=== PATIENT | female | born 1960 | race Two or more races ===

== ENCOUNTER 2018-12-18 07:55 | Emergency (ER) | payer MEDICARE ==
[2018-12-18] MEDS ORDERED: ASPIRIN 81 MG TABLET, CHEWABLE PO ONE (08:09)
--- NOTE | 2018-12-18 08:51 | RADIOLOGY REPORT (SQ) ---
EXAM DESCRIPTION: CHEST SINGLE VIEW COMPLETED DATE/TIME: 12/18/2018 8:37 am REASON FOR STUDY: cp COMPARISON: None. EXAM PARAMETERS: NUMBER OF VIEWS: One view. TECHNIQUE: Single frontal radiographic view of the chest acquired. RADIATION DOSE: NA LIMITATIONS: None. FINDINGS: LUNGS AND PLEURA: No acute infiltrates or effusions. MEDIASTINUM AND HILAR STRUCTURES: No masses. Contour normal. Normal heart size and pulmonary vasculature. Heart normal in size. Normal vasculature. BONES: No acute findings. HARDWARE: Median sternotomy wires in place. OTHER: Chest leads in place. IMPRESSION: NO ACUTE DISEASE. TECHNICAL DOCUMENTATION: JOB ID: [id number] [employer]- All Rights Reserved Reading location - IP/workstation name: [email or web address]
[2018-12-18] MEDS ORDERED: VALACYCLOVIR HCL 500 MG TABLET PO ONE (08:58)
[2018-12-18] MEDS ORDERED: MORPHINE SULFATE 10 MG/ML INJ IV ONE (08:58)
--- NOTE | 2018-12-18 09:05 | ER Document Report ---
ED General - General Chief Complaint: Chest Pain Stated Complaint: CHEST PAIN Time Seen by Provider: 12/18/18 08:44 TRAVEL OUTSIDE OF THE [place] IN LAST 30 DAYS: No - HPI Notes: Patient is a 58-year-old female that presents to the emergency department for chief complaint of left side pain and chest pain. Patient reports pain in her left side and proximal lower extremity for the last week. She states it is a sharp burning numb sensation. She denies any aggravating or relieving factors and states she cannot get a comfortable position. She has taken Aleve at home with no relief, her last dose was at 3 AM. She denies any associated fever, chills, nausea, vomiting, diarrhea and abdominal pain. Patient does states she noticed a rash over the left side that started at the same time as the pain. Patient states when the pain gets very severe she gets a tightness in her chest which she describes as diffuse across the anterior chest without radiation into her neck and arms. She denies any associated diaphoresis or shortness of breath with the chest pain. The chest pain has been intermittent over the last week as well. She does have a history of CABG x4 and states she had a stress test within the last year that was good. She has been compliant with her aspirin and Plavix. Past Medical History: CAD, stroke, hypertension, diabetes, hyperlipidemia Past Surgical History: CABG x4 Social History: Denies drugs alcohol and tobacco Family History: Reviewed and noncontributory for presenting illness Allergies: Reviewed, see documented allergy list. REVIEW OF SYSTEMS: CONSTITUTIONAL : No fever No chills No diaphoresis No recent illness EENT: No vision changes No congestion No sore throat CARDIOVASCULAR: chest pain No palpitations RESPIRATORY: No shortness of breath No cough No difficulty breathing GASTROINTESTINAL: No abdominal pain No nausea No vomiting No diarrhea GENITOURINARY: No dysuria No hematuria No difficulty urinating MUSCULOSKELETAL: No back pain leg pain No arm pain SKIN: rashes No lesions LYMPHATIC: No swollen, enlarged glands. NEUROLOGICAL: No lightheadedness No headache No weakness paresthesias PSYCHIATRIC: No anxiety No depression PHYSICAL EXAMINATION: Vital signs reviewed, nursing noted reviewed. GENERAL: Well-appearing, well-nourished and in no acute distress. HEAD: Atraumatic, normocephalic. EYES: Eyes appear normal, extraocular movements intact, sclera anicteric, conjunctiva are normal. ENT: nares patent, oropharynx clear without exudates. Moist mucous membranes. NECK: Normal range of motion, supple without lymphadenopathy LUNGS: Breath sounds clear to auscultation bilaterally and equal. No wheezes rales or rhonchi. HEART: Regular rate and rhythm without murmurs ABDOMEN: Soft, nontender, normoactive bowel sounds. No rebound, guarding, or rigidity. No masses appreciated. EXTREMITIES: Tenderness to palpation over lateral left proximal thigh and lower abdomen in the distribution of her rash, no bony tenderness, good range of motion, no pitting or edema. NEUROLOGICAL: No focal neurological deficits. Moves all extremities spontaneously Motor and sensory grossly intact on exam. PSYCH: Anxious, normal affect. SKIN: Warm, Dry, normal turgor, vesicular rash to lateral left lower abdomen and proximal left thigh - Related Data Allergies/Adverse Reactions: No Known Allergies Allergy (Verified 12/18/18 08:11) Past Medical History - Social History Smoking Status: Never Smoker Family History: Reviewed & Not Pertinent Physical Exam - Vital signs Vitals: Temp Pulse Resp BP Pulse Ox 98.5 F 100 20 209/108 H 99 12/18/18 07:57 12/18/18 07:57 12/18/18 07:57 12/18/18 07:57 12/18/18 07:57 Course - Re-evaluation Re-evalutation: 12/18/18 09:05 Vitals reviewed. Nursing notes reviewed. Patient is complaining of a tightness in her chest and has a significant history of coronary artery disease. She was placed on telemetry monitoring. EKG shows a tachycardia with no acute ischemic changes. Agents pain over her left proximal thigh and lower abdomen is consistent with shingles. She was given morphine and acyclovir for her shingles. She did receive aspirin for her complaints of chest pain. 12/18/18 10:23 Patient's cardiac work-up is normal. She has a slight elevation of creatinine with no comparison labs. Patient will be given Valtrex and Vernal for treatment of her shingles. And currently not suspicious for underlying ACS given that her chest tightness only occurs when the pain in her hip gets more severe and her presentation is normal. She does have risk factors for ACS and was counseled on return precautions. She will be referred to primary care and told to follow closely for reevaluation. She will return for new or worsening symptoms. She is improved at time of discharge. Laboratory 12/18/18 12/18/18 12/18/18 09:00 09:00 09:00 WBC 9.8 RBC 4.60 Hgb 13.3 Hct 39.5 MCV 86 MCH 28.9 MCHC 33.6 RDW 13.8 Plt Count 265 Seg Neutrophils % 71.5 Lymphocytes % 18.4 Monocytes % 4.8 Eosinophils % 4.4 Basophils % 0.9 Absolute Neutrophils 7.0 Absolute Lymphocytes 1.8 Absolute Monocytes 0.5 Absolute Eosinophils 0.4 Absolute Basophils 0.1 Sodium 140.9 Potassium 3.7 Chloride 109 H Carbon Dioxide 27 Anion Gap 5 BUN 22 H Creatinine 1.33 H Est GFR ( Amer) 50 L Est GFR (Non-Af Amer) 41 L Glucose 129 H Calcium 8.6 Total Bilirubin 0.3 Direct Bilirubin 0.2 Neonat Total Bilirubin Not Reportable Neonat Direct Bilirubin Not Reportable Neonat Indirect Bili Not Reportable AST 20 ALT 35 Alkaline Phosphatase 117 Troponin I < 0.012 Total Protein 5.5 L Albumin 2.8 L Chest X-Ray 12/18/18 08:09 IMPRESSION: NO ACUTE DISEASE. - Vital Signs Vital signs: Temp Pulse Resp BP Pulse Ox 98.5 F 100 17 198/109 H 96 12/18/18 07:57 12/18/18 07:57 12/18/18 10:00 12/18/18 09:02 12/18/18 10:00 - Laboratory Result Diagrams: 12/18/18 09:00 12/18/18 09:00 Laboratory results interpreted by me: 12/18/18 09:00 Chloride 109 H BUN 22 H Creatinine 1.33 H Est GFR ( Amer) 50 L Est GFR (Non-Af Amer) 41 L Glucose 129 H Total Protein 5.5 L Albumin 2.8 L - EKG Interpretation by Me Additional EKG results interpreted by me: 12/18/18 09:06 Interpreted by myself [id number]: Sinus tachycardia, rate 101, normal axis, no ectopy, no STEMI Discharge - Discharge Clinical Impression: Shingles Qualifiers: Herpes zoster complications: without complications Qualified Code(s): B02.9 - Zoster without complications Chest pain Qualifiers: Chest pain type: unspecified Qualified Code(s): R07.9 - Chest pain, unspecified Condition: Stable Disposition: HOME, SELF-CARE Instructions: Chest Pain of Unclear Cause ([facility]), Shingles ([facility]) Additional Instructions: Please return to the emergency department if you have any worsening, or concern of your symptoms. Please return to the emergency department if you develop chest pain, difficulty breathing, severe abdominal pain, or ongoing vomiting. Please follow-up with your primary care physician in 2-3 days and any other recommended physicians. If prescribed, take all medications as directed. If you have any questions or concerns do not hesitate to return the emergency department for evaluation. Prescriptions: Hydrocodone/Acetaminophen [Vernal 5-325 mg Tablet] 1 tab PO Q6 #10 tablet Valacyclovir HCl [Valtrex] 1,000 mg PO Q8 7 Days tablet Forms: Elevated Blood Pressure Referrals: [facility] [Provider Group] - Follow up as needed [facility] [Provider Group] - Follow up in 3-5 days
[2018-12-18 09:17] LABS: ABSOLUTE BASOPHILS # (AUTO) 0.1 10^3/uL (0.0-0.2); ABSOLUTE EOSINOPHILS # (AUTO) 0.4 10^3/uL (0.0-0.6); ABSOLUTE LYMPHOCYTES (AUTO) 1.8 10^3/uL (0.5-4.7); ABSOLUTE MONOCYTES (AUTO) 0.5 10^3/uL (0.1-1.4); BASOPHILS % (AUTO) 0.9 % (0-2); EOSINOPHILS % (AUTO) 4.4 % (0-6); HEMATOCRIT 39.5 % (36.0-47.0); HEMOGLOBIN 13.3 g/dL (12.0-15.5); LYMPHOCYTES % (AUTO) 18.4 % (13-45); MEAN CORPUSCULAR HEMOGLOBIN 28.9 pg (27.0-33.4); MEAN CORPUSCULAR HGB CONC 33.6 g/dL (32.0-36.0); MEAN CORPUSCULAR VOLUME 86 fl (80-97); MONOCYTES % (AUTO) 4.8 % (3-13); PLATELET COUNT 265 10^3/uL (150-450); RED CELL DISTRIBUTION WIDTH 13.8 % (11.5-14.0); SEGMENTED NEUTROPHILS % (AUTO) 71.5 % (42-78); TOTAL CELLS COUNTED % (AUTO) 100 %; WHITE BLOOD COUNT 9.8 10^3/uL (4.0-10.5)
[2018-12-18 09:41] LABS: ALANINE AMINOTRANSFERASE 35 U/L (9-52); ALBUMIN 2.8 g/dL (3.5-5.0); ALKALINE PHOSPHATASE 117 U/L (38-126); ANION GAP 5 (5-19); ASPARTATE AMINO TRANSFERASE 20 U/L (14-36); BILIRUBIN,DIRECT 0.2 mg/dL (0.0-0.4); BILIRUBIN,TOTAL 0.3 mg/dL (0.2-1.3); BLOOD UREA NITROGEN 22 mg/dL (7-20); CALCIUM 8.6 mg/dL (8.4-10.2); CARBON DIOXIDE 27 mmol/L (22-30); CHLORIDE 109 mmol/L (98-107); GLUCOSE 129 mg/dL (75-110); POTASSIUM 3.7 mmol/L (3.6-5.0); SODIUM 140.9 mmol/L (137-145); TOTAL PROTEIN 5.5 g/dL (6.3-8.2)
[2018-12-18 10:47] VITALS: BP 167/84
--- NOTE | 2018-12-18 22:31 | EKG REPORT ---
SEVERITY:- ABNORMAL ECG - SINUS TACHYCARDIA BIATRIAL ABNORMALITIES CONSIDER RIGHT VENTRICULAR HYPERTROPHY ABNORMAL T, CONSIDER ISCHEMIA, LATERAL LEADS : Confirmed by: Leta Steward MD 18-Dec-2018 22:31:25
== END 2018-12-18 10:47 | disposition home or self-care (01) ==
LOC: ER 07:55
DX: B02.9 Zoster without complications (principal); R07.9 Chest pain, unspecified; Z95.1 Presence of aortocoronary bypass graft
CPT/HCPCS: 93005; 99285; 96374; 36415; 85025; 80053; 84484; 71045; 93010; A9270 ×2; J2270

== ENCOUNTER → 2019-03-23 | Outpatient (CLI) | payer MEDICARE ==
--- NOTE | 2019-03-23 16:01 | RADIOLOGY REPORT (SQ) ---
EXAM DESCRIPTION: U/S RETROPERITON (RENAL/AORTA) COMPLETED DATE/TIME: 03/23/2019 3:40 pm REASON FOR STUDY: (N18.3)CHRONIC KIDNEY DISEASE, STAGE 3 (MODERATE) N18.3 CHRONIC KIDNEY DISEASE, S TAGE 3 (MODERATE) COMPARISON: None. TECHNIQUE: Dynamic and static grayscale images acquired of the kidneys and bladder and recorded on P ACS. Additional selected color Doppler and spectral images recorded. LIMITATIONS: None. FINDINGS: RIGHT KIDNEY: Normal size measuring 9.9 cm. No solid or suspicious masses. No hydronephro sis. No calcifications. LEFT KIDNEY: Normal size measuring 9.6 cm. No solid or suspicious masses. Lower pole cyst measurin g 1.6 cm. No hydronephrosis. No calcifications. BLADDER: No masses. OTHER FINDINGS: No other significant finding. IMPRESSION: Unremarkable renal ultrasound. No hydronephrosis. TECHNICAL DOCUMENTATION: JOB ID: [id number] [employer]- All Rights Reserved Reading location - IP/workstation name: [email or web address]
== END ==
LOC: RAD 14:24
PROVIDERS: ATTEND Internal Medicine Nephrology
DX: N18.3 Chronic kidney disease, stage 3 (moderate) (principal)
CPT/HCPCS: 76770

== ENCOUNTER → 2019-04-21 | Outpatient (CLI) | payer MEDICARE ==
[2019-04-21 09:51] LABS: ABSOLUTE EOSINOPHILS # (AUTO) 0.4 10^3/uL (0.0-0.6); ABSOLUTE LYMPHOCYTES (AUTO) 1.9 10^3/uL (0.5-4.7); ABSOLUTE MONOCYTES (AUTO) 0.4 10^3/uL (0.1-1.4); ABSOLUTE NEUT (AUTO) 4.6 10^3/uL (1.7-8.2); BASOPHILS % (AUTO) 0.6 % (0-2); EOSINOPHILS % (AUTO) 4.9 % (0-6); HEMATOCRIT 35.3 % (36.0-47.0); LYMPHOCYTES % (AUTO) 26.2 % (13-45); MEAN CORPUSCULAR HEMOGLOBIN 28.4 pg (27.0-33.4); MEAN CORPUSCULAR HGB CONC 33.9 g/dL (32.0-36.0); MEAN CORPUSCULAR VOLUME 84 fl (80-97); MONOCYTES % (AUTO) 5.9 % (3-13); PLATELET COUNT 239 10^3/uL (150-450); RED BLOOD COUNT 4.22 10^6/uL (3.72-5.28); RED CELL DISTRIBUTION WIDTH 13.6 % (11.5-14.0); SEGMENTED NEUTROPHILS % (AUTO) 62.4 % (42-78); TOTAL CELLS COUNTED % (AUTO) 100 %; WHITE BLOOD COUNT 7.3 10^3/uL (4.0-10.5)
[2019-04-21 09:55] LABS: APPEARANCE,URINE SLIGHTLY-CLOUDY; BILIRUBIN,URINE NEGATIVE (NEGATIVE); COLOR,URINE YELLOW; GLUCOSE, URINE >=500 mg/dL (NEGATIVE); KETONES,URINE NEGATIVE (NEGATIVE); LEUKOCYTE ESTERASE,URINE NEGATIVE (NEGATIVE); NITRITE,URINE NEGATIVE (NEGATIVE); PROTEIN,URINE >=500 mg/dL (NEGATIVE); UROBILINOGEN,URINE NEGATIVE mg/dL (<2.0)
[2019-04-21 10:18] LABS: ALBUMIN 2.8 g/dL (3.5-5.0); ALKALINE PHOSPHATASE 111 U/L (38-126); ASPARTATE AMINO TRANSFERASE 28 U/L (14-36); BILIRUBIN,DIRECT 0.1 mg/dL (0.0-0.4); BILIRUBIN,TOTAL 0.4 mg/dL (0.2-1.3); BLOOD UREA NITROGEN 32 mg/dL (7-20); CALCIUM 8.9 mg/dL (8.4-10.2); CARBON DIOXIDE 26 mmol/L (22-30); CHLORIDE 109 mmol/L (98-107); GLUCOSE 177 mg/dL (75-110); POTASSIUM 4.4 mmol/L (3.6-5.0); TOTAL PROTEIN 5.5 g/dL (6.3-8.2)
[2019-04-21 10:23] LABS: ANION GAP 5 (5-19)
== END ==
LOC: OD 09:07
PROVIDERS: ATTEND Internal Medicine Nephrology
DX: I12.9 Hypertensive chronic kidney disease with stage 1 through stage 4 chronic kidney disease, or unspecified chronic kidney disease (principal); N18.3 Chronic kidney disease, stage 3 (moderate); E11.22 Type 2 diabetes mellitus with diabetic chronic kidney disease
CPT/HCPCS: 36415; 80053; 81001; 85025

== ENCOUNTER 2019-05-13 17:29 | Emergency (ER) | payer MEDICARE ==
[2019-05-13 17:34] VITALS: BP 141/63
[2019-05-13] MEDS ORDERED: ACETAMINOPHEN 325 MG TABLET PO ONE (17:53)
--- NOTE | 2019-05-13 18:02 | ER Document Report ---
HPI - HPI Time Seen by Provider: 05/13/19 17:43 Notes: Patient is a 58-year-old female with a history of coronary disease, hypertension, CKD, insulin-dependent diabetic who presents complaining of right knee pain and left low back pain status post fall at home this morning. Patient states that she has been walking around with a cane since then. Patient states that the pain does not radiate. Patient states that the pain in her back is mild and is here primarily for evaluation of her knee. She is otherwise able to eat and drink without difficulty. She is urinating normally and having normal bowel movements. Denies drug allergies. Patient was walking in the living room and was going to turn around to start walking and when she caught her foot on a slipper and fell on her left side. Patient believes that is when she twisted her right knee. They did bring the home security camera footage to show the fall. Denies any headache, LOC, fever, head injury, neck pain, changes in vision/speech/mentation/hearing, URI, sore throat, chest pain, palpitations, syncope, cough, shortness of breath, wheeze, dyspnea, abdominal pain, nausea/vomiting/diarrhea, urinary retention, dysuria, hematuria, loss of control of bowel or bladder, numbness/tingling, saddle anesthesia, muscle paralysi s/weakness, or rash. - ROS Systems Reviewed and Negative: Yes All other systems reviewed and negative Past Medical History - Social History Smoking Status: Unknown if Ever Smoked Family History: Reviewed & Not Pertinent Renal/ Medical History: Denies: Hx Peritoneal Dialysis Vertical Provider Document - CONSTITUTIONAL Agree With Documented VS: Yes Notes: PHYSICAL EXAMINATION: GENERAL: Well-appearing, well-nourished and in no acute distress. LUNGS: Breath sounds clear to auscultation bilaterally and equal. No wheezes rales or rhonchi. HEART: Regular rate and rhythm without murmurs, rubs, gallops. ABDOMEN: Soft, nontender, nondistended abdomen. No guarding, no rebound. Normal bowel sounds present. No CVA tenderness bilaterally. No pulsatile mass Musculoskeletal: Rt knee: No obvious swelling, ecchymosis, effusion, or deformity. FROM to passive/active and flexion >90 w/o difficulty. Strength 5+/5. N/V intact distal. + tenderness medial knee. No erythema/warmth. Ligamentous grossly stable, limited exam. Tran grossly negative. Patellar grind negative. No calf tenderness. Back: FROM to passive/active. Strength 5+/5. No vertebral point tenderness, stepoffs, or deformities. No other bony tenderness, erythema, swelling, or ecchymosis. SLR negative b/l. + mild tenderness to the Left L-paraspinal mm. Mild spasming. No SI jt tenderness. No foot drop Extremities: Trace pitting edema b/l LE's. Peripheral pulses 2+. Capillary refill less than 2 seconds. NEUROLOGICAL: Normal speech, limping gait. Normal sensory, motor exams. Reflexes 2+ b/l. PSYCH: Normal mood, normal affect. SKIN: Warm, Dry, normal turgor, no rashes or lesions noted. - INFECTION CONTROL TRAVEL OUTSIDE OF THE [place] IN LAST 30 DAYS: No Course - Re-evaluation Re-evalutation: 05/13/19 Patient is an afebrile, well-hydrated, 58-year-old female who presents to the ED with Rt knee pain and low back pain, internal knee involvement. Vitals are acceptable. PE is otherwise unremarkable for any focal neurological deficits, neurovascular compromise, obvious tendon/ligament rupture, obvious fracture/dislocation, septic joint. X-ray of the right knee and pelvis were unremarkable. Patient given Tylenol p.o. She has no significant tachycardia, tachypnea, or hypoxia. She is nontoxic-appearing and is tolerating p.o. without difficulties. There are no signs of infection. No other red flag symptoms noted. No other labs or imaging warranted at this time based on H&P. Patient is able to ambulate more than 4 steps while weightbearing. Low suspicion for any meningitis, fracture, expanding/ruptured AAA, cauda equina syndrome, epidural mass lesion/abscess, herniated disc causing severe spinal stenosis, or other systemic infection at this time. Patient is aware that this condition can change from initial presentation and that she needs monitor symptoms closely for any acute changes. I will send her home with a prescription for naproxen. Conservative measures otherwise for symptoms. Recheck with your PCM in 2-3 days. Consider consult with orthopedic/physical therapy. Return to the ED with any worsening/concerning symptoms otherwise as reviewed discharge. Patient is in agreement. - Vital Signs Vital signs: Temp Pulse Resp BP Pulse Ox 97.9 F 82 20 141/63 H 97 05/13/19 17:34 05/13/19 17:34 05/13/19 17:34 05/13/19 17:34 05/13/19 17:34 Discharge - Discharge Clinical Impression: Right knee pain Qualifiers: Chronicity: acute Qualified Code(s): M25.561 - Pain in right knee Low back pain Qualifiers: Chronicity: acute Back pain laterality: bilateral Sciatica presence: without sciatica Qualified Code(s): M54.5 - Low back pain Condition: Stable Disposition: HOME, SELF-CARE Additional Instructions: Rest, Ice, Compression, Elevation Tylenol/ibuprofen as needed Light stretches daily Strength exercises as able Moist heat and massage may help F/u with your PCP in 3-5 days for a recheck Consider consult(s) with Orthopedics/physical therapy for ongoing/worsening symptoms Return to the ED with any worsening symptoms and/or development of fever, headache, chest pain, palpitations, syncope, shortness of breath, trouble breathing, abdominal pain, n/v/d, muscle weakness/paralysis, numbness/tingling, swelling, redness, or other worsening symptoms that are concerning to you. Prescriptions: Tramadol HCl [Ultram 50 mg Tablet] 50 mg PO TID #10 tab Forms: Elevated Blood Pressure Referrals: Steve PINEDA MD [Primary Care Provider] - Follow up as needed [facility] [Provider Group] - Follow up as needed
--- NOTE | 2019-05-13 19:00 | RADIOLOGY REPORT (SQ) ---
EXAM DESCRIPTION: KNEE RIGHT 4 VIEWS COMPLETED DATE/TIME: 05/13/2019 6:12 pm REASON FOR STUDY: rt knee pain s/p fall COMPARISON: None. NUMBER OF VIEWS: Four views. TECHNIQUE: AP, lateral, and both oblique radiographic images acquired of the right knee. LIMITATIONS: None. FINDINGS: MINERALIZATION: Normal. BONES: No acute fracture or dislocation. No worrisome bone lesions. JOINT: No effusion. SOFT TISSUES: No soft tissue swelling. No radio-opaque foreign body. OTHER: No other significant finding. IMPRESSION: NEGATIVE STUDY OF THE RIGHT KNEE. NO RADIOGRAPHIC EVIDENCE OF ACUTE INJURY. TECHNICAL DOCUMENTATION: JOB ID: [id number] [employer] All Rights Reserved Reading location - IP/workstation name: [email or web address]
--- NOTE | 2019-05-13 19:00 | RADIOLOGY REPORT (SQ) ---
EXAM DESCRIPTION: PELVIS AP COMPLETED DATE/TIME: 05/13/2019 6:12 pm REASON FOR STUDY: pain s/p fall COMPARISON: None. NUMBER OF VIEWS: One view TECHNIQUE: AP Pelvis LIMITATIONS: None. FINDINGS: MINERALIZATION: Normal. HIPS: No acute fracture or dislocation. No worrisome bone lesions. PELVIS AND SACRUM: No acute fracture or dislocation. No worrisome bone lesions. PUBIS AND ISCHIUM: No acute fracture. LOWER LUMBAR SPINE: No significant findings as visualized. SOFT TISSUES: No findings. OTHER: No other significant finding. IMPRESSION: NEGATIVE STUDY OF THE PELVIS. COMMENT: Pelvic fractures are often occult on plain radiographs. If strong clinical suspicion for f racture, recommend CT or MR. TECHNICAL DOCUMENTATION: JOB ID: [id number] [employer]- All Rights Reserved Reading location - IP/workstation name: [email or web address]
== END 2019-05-13 19:30 | disposition home or self-care (01) ==
LOC: ER 17:29
DX: M25.561 Pain in right knee (principal); M54.5 Low back pain; E11.22 Type 2 diabetes mellitus with diabetic chronic kidney disease; I12.9 Hypertensive chronic kidney disease with stage 1 through stage 4 chronic kidney disease, or unspecified chronic kidney disease; N18.9 Chronic kidney disease, unspecified; Z79.4 Long term (current) use of insulin
CPT/HCPCS: 73564; 72170; L1830; A9270

== ENCOUNTER → 2019-06-24 | Outpatient (CLI) | payer MEDICARE ==
[2019-06-24 13:40] LABS: ABSOLUTE BASOPHILS # (AUTO) 0.1 10^3/uL (0.0-0.2); ABSOLUTE EOSINOPHILS # (AUTO) 0.4 10^3/uL (0.0-0.6); ABSOLUTE LYMPHOCYTES (AUTO) 1.8 10^3/uL (0.5-4.7); ABSOLUTE MONOCYTES (AUTO) 0.5 10^3/uL (0.1-1.4); ABSOLUTE NEUT (AUTO) 8.2 10^3/uL (1.7-8.2); BASOPHILS % (AUTO) 0.5 % (0-2); EOSINOPHILS % (AUTO) 3.4 % (0-6); HEMATOCRIT 34.1 % (36.0-47.0); HEMOGLOBIN 11.5 g/dL (12.0-15.5); LYMPHOCYTES % (AUTO) 16.4 % (13-45); MEAN CORPUSCULAR HEMOGLOBIN 28.5 pg (27.0-33.4); MEAN CORPUSCULAR HGB CONC 33.8 g/dL (32.0-36.0); MEAN CORPUSCULAR VOLUME 85 fl (80-97); MONOCYTES % (AUTO) 4.5 % (3-13); PLATELET COUNT 400 10^3/uL (150-450); RED BLOOD COUNT 4.04 10^6/uL (3.72-5.28); RED CELL DISTRIBUTION WIDTH 13.8 % (11.5-14.0); SEGMENTED NEUTROPHILS % (AUTO) 75.2 % (42-78); TOTAL CELLS COUNTED % (AUTO) 100 %; WHITE BLOOD COUNT 10.9 10^3/uL (4.0-10.5)
[2019-06-24 13:50] LABS: APPEARANCE,URINE SLIGHTLY-CLOUDY; BILIRUBIN,URINE NEGATIVE (NEGATIVE); COLOR,URINE YELLOW; GLUCOSE, URINE >=500 mg/dL (NEGATIVE); KETONES,URINE NEGATIVE (NEGATIVE); LEUKOCYTE ESTERASE,URINE NEGATIVE (NEGATIVE); NITRITE,URINE NEGATIVE (NEGATIVE); PROTEIN,URINE >=500 mg/dL (NEGATIVE); URINE SPECIFIC GRAVITY 1.023; UROBILINOGEN,URINE NEGATIVE mg/dL (<2.0)
[2019-06-24 13:55] LABS: ANION GAP 8 (5-19); BLOOD UREA NITROGEN 38 mg/dL (7-20); CALCIUM 9.2 mg/dL (8.4-10.2); CARBON DIOXIDE 23 mmol/L (22-30); CHLORIDE 106 mmol/L (98-107); GLUCOSE 300 mg/dL (75-110); PHOSPHORUS 6.5 mg/dL (2.5-4.5); POTASSIUM 5.1 mmol/L (3.6-5.0)
[2019-06-24 14:12] LABS: URINE CREATININE 79.2 mg/dL (15-278)
[2019-06-24 15:07] LABS: UR PRO/CREAT RATIO RESULT 22.8 mg/mg (0.0-0.2); URINE PROTEIN 1809.1 mg/dL (<12)
== END ==
LOC: OD 12:47
PROVIDERS: ATTEND Internal Medicine Nephrology
DX: N17.9 Acute kidney failure, unspecified (principal); I12.9 Hypertensive chronic kidney disease with stage 1 through stage 4 chronic kidney disease, or unspecified chronic kidney disease; N18.4 Chronic kidney disease, stage 4 (severe); E11.22 Type 2 diabetes mellitus with diabetic chronic kidney disease; I73.9 Peripheral vascular disease, unspecified
CPT/HCPCS: 36415; 80048; 81001; 82306; 82570; 83735; 83970; 84100; 84156; 85025

== ENCOUNTER → 2019-07-07 | Outpatient (CLI) | payer MEDICARE ==
[2019-07-07 12:09] LABS: ABSOLUTE BASOPHILS # (AUTO) 0.1 10^3/uL (0.0-0.2); ABSOLUTE EOSINOPHILS # (AUTO) 0.4 10^3/uL (0.0-0.6); ABSOLUTE LYMPHOCYTES (AUTO) 1.5 10^3/uL (0.5-4.7); ABSOLUTE MONOCYTES (AUTO) 0.4 10^3/uL (0.1-1.4); ABSOLUTE NEUT (AUTO) 7.5 10^3/uL (1.7-8.2); BASOPHILS % (AUTO) 0.8 % (0-2); EOSINOPHILS % (AUTO) 3.7 % (0-6); HEMATOCRIT 32.8 % (36.0-47.0); HEMOGLOBIN 10.9 g/dL (12.0-15.5); MEAN CORPUSCULAR HEMOGLOBIN 27.8 pg (27.0-33.4); MEAN CORPUSCULAR HGB CONC 33.3 g/dL (32.0-36.0); MEAN CORPUSCULAR VOLUME 84 fl (80-97); MONOCYTES % (AUTO) 4.1 % (3-13); PLATELET COUNT 347 10^3/uL (150-450); RED BLOOD COUNT 3.92 10^6/uL (3.72-5.28); RED CELL DISTRIBUTION WIDTH 13.2 % (11.5-14.0); SEGMENTED NEUTROPHILS % (AUTO) 76.4 % (42-78); TOTAL CELLS COUNTED % (AUTO) 100 %; WHITE BLOOD COUNT 9.8 10^3/uL (4.0-10.5)
[2019-07-07 12:22] LABS: APPEARANCE,URINE CLOUDY; BILIRUBIN,URINE NEGATIVE (NEGATIVE); COLOR,URINE YELLOW; GLUCOSE, URINE >=500 mg/dL (NEGATIVE); KETONES,URINE NEGATIVE (NEGATIVE); LEUKOCYTE ESTERASE,URINE NEGATIVE (NEGATIVE); NITRITE,URINE NEGATIVE (NEGATIVE); PROTEIN,URINE >=500 mg/dL (NEGATIVE); URINE SPECIFIC GRAVITY 1.025; UROBILINOGEN,URINE NEGATIVE mg/dL (<2.0)
[2019-07-07 12:35] LABS: ANION GAP 8 (5-19); BLOOD UREA NITROGEN 31 mg/dL (7-20); CALCIUM 8.8 mg/dL (8.4-10.2); CARBON DIOXIDE 23 mmol/L (22-30); CHLORIDE 104 mmol/L (98-107); GLUCOSE 347 mg/dL (75-110); POTASSIUM 4.5 mmol/L (3.6-5.0)
[2019-07-07 12:36] LABS: URINE CREATININE 165.5 mg/dL (15-278)
[2019-07-07 14:10] LABS: UR PRO/CREAT RATIO RESULT 14.3 mg/mg (0.0-0.2)
== END ==
LOC: OD 11:40
PROVIDERS: ATTEND Internal Medicine Nephrology
DX: N18.4 Chronic kidney disease, stage 4 (severe) (principal); I12.9 Hypertensive chronic kidney disease with stage 1 through stage 4 chronic kidney disease, or unspecified chronic kidney disease; E11.9 Type 2 diabetes mellitus without complications; R80.9 Proteinuria, unspecified; N39.0 Urinary tract infection, site not specified
CPT/HCPCS: 36415; 80048; 81001; 82570; 84156; 85025; 87086

== ENCOUNTER 2019-07-19 10:56 | Emergency (ER) | payer MEDICARE ==
--- NOTE | 2019-07-19 12:30 | ER Document Report ---
ED Medical Screen (RME) - General Chief Complaint: Foot Pain Stated Complaint: LEFT FOOT/LEG PAIN, OPEN SORE ON HEEL Time Seen by Provider: 07/19/19 12:26 Primary Care Provider: Steve PINEDA MD [Primary Care Provider] - Follow up as needed Mode of Arrival: Wheelchair Information source: Patient Notes: 58-year-old female presented to ED for severe pain to the left foot for about 2 months. She according to her daughter she was supposed to get vein surgery today but they canceled it due to an emergency at the surgeon's office. She states the pain is getting persistently worse and is not improving. She is a diabetic. She does have a small sore to the heel but there is no inflammation or redness or signs of infection at that site. She states that the foot is getting more more discolored." States she has had bypass surgery and they took a vein from the right leg is the left ankle hurts. She states she has had a stroke in September of this year. Patient states she has been told she had a blockage in both legs worse in the left but they did not call it a clot according to the family. I have greeted and performed a rapid initial assessment of this patient. A comprehensive ED assessment and evaluation of the patient, analysis of test results and completion of medical decision making process will be conducted by an additional ED providers. TRAVEL OUTSIDE OF THE [place] IN LAST 30 DAYS: No - Related Data Allergies/Adverse Reactions: No Known Allergies Allergy (Verified 12/18/18 08:11) Past Medical History Renal/ Medical History: Denies: Hx Peritoneal Dialysis Physical Exam - Vital signs Vitals: Temp Pulse Resp BP Pulse Ox 97.9 F 76 18 121/60 100 07/19/19 11:25 07/19/19 11:25 07/19/19 11:25 07/19/19 11:25 07/19/19 11:25 Course - Vital Signs Vital signs: Temp Pulse Resp BP Pulse Ox 97.9 F 76 18 121/60 100 07/19/19 11:25 07/19/19 11:25 07/19/19 11:25 07/19/19 11:25 07/19/19 11:25 Doctor's Discharge - Discharge Referrals: Steve PINEDA MD [Primary Care Provider] - Follow up as needed
[2019-07-19 13:01] LABS: ABSOLUTE BASOPHILS # (AUTO) 0.1 10^3/uL (0.0-0.2); ABSOLUTE EOSINOPHILS # (AUTO) 0.4 10^3/uL (0.0-0.6); ABSOLUTE LYMPHOCYTES (AUTO) 2.2 10^3/uL (0.5-4.7); ABSOLUTE MONOCYTES (AUTO) 0.5 10^3/uL (0.1-1.4); ABSOLUTE NEUT (AUTO) 8.1 10^3/uL (1.7-8.2); BASOPHILS % (AUTO) 0.8 % (0-2); EOSINOPHILS % (AUTO) 3.6 % (0-6); HEMATOCRIT 34.9 % (36.0-47.0); HEMOGLOBIN 11.4 g/dL (12.0-15.5); LYMPHOCYTES % (AUTO) 19.4 % (13-45); MEAN CORPUSCULAR HEMOGLOBIN 27.4 pg (27.0-33.4); MEAN CORPUSCULAR HGB CONC 32.8 g/dL (32.0-36.0); MEAN CORPUSCULAR VOLUME 83 fl (80-97); MONOCYTES % (AUTO) 4.1 % (3-13); PLATELET COUNT 415 10^3/uL (150-450); RED BLOOD COUNT 4.18 10^6/uL (3.72-5.28); RED CELL DISTRIBUTION WIDTH 13.7 % (11.5-14.0); SEGMENTED NEUTROPHILS % (AUTO) 72.1 % (42-78); TOTAL CELLS COUNTED % (AUTO) 100 %; WHITE BLOOD COUNT 11.2 10^3/uL (4.0-10.5)
[2019-07-19 13:11] LABS: INTERNATIONAL RATION (INR) 1.05; PROTHROMBIN TIME 13.7 SEC (11.4-15.4)
[2019-07-19 13:12] LABS: PARTIAL THROMBOPLASTIN TIME 34.3 SEC (23.5-35.8)
[2019-07-19 13:23] LABS: ALBUMIN 3.1 g/dL (3.5-5.0); ALKALINE PHOSPHATASE 126 U/L (38-126); ANION GAP 8 (5-19); ASPARTATE AMINO TRANSFERASE 17 U/L (14-36); BILIRUBIN,DIRECT 0.1 mg/dL (0.0-0.4); BILIRUBIN,TOTAL 0.4 mg/dL (0.2-1.3); BLOOD UREA NITROGEN 39 mg/dL (7-20); CALCIUM 8.9 mg/dL (8.4-10.2); CARBON DIOXIDE 24 mmol/L (22-30); CHLORIDE 107 mmol/L (98-107); GLUCOSE 202 mg/dL (75-110); POTASSIUM 4.9 mmol/L (3.6-5.0); TOTAL PROTEIN 6.3 g/dL (6.3-8.2)
--- NOTE | 2019-07-19 16:29 | RADIOLOGY REPORT (SQ) ---
EXAM DESCRIPTION: FOOT LEFT COMPLETE COMPLETED DATE/TIME: 07/19/2019 3:30 pm REASON FOR STUDY: pain and swelling COMPARISON: None. NUMBER OF VIEWS: Three views. TECHNIQUE: AP, lateral and oblique radiographic images acquired of the left foot. LIMITATIONS: None. FINDINGS: MINERALIZATION: Decreased. BONES: Cortical irregularity about the proximal 4th phalanx with periosteal reaction about the 4th me tatarsal. No clear displaced fracture. No dislocation. Degenerative changes at scattered interphal angeal joints. JOINTS: No large effusion. No osseous erosion. SOFT TISSUES: Soft tissue swelling about the forefoot. Vascular calcifications. OTHER: No other significant finding. IMPRESSION: Cortical irregularity and periosteal reaction about the 4th metatarsal and proximal phal anx possibly related to subacute traumatic injury. Recommend correlation with patient history. No a cute displaced acute fracture. Soft tissue swelling about the forefoot. TECHNICAL DOCUMENTATION: JOB ID: [id number] [employer]- All Rights Reserved Reading location - IP/workstation name: [email or web address]
--- NOTE | 2019-07-19 17:07 | ER Document Report ---
ED Extremity Problem, Lower - General Chief Complaint: Foot Pain Stated Complaint: LEFT FOOT/LEG PAIN, OPEN SORE ON HEEL Time Seen by Provider: 07/19/19 12:26 Primary Care Provider: Steve PINEDA MD [ACTIVE STAFF] - Follow up as needed Mode of Arrival: Wheelchair Information source: Patient TRAVEL OUTSIDE OF THE [place] IN LAST 30 DAYS: No - HPI Patient complains to provider of: Pain Location: Foot, 4th Toe Occurred: Other Onset/Duration: Gradual Quality of pain: Achy Severity: Severe Context: Other - Patient complains of left lower extremity foot pain for 2 months. Patient reports she is seen several doctors during her work-up, and today she was scheduled to have a a surgery to open up her blood vessel so that she can have increased flow to her left foot. Unfortunately, patient's surgery was canceled due to other emergencies that occurred in the clinic. Patient co mplained of pain worsening in her left foot and now the surgery is not going to occur see as what can I do. And she was advised to come to the emergency room for pain management. Recent injury: No Associated symptoms: Other - Patient has a history of hypertension diabetes mellitus and increased cholesterol, all of which contributes to her peripheral vascular disease. Patient is noting some discoloration at this point in the fourth toe. She also complains of pain in her heel. - Related Data Allergies/Adverse Reactions: No Known Allergies Allergy (Verified 12/18/18 08:11) Past Medical History - General Information source: Patient - Social History Smoking Status: Former Smoker Frequency of alcohol use: None Drug Abuse: None Lives with: Family Family History: Reviewed & Not Pertinent Patient has suicidal ideation: No Patient has homicidal ideation: No - Past Medical History Cardiac Medical History: Reports: Hx Hypertension Endocrine Medical History: Reports: Hx Diabetes Mellitus Type 2 Renal/ Medical History: Denies: Hx Peritoneal Dialysis Review of Systems - Review of Systems Constitutional: No symptoms reported EENT: No symptoms reported Cardiovascular: No symptoms reported Respiratory: No symptoms reported Gastrointestinal: No symptoms reported Genitourinary: No symptoms reported Female Genitourinary: No symptoms reported Musculoskeletal: Other - Left foot pain in heel and in dorsal of the midfoot and fourth toe. Hematologic/Lymphatic: No symptoms reported Neurological/Psychological: No symptoms reported Physical Exam - Vital signs Vitals: Temp Pulse Resp BP Pulse Ox 97.9 F 76 18 121/60 100 07/19/19 11:25 07/19/19 11:25 07/19/19 11:25 07/19/19 11:25 07/19/19 11:25 - General In distress: Moderate - Psychological Associated symptoms: Normal mood - Skin Skin Temperature: Warm Skin Moisture: Dry Skin Color: Normal Course - Vital Signs Vital signs: Temp Pulse Resp BP Pulse Ox 97.9 F 73 18 142/56 H 98 07/19/19 15:06 07/19/19 15:06 07/19/19 15:06 07/19/19 15:06 07/19/19 15:06 - Laboratory Result Diagrams: 07/19/19 12:41 07/19/19 12:41 Laboratory results interpreted by me: 07/19/19 07/19/19 12:41 12:41 WBC 11.2 H Hgb 11.4 L Hct 34.9 L BUN 39 H Creatinine 2.31 H Est GFR ( Amer) 26 L Est GFR (MDRD) Non-Af 22 L Glucose 202 H Albumin 3.1 L - Diagnostic Test Radiology reviewed: Reports reviewed - Cortical irregularity noted on plain view of left foot. It was the fourth metatarsal and the proximal fourth proximal ph alanx that shows cortical irregularity consistent with questionable osteomyelitis. Also patient was found to have arterial artery disease in her left lower extremity with diminished flow to her foot. Of course surgery is recommended for this and patient underwent a preparation today for surgery and the schedule surgery was prevented due to outstanding emergencies with other patients. At this point plan is to have patient on some pain medications and antibiotics and to follow-up with the vascular surgeons to reschedule her surgery. Discharge - Discharge Clinical Impression: Peripheral arterial occlusive disease, Foot pain, left, Osteomyelitis due to type 2 diabetes mellitus, Chronic renal failure Condition: Fair Disposition: HOME, SELF-CARE Prescriptions: Amox Tr/Potassium Clavulanate [Augmentin 875-125 Tablet] 1 tab PO BID 10 Days #14 tablet Oxycodone HCl/Acetaminophen [Percocet 5-325 mg Tablet] 1 tab PO Q4H PRN #20 tablet PRN Reason: For Pain Scale 4-5 Referrals: Steve PINEDA MD [ACTIVE STAFF] - Follow up as needed
[2019-07-19] MEDS ORDERED: OXYCODONE-ACETAMINOPHEN 5-325 MG TABLET PO ONE (17:28)
[2019-07-19] MEDS ORDERED: AMOXICILLIN TR/POT CLAVULANATE 500-125 MG TAB PO ONE (17:28)
[2019-07-19 18:18] VITALS: BP 111/62
--- NOTE | 2019-07-19 19:08 | XCELERA REPORT ---
[address] [address] Lower Extremity Venous Evaluation Procedure: Color flow and duplex imaging of the veins of the left lower extremity. Left Sided Venous Evaluation Normal vessel filling wall to wall, compression and augmentation as well as Colour flow down to the infrageniculate veins. Incidental finding of poor flow in the arteries. Critical Findings Discussed with TERE Gunn. Interpretation Summary Normal compression, patency, spontaneous and phasic flow of the left lower extremity veins. Name: ROBERTO HIGGINS Age: 58 yrs Gender: Female : 1960 Patient Status: Preadmit Patient Location: ER Study Date: 07/19/2019 02:44 PM Reason For Study: Left lower extremity pain and swelling Ordering Physician: LIBERTAD TADEO Performed By: Tj Jennings : LIBERTAD TADEO > Jarred Olosn
--- NOTE | 2019-07-19 19:14 | XCELERA REPORT ---
[address] [address] Lower Extremity Arterial Evaluation Name: ROBERTO HIGGINS Age: 58 yrs Gender: Female : 1960 Patient Status: Emergency Patient Location: ER Study Date: 07/19/2019 04:28 PM Procedure: A color flow and duplex scan of the lower extremity arteries was performed on the left with velocity and waveform anaylsis. Reason For Study: LLE PAIN/DISCOLORATION, KNOWN BLOCKAGES PER PT Ordering Physician: LIBERTAD TADEO Performed By: Tj Jennings Measurements and Calculations Right Left MIDWIFE PRACTITIONER PSV 146.1 cm/sec Prox PFA PSV -105.9cm/sec Prox SFA PSV 78.6 cm/sec Mid SFA PSV -77.0 cm/sec Dist SFA PSV -20.8 cm/sec Prox Pop A PSV 9.2 cm/sec Dist Pop A PSV -14.5 cm/sec Dist BA PSV -18.3 cm/sec Prox Rojelio A 11.8 cm/sec PSV Angel Pedis PSV -27.5 6.3 cm/sec Right Side Arterial Evaluation Spot check shows monophasic flow, low velocity in the Dorsalis Pedis. Left Side Arterial Evaluation Normal velocity and triphasic waveforms noted in the Common Femoral artery. Monophasic with very low velocity, moderate spectral broadening, from the Popliteal to Anterior Tibial. No flow in the Posterior tibial Peroneal arteries. Ankle Brachial index not done. Critical Findings Discussed with TERE Gunn. Interpretation Summary Duplex findings of extremely poor flow to the left lower extremity, compatible with presentation with pain. with tissue threat. : LIBERTAD TADEO > Jarred Olson
== END 2019-07-19 18:17 | disposition home or self-care (01) ==
LOC: ER 10:56
DX: E11.69 Type 2 diabetes mellitus with other specified complication (principal); M86.9 Osteomyelitis, unspecified; E11.51 Type 2 diabetes mellitus with diabetic peripheral angiopathy without gangrene; I77.9 Disorder of arteries and arterioles, unspecified; M79.672 Pain in left foot; I10 Essential (primary) hypertension
CPT/HCPCS: 99284; 36415; 85025; 85610; 85730; 80053; 93971 ×2; 93926 ×2; 73630; A9270 ×2

== ENCOUNTER → 2019-09-30 | Outpatient (CLI) | payer MEDICARE ==
[2019-09-30 16:08] LABS: ABSOLUTE BASOPHILS # (AUTO) 0.1 10^3/uL (0.0-0.2); ABSOLUTE EOSINOPHILS # (AUTO) 0.2 10^3/uL (0.0-0.6); ABSOLUTE LYMPHOCYTES (AUTO) 1.3 10^3/uL (0.5-4.7); ABSOLUTE MONOCYTES (AUTO) 0.3 10^3/uL (0.1-1.4); ABSOLUTE NEUT (AUTO) 6.8 10^3/uL (1.7-8.2); BASOPHILS % (AUTO) 0.6 % (0-2); EOSINOPHILS % (AUTO) 2.6 % (0-6); HEMATOCRIT 33.5 % (36.0-47.0); LYMPHOCYTES % (AUTO) 14.5 % (13-45); MEAN CORPUSCULAR HEMOGLOBIN 27.7 pg (27.0-33.4); MEAN CORPUSCULAR HGB CONC 32.8 g/dL (32.0-36.0); MEAN CORPUSCULAR VOLUME 85 fl (80-97); MONOCYTES % (AUTO) 3.9 % (3-13); PLATELET COUNT 319 10^3/uL (150-450); RED BLOOD COUNT 3.96 10^6/uL (3.72-5.28); RED CELL DISTRIBUTION WIDTH 15.7 % (11.5-14.0); SEGMENTED NEUTROPHILS % (AUTO) 78.4 % (42-78); TOTAL CELLS COUNTED % (AUTO) 100 %; WHITE BLOOD COUNT 8.7 10^3/uL (4.0-10.5)
--- NOTE | 2019-09-30 16:13 | RADIOLOGY REPORT (SQ) ---
EXAM DESCRIPTION: OS CALCIS/HEEL LEFT COMPLETED DATE/TIME: 09/30/2019 3:31 pm REASON FOR STUDY: NON-PRS CHR ULCER OF LEFT HEEL AND MIDFOOT W FAT LAYER EXPOS L97.422 NON-PRS CHR ULCER OF LEFT HEEL AND MIDFOOT W FAT LAY E11.621 TYPE 2 DIABETES MELLITUS WITH FOOT ULCER COMPARISON: None. NUMBER OF VIEWS: Two views. TECHNIQUE: Plantar and oblique radiographic images acquired of the left calcaneous. LIMITATIONS: None. FINDINGS: MINERALIZATION: Normal. BONES: No acute fracture or dislocation. No worrisome bone lesions. JOINTS: No effusions. SOFT TISSUES: No soft tissue swelling. No foreign body. OTHER: No other significant finding. IMPRESSION: No evidence of osteomyelitis. TECHNICAL DOCUMENTATION: JOB ID: [id number] 2010 [employer]- All Rights Reserved Reading location - IP/workstation name: [email or web address]
[2019-09-30 16:30] LABS: ALBUMIN 2.7 g/dL (3.5-5.0); ALKALINE PHOSPHATASE 188 U/L (38-126); ASPARTATE AMINO TRANSFERASE 28 U/L (14-36); BILIRUBIN,DIRECT 0.1 mg/dL (0.0-0.4); BILIRUBIN,TOTAL 0.4 mg/dL (0.2-1.3); BLOOD UREA NITROGEN 39 mg/dL (7-20); CALCIUM 8.6 mg/dL (8.4-10.2); GLUCOSE 224 mg/dL (75-110); POTASSIUM 5.3 mmol/L (3.6-5.0); TOTAL PROTEIN 5.5 g/dL (6.3-8.2)
[2019-09-30 16:33] LABS: ANION GAP 6 (5-19); CARBON DIOXIDE 23 mmol/L (22-30); CHLORIDE 109 mmol/L (98-107)
[2019-09-30 16:54] LABS: ERYTHROCYTE SEDIMENTATION RATE 89 mm/hr (0-30)
== END ==
LOC: WC 14:55
PROVIDERS: ATTEND Preventive Medicine Undersea and Hyperbaric Medicine
DX: E11.621 Type 2 diabetes mellitus with foot ulcer (principal); L97.422 Non-pressure chronic ulcer of left heel and midfoot with fat layer exposed
CPT/HCPCS: 36415; 80053; 83036; 85025; 85652; 86140

== ENCOUNTER → 2019-11-26 | Outpatient (CLI) | payer MEDICARE ==
[2019-11-26 14:38] LABS: ANION GAP 7 (5-19); BLOOD UREA NITROGEN 75 mg/dL (7-20); CALCIUM 8.4 mg/dL (8.4-10.2); CARBON DIOXIDE 16 mmol/L (22-30); CHLORIDE 114 mmol/L (98-107); POTASSIUM 5.7 mmol/L (3.6-5.0)
[2019-11-26 14:47] LABS: GLUCOSE 59 mg/dL (75-110)
== END ==
LOC: OD 13:12
PROVIDERS: ATTEND Internal Medicine Nephrology
DX: N18.4 Chronic kidney disease, stage 4 (severe) (principal)
CPT/HCPCS: 36415; 80048

== ENCOUNTER → 2019-12-27 | Outpatient (CLI) | payer MEDICARE ==
[2019-12-27 11:32] LABS: ABSOLUTE BASOPHILS # (AUTO) 0.1 10^3/uL (0.0-0.2); ABSOLUTE EOSINOPHILS # (AUTO) 0.3 10^3/uL (0.0-0.6); ABSOLUTE LYMPHOCYTES (AUTO) 1.4 10^3/uL (0.5-4.7); ABSOLUTE MONOCYTES (AUTO) 0.5 10^3/uL (0.1-1.4); ABSOLUTE NEUT (AUTO) 6.2 10^3/uL (1.7-8.2); BASOPHILS % (AUTO) 0.7 % (0-2); EOSINOPHILS % (AUTO) 3.6 % (0-6); HEMATOCRIT 32.3 % (36.0-47.0); HEMOGLOBIN 10.7 g/dL (12.0-15.5); LYMPHOCYTES % (AUTO) 16.5 % (13-45); MEAN CORPUSCULAR HGB CONC 33.3 g/dL (32.0-36.0); MEAN CORPUSCULAR VOLUME 84 fl (80-97); MONOCYTES % (AUTO) 5.5 % (3-13); PLATELET COUNT 296 10^3/uL (150-450); RED BLOOD COUNT 3.84 10^6/uL (3.72-5.28); RED CELL DISTRIBUTION WIDTH 15.3 % (11.5-14.0); SEGMENTED NEUTROPHILS % (AUTO) 73.7 % (42-78); TOTAL CELLS COUNTED % (AUTO) 100 %; WHITE BLOOD COUNT 8.4 10^3/uL (4.0-10.5)
[2019-12-27 11:58] LABS: ALBUMIN 2.6 g/dL (3.5-5.0); ALKALINE PHOSPHATASE 87 U/L (38-126); ASPARTATE AMINO TRANSFERASE 26 U/L (14-36); BILIRUBIN,TOTAL 0.2 mg/dL (0.2-1.3); BLOOD UREA NITROGEN 57 mg/dL (7-20); CALCIUM 8.5 mg/dL (8.4-10.2); GLUCOSE 250 mg/dL (75-110); POTASSIUM 4.9 mmol/L (3.6-5.0); TOTAL PROTEIN 5.5 g/dL (6.3-8.2)
--- NOTE | 2019-12-27 12:00 | RADIOLOGY REPORT (SQ) ---
EXAM DESCRIPTION: OS CALCIS/HEEL LEFT IMAGES COMPLETED DATE/TIME: 12/27/2019 11:14 am REASON FOR STUDY: E11.621 TYPE 2 DIABETES MELLITUS WITH FOOT ULCER L97.422 NON-PRS CHR ULCER OF LEF T HEEL AND MIDFOOT W FAT LAY E11.621 TYPE 2 DIABETES MELLITUS WITH FOOT ULCER COMPARISON: 09/30/2019 NUMBER OF VIEWS: Two views. TECHNIQUE: Plantar and oblique radiographic images acquired of the left calcaneous. LIMITATIONS: None. FINDINGS: MINERALIZATION: Normal. BONES: No acute fracture or dislocation. No worrisome bone lesions. No conventional radiographic ev idence of osteomyelitis. JOINTS: No effusions. SOFT TISSUES: No soft tissue swelling. No foreign body. OTHER: No other significant finding. IMPRESSION: No conventional radiographic evidence of osteomyelitis. TECHNICAL DOCUMENTATION: JOB ID: [id number] 2010 [employer]- All Rights Reserved Reading location - IP/workstation name: [email or web address]
[2019-12-27 12:01] LABS: ANION GAP 5 (5-19); CARBON DIOXIDE 26 mmol/L (22-30); CHLORIDE 103 mmol/L (98-107)
[2019-12-27 12:12] LABS: ERYTHROCYTE SEDIMENTATION RATE 97 mm/hr (0-30)
== END ==
LOC: WC 10:45
PROVIDERS: ATTEND Preventive Medicine Undersea and Hyperbaric Medicine
DX: E11.621 Type 2 diabetes mellitus with foot ulcer (principal); L97.422 Non-pressure chronic ulcer of left heel and midfoot with fat layer exposed
CPT/HCPCS: 36415; 80053; 83036; 85025; 85652; 86140

== ENCOUNTER 2020-01-21 08:57 | Day surgery (SDC) | payer MEDICARE ==
[~2020-01-21 08:57] MED LIST: CHONDR SU A NA/HYALUR INTRAOC KIT (SURGICARE) ONE; DORZOLAMIDE HCL 2%/TIMOLOL MALEAT 0.5% OPH SOLN 10 ML OD PRN; EPINEPHRINE INJ/PF 1 MG/1 ML AMPULE ONE; FENTANYL CITRATE INJ/PF 100 MCG/2 ML AMPUL ONE; KETOROLAC TROMETHAMINE 0.45% 4 DROP/0.4 ML DROPERETTE OD PRN; LIDOCAINE 1%/PHENYLEPHRINE 1.5% 1 ML VIAL ONE; MIDAZOLAM 2 MG/2 ML INJ ONE; ONDANSETRON HCL INJ/PF 4 MG/2 ML SDV ONE
[2020-01-21] MEDS: CYCLOPENTOLATE 0.2%/PHENYLEPHRINE 1% OPH SOLN 2 ML OD PRN ×3 (09:35→09:55)
[2020-01-21] MEDS: TROPICAMIDE 1% OPH SOLN 15 ML OD PRN ×3 (09:35→09:55)
[2020-01-21] MEDS: TETRACAINE HCL 0.5% OPH SOLN 4 ML OD PRN ×3 (09:36→10:06)
[2020-01-21] MEDS: BESIFLOXACIN HCL 0.6% OPH SUSP 5 ML BOTTLE OD PRN ×3 (09:36→10:21)
--- NOTE | 2020-01-21 10:37 | Operative Report ---
Operative Report-[facility] Operative Report: DATE OF SURGERY: January 21, 2020 PREOPERATIVE DIAGNOSIS: NUCLEAR CATARACT, RIGHT EYE. POSTOPERATIVE DIAGNOSIS: NUCLEAR CATARACT, RIGHT EYE. PROCEDURE PERFORMED: PHACOEMULSIFICATION WITH POSTERIOR CHAMBER INTRAOCULAR LENS IMPLANT, RIGHT EYE. SURGEON: Fuad Cole DO MEDICATIONS AND ANESTHESIA: Versed: IV Versed Tetracaine drops: 1 to 2 drops given as needed COMPLICATION: None INDICATIONS FOR SURGERY: Medical necessity: Best corrected visual acuity worse than 20/40 secondary to cataracts with impairment of ability to carry out needs or desired activities, blurred vision, visual distortion, reduced contrast sensitivity and/or glare with association functional impairment and supporting documentation/testing, and cataracts causing symptomatic impairment of visual functions not corrected with tolerable changes in glasses or contact lenses interfering with activities of daily life. PROCEDURE: Consent: The risks, benefits and alternatives of this procedures was discussed with the patient. The patient read and signed the consent forms, was identified and was seated in the exam chair. IOL: MX 60 E 22.0 IOL Diopters: Phacoemulsification with posterior chamber intraocular lens implant: The face was prepped with 5% povidone iodine solution, and a few drops of 5% povidone iodine solution was instilled into the inferior fornix. A non-fenestrated drape was placed over the eye and the lids were parted with the speculum. A paracentesis was made with a 15 degree blade, and 1% lidocaine MPF followed by viscoelastic was injected into the anterior chamber. A 2.4 mm metal micro- keratome was used to create a temporal clear corneal incision. A circular anterior capsulorrhexis was created, followed by hydro-dissection and hydro- delineation. The phacoemulsification hand piece was inserted and the nucleus was removed with the Phaco chop technique. The irrigation-aspiration hand piece was used to remove the residual cortex, and vacuum the posterior capsule. The capsular bag was inflated and viscoelastic and the above-mentioned IOL was injected into the eye with care to insert both leaning and trailing haptics in the capsular bag. The irrigation/aspiration hand piece was reinserted to remove residual viscoelastic from the capsular bag and anterior chamber. The corneal incision was hydrated, and anterior chamber was inflated with sterile BSS via the paracentesis site, and found to be watertight. Postop medication: 1 drop of prednisolone into operative by followed by 1 drop of Cosopt into operative eye followed by 1 drop of Besivance intraoperative by other:
== END 2020-01-21 10:53 | disposition home or self-care (01) ==
LOC: SC 08:57
PROVIDERS: ATTEND Ophthalmology
DX: H25.11 Age-related nuclear cataract, right eye (principal); J45.909 Unspecified asthma, uncomplicated; I25.10 Atherosclerotic heart disease of native coronary artery without angina pectoris; E78.00 Pure hypercholesterolemia, unspecified; I13.0 Hypertensive heart and chronic kidney disease with heart failure and stage 1 through stage 4 chronic kidney disease, or unspecified chronic kidney disease; I50.9 Heart failure, unspecified; N18.4 Chronic kidney disease, stage 4 (severe); E11.22 Type 2 diabetes mellitus with diabetic chronic kidney disease; G47.30 Sleep apnea, unspecified; Z86.73 Personal history of transient ischemic attack (TIA), and cerebral infarction without residual deficits; Z79.84 Long term (current) use of oral hypoglycemic drugs; Z79.899 Other long term (current) drug therapy; Z79.4 Long term (current) use of insulin; Z87.891 Personal history of nicotine dependence
CPT/HCPCS: 66984; 82962; V2632; J3490 ×2; A9270; J0171; J2250; J2405; J3010

== ENCOUNTER 2020-02-04 06:56 | Day surgery (SDC) | payer MEDICARE ==
[~2020-02-04 06:56] MED LIST changes: -CHONDR SU A NA/HYALUR INTRAOC KIT (SURGICARE) ONE; -DORZOLAMIDE HCL 2%/TIMOLOL MALEAT 0.5% OPH SOLN 10 ML OD PRN; -EPINEPHRINE INJ/PF 1 MG/1 ML AMPULE ONE; -FENTANYL CITRATE INJ/PF 100 MCG/2 ML AMPUL ONE; -KETOROLAC TROMETHAMINE 0.45% 4 DROP/0.4 ML DROPERETTE OD PRN; +KETOROLAC TROMETHAMINE 0.45% 4 DROP/0.4 ML DROPERETTE OS PRN; -LIDOCAINE 1%/PHENYLEPHRINE 1.5% 1 ML VIAL ONE; -MIDAZOLAM 2 MG/2 ML INJ ONE; -ONDANSETRON HCL INJ/PF 4 MG/2 ML SDV ONE
[2020-02-04] MEDS ORDERED: MIDAZOLAM 2 MG/2 ML INJ ONE (07:10)
[2020-02-04] MEDS ORDERED: FENTANYL CITRATE INJ/PF 100 MCG/2 ML AMPUL ONE (07:10)
[2020-02-04] MEDS ORDERED: ONDANSETRON HCL INJ/PF 4 MG/2 ML SDV ONE (07:10)
[2020-02-04] MEDS ORDERED: LIDOCAINE 1%/PHENYLEPHRINE 1.5% 1 ML VIAL ONE (07:11)
[2020-02-04] MEDS ORDERED: EPINEPHRINE INJ/PF 1 MG/1 ML AMPULE ONE (07:11)
[2020-02-04] MEDS ORDERED: CHONDR SU A NA/HYALUR INTRAOC KIT (SURGICARE) ONE (07:13)
[2020-02-04] MEDS: TETRACAINE HCL 0.5% OPH SOLN 4 ML OS PRN ×3 (07:39→08:14)
[2020-02-04] MEDS: BESIFLOXACIN HCL 0.6% OPH SUSP 5 ML BOTTLE OS PRN ×4 (07:39→08:31)
[2020-02-04] MEDS: CYCLOPENTOLATE 0.2%/PHENYLEPHRINE 1% OPH SOLN 2 ML OS PRN ×3 (07:39→08:08)
[2020-02-04] MEDS: TROPICAMIDE 1% OPH SOLN 15 ML OS PRN ×3 (07:39→08:08)
[2020-02-04] MEDS: DORZOLAMIDE HCL 2%/TIMOLOL MALEAT 0.5% OPH SOLN 10 ML OS PRN ×2 (08:31)
[2020-02-04] MEDS ORDERED: HYALURONATE SODIUM SYRINGE 0.55 ML ONE (08:36)
--- NOTE | 2020-02-04 10:16 | Operative Report ---
Operative Report-[facility] Operative Report: DATE OF SURGERY: February 04, 2020 PREOPERATIVE DIAGNOSIS: NUCLEAR CATARACT, LEFT EYE. POSTOPERATIVE DIAGNOSIS: NUCLEAR CATARACT, LEFT EYE. PROCEDURE PERFORMED: PHACOEMULSIFICATION WITH POSTERIOR CHAMBER INTRAOCULAR LENS IMPLANT, LEFT EYE. SURGEON: Fuad Cole DO MEDICATIONS AND ANESTHESIA: Versed: IV Versed Tetracaine drops: 1 to 2 drops given as needed COMPLICATION: None INDICATIONS FOR SURGERY: Medical necessity: Best corrected visual acuity worse than 20/40 secondary to cataracts with impairment of ability to carry out needs or desired activities, blurred vision, visual distortion, reduced contrast sensitivity and/or glare with association functional impairment and supporting documentation/testing, and cataracts causing symptomatic impairment of visual functions not corrected with tolerable changes in glasses or contact lenses interfering with activities of daily life. PROCEDURE: Consent: The risks, benefits and alternatives of this procedures was discussed with the patient. The patient read and signed the consent forms, was identified and was seated in the exam chair. IOL: MX 60 E 22.0 IOL Diopters: Phacoemulsification with posterior chamber intraocular lens implant: The face was prepped with 5% povidone iodine solution, and a few drops of 5% povidone iodine solution was instilled into the inferior fornix. A non-fenestrated drape was placed over the eye and the lids were parted with the speculum. A paracentesis was made with a 15 degree blade, and 1% lidocaine MPF followed by viscoelastic was injected into the anterior chamber. A 2.4 mm metal micro- keratome was used to create a temporal clear corneal incision. A circular anterior capsulorrhexis was created, followed by hydro-dissection and hydro- delineation. The phacoemulsification hand piece was inserted and the nucleus was removed with the Phaco chop technique. The irrigation-aspiration hand piece was used to remove the residual cortex, and vacuum the posterior capsule. The capsular bag was inflated and viscoelastic and the above-mentioned IOL was injected into the eye with care to insert both leaning and trailing haptics in the capsular bag. The irrigation/aspiration hand piece was reinserted to remove residual viscoelastic from the capsular bag and anterior chamber. The corneal incision was hydrated, and anterior chamber was inflated with sterile BSS via the paracentesis site, and found to be watertight. Postop medication:1 drop of prednisolone into operative by followed by 1 drop of Cosopt into operative eye followed by 1 drop of Besivance intraoperative by Other:
== END 2020-02-04 09:03 | disposition home or self-care (01) ==
LOC: SC 06:56
PROVIDERS: ATTEND Ophthalmology
DX: H25.12 Age-related nuclear cataract, left eye (principal); Z98.41 Cataract extraction status, right eye; I10 Essential (primary) hypertension; G47.33 Obstructive sleep apnea (adult) (pediatric); E11.22 Type 2 diabetes mellitus with diabetic chronic kidney disease; N18.4 Chronic kidney disease, stage 4 (severe); I25.10 Atherosclerotic heart disease of native coronary artery without angina pectoris; Z86.73 Personal history of transient ischemic attack (TIA), and cerebral infarction without residual deficits; Z79.84 Long term (current) use of oral hypoglycemic drugs; Z79.899 Other long term (current) drug therapy; Z79.4 Long term (current) use of insulin; Z87.891 Personal history of nicotine dependence
CPT/HCPCS: 66984; 82962; V2632; J2250; J3490 ×3; A9270; J0171; J3010; J2405; 142

== ENCOUNTER → 2020-04-05 | Outpatient (CLI) | payer MEDICARE ==
[2020-04-05 08:44] LABS: ABSOLUTE BASOPHILS # (AUTO) 0.1 10^3/uL (0.0-0.2); ABSOLUTE EOSINOPHILS # (AUTO) 0.4 10^3/uL (0.0-0.6); ABSOLUTE LYMPHOCYTES (AUTO) 1.4 10^3/uL (0.5-4.7); ABSOLUTE MONOCYTES (AUTO) 0.4 10^3/uL (0.1-1.4); BASOPHILS % (AUTO) 0.8 % (0-2); EOSINOPHILS % (AUTO) 4.2 % (0-6); HEMATOCRIT 29.5 % (36.0-47.0); HEMOGLOBIN 9.6 g/dL (12.0-15.5); LYMPHOCYTES % (AUTO) 14.8 % (13-45); MEAN CORPUSCULAR HEMOGLOBIN 28.6 pg (27.0-33.4); MEAN CORPUSCULAR HGB CONC 32.5 g/dL (32.0-36.0); MEAN CORPUSCULAR VOLUME 88 fl (80-97); MONOCYTES % (AUTO) 4.2 % (3-13); PLATELET COUNT 430 10^3/uL (150-450); RED BLOOD COUNT 3.36 10^6/uL (3.72-5.28); RED CELL DISTRIBUTION WIDTH 16.5 % (11.5-14.0); TOTAL CELLS COUNTED % (AUTO) 100 %; WHITE BLOOD COUNT 9.2 10^3/uL (4.0-10.5)
[2020-04-05 08:59] LABS: APPEARANCE,URINE SLIGHTLY-CLOUDY; BILIRUBIN,URINE NEGATIVE (NEGATIVE); COLOR,URINE YELLOW; GLUCOSE, URINE 150 mg/dL (NEGATIVE); KETONES,URINE NEGATIVE (NEGATIVE); LEUKOCYTE ESTERASE,URINE NEGATIVE (NEGATIVE); NITRITE,URINE NEGATIVE (NEGATIVE); PROTEIN,URINE >=500 mg/dL (NEGATIVE); URINE SPECIFIC GRAVITY 1.014; UROBILINOGEN,URINE NEGATIVE mg/dL (<2.0)
[2020-04-05 09:16] LABS: ANION GAP 7 (5-19); BLOOD UREA NITROGEN 55 mg/dL (7-20); CALCIUM 8.3 mg/dL (8.4-10.2); CARBON DIOXIDE 20 mmol/L (22-30); CHLORIDE 112 mmol/L (98-107); GLUCOSE 82 mg/dL (75-110); PHOSPHORUS 7.6 mg/dL (2.5-4.5); POTASSIUM 4.7 mmol/L (3.6-5.0)
== END ==
LOC: OD 08:19
PROVIDERS: ATTEND Internal Medicine Nephrology
DX: I13.0 Hypertensive heart and chronic kidney disease with heart failure and stage 1 through stage 4 chronic kidney disease, or unspecified chronic kidney disease (principal); I50.9 Heart failure, unspecified; N18.4 Chronic kidney disease, stage 4 (severe); E11.22 Type 2 diabetes mellitus with diabetic chronic kidney disease; E87.5 Hyperkalemia; E87.2 Acidosis
CPT/HCPCS: 36415; 80048; 81001; 83735; 83970; 84100; 85025

== ENCOUNTER 2020-04-17 13:11 | Inpatient (IN) | payer MEDICARE ==
--- NOTE | 2020-04-17 13:59 | RADIOLOGY REPORT (SQ) ---
EXAM DESCRIPTION: CHEST SINGLE VIEW IMAGES COMPLETED DATE/TIME: 04/17/2020 1:44 pm REASON FOR STUDY: cough/shortness of breath COMPARISON: 03/13/2020 EXAM PARAMETERS: NUMBER OF VIEWS: One view. TECHNIQUE: Single frontal radiographic view of the chest acquired. RADIATION DOSE: NA LIMITATIONS: None. FINDINGS: LUNGS AND PLEURA: Small right pleural effusion. Larger left pleural effusion. Lower lobe opacification bilaterally. MEDIASTINUM AND HILAR STRUCTURES: No masses. Contour normal. HEART AND VASCULAR STRUCTURES: Heart size is borderline. No jessica pulmonary edema. BONES: No acute findings. HARDWARE: None in the chest. OTHER: No other significant finding. IMPRESSION: Borderline cardiomegaly without pulmonary edema. Bilateral pleural effusions, left grea ter than right. Airspace disease in the lower lobes, atelectasis versus pneumonia. TECHNICAL DOCUMENTATION: JOB ID: [id number] 2010 [email or web address]- All Rights Reserved Reading location - IP/workstation name: [email or web address]
[2020-04-17 15:49] LABS: ABSOLUTE BASOPHILS # (AUTO) 0.1 10^3/uL (0.0-0.2); ABSOLUTE EOSINOPHILS # (AUTO) 0.4 10^3/uL (0.0-0.6); ABSOLUTE LYMPHOCYTES (AUTO) 1.4 10^3/uL (0.5-4.7); ABSOLUTE MONOCYTES (AUTO) 0.4 10^3/uL (0.1-1.4); BASOPHILS % (AUTO) 0.7 % (0-2); EOSINOPHILS % (AUTO) 3.7 % (0-6); HEMATOCRIT 30.2 % (36.0-47.0); HEMOGLOBIN 9.9 g/dL (12.0-15.5); LYMPHOCYTES % (AUTO) 13.3 % (13-45); MEAN CORPUSCULAR HEMOGLOBIN 28.8 pg (27.0-33.4); MEAN CORPUSCULAR HGB CONC 32.8 g/dL (32.0-36.0); MEAN CORPUSCULAR VOLUME 88 fl (80-97); MONOCYTES % (AUTO) 4.4 % (3-13); PLATELET COUNT 381 10^3/uL (150-450); RED BLOOD COUNT 3.44 10^6/uL (3.72-5.28); RED CELL DISTRIBUTION WIDTH 16.2 % (11.5-14.0); SEGMENTED NEUTROPHILS % (AUTO) 77.9 % (42-78); TOTAL CELLS COUNTED % (AUTO) 100 %; WHITE BLOOD COUNT 10.2 10^3/uL (4.0-10.5)
[2020-04-17 15:54] LABS: INTERNATIONAL RATION (INR) 1.07; PROTHROMBIN TIME 14.1 SEC (11.4-15.4)
[2020-04-17 15:55] LABS: PARTIAL THROMBOPLASTIN TIME 36.6 SEC (23.5-35.8)
[2020-04-17] MEDS ORDERED: FUROSEMIDE INJ/PF 20 MG/2 ML SDV IV ONE (15:57)
[2020-04-17] MEDS ORDERED: NITROGLYCERIN/D5W 50 MG/250 ML RTUINJ IV PRN (16:00)
[2020-04-17 16:20] LABS: ALBUMIN 2.6 g/dL (3.5-5.0); ALKALINE PHOSPHATASE 69 U/L (38-126); ANION GAP 9 (5-19); ASPARTATE AMINO TRANSFERASE 47 U/L (14-36); BILIRUBIN,DIRECT 0.4 mg/dL (0.0-0.4); BILIRUBIN,TOTAL 0.4 mg/dL (0.2-1.3); BLOOD UREA NITROGEN 53 mg/dL (7-20); CALCIUM 8.4 mg/dL (8.4-10.2); CARBON DIOXIDE 19 mmol/L (22-30); CHLORIDE 112 mmol/L (98-107); GLUCOSE 110 mg/dL (75-110); POTASSIUM 4.4 mmol/L (3.6-5.0); TOTAL PROTEIN 5.4 g/dL (6.3-8.2)
[2020-04-17 16:32] LABS: TROPONIN I 0.88 ng/mL
[2020-04-17 17:22] LABS: ARTERIAL BLOOD BASE EXCESS -9.5 mmol/L; ARTERIAL BLOOD FIO2 30%; ARTERIAL BLOOD H2CO3 0.86 mmol/L (1.05-1.35); ARTERIAL BLOOD HCO3 15.1 mmol/L (20-24); ARTERIAL BLOOD O2 SATURATION 97.8 % (94-98); ARTERIAL BLOOD PCO2 28.7 mmHg (35-45); ARTERIAL BLOOD PH 7.34 (7.35-7.45); ARTERIAL BLOOD PO2 107.8 mmHg (80-100)
--- NOTE | 2020-04-17 18:08 | ER Document Report ---
ED General - General Chief Complaint: Shortness Of Breath Stated Complaint: CHEST PAIN/SOB Time Seen by Provider: 04/17/20 15:02 Primary Care Provider: SHANITA JOSEPH, DETAIL SUPERVISOR [Primary Care Provider] - Follow up as needed TRAVEL OUTSIDE OF THE [place] IN LAST 30 DAYS: No - HPI Notes: Chief complaint: Breathing problems History of present illness: 59-year-old female with history of stage IV kidney disease followed by Dr. Christian Pineda not currently being dialyzed presents now with 3-day history of increasing peripheral edema and difficulty breathing. She denies fever. She denies sputum production. She denies any known exposure to anyone with COVID-19. She has not traveled outside the area. She has severe hypertension which is been poorly controlled. She says she is fully compliant with prescribed dietary and medical regimen. She has had some mild tightness in her chest this afternoon which is nonradiating. She thinks this is primarily due to her difficulty breathing. We do note this lady has had CABG in the past. Primary CARE provider: Shanita Joseph - Related Data Allergies/Adverse Reactions: No Known Allergies Allergy (Verified 04/17/20 13:31) Past Medical History - General Information source: Patient, [facility] Records - Social History Smoking Status: Former Smoker Frequency of alcohol use: None Drug Abuse: None Family History: CAD, Hypertension Patient has homicidal ideation: No - Past Medical History Cardiac Medical History: Reports: Hx Coronary Artery Disease, Hx Heart Attack - 2014 SILENT, Hx Hypercholesterolemia, Hx Hypertension Pulmonary Medical History: Denies: Hx Asthma Neurological Medical History: Reports: Hx Cerebrovascular Accident, Hx Seizures - Patient unsure if what she had was a seizure or a stroke Endocrine Medical History: Reports: Hx Diabetes Mellitus Type 2 Renal/ Medical History: Reports: Hx Renal Insufficiency. Denies: Hx Peritoneal Dialysis GI Medical History: Denies: Hx Hepatitis, Hx Hiatal Hernia, Hx Ulcer Psychiatric Medical History: Denies: Hx Depression Infectious Medical History: Denies: Hx Hepatitis Past Surgical History: Reports: Hx Appendectomy, Hx Cardiac Surgery - cabg, Hx Tubal Ligation. Denies: Hx Hysterectomy, Hx Mastectomy, Hx Open Heart Surgery, Hx Pacemaker Review of Systems - Review of Systems Notes: Constitutional: Negative for fever. HENT: Negative for sore throat. Eyes: Negative for visual changes. Cardiovascular: As per HPI. Respiratory: As per HPI . Gastrointestinal: Negative for abdominal pain, vomiting or diarrhea. Genitourinary: Negative for dysuria. Musculoskeletal: Negative for back pain. Skin: Negative for rash. Neurological: Negative for headaches, focal weakness or numbness. 10 point ROS negative except as marked above and in HPI. Physical Exam - Vital signs Vitals: Temp 98.7 F 04/17/20 13:20 - Notes Notes: GENERAL: Female patient of approximately stated age who appears tachypneic in moderate respiratory distress with gurgling respirations. SKIN: Cool and pale. Good turgor no rashes. HEAD: Normocephalic atraumatic. EYES: PERRLA. EOMI. Conjunctivae and sclerae clear. EARS: CANALS AND TMS CLEAR. NOSE: CLEAR. MOUTH: Moist mucosa. Good dentition. No stridor or edema. No drooling. NECK: Supple. No masses or thyromegaly. No adenopathy. Carotids 2+ without bruits. No JVD. BACK: Symmetrical without tenderness. CHEST: Tachypnea. Respirations moderately labored. Coarse rhonchi lower one half and diminished breath sounds at both bases . HEART: Regular rhythm. No murmur gallop or rub. ABDOMEN: Soft, obese, nontender without masses, organomegaly or rebound. Bowel sounds normally active. No bruits. GENITALIA: Deferred. EXTREMITIES: 3+ bilateral pretibial edema. No calf tenderness. Cap refill less than 1.5 seconds. Dorsalis pedis and posterior tibial pulses 3+ and symmetrical. NEUROLOGICAL: GCS 15. Alert and oriented x3. Normal gait. Fluent speech. Cranial nerves II through XII intact. Sensorimotor and cerebellar normal. Normal tone. PSYCHIATRIC: Anxious affect. Course - Re-evaluation Re-evalutation: 04/17/20 18:26 Patient is improved significantly on BiPAP and IV nitroglycerin infusion. Anticipate patient will need dialysis within the next 24 hours. I have paged her design supervisor Dr. Pineda and we are waiting for him to return page. She is accepted for MICU admission by Dr. Michael Reyes. - Vital Signs Vital signs: Temp Pulse Resp BP Pulse Ox 97.8 F 18 182/95 H 100 04/17/20 16:57 04/17/20 18:01 04/17/20 18:01 04/17/20 18:01 - Laboratory Result Diagrams: 04/17/20 15:25 04/17/20 15:25 Laboratory results interpreted by me: 04/17/20 04/17/20 04/17/20 15:25 15:25 15:25 RBC 3.44 L Hgb 9.9 L Hct 30.2 L RDW 16.2 H APTT 36.6 H Carbonic Acid ABG pH ABG pCO2 ABG pO2 ABG HCO3 ABG Total CO2 Chloride 112 H Carbon Dioxide 19 L BUN 53 H Creatinine 4.28 H Est GFR ( Amer) 13 L Est GFR (MDRD) Non-Af 11 L AST 47 H ALT 49 H NT-Pro-B Natriuret Pep Total Protein 5.4 L Albumin 2.6 L 04/17/20 04/17/20 15:25 17:00 RBC Hgb Hct RDW APTT Carbonic Acid 0.86 L ABG pH 7.34 L ABG pCO2 28.7 L ABG pO2 107.8 H ABG HCO3 15.1 L ABG Total CO2 16.0 L Chloride Carbon Dioxide BUN Creatinine Est GFR ( Amer) Est GFR (MDRD) Non-Af AST ALT NT-Pro-B Natriuret Pep 31429 H Total Protein Albumin - Diagnostic Test Radiology reviewed: Reports reviewed - Portable chest x-ray per radiologist: Bilateral pleural effusions and possible bilateral lower lobe infiltrates. Radiology results interpreted by me: 04/17/20 18:26 Radiologist read the chest x-ray showing possible bilateral pneumonia and bila teral pleural effusions. I reviewed the film myself and feel this is much more likely to be pulmonary edema with bilateral pleural effusion. - EKG Interpretation by Me Additional EKG results interpreted by me: 04/17/20 18:28 Twelve-lead EKG from 1322 hrs. reviewed contemporaneously by me. Indication for study: Respiratory distress. Hypertension. Sinus tachycardia. Rate 106. Normal intervals. Normal QRS axis +83 degrees. Poor precordial R wave progression suggesting old anteroseptal FL. No acute ST/T wave changes. No prior tracing for comparison. Interpretation: Sinus tachycardia. Old anteroseptal FL. Critical Care Note - Critical Care Note Total time excluding time spent on procedures (mins): 70 - Progressive renal failure with fluid overload and pulmonary edema. Respiratory failure requiring BiPAP. Hypertensive emergency requiring IV nitroglycerin infusion. Discharge - Discharge Clinical Impression: Acute pulmonary edema, Respiratory failure, Stage IV kidney disease, Hypertensive emergency Condition: Serious Disposition: ADMITTED INPATIENT Admitting Provider: Eric (Hospitalist) Unit Admitted: IMCU Referrals: SHANITA JOSEPH FNP [Primary Care Provider] - Follow up as needed
[2020-04-17] MEDS ORDERED: ONDANSETRON 4 MG TAB.RAPDIS PO PRN (18:42)
[2020-04-17] MEDS ORDERED: ACETAMINOPHEN 325 MG TABLET PO PRN (18:42)
[2020-04-17] MEDS ORDERED: ONDANSETRON HCL INJ/PF 4 MG/2 ML SDV IV PRN (18:42)
[2020-04-17] MEDS ORDERED: IPRATROPIUM/ALBUTEROL 0.5-2.5 MG/3 ML AMPUL NEB PRN (18:42)
--- NOTE | 2020-04-17 19:08 | PDOC H&P ---
History of Present Illness Admission Date/PCP: 04/17/20 18:46 AGUILA SMITH History of Present Illness: ROBERTO HIGGINS is a 59 year old female with past medical history signifi cant for chronic systolic CHF, CKD 4/[address] Pineda, T2DM, CAD status post CABG and stents, HTN, HLD who presents with a 3-day history of progressive shortness of breath/PORTER/generalized fatigue and weakness which patient states is consistent with previous CHF exacerbations although she states this is worse than prior episodes. Patient brought to the hospital and found to have markedly elevated BNP, RANULFO with worsened creatinine up to 4.28. She was given 80 mg of IV Lasix in the ED and put out approximately 500 cc of urine. She was continued on IV Bumex thereafter. She was put on a nitroglycerin drip by the ED and this was promptly stopped after a short period of time. I discussed the case with Dr. Null in the ED who assured me he would contact patient's profile mill operator tape control Dr. Pineda who is been in the hospital earlier today dialyzing another patient. As Dr. Null is left for the day now I discussed the case with the turnover physician who states they still have not contacted the profile mill operator tape control and I was assured that they would continue calling Dr. Pineda to make him aware that the patient is in the hospital and could potentially need urgent or emergent dialysis if her urine output slows or stops and she is unable to diurese with medication alone. She is currently maintained on BiPAP with supplemental oxygen. He will be admitted to stepdown unit. Past Medical History Cardiac Medical History: Reports: Coronary Artery Disease, Myocardial Infarction - 2013 SILENT, Hyperlipidema, Hypertension Pulmonary Medical History: Denies: Asthma Neurological Medical History: Reports: Seizures - Patient unsure if what she had was a seizure or a stroke Endocrine Medical History: Reports: Diabetes Mellitus Type 2 GI Medical History: Denies: Hepatitis, Hiatal Hernia Psychiatric Medical History: Denies: Depression Hematology: Denies: Anemia, Sickle Cell Disease Past Surgical History Past Surgical History: Reports: Appendectomy, Coronary Artery Bypass Graft, Coronary Stent, Tubal Ligation Denies: Amputation, Hysterectomy, Mastectomy, Pacemaker Social History Information Source: Patient, Emergency Med Personnel Lives with: Family Smoking Status: Former Smoker Frequency of Alcohol Use: None Drugs: None Hx Prescription Drug Abuse: No - Advance Directive Resuscitation Status: Full Code Surrogate healthcare decision maker:: Mayte Family History Family History: CAD, CVA, DM, Hypertension Parental Family History Reviewed: Yes Children Family History Reviewed: Yes Sibling(s) Family History Reviewed.: Yes Medication/Allergy Home Medications: Amlodipine Besylate [Norvasc 5 mg Tablet] 5 mg PO DAILY 03/14/20 Aspirin [Ecotrin 81 mg EC Tablet] 81 mg PO DAILY 03/14/20 Calcitriol [Rocaltrol 0.25 mcg Capsule] 0.25 mcg PO MOWEFR@1000 03/14/20 Clopidogrel Bisulfate [Plavix 75 mg Tablet] 75 mg PO DAILY 03/14/20 Cyclobenzaprine HCl [Flexeril 10 mg Tablet] 10 mg PO TIDP PRN 03/14/20 Ergocalciferol (Vitamin D2) [Drisdol 50,000 unit (1.25MG) Capsule] 50,000 unit PO MO@1000 03/14/20 Fenofibrate Nanocrystallized [Fenofibrate] 48 mg PO DAILY 03/14/20 Gabapentin [Neurontin 300 mg Capsule] 300 mg PO Q8 03/14/20 Lisinopril [Prinivil] 20 mg PO DAILY 03/14/20 Metoprolol Tartrate [Lopressor 100 mg Tablet] 100 mg PO Q12 03/14/20 Rosuvastatin Calcium [Crestor] 40 mg PO QHS 03/14/20 Sodium Bicarbonate [Sodium Bicarbonate 650 mg Tablet] 650 mg PO TID 03/14/20 Blood-Glucose Meter [Accu-Chek Guide Me Glucose Mtr] 1 each MC BID #1 each Blood-Glucose Meter [Accu-Chek Guide Monitor System] 1 each MC BID #1 each 03/16/20 Furosemide [Lasix 20 mg Tablet] 20 mg PO DAILY #30 tab 03/16/20 Glipizide [Glipizide Xl] 5 mg PO DAILY #30 tab.er.24 03/16/20 Isosorbide Mononitrate [Ismo 20 mg Tablet] 20 mg PO QHS #0 03/16/20 Montelukast Sodium [Singulair 10 mg Tablet] 10 mg PO QHS #0 03/16/20 Allergies/Adverse Reactions: No Known Allergies Allergy (Verified 04/17/20 13:31) Review of Systems All systems: reviewed and no additional remarkable complaints except as stated - Review of systems per HPI, otherwise negative Physical Exam Vital Signs: Temp Pulse Resp BP Pulse Ox 97.8 F 18 182/95 H 100 04/17/20 16:57 04/17/20 18:01 04/17/20 18:01 04/17/20 18:01 Intake & Output 04/16/20 04/17/20 04/18/20 06:59 06:59 06:59 Intake Total 4 Output Total 450 Balance -446 Weight 90.718 kg General appearance: PRESENT: mild distress, obese, well-developed, well- nourished Head exam: PRESENT: atraumatic, normocephalic Eye exam: PRESENT: conjunctiva pink Mouth exam: PRESENT: moist Respiratory exam: PRESENT: crackles - Wet bilateral crackles. ABSENT: rales, rhonchi, wheezes Cardiovascular exam: PRESENT: RRR. ABSENT: diastolic murmur, rubs, systolic murmur GI/Abdominal exam: PRESENT: normal bowel sounds, soft. ABSENT: distended, guarding, mass, organolmegaly, rebound, tenderness Rectal exam: PRESENT: deferred Extremities exam: PRESENT: pedal edema, +2 edema Neurological exam: PRESENT: alert, awake, oriented to person, oriented to place, oriented to time, oriented to situation, CN II-XII grossly intact. ABSENT: motor sensory deficit Psychiatric exam: PRESENT: appropriate affect, normal mood Skin exam: PRESENT: dry, intact, warm Results Laboratory Results: 04/17/20 15:25 04/17/20 15:25 04/17/20 04/17/20 04/17/20 15:25 15:25 17:00 WBC 10.2 RBC 3.44 L Hgb 9.9 L Hct 30.2 L MCV 88 MCH 28.8 MCHC 32.8 RDW 16.2 H Plt Count 381 Seg Neutrophils % 77.9 Carbonic Acid 0.86 L HCO3/H2CO3 Ratio 17:1 ABG pH 7.34 L ABG pCO2 28.7 L ABG pO2 107.8 H ABG HCO3 15.1 L ABG O2 Saturation 97.8 ABG Base Excess -9.5 FiO2 30% Sodium 139.9 Potassium 4.4 Chloride 112 H Carbon Dioxide 19 L Anion Gap 9 BUN 53 H Creatinine 4.28 H Est GFR ( Amer) 13 L Glucose 110 Calcium 8.4 Total Bilirubin 0.4 AST 47 H Alkaline Phosphatase 69 Total Protein 5.4 L Albumin 2.6 L 04/17/20 15:25 Troponin I 0.880 NT-Pro-B Natriuret Pep 14259 H Impressions: Chest X-Ray 04/17/20 00:00 IMPRESSION: Borderline cardiomegaly without pulmonary edema. Bilateral pleural effusions, left greater than right. Airspace disease in the lower lobes, atelectasis versus pneumonia. Assessment and Plan - Diagnosis (1) Acute kidney injury superimposed on CKD Is this a current diagnosis for this admission?: Yes Plan: Creatinine elevated up to 4.28 on admission with minimal urine output prior to admission Given 80 mg IV Lasix in ED with 500 cc urine output, given IV Bumex thereafter Follows with Dr. 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 transplanted heart: [place] heart Associated angina: angina presence unspecified Qualified Code(s): I25.10 - Atherosclerotic heart disease of [place] coronary artery without angina pectoris Is this a current diagnosis for this admission?: Yes Plan: Aspirin and Plavix continued Cardiac medications continued (6) Hypertension Is this a current diagnosis for this admission?: Yes Plan: Due to volume overload Continue home medications as RANULFO allows (7) Insulin dependent type 2 diabetes mellitus Is this a current diagnosis for this admission?: Yes Plan: Sliding scale insulin, Accu-Cheks Takes Lantus 20 units nightly at home, restart this at lower dose (8) Kidney disease, chronic, stage V (end stage, EGFR < 15 ml/min) Is this a current diagnosis for this admission?: Yes Plan: Follows with Dr. Pineda outpatient - Time Time Spent with patient: 35 or more minutes Medications reviewed and adjusted accordingly: Yes Anticipated Discharge Disposition: Home, Self Care Anticipated Discharge Timeframe: within 72 hours - Inpatient Certification Based on my medical assessment, after consideration of the patient's comorbidities, presenting symptoms, or acuity I expect that the services needed warrant INPATIENT care.: Yes I certify that my determination is in accordance with my understanding of Medicare's requirements for reasonable and necessary INPATIENT services [42 CFR 412.3e].: Yes Medical Necessity: Significant Comorbidiites Make Outpatient Treatment Too Risky, Need Close Monitoring Due to Risk of Patient Decompensation, Need For Continuous Telemetry Monitoring, Risk of Complication if Not Cared For in [facility]pi [facility], Risk of Diagnosis Which Will Require Inpatient Eval/Care/Monitoring
--- NOTE | 2020-04-17 19:09 | ADVANCED CARE ---
- Diagnosis (1) Acute kidney injury superimposed on CKD Diagnosis Current: Yes (2) Acute on chronic systolic CHF (congestive heart failure) Diagnosis Current: Yes (3) Acute hypoxemic respiratory failure Diagnosis Current: Yes (4) Anemia of chronic renal failure, stage 4 (severe) Diagnosis Current: Yes (5) Coronary artery disease Diagnosis Current: Yes (6) Hypertension Diagnosis Current: Yes (7) Insulin dependent type 2 diabetes mellitus Diagnosis Current: Yes (8) Kidney disease, chronic, stage V (end stage, EGFR < 15 ml/min) Diagnosis Current: Yes Attendance: Patient Resuscitation Status: Full Code Discussion: All aspects of code status discussed with patient/POA including cardioversion, chest compressions, and intubation and the patient/POA indicated they wish to be full code MPOA is designated as: Daughter Mayte Time Spent: Greater than 16 minutes
[2020-04-17] MEDS: BUMETANIDE INJ/PF 1 MG/4 ML SDV IV SCH (19:30)
[2020-04-17] MEDS ORDERED: (PENDING PHARMACY ID) (Rosuvastatin Calcium [Crestor] 40 MG) PO SCH (22:00)
[2020-04-17] MEDS ORDERED: ATORVASTATIN CALCIUM 80 MG TABLET PO SCH (22:00)
[2020-04-17] MEDS ORDERED: ISOSORBIDE MONONITRATE 20 MG TABLET PO SCH (22:00)
[2020-04-17] MEDS: METOPROLOL TARTRATE 100 MG TABLET PO SCH (22:10)
[2020-04-17] MEDS: ATORVASTATIN CALCIUM 80 MG TABLET PO SCH (22:10)
[2020-04-17] MEDS: MONTELUKAST SODIUM 10 MG TABLET PO SCH (22:10)
[2020-04-17] MEDS: HEPARIN SOD (PORCINE) 5,000 UNIT/ML 1 ML VIAL SUBCUT SCH (22:10)
[2020-04-17] MEDS: INSULIN LISPRO 100 UNIT/ML 3 ML VIAL SUBCUT SCH (22:11)
[2020-04-18] MEDS: INSULIN GLARGINE,HUM.REC.ANLOG 1,000 UNIT/10 ML VIAL SUBCUT SCH ×2 (00:29→22:33)
[2020-04-18 05:28] LABS: ABSOLUTE BASOPHILS # (AUTO) 0.1 10^3/uL (0.0-0.2); ABSOLUTE EOSINOPHILS # (AUTO) 0.4 10^3/uL (0.0-0.6); ABSOLUTE LYMPHOCYTES (AUTO) 1.2 10^3/uL (0.5-4.7); ABSOLUTE MONOCYTES (AUTO) 0.4 10^3/uL (0.1-1.4); ABSOLUTE NEUT (AUTO) 6.7 10^3/uL (1.7-8.2); BASOPHILS % (AUTO) 0.7 % (0-2); EOSINOPHILS % (AUTO) 4.5 % (0-6); HEMATOCRIT 26.4 % (36.0-47.0); HEMOGLOBIN 8.8 g/dL (12.0-15.5); LYMPHOCYTES % (AUTO) 13.8 % (13-45); MEAN CORPUSCULAR HEMOGLOBIN 29.4 pg (27.0-33.4); MEAN CORPUSCULAR HGB CONC 33.2 g/dL (32.0-36.0); MEAN CORPUSCULAR VOLUME 88 fl (80-97); MONOCYTES % (AUTO) 4.9 % (3-13); PLATELET COUNT 305 10^3/uL (150-450); RED BLOOD COUNT 2.99 10^6/uL (3.72-5.28); RED CELL DISTRIBUTION WIDTH 15.9 % (11.5-14.0); SEGMENTED NEUTROPHILS % (AUTO) 76.1 % (42-78); TOTAL CELLS COUNTED % (AUTO) 100 %; WHITE BLOOD COUNT 8.8 10^3/uL (4.0-10.5)
[2020-04-18] MEDS: HEPARIN SOD (PORCINE) 5,000 UNIT/ML 1 ML VIAL SUBCUT SCH ×3 (05:42→22:33)
[2020-04-18 05:57] LABS: ANION GAP 7 (5-19); BLOOD UREA NITROGEN 50 mg/dL (7-20); CARBON DIOXIDE 18 mmol/L (22-30); CHLORIDE 114 mmol/L (98-107); GLUCOSE 134 mg/dL (75-110); PHOSPHORUS 7.2 mg/dL (2.5-4.5); POTASSIUM 4.2 mmol/L (3.6-5.0)
--- NOTE | 2020-04-18 08:42 | EKG REPORT ---
SEVERITY:- BORDERLINE ECG - SINUS TACHYCARDIA PROBABLE LEFT ATRIAL ABNORMALITY : Confirmed by: Lewis Gonzales MD 18-Apr-2020 08:42:13
[2020-04-18] MEDS: INSULIN LISPRO 100 UNIT/ML 3 ML VIAL SUBCUT SCH ×4 (08:43→22:32)
--- NOTE | 2020-04-18 09:57 | PDOC CONSULTATION ---
Consultation Consult Date: 04/18/20 Provider Consulted: DAVE ANTHONY Consult reason:: Need of temporary hemodialysis catheter History of Present Illness Admission Date/PCP: 04/17/20 18:46 AGUILA SMITH History of Present Illness: ROBERTO HIGGINS is a 59 year old female, admitted for acute on chronic kidney failure, with BUN/creatinine of 50 and 4.1, respectively. I was consulted to place a temporary hemodialysis catheter; afterwards, as the patient improves that she will require to have a permacath placed. Past Medical History Cardiac Medical History: Reports: Coronary Artery Disease, Myocardial Infarction - 2013 SILENT, Hyperlipidema, Hypertension Pulmonary Medical History: Denies: Asthma Neurological Medical History: Reports: Seizures - Patient unsure if what she had was a seizure or a stroke Endocrine Medical History: Reports: Diabetes Mellitus Type 2 GI Medical History: Denies: Hepatitis, Hiatal Hernia Psychiatric Medical History: Denies: Depression Hematology: Denies: Anemia, Sickle Cell Disease Past Surgical History Past Surgical History: Reports: Appendectomy, Coronary Artery Bypass Graft, Coronary Stent, Tubal Ligation Denies: Amputation, Hysterectomy, Mastectomy, Pacemaker Social History Lives with: Family Smoking Status: Former Smoker Frequency of Alcohol Use: None Drugs: None Hx Prescription Drug Abuse: No - Advance Directive Resuscitation Status: Full Code Family History Family History: CAD, CVA, DM, Hypertension Parental Family History Reviewed: Yes - Hypertension stroke diabetes Children Family History Reviewed: No Sibling(s) Family History Reviewed.: No Medication/Allergy Home Medications: Ergocalciferol (Vitamin D2) [Drisdol 50,000 unit (1.25MG) Capsule] 50,000 unit PO MO@1000 03/14/20 Fenofibrate Nanocrystallized [Fenofibrate] 48 mg PO DAILY 03/14/20 Lisinopril [Prinivil] 20 mg PO DAILY 03/14/20 Furosemide [Lasix 20 mg Tablet] 20 mg PO DAILY #30 tab 03/16/20 Montelukast Sodium [Singulair 10 mg Tablet] 10 mg PO QHS #0 03/16/20 Calcitriol [Rocaltrol 0.5 mcg Capsule] 1 cap PO DAILY 04/18/20 Allergies/Adverse Reactions: No Known Allergies Allergy (Verified 04/17/20 13:31) Physical Exam Vital Signs: Temp Pulse Resp BP Pulse Ox 97.9 F 89 18 174/80 H 100 04/18/20 07:58 04/18/20 07:58 04/18/20 07:58 04/18/20 07:58 04/18/20 07:58 Intake & Output 04/17/20 04/18/20 04/19/20 06:59 06:59 06:59 Intake Total 133 Output Total 1200 Balance -1067 Weight 94 kg General appearance: PRESENT: no acute distress, obese Respiratory exam: PRESENT: clear to auscultation nikki Cardiovascular exam: PRESENT: RRR GI/Abdominal exam: PRESENT: soft Extremities exam: PRESENT: other - Right groin = presence of scar; left groin = no scars visible Results Laboratory Results: 04/18/20 04:23 04/18/20 04:23 04/17/20 04/17/20 04/17/20 15:25 15:25 17:00 WBC 10.2 RBC 3.44 L Hgb 9.9 L Hct 30.2 L MCV 88 MCH 28.8 MCHC 32.8 RDW 16.2 H Plt Count 381 Seg Neutrophils % 77.9 Carbonic Acid 0.86 L HCO3/H2CO3 Ratio 17:1 ABG pH 7.34 L ABG pCO2 28.7 L ABG pO2 107.8 H ABG HCO3 15.1 L ABG O2 Saturation 97.8 ABG Base Excess -9.5 FiO2 30% Sodium 139.9 Potassium 4.4 Chloride 112 H Carbon Dioxide 19 L Anion Gap 9 BUN 53 H Creatinine 4.28 H Est GFR ( Amer) 13 L Glucose 110 Calcium 8.4 Phosphorus Magnesium Total Bilirubin 0.4 AST 47 H Alkaline Phosphatase 69 Total Protein 5.4 L Albumin 2.6 L 04/18/20 04/18/20 04:23 04:23 WBC 8.8 RBC 2.99 L Hgb 8.8 L Hct 26.4 L MCV 88 MCH 29.4 MCHC 33.2 RDW 15.9 H Plt Count 305 Seg Neutrophils % 76.1 Carbonic Acid HCO3/H2CO3 Ratio ABG pH ABG pCO2 ABG pO2 ABG HCO3 ABG O2 Saturation ABG Base Excess FiO2 Sodium 139.2 Potassium 4.2 Chloride 114 H Carbon Dioxide 18 L Anion Gap 7 BUN 50 H Creatinine 4.13 H Est GFR ( Amer) 13 L Glucose 134 H Calcium 8.0 L Phosphorus 7.2 H Magnesium 2.1 Total Bilirubin AST Alkaline Phosphatase Total Protein Albumin 04/17/20 04/18/20 15:25 08:24 Troponin I 0.880 0.850 NT-Pro-B Natriuret Pep 01485 H Impressions: Chest X-Ray 04/17/20 00:00 IMPRESSION: Borderline cardiomegaly without pulmonary edema. Bilateral pleural effusions, left greater than right. Airspace disease in the lower lobes, atelectasis versus pneumonia. Assessment & Plan - Diagnosis (1) Acute kidney injury superimposed on CKD Is this a current diagnosis for this admission?: Yes - Plan Summary Plan Summary: Assessment: 59-year-old female with acute on chronic kidney failure BUN and creatinine 50 and 4.1, respectively Plan: Plan to insert a temporary hemodialysis catheter in the femoral vein today Permacath catheter to be inserted once the patient medical conditions improve Procedure, risk, benefits, complications, explained to the patient, she understands all the above, her questions were answered, she decides to proceed
[2020-04-18] MEDS ORDERED: LIDOCAINE 1% INJ-PF (10 MG/ML) 30 ML SDV ONE (10:05)
--- NOTE | 2020-04-18 10:37 | Operative Report ---
Operative Report DATE OF SURGERY: 04/18/20 PREOPERATIVE DIAGNOSIS: Acute on chronic kidney failure; need of hemodialysis c sandi POSTOPERATIVE DIAGNOSIS: Same OPERATION: Placement of left femoral vein hemodialysis catheter SURGEON: DAVE ANTHONY ANESTHESIA: Local - 20 mL's 1% lidocaine without epinephrine TISSUE REMOVED OR ALTERED: Not applicable COMPLICATIONS: None ESTIMATED BLOOD LOSS: 5 ml INTRAOPERATIVE FINDINGS: n/a PROCEDURE: The procedure was done at bedside: The patient was placed in a supine position, the patient left groin prepped and draped in the usual fashion. The area was infiltrated with lidocaine, a 16-gauge needle was then used to cannulate the left femoral vein without difficulty with good blood return; a guidewire was inserted through the needle into the central vein without difficulty the needle was removed. The insertion point of the guidewire was enlarged with a #11 blade and a tissue dilator which was then removed. A tri-lumen dialysis catheter 30 cm long was inserted without difficulty over the guidewire into the femoral and iliac veins without difficulty for the entire length of the catheter, the guidewire was removed. Each port was aspirated and flushed with normal saline without difficulty. The catheter was secured to the skin with 3-0 nylon sutures and sterile dressing applied. The patient tolerated the procedure well.
--- NOTE | 2020-04-18 10:50 | PDOC CONSULTATION ---
Consultation Consult Date: 04/18/20 Provider Consulted: Steve PINEDA Consult reason:: CKD 5 in CHF for initiation of HD. History of Present Illness Admission Date/PCP: 04/17/20 18:46 AGUILA SMITH History of Present Illness: ROBERTO HIGGINS is a 59 year old female with multiple co morbidities including CKD 5 in the back ground of complicated and poorly controlled Diabetes, Hypertension ,CAD, severe PVD of lower extremities for which she has had recent interventions was admitted with progressive dyspnea initially with exertion and then at rest over the last 4-5 days. She also was c/o chest pains, non radiating . No symptoms to indicate Covid. All of these issues has been com pounded by severe non compliance with diet , meds , keeping appointments etc. She had initially 6 months ago had categoricaly refused any form of renal replacement therapies in front of her daughter. Following that she had multiple missed appts with me. However during a recent visit a week or so ago she changed her mind and decided she now wanted to do HD. She was found to be having early uremic symptoms and was planned to have a IJ catheter followed by AVF placement before starting on imminent HD. She was found to be in [place] CHF on evaluation in the ER yesterday and fortunately responded very well to IV diuretics and so far has had approx 2.5 l of diuresis with very good symptom relief. She was also put on Bi pap and is now able to tolerate 2l Nasal cannula. She denies any on going chest pains now. Labs and medications were reviewed. Discussions were done with her treating RN as christi benitez as Dr Singh/ Surgicalist. Past Medical History Cardiac Medical History: Reports: Carotid Stenosis, Coronary Artery Disease, Hyperlipidemia, Hypertension-primary, Myocardial Infarction - 2014 SILENT, Peripheral Vascular Disease Pulmonary Medical History: Denies: Asthma Neurological Medical History: Reports: Seizures - Patient unsure if what she had was a seizure or a stroke Endocrine Medical History: Reports: Diabetes Mellitus Type 2 Renal/ Medical History: Reports: Chronic Kidney Disease Stage V, Secondary Hyperparathyroidism GI Medical History: Denies: Hepatitis, Hiatal Hernia Psychiatric Medical History: Denies: Depression Hematology Medical History: Reports Anemia of Chronic Kidney Disease Past Surgical History Past Surgical History: Reports: Appendectomy, Coronary Artery Bypass Graft, Coronary Stent, Tubal Ligation Denies: Hysterectomy, Mastectomy, Pacemaker Social History Lives with: Family Smoking Status: Former Smoker Frequency of Alcohol Use: None Drugs: None Hx Prescription Drug Abuse: No - Advance Directive Resuscitation Status: Full Code Family History Parental Family History Reviewed: Yes - Negative for ESRD Children Family History Reviewed: Yes Sibling(s) Family History Reviewed.: No Medication/Allergy Home Medications: Ergocalciferol (Vitamin D2) [Drisdol 50,000 unit (1.25MG) Capsule] 50,000 unit PO MO@1000 03/14/20 Fenofibrate Nanocrystallized [Fenofibrate] 48 mg PO DAILY 03/14/20 Lisinopril [Prinivil] 20 mg PO DAILY 03/14/20 Furosemide [Lasix 20 mg Tablet] 20 mg PO DAILY #30 tab 03/16/20 Montelukast Sodium [Singulair 10 mg Tablet] 10 mg PO QHS #0 03/16/20 Calcitriol [Rocaltrol 0.5 mcg Capsule] 1 cap PO DAILY 04/18/20 Allergies/Adverse Reactions: No Known Allergies Allergy (Verified 04/17/20 13:31) Review of Systems Constitutional: PRESENT: anorexia, fatigue, weakness. ABSENT: chills, fever(s), headache(s), night sweats Nose, Mouth, and Throat: ABSENT: mouth pain, sore throat Cardiovascular: PRESENT: chest pain, dyspnea on exertion, edema, orthropnea. ABSENT: palpitations Respiratory: PRESENT: dyspnea. ABSENT: cough, hemoptysis Gastrointestinal: PRESENT: nausea. ABSENT: abdominal pain, coffee ground emesis, constipation, diarrhea, dysphagia, heartburn, melena, vomiting Genitourinary: ABSENT: dysuria, hematuria Musculoskeletal: ABSENT: deformity, joint swelling Integumentary: ABSENT: erythema, lesions, pruritus, rash Neurological: ABSENT: abnormal movements, abnormal speech, confusion, focal weakness, frequent falls Endocrine: ABSENT: heat intolerance, polydipsia Hematologic/Lymphatic: ABSENT: easy bleeding, lymphadenopathy Physical Exam Vital Signs: Temp Pulse Resp BP Pulse Ox 97.9 F 89 18 174/80 H 100 04/18/20 07:58 04/18/20 07:58 04/18/20 07:58 04/18/20 07:58 04/18/20 07:58 Intake & Output 04/17/20 04/18/20 04/19/20 06:59 06:59 06:59 Intake Total 133 Output Total 1200 Balance -1067 Weight 94 kg General appearance: PRESENT: no acute distress Eye exam: PRESENT: EOMI, PERRLA. ABSENT: scleral icterus Ear exam: PRESENT: normal external ear exam Mouth exam: PRESENT: moist, neck supple Neck exam: ABSENT: lymphadenopathy, meningismus, thyromegaly, tracheal deviation Respiratory exam: PRESENT: clear to auscultation nikki, decreased breath sounds. ABSENT: crackles Cardiovascular exam: PRESENT: +S1, +S2 GI/Abdominal exam: PRESENT: normal bowel sounds, soft. ABSENT: organomegaly, tenderness Extremities exam: PRESENT: +1 edema Neurological exam: PRESENT: alert, awake, oriented to person, oriented to place, oriented to time Psychiatric exam: PRESENT: appropriate affect Skin exam: ABSENT: cyanosis, erythema, mottled, rash Results Laboratory Results: 04/18/20 04:23 04/18/20 04:23 04/17/20 04/17/20 04/17/20 15:25 15:25 17:00 WBC 10.2 RBC 3.44 L Hgb 9.9 L Hct 30.2 L MCV 88 MCH 28.8 MCHC 32.8 RDW 16.2 H Plt Count 381 Seg Neutrophils % 77.9 Carbonic Acid 0.86 L HCO3/H2CO3 Ratio 17:1 ABG pH 7.34 L ABG pCO2 28.7 L ABG pO2 107.8 H ABG HCO3 15.1 L ABG O2 Saturation 97.8 ABG Base Excess -9.5 FiO2 30% Sodium 139.9 Potassium 4.4 Chloride 112 H Carbon Dioxide 19 L Anion Gap 9 BUN 53 H Creatinine 4.28 H Est GFR ( Amer) 13 L Glucose 110 Calcium 8.4 Phosphorus Magnesium Total Bilirubin 0.4 AST 47 H Alkaline Phosphatase 69 Total Protein 5.4 L Albumin 2.6 L 04/18/20 04/18/20 04:23 04:23 WBC 8.8 RBC 2.99 L Hgb 8.8 L Hct 26.4 L MCV 88 MCH 29.4 MCHC 33.2 RDW 15.9 H Plt Count 305 Seg Neutrophils % 76.1 Carbonic Acid HCO3/H2CO3 Ratio ABG pH ABG pCO2 ABG pO2 ABG HCO3 ABG O2 Saturation ABG Base Excess FiO2 Sodium 139.2 Potassium 4.2 Chloride 114 H Carbon Dioxide 18 L Anion Gap 7 BUN 50 H Creatinine 4.13 H Est GFR ( Amer) 13 L Glucose 134 H Calcium 8.0 L Phosphorus 7.2 H Magnesium 2.1 Total Bilirubin AST Alkaline Phosphatase Total Protein Albumin 04/17/20 04/18/20 15:25 08:24 Troponin I 0.880 0.850 NT-Pro-B Natriuret Pep 30861 H Impressions: Chest X-Ray 04/17/20 00:00 IMPRESSION: Borderline cardiomegaly without pulmonary edema. Bilateral pleural effusions, left greater than right. Airspace disease in the lower lobes, atelectasis versus pneumonia. Assessment & Plan - Diagnosis (1) Acute hypoxemic respiratory failure Is this a current diagnosis for this admission?: Yes Plan: Secondary to congestive heart failure. Currently whole lot better after good response to IV diuretics and placement on BiPAP. Currently she is able to tolerate 2-3 L of nasal cannula. She says she is almost back to her baseline but she still has a lot of edema. Discussed with her about dialysis and fluid removal tomorrow as she continues on IV diuretics for today. (2) Acute kidney injury superimposed on CKD Is this a current diagnosis for this admission?: Yes Plan: She was having baseline CKD 4/5 with worsening in the presence of prerenal congestive heart failure. Fortunately she has responded from a heart failure point of view to diuretics. However she is still decompensated and has to go on hemodialysis. Will place a temporary femoral catheter and initiate her on dialysis tomorrow following which she will have an IJ PermCath placement here prior to her discharge. Will get hepatitis serology and have a PPD placed today. Again went over the procedure of hemodialysis and its complications including hypotension, infections of the catheter, bleeding and rare causes of cardiac arrest secondary to hypotension. Patient willing to proceed. (3) Acute on chronic systolic CHF (congestive heart failure) Is this a current diagnosis for this admission?: Yes Plan: Chronic noncompliance with diet, medications and recommendation to initiate dialysis sometime ago. Patient has responded very nicely to intravenous diuretics and is a whole lot better though still decompensated. Continue IV diuretics while I get a temporary catheter in place for initiation of hemodialysis in the morning. (4) Acute pulmonary edema Plan: Has gotten over the acute crisis. She is still decompensated. Good response to diuretics. See the response to dialysis and fluid extraction tomorrow on initiation of hemodialysis. (5) Hypertensive emergency Plan: In the face of congestion failure. Much improved. (6) Chest pain Qualifiers: Chest pain type: unspecified Qualified Code(s): R07.9 - Chest pain, unspecified Plan: Cardiac work-up as per hospitalist. (7) Insulin dependent type 2 diabetes mellitus Is this a current diagnosis for this admission?: Yes Plan: Advised on the need for tight control. (8) Kidney disease, chronic, stage V (end stage, EGFR < 15 ml/min) Is this a current diagnosis for this admission?: Yes Plan: Has been showing early signs of uremia and now with congestive heart failure all of which necessitates initiation of hemodialysis. (10) Anemia of chronic renal failure, stage 4 (severe) Is this a current diagnosis for this admission?: No Plan: Check iron studies. Later initiate erythropoietin. (11) Coronary artery disease Qualifiers: Coronary Disease-Associated Artery/Lesion type: [place] artery [place] vs. transplanted heart: [place] heart Associated angina: angina presence unspecifi ed Qualified Code(s): I25.10 - Atherosclerotic heart disease of [place] co ronary artery without angina pectoris Is this a current diagnosis for this admission?: Yes Plan: Status quo.
[2020-04-18] MEDS ORDERED: TUBERCULIN,PURIF.PROT.DERIV. 5 TU/0.1 ML TEST 1 ML VIAL ID ONE (11:00)
--- NOTE | 2020-04-18 11:13 | EKG REPORT ---
SEVERITY:- ABNORMAL ECG - SINUS RHYTHM LEFT ATRIAL ABNORMALITY PROBABLE LEFT VENTRICULAR HYPERTROPHY BORDERLINE T ABNORMALITIES, INFERIOR LEADS : Confirmed by: Lewis Gonzales MD 18-Apr-2020 11:12:46
[2020-04-18] MEDS: METOPROLOL TARTRATE 100 MG TABLET PO SCH ×2 (11:34→22:43)
[2020-04-18] MEDS: ASPIRIN 81 MG TABLET, ENT COATED PO SCH (11:34)
[2020-04-18] MEDS: SODIUM BICARBONATE 650 MG TABLET PO SCH ×3 (11:35→17:31)
[2020-04-18] MEDS: CLOPIDOGREL BISULFATE 75 MG TABLET PO SCH (11:35)
[2020-04-18] MEDS: AMLODIPINE BESYLATE 5 MG TABLET PO SCH (11:35)
[2020-04-18] MEDS: BUMETANIDE INJ/PF 1 MG/4 ML SDV IV SCH ×2 (11:36→17:31)
--- NOTE | 2020-04-18 13:40 | PDOC PROGRESS REPORT ---
Subjective Progress Note for:: 04/18/20 Subjective:: 59 year old female with past medical history significant for chronic systolic CHF, CKD 4/[address] Pineda, T2DM, CAD status post CABG and stents, HTN, HLD who presents with a 3-day history of progressive shortness of breath/PORTER/generalized fatigue and weakness which patient states is consistent with previous CHF exacerbations although she states this is worse than prior episodes. Patient brought to the hospital and found to have markedly elevated BNP, RANULFO with worsened creatinine up to 4.28. She was given 80 mg of IV Lasix in the ED and put out approximately 500 cc of urine. She was continued on IV Bumex thereafter. She was put on a nitroglycerin drip by the ED and this was promptly stopped after a short period of time. I discussed the case with Dr. Null in the ED who assured me he would contact patient's inspector rubber stamp die Dr. Pineda who is been in the hospital earlier today dialyzing another patient. As Dr. Null is left for the day now I discussed the case with the turnover physician who states they still have not contacted the inspector rubber stamp die and I was assured that they would continue calling Dr. Pineda to make him aware that the p atient is in the hospital and could potentially need urgent or emergent dialysis if her urine output slows or stops and she is unable to diurese with medication alone. She is currently maintained on BiPAP with supplemental oxygen. He will be admitted to stepdown unit. 04/18/2020-patient is comfortable in the bed eating lunch. Denies any problems. Patient has a temporary dialysis catheter in place. She is going for dialysis tomorrow. PPD was requested hepatitis profile was requested. Patient is going to get a permacath here and he will get AV fistula as an outpatient at [facility]. Reason For Visit: ACUTE ON CHRONIC CHF EXACERBATION, RANULFO ON CKD4, Physical Exam Vital Signs: Temp Pulse Resp BP Pulse Ox 98.3 F 97 16 153/102 H 93 04/18/20 11:29 04/18/20 11:29 04/18/20 11:29 04/18/20 11:29 04/18/20 11:29 Intake & Output 04/17/20 04/18/20 04/19/20 06:59 06:59 06:59 Intake Total 133 Output Total 1200 Balance -1067 Weight 94 kg General appearance: PRESENT: no acute distress, obese Head exam: PRESENT: atraumatic Eye exam: PRESENT: PERRLA Mouth exam: PRESENT: moist, tongue midline Teeth exam: PRESENT: poor dentation Neck exam: ABSENT: carotid bruit, JVD, lymphadenopathy, thyromegaly Cardiovascular exam: PRESENT: RRR. ABSENT: diastolic murmur, rubs, systolic mur mur Pulses: PRESENT: normal dorsalis pedis pul GI/Abdominal exam: PRESENT: normal bowel sounds, soft. ABSENT: distended, guarding, mass, organolmegaly, rebound, tenderness Rectal exam: PRESENT: deferred Extremities exam: PRESENT: full ROM. ABSENT: calf tenderness, clubbing, pedal edema Neurological exam: PRESENT: alert, awake, oriented to person, oriented to place, oriented to time, oriented to situation, CN II-XII grossly intact. ABSENT: motor sensory deficit Results Laboratory Results: 04/18/20 04:23 04/18/20 04:23 04/17/20 04/17/20 04/17/20 15:25 15:25 17:00 WBC 10.2 RBC 3.44 L Hgb 9.9 L Hct 30.2 L MCV 88 MCH 28.8 MCHC 32.8 RDW 16.2 H Plt Count 381 Seg Neutrophils % 77.9 Carbonic Acid 0.86 L HCO3/H2CO3 Ratio 17:1 ABG pH 7.34 L ABG pCO2 28.7 L ABG pO2 107.8 H ABG HCO3 15.1 L ABG O2 Saturation 97.8 ABG Base Excess -9.5 FiO2 30% Sodium 139.9 Potassium 4.4 Chloride 112 H Carbon Dioxide 19 L Anion Gap 9 BUN 53 H Creatinine 4.28 H Est GFR ( Amer) 13 L Glucose 110 Calcium 8.4 Phosphorus Magnesium Total Bilirubin 0.4 AST 47 H Alkaline Phosphatase 69 Total Protein 5.4 L Albumin 2.6 L 04/18/20 04/18/20 04:23 04:23 WBC 8.8 RBC 2.99 L Hgb 8.8 L Hct 26.4 L MCV 88 MCH 29.4 MCHC 33.2 RDW 15.9 H Plt Count 305 Seg Neutrophils % 76.1 Carbonic Acid HCO3/H2CO3 Ratio ABG pH ABG pCO2 ABG pO2 ABG HCO3 ABG O2 Saturation ABG Base Excess FiO2 Sodium 139.2 Potassium 4.2 Chloride 114 H Carbon Dioxide 18 L Anion Gap 7 BUN 50 H Creatinine 4.13 H Est GFR ( Amer) 13 L Glucose 134 H Calcium 8.0 L Phosphorus 7.2 H Magnesium 2.1 Total Bilirubin AST Alkaline Phosphatase Total Protein Albumin 04/17/20 04/18/20 15:25 08:24 Troponin I 0.880 0.850 NT-Pro-B Natriuret Pep [id number] H Impressions: Chest X-Ray 04/17/20 00:00 IMPRESSION: Borderline cardiomegaly without pulmonary edema. Bilateral pleural effusions, left greater than right. Airspace disease in the lower lobes, atelectasis versus pneumonia. Assessment and Plan - Diagnosis (1) Acute hypoxemic respiratory failure Is this a current diagnosis for this admission?: Yes Plan: Secondary to volume overload due to CHF and RANULFO Treat underlying cause Supplemental oxygen BiPAP 04/18/2020-patient is comfortably in the bed eating lunch. Pulse ox is 94% on 2 L of oxygen. 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 She is going for dialysis tomorrow. Echocardiogram will be requested. (3) Anemia of chronic renal failure, stage 4 (severe) Is this a current diagnosis for this admission?: No Plan: 04/18/2020-patient has history of anemia of chronic disease because of end-stage renal disease. Hemoglobin is 8.8. (4) Insulin dependent type 2 diabetes mellitus Is this a current diagnosis for this admission?: No Plan: Sliding scale insulin, Accu-Cheks Takes Lantus 20 units nightly at home, restart this at lower dose 04/18/2020-latest blood sugar is 113. Hemoglobin was 7.1. Plan is to continue the present management at this time. (5) Kidney disease, chronic, stage V (end stage, EGFR < 15 ml/min) Is this a current diagnosis for this admission?: No Plan: Follows with Dr. Pineda outpatient 04/18/20-patient is seen by Dr. Pineda. Temporary catheter was placed. Patient is going for dialysis tomorrow. Needs to arrange for permacath here prior to discharge. - Time Anticipated Discharge Disposition: Home, Self Care Anticipated Discharge Timeframe: within 72 hours
[2020-04-18] MEDS: MONTELUKAST SODIUM 10 MG TABLET PO SCH (22:33)
[2020-04-18] MEDS: ACETAMINOPHEN 325 MG TABLET PO PRN (22:34)
[2020-04-18] MEDS: ATORVASTATIN CALCIUM 80 MG TABLET PO SCH (22:48)
[2020-04-19] MEDS ORDERED: HEPARIN SOD (PORCINE) 1,000 UNIT/ML 10 ML VIAL IV PRN (05:00)
[2020-04-19] MEDS ORDERED: EPOETIN ALFA-EPBX 2,000 UNIT, EPOETIN ALFA-EPBX 3,000 UNIT, EPOETIN ALFA-EPBX 20,000 UN... IV PRN ×4 (05:00)
[2020-04-19] MEDS: HEPARIN SOD (PORCINE) 5,000 UNIT/ML 1 ML VIAL SUBCUT SCH ×3 (06:21→22:23)
[2020-04-19 06:37] LABS: HEPATITS B SURFACE ANTIGEN Negative (Negative)
[2020-04-19 07:18] LABS: HEPATITIS B CORE AB TOT Negative (Negative)
[2020-04-19 08:18] LABS: ABSOLUTE BASOPHILS # (AUTO) 0.1 10^3/uL (0.0-0.2); ABSOLUTE EOSINOPHILS # (AUTO) 0.4 10^3/uL (0.0-0.6); ABSOLUTE LYMPHOCYTES (AUTO) 1.2 10^3/uL (0.5-4.7); ABSOLUTE MONOCYTES (AUTO) 0.5 10^3/uL (0.1-1.4); ABSOLUTE NEUT (AUTO) 7.5 10^3/uL (1.7-8.2); ABSOLUTE RETICS # 0.045 10^6/uL (0.028-0.122); BASOPHILS % (AUTO) 0.6 % (0-2); HEMATOCRIT 26.3 % (36.0-47.0); HEMOGLOBIN 8.8 g/dL (12.0-15.5); LYMPHOCYTES % (AUTO) 12.9 % (13-45); MEAN CORPUSCULAR HEMOGLOBIN 29.2 pg (27.0-33.4); MEAN CORPUSCULAR HGB CONC 33.5 g/dL (32.0-36.0); MEAN CORPUSCULAR VOLUME 87 fl (80-97); MONOCYTES % (AUTO) 4.9 % (3-13); PLATELET COUNT 328 10^3/uL (150-450); RED BLOOD COUNT 3.03 10^6/uL (3.72-5.28); RED CELL DISTRIBUTION WIDTH 16.1 % (11.5-14.0); RETICULOCYTE COUNT (AUTO) 1.48 % (0.66-2.85); SEGMENTED NEUTROPHILS % (AUTO) 77.6 % (42-78); TOTAL CELLS COUNTED % (AUTO) 100 %; WHITE BLOOD COUNT 9.7 10^3/uL (4.0-10.5)
[2020-04-19 08:42] LABS: ANION GAP 9 (5-19); BLOOD UREA NITROGEN 50 mg/dL (7-20); CALCIUM 7.8 mg/dL (8.4-10.2); CARBON DIOXIDE 19 mmol/L (22-30); CHLORIDE 112 mmol/L (98-107); GLUCOSE 148 mg/dL (75-110); IRON(TIBC) 37.8 ug/dL (37-170); POTASSIUM 4.1 mmol/L (3.6-5.0)
[2020-04-19 09:45] LABS: FOLATE 8.84 ng/mL (>2.76)
[2020-04-19] MEDS: INSULIN LISPRO 100 UNIT/ML 3 ML VIAL SUBCUT SCH ×4 (10:30→22:24)
[2020-04-19] MEDS: SODIUM BICARBONATE 650 MG TABLET PO SCH ×3 (10:38→17:29)
[2020-04-19] MEDS: BUMETANIDE INJ/PF 1 MG/4 ML SDV IV SCH ×2 (10:38→17:29)
[2020-04-19] MEDS: ASPIRIN 81 MG TABLET, ENT COATED PO SCH (10:38)
[2020-04-19] MEDS: CLOPIDOGREL BISULFATE 75 MG TABLET PO SCH (10:38)
[2020-04-19] MEDS: AMLODIPINE BESYLATE 5 MG TABLET PO SCH (10:38)
[2020-04-19] MEDS: CALCITRIOL 0.25 MCG CAPSULE PO SCH (10:38)
[2020-04-19] MEDS: METOPROLOL TARTRATE 100 MG TABLET PO SCH ×2 (10:39→22:23)
--- NOTE | 2020-04-19 12:29 | PDOC PROGRESS REPORT ---
Subjective Progress Note for:: 04/19/20 Reason For Visit: Patient seen on HD -her first one via temporary femoral catheter. Undergoing HD without any complaints. Her breathing is much improved as she continues to make good amounts of urine as well. Labs and medications were reviewed. Dialysis orders were reviewed with the treating utilization manager Physical Exam Vital Signs: Temp Pulse Resp BP Pulse Ox 98.7 F 89 20 144/98 H 96 04/19/20 04:00 04/19/20 07:00 04/19/20 04:00 04/19/20 04:00 04/19/20 04:00 Intake & Output 04/18/20 04/19/20 04/20/20 06:59 06:59 06:59 Intake Total 133 1545 Output Total 1200 500 Balance -1067 1045 Weight 94 kg 94.5 kg General appearance: PRESENT: no acute distress Respiratory exam: PRESENT: clear to auscultation nikki, decreased breath sounds. ABSENT: crackles Cardiovascular exam: PRESENT: +S1, +S2 GI/Abdominal exam: PRESENT: normal bowel sounds, soft. ABSENT: organomegaly, t enderness Extremities exam: PRESENT: pedal edema Neurological exam: PRESENT: alert, awake, oriented to person, oriented to place Psychiatric exam: PRESENT: appropriate affect Skin exam: ABSENT: cyanosis, erythema, mottled, rash Results Laboratory Results: 04/19/20 07:05 04/19/20 07:05 04/19/20 04/19/20 07:05 07:05 WBC 9.7 RBC 3.03 L Hgb 8.8 L Hct 26.3 L MCV 87 MCH 29.2 MCHC 33.5 RDW 16.1 H Plt Count 328 Seg Neutrophils % 77.6 Retic Count (auto) 1.48 Sodium 139.6 Potassium 4.1 Chloride 112 H Carbon Dioxide 19 L Anion Gap 9 BUN 50 H Creatinine 4.24 H Est GFR ( Amer) 13 L Glucose 148 H Calcium 7.8 L Magnesium 2.0 Iron 37.8 TIBC 342 % Saturation 11 Ferritin 90.30 Vitamin B12 931.0 Folate 8.84 04/17/20 04/18/20 15:25 08:24 Troponin I 0.880 0.850 NT-Pro-B Natriuret Pep [id number] H Impressions: Chest X-Ray 04/17/20 00:00 IMPRESSION: Borderline cardiomegaly without pulmonary edema. Bilateral pleural effusions, left greater than right. Airspace disease in the lower lobes, atelectasis versus pneumonia. Assessment & Plan - Diagnosis (1) Acute hypoxemic respiratory failure Is this a current diagnosis for this admission?: Yes Plan: Secondary to congestive heart failure. Currently whole lot better after good response to IV diuretics and placement on BiPAP. Currently she is able to tolerate 2-3 L of nasal cannula. Now on HD and she is already feeling lots better. (2) Acute kidney injury superimposed on CKD Is this a current diagnosis for this admission?: Yes Plan: She was having baseline CKD 4/5 with worsening in the presence of prerenal congestive heart failure. Now initiated on HD and doing well. VS are stable. Dialysis is supervised. Plan to remove 2 l as tolerated.Dialysis orders were reviewed with the treating RN. (3) Acute on chronic systolic CHF (congestive heart failure) Is this a current diagnosis for this admission?: Yes Plan: Chronic noncompliance with diet, medications and recommendation to initiate dialysis sometime ago. Patient has responded very nicely to intravenous diure tics and is now initiated on hemodialysis. (4) Acute pulmonary edema Plan: Resolving. (5) Hypertensive emergency Plan: Much better. (6) Chest pain Qualifiers: Chest pain type: unspecified Qualified Code(s): R07.9 - Chest pain, unspecified Plan: Currently denies it.Further work up as per hospitalist. (7) Insulin dependent type 2 diabetes mellitus Is this a current diagnosis for this admission?: Yes Plan: Advised on the need for tight control. (8) Kidney disease, chronic, stage V (end stage, EGFR < 15 ml/min) Is this a current diagnosis for this admission?: Yes Plan: Has been showing early signs of uremia and now with congestive heart failure all of which necessitates initiation of hemodialysis. (9) Peripheral vascular disease Plan: As per Vascular surgeon. (10) Anemia of chronic renal failure, stage 4 (severe) Is this a current diagnosis for this admission?: No Plan: Checked iron studies and is low. Will plan for IV Venofer. (11) Coronary artery disease Qualifiers: Coronary Disease-Associated Artery/Lesion type: [place] artery [place] vs. transplanted heart: [place] heart Associated angina: angina presence unspecified Qualified Code(s): I25.10 - Atherosclerotic heart disease of [place] coronary artery without angina pectoris Is this a current diagnosis for this admission?: Yes Plan: Status quo.
--- NOTE | 2020-04-19 12:36 | XCELERA REPORT ---
[address] [address] Transthoracic Echocardiogram Report Name: ROBERTO HIGGINS Age: 59 yrs Gender: Female : 1960 Patient Status: In[facility] Study Date: 04/18/2020 01:35 PM Height: 62 in Weight: 207 lb BSA: 1.9 m2 Procedure: A complete two-dimensional transthoracic echocardiogram was performed (2D, M-mode, spectral and color flow Doppler). The study was technically adequate with some images being suboptimal in quality. Reason For Study: chf Ordering Physician: ERIN COHEN Performed By: Suma Curry Interpretation Summary The left ventricular ejection fraction is normal. There is mild to moderate concentric left ventricular hypertrophy. Doppler measurements suggest pseudonormalized left ventricular relaxation, which is associated with grade II/IV or mild to moderate diastolic dysfunction Distal anteroseptal mild dyskinesia There is a mild amount of mitral regurgitation There is a trace amount of aortic regurgitation The inferior vena cava appeared normal and decreased < 50% with respiration (RAP 10-15 mmHg) ascites noted Small right pleural effusion. Small left pleural effusion. MMode/2D Measurements & Calculations RVDd: 2.4 cm LVIDd: 4.4 cm FS: 34.2 % Ao root diam: 2.7 cm IVSd: 1.1 cm LVIDs: 2.9 cm EDV(Teich): 89.6 ml Ao root area: 5.7 cm2 LVPWd: 1.1 cm ESV(Teich): 32.8 ml EF(Teich): 63.4 % Doppler Measurements & Calculations MV E max iliana: MV V2 max: MV dec slope: Ao V2 max: 152.5 cm/sec 128.8 cm/sec 1218 cm/sec2 144.0 cm/sec MV A max iliana: MV max PG: MV dec time: Ao max P.9 cm/sec 8.8 mmHg 0.13 sec 8.3 mmHg MV E/A: 0.93 MV V2 mean: 87.9 cm/sec MV mean P.9 mmHg MV V2 VTI: 26.4 cm LV V1 max PG: PA V2 max: PI end-d iliana: 3.5 mmHg 99.8 cm/sec 115.9 cm/sec LV V1 max: PA max P.6 cm/sec 4.0 mmHg Left Ventricle There is mild to moderate concentric left ventricular hypertrophy. The left ventricular ejection fraction is normal. Doppler measurements suggest pseudonormalized left ventricular relaxation, which is associated with grade II/IV or mild to moderate diastolic dysfunction. Distal anteroseptal mild dyskinesia. Right Ventricle Borderline right ventricular enlargement. The right ventricle appears to be hypertrophied. The right ventricular systolic function is normal. Atria The right atrium is mildly dilated. The left atrium is mildly dilated. Interarterial septum not well visualized and not well dopplered. Cannot comment on ASD/PFO presence. Mitral Valve The mitral valve is grossly normal. There is no mitral valve stenosis. There is a mild amount of mitral regurgitation. Aortic Valve The aortic valve is not well visualized secondary to technical limitations. There is no aortic valve stenosis. There is a trace amount of aortic regurgitation. Tricuspid Valve The tricuspid valve is not well visualized, but is grossly normal. There is no tricuspid stenosis. There is a trace to mild amount of tricuspid regurgitation. Tricuspid regurgitation jet envelope not well defined to measure RV systolic pressure accurately. Pulmonic Valve The pulmonic valve is not well visualized. Great Vessels The aortic root is not well visualized but is probably normal size. The inferior vena cava appeared normal and decreased < 50% with respiration (RAP 10-15 mmHg). Effusions Minimal pericardial effusion. Small left pleural effusion. ascites noted. Small right pleural effusion. : ERIN COHEN, Roger
--- NOTE | 2020-04-19 12:57 | PDOC PROGRESS REPORT ---
Subjective Progress Note for:: 04/19/20 Subjective:: 59 year old female with past medical history significant for chronic systolic CHF, CKD 4/[address] Pineda, T2DM, CAD status post CABG and stents, HTN, HLD who presents with a 3-day history of progressive shortness of breath/PORTER/generalized fatigue and weakness which patient states is consistent with previous CHF exacerbations although she states this is worse than prior episodes. Patient brought to the hospital and found to have markedly elevated BNP, RANULFO with worsened creatinine up to 4.28. She was given 80 mg of IV Lasix in the ED and put out approximately 500 cc of urine. She was continued on IV Bumex thereafter. She was put on a nitroglycerin drip by the ED and this was promptly stopped after a short period of time. I discussed the case with Dr. Null in the ED who assured me he would contact patient's activity therapy specialist Dr. Pineda who is been in the hospital earlier today dialyzing another patient. As Dr. Null is left for the day now I discussed the case with the turnover physician who states they still have not contacted the activity therapy specialist and I was assured that they would continue calling Dr. Pineda to make him aware that the p atient is in the hospital and could potentially need urgent or emergent dialysis if her urine output slows or stops and she is unable to diurese with medication alone. She is currently maintained on BiPAP with supplemental oxygen. He will be admitted to stepdown unit. 04/18/2020-patient is comfortable in the bed eating lunch. Denies any problems. Patient has a temporary dialysis catheter in place. She is going for dialysis tomorrow. PPD was requested hepatitis profile was requested. Patient is going to get a permacath here and he will get AV fistula as an outpatient at [facility]. 04/19/20-patient has a successful dialysis today. 2 L of fluid is removed. Pulse ox is improving. Comfortably in the bed communicating well. Not in distress. Plan is to continue the present management at this time. Reason For Visit: ACUTE ON CHRONIC CHF EXACERBATION, RANULFO ON CKD4, Physical Exam Vital Signs: Temp Pulse Resp BP Pulse Ox 98.7 F 89 20 144/98 H 96 04/19/20 04:00 04/19/20 07:00 04/19/20 04:00 04/19/20 04:00 04/19/20 04:00 Intake & Output 04/18/20 04/19/20 04/20/20 06:59 06:59 06:59 Intake Total 133 1545 Output Total 1200 500 Balance -1067 1045 Weight 94 kg 94.5 kg General appearance: PRESENT: no acute distress, obese Head exam: PRESENT: atraumatic Eye exam: PRESENT: PERRLA Mouth exam: PRESENT: moist, tongue midline Teeth exam: PRESENT: poor dentation Neck exam: ABSENT: carotid bruit, JVD, lymphadenopathy, thyromegaly Respiratory exam: PRESENT: decreased breath sounds Cardiovascular exam: PRESENT: RRR. ABSENT: diastolic murmur, rubs, systolic murmur GI/Abdominal exam: PRESENT: normal bowel sounds, soft. ABSENT: distended, guarding, mass, organolmegaly, rebound, tenderness Rectal exam: PRESENT: deferred Extremities exam: PRESENT: full ROM, pedal edema, +1 edema. ABSENT: calf tenderness, clubbing Neurological exam: PRESENT: alert, awake, oriented to person, oriented to place, oriented to time, oriented to situation, CN II-XII grossly intact. ABSENT: motor sensory deficit Psychiatric exam: PRESENT: appropriate affect, normal mood. ABSENT: homicidal ideation, suicidal ideation Results Laboratory Results: 04/19/20 07:05 04/19/20 07:05 04/19/20 04/19/20 07:05 07:05 WBC 9.7 RBC 3.03 L Hgb 8.8 L Hct 26.3 L MCV 87 MCH 29.2 MCHC 33.5 RDW 16.1 H Plt Count 328 Seg Neutrophils % 77.6 Retic Count (auto) 1.48 Sodium 139.6 Potassium 4.1 Chloride 112 H Carbon Dioxide 19 L Anion Gap 9 BUN 50 H Creatinine 4.24 H Est GFR ( Amer) 13 L Glucose 148 H Calcium 7.8 L Magnesium 2.0 Iron 37.8 TIBC 342 % Saturation 11 Ferritin 90.30 Vitamin B12 931.0 Folate 8.84 04/17/20 04/18/20 15:25 08:24 Troponin I 0.880 0.850 NT-Pro-B Natriuret Pep 44848 H Impressions: Chest X-Ray 04/17/20 00:00 IMPRESSION: Borderline cardiomegaly without pulmonary edema. Bilateral pleural effusions, left greater than right. Airspace disease in the lower lobes, atelectasis versus pneumonia. Assessment and Plan - Diagnosis (1) Acute hypoxemic respiratory failure Is this a current diagnosis for this admission?: Yes Plan: Secondary to volume overload due to CHF and RANULFO Treat underlying cause Supplemental oxygen BiPAP 04/18/2020-patient is comfortably in the bed eating lunch. Pulse ox is 94% on 2 L of oxygen. 04/19/2020-acute on chronic respiratory failure with hypoxia resolving. Had a successful dialysis 2 L of fluid is removed. Pulse ox is 96% 2 L. 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 She is going for dialysis tomorrow. Echocardiogram will be requested. 04/19/20-echocardiogram suggestive of grade 2/grade 3 diastolic dysfunction. To watch for the fluid overload. (3) Anemia of chronic renal failure, stage 4 (severe) Is this a current diagnosis for this admission?: No Plan: 04/18/2020-patient has history of anemia of chronic disease because of end-stage renal disease. Hemoglobin is 8.8. 04/19/2020-patient has history of anemia of chronic disease. Hemoglobin is stable around 8.8. (4) Insulin dependent type 2 diabetes mellitus Is this a current diagnosis for this admission?: Yes Plan: Sliding scale insulin, Accu-Cheks Takes Lantus 20 units nightly at home, restart this at lower dose 04/18/2020-latest blood sugar is 113. Hemoglobin was 7.1. Plan is to continue the present management at this time. (5) Kidney disease, chronic, stage V (end stage, EGFR < 15 ml/min) Is this a current diagnosis for this admission?: Yes Plan: Follows with Dr. Pineda outpatient 04/18/20-patient is seen by Dr. Pineda. Temporary catheter was placed. Patient is going for dialysis tomorrow. Needs to arrange for permacath here prior to discharge. 04/19/2020-patient has a successful dialysis today 2 L of fluid is removed. Further management as per Dr. Pineda. - Time Anticipated Discharge Disposition: Home, Self Care Anticipated Discharge Timeframe: within 48 hours
--- NOTE | 2020-04-19 13:29 | PDOC CONSULTATION ---
Consultation Consult Date: 04/19/20 Attending physician:: ALEXA TEJEDA Provider Consulted: ADAN CARDENAS Consult reason:: Abnormal troponin elevation, CHF History of Present Illness Admission Date/PCP: 04/17/20 18:46 AGUILA SMITH Patient complains of: Complaints of shortness of breath. History of Present Illness: ROBERTO HIGGINS is a 59 year old female has known history of coronary artery disease having had coronary artery bypass graft surgery about six years ago at a hospital in [place]. Subsequently she had stents placement. Patient was admitted with progressive shortness of breath, abdominal bloating and leg edema. She was noted in end-stage renal disease and was started on dialysis. Following dialysis she is feeling much better. Patient claims she had some mild chest discomfort while being taken to dialysis but it got better after that. Patient denying any chest pain now. Patient is noted to have elevated troponin I but no significant EKG changes. I've been asked to evaluate patient because of abnormal troponin I and congestive heart failure. A 2D echo was performed. It shows relatively well preserved LVEF. Past Medical History Cardiac Medical History: Reports: Coronary Artery Disease, Myocardial Infarction - 2013 SILENT, Hyperlipidema, Hypertension, Peripheral Vascular Disease Pulmonary Medical History: Denies: Asthma Neurological Medical History: Reports: Seizures - Patient unsure if what she had was a seizure or a stroke Endocrine Medical History: Reports: Diabetes Mellitus Type 2 GI Medical History: Denies: Hepatitis, Hiatal Hernia Psychiatric Medical History: Denies: Depression Hematology: Denies: Anemia, Sickle Cell Disease Past Surgical History Past Surgical History: Reports: Appendectomy, Coronary Artery Bypass Graft, Coronary Stent, Tubal Ligation Denies: Amputation, Hysterectomy, Mastectomy, Pacemaker Social History Lives with: Family Smoking Status: Former Smoker Frequency of Alcohol Use: None Drugs: None Hx Prescription Drug Abuse: No - Advance Directive Resuscitation Status: Full Code Family History Family History: CAD, CVA, DM, Hypertension Medication/Allergy Home Medications: Ergocalciferol (Vitamin D2) [Drisdol 50,000 unit (1.25MG) Capsule] 50,000 unit PO MO@1000 03/14/20 Fenofibrate Nanocrystallized [Fenofibrate] 48 mg PO DAILY 03/14/20 Lisinopril [Prinivil] 20 mg PO DAILY 08/04/20 Furosemide [Lasix 20 mg Tablet] 20 mg PO DAILY #30 tab 03/16/20 Montelukast Sodium [Singulair 10 mg Tablet] 10 mg PO QHS #0 03/16/20 Calcitriol [Rocaltrol 0.5 mcg Capsule] 1 cap PO DAILY 04/18/20 Allergies/Adverse Reactions: No Known Allergies Allergy (Verified 04/17/20 13:31) Physical Exam Vital Signs: Temp Pulse Resp BP Pulse Ox 98.7 F 89 20 144/98 H 96 04/19/20 04:00 04/19/20 07:00 04/19/20 04:00 04/19/20 04:00 04/19/20 04:00 Intake & Output 04/18/20 04/19/20 04/20/20 06:59 06:59 06:59 Intake Total 133 1545 Output Total 1200 500 Balance -1067 1045 Weight 94 kg 94.5 kg Exam: GEN: NAD, patient alert oriented x3. Appearance and grooming WNL HEENT : Eyes: TIA, Ears: No significant abnormalities, Nose: No significant abnormalities. normocephalic atraumatic. Flat midface (-), Receding chin (-) ORAL : Mallampati class IV, narrow arched palate (-) Tonsils: Not enlarged. NECK: no thyromegaly, no masses, trachea is central, JVD is not elevated, carotids 2+ with bruit (-) RESP: lungs clear, no rales, wheezes or rhonchi, nonlabored, accessory muscles of respiration use (-). CV: NL S1 and S2. No significant murmurs noted, no gallop, no extra sounds, no clicks, no rub noted. GI: abd NT to palpation, no masses, bowel sounds present, no guarding or rigidity noted. EXT: no clubbing, (-) cyanosis, edema (1+), perpheral pulses diminished (no) MUSC/SKEL: no acute joint swelling noted. Muscle strength is generally intact. NEURO: no significant focal neurological deficits are note, sensation grossly intact, AO x 3 PSYCH: NL mood and affect. judgment and insight noted to be intact. SKIN: (-) rash, (-)Signs of pruritus, (-) other significant abnormality Results Laboratory Results: 04/19/20 07:05 04/19/20 07:05 04/19/20 04/19/20 07:05 07:05 WBC 9.7 RBC 3.03 L Hgb 8.8 L Hct 26.3 L MCV 87 MCH 29.2 MCHC 33.5 RDW 16.1 H Plt Count 328 Seg Neutrophils % 77.6 Retic Count (auto) 1.48 Sodium 139.6 Potassium 4.1 Chloride 112 H Carbon Dioxide 19 L Anion Gap 9 BUN 50 H Creatinine 4.24 H Est GFR ( Amer) 13 L Glucose 148 H Calcium 7.8 L Magnesium 2.0 Iron 37.8 TIBC 342 % Saturation 11 Ferritin 90.30 Vitamin B12 931.0 Folate 8.84 04/17/20 04/18/20 15:25 08:24 Troponin I 0.880 0.850 NT-Pro-B Natriuret Pep 90988 H EKG Comments: Sinus rhythm, no acute segment changes noted. Non-progression of R wave anterior precordial leads. consistent with prior anterior MA. No acute ST segment changes noted. Impressions: Chest X-Ray 04/17/20 00:00 IMPRESSION: Borderline cardiomegaly without pulmonary edema. Bilateral pleural effusions, left greater than right. Airspace disease in the lower lobes, atelectasis versus pneumonia. Assessment & Plan - Diagnosis (1) Diastolic CHF, acute on chronic Is this a current diagnosis for this admission?: Yes (2) Coronary artery disease Qualifiers: Coronary Disease-Associated Artery/Lesion type: [place] artery [place] vs. transplanted heart: [place] heart Associated angina: angina presence unspecified Qualified Code(s): I25.10 - Atherosclerotic heart disease of [place] coronary artery without angina pectoris Is this a current diagnosis for this admission?: Yes (3) Hypertension Qualifiers: Hypertension type: essential hypertension Qualified Code(s): I10 - Essential (primary) hypertension Is this a current diagnosis for this admission?: Yes (4) Insulin dependent type 2 diabetes mellitus Is this a current diagnosis for this admission?: Yes (5) Kidney disease, chronic, stage V (end stage, EGFR < 15 ml/min) Is this a current diagnosis for this admission?: Yes - Notes Notes: Patient has significant coronary artery disease history but presents with mainly shortness of breath, CHF findings. Troponin I are noted to be elevated but could well be related to CHF in setting of end-stage renal disease. At this point recommend medical management with aggressive risk factor modification. Agree with continuing dialysis. Recommend removal of fluid on dialysis gradually. 2D echo shows residual pleural effusion and also some ascitis will optimise medical management at this point. Patient has significant other medical issues and comorbidities which is being adequately managed by the hospitals. Patient does give history of obstructive sleep apnea. Patient has been recommended to restart PAP therapy at home setting. She was told to bring her own CPAP machine and use it during the hospitalisation.. May consider ischemia workup at a later date. However if patient has recurrent chest pain, consider tertiary care transfer for heart catheterization. Please feel free to call me if there are any questions. - Time Time Spent: 30 to 50 Minutes Medications reviewed and adjusted accordingly: Yes
[2020-04-19] MEDS ORDERED: IRON SUCROSE COMPLEX INJ/PF 100 MG/5 ML SDV IV ONE (13:30)
[2020-04-19] MEDS: ACETAMINOPHEN 325 MG TABLET PO PRN ×2 (17:30→23:22)
[2020-04-19] MEDS: ATORVASTATIN CALCIUM 80 MG TABLET PO SCH (22:23)
[2020-04-19] MEDS: INSULIN GLARGINE,HUM.REC.ANLOG 1,000 UNIT/10 ML VIAL SUBCUT SCH (22:23)
[2020-04-19] MEDS: MONTELUKAST SODIUM 10 MG TABLET PO SCH (22:23)
[2020-04-20 01:36] LABS: HEPATITIS C QUANTITATION HCV Not Detected IU/mL (.)
[2020-04-20] MEDS: HEPARIN SOD (PORCINE) 5,000 UNIT/ML 1 ML VIAL SUBCUT SCH ×3 (05:35→22:32)
[2020-04-20] MEDS: ACETAMINOPHEN 325 MG TABLET PO PRN ×2 (05:40→11:41)
[2020-04-20 06:55] LABS: ABSOLUTE BASOPHILS # (AUTO) 0.1 10^3/uL (0.0-0.2); ABSOLUTE EOSINOPHILS # (AUTO) 0.5 10^3/uL (0.0-0.6); ABSOLUTE MONOCYTES (AUTO) 0.5 10^3/uL (0.1-1.4); ABSOLUTE NEUT (AUTO) 9.1 10^3/uL (1.7-8.2); BASOPHILS % (AUTO) 0.5 % (0-2); EOSINOPHILS % (AUTO) 3.8 % (0-6); HEMATOCRIT 28.8 % (36.0-47.0); HEMOGLOBIN 9.4 g/dL (12.0-15.5); LYMPHOCYTES % (AUTO) 16.8 % (13-45); MEAN CORPUSCULAR HEMOGLOBIN 28.5 pg (27.0-33.4); MEAN CORPUSCULAR HGB CONC 32.5 g/dL (32.0-36.0); MEAN CORPUSCULAR VOLUME 88 fl (80-97); MONOCYTES % (AUTO) 4.4 % (3-13); PLATELET COUNT 343 10^3/uL (150-450); RED BLOOD COUNT 3.29 10^6/uL (3.72-5.28); RED CELL DISTRIBUTION WIDTH 15.7 % (11.5-14.0); SEGMENTED NEUTROPHILS % (AUTO) 74.5 % (42-78); TOTAL CELLS COUNTED % (AUTO) 100 %; WHITE BLOOD COUNT 12.2 10^3/uL (4.0-10.5)
[2020-04-20] MEDS: INSULIN LISPRO 100 UNIT/ML 3 ML VIAL SUBCUT SCH ×4 (08:27→22:31)
--- NOTE | 2020-04-20 11:03 | PDOC PROGRESS REPORT ---
Subjective Progress Note for:: 04/20/20 Subjective:: 59 year old female with past medical history significant for chronic systolic CHF, CKD 4/[address] Pineda, T2DM, CAD status post CABG and stents, HTN, HLD who presents with a 3-day history of progressive shortness of breath/PORTER/generalized fatigue and weakness which patient states is consistent with previous CHF exacerbations although she states this is worse than prior episodes. Patient brought to the hospital and found to have markedly elevated BNP, RANULFO with worsened creatinine up to 4.28. She was given 80 mg of IV Lasix in the ED and put out approximately 500 cc of urine. She was continued on IV Bumex thereafter. She was put on a nitroglycerin drip by the ED and this was promptly stopped after a short period of time. I discussed the case with Dr. Null in the ED who assured me he would contact patient's head of insight Dr. Pineda who is been in the hospital earlier today dialyzing another patient. As Dr. Null is left for the day now I discussed the case with the turnover physician who states they still have not contacted the head of insight and I was assured that they would continue calling Dr. Pineda to make him aware that the p atient is in the hospital and could potentially need urgent or emergent dialysis if her urine output slows or stops and she is unable to diurese with medication alone. She is currently maintained on BiPAP with supplemental oxygen. He will be admitted to stepdown unit. 04/18/2020-patient is comfortable in the bed eating lunch. Denies any problems. Patient has a temporary dialysis catheter in place. She is going for dialysis tomorrow. PPD was requested hepatitis profile was requested. Patient is going to get a permacath here and he will get AV fistula as an outpatient at [facility]. 04/19/20-patient has a successful dialysis today. 2 L of fluid is removed. Pulse ox is improving. Comfortably in the bed communicating well. Not in distress. Plan is to continue the present management at this time. 04/20/2020-the nurses notified me that they noticed bleeding from the left femoral catheter site. Dr. Paul was notified. Probably catheter need to be removed and patient need a permacath. pt is scheduled for dialysis tomorrow. Reason For Visit: ACUTE ON CHRONIC CHF EXACERBATION, RANULFO ON CKD4, Physical Exam Vital Signs: Temp Pulse Resp BP Pulse Ox 98.1 F 89 16 147/58 H 94 04/20/20 07:57 04/20/20 07:57 04/20/20 07:57 04/20/20 07:57 04/20/20 07:57 Intake & Output 04/19/20 04/20/20 04/21/20 06:59 06:59 06:59 Intake Total 1545 720 Output Total 500 2900 Balance 1045 -2180 Weight 94.5 kg 94.5 kg General appearance: PRESENT: no acute distress Head exam: PRESENT: atraumatic Eye exam: PRESENT: conjunctiva pale, PERRLA Ear exam: PRESENT: normal external ear exam Teeth exam: PRESENT: poor dentation Neck exam: ABSENT: carotid bruit, JVD, lymphadenopathy, thyromegaly Respiratory exam: PRESENT: decreased breath sounds Cardiovascular exam: PRESENT: RRR. ABSENT: diastolic murmur, rubs, systolic murmur GI/Abdominal exam: PRESENT: normal bowel sounds, soft. ABSENT: distended, guarding, mass, organolmegaly, rebound, tenderness Rectal exam: PRESENT: deferred Extremities exam: PRESENT: full ROM, other - Temporary catheter in the left groin bleeding is noticed from the catheter site.. ABSENT: calf tenderness, clubbing, pedal edema Neurological exam: PRESENT: alert, awake, oriented to person, oriented to place, oriented to time, oriented to situation, CN II-XII grossly intact. ABSENT: motor sensory deficit Psychiatric exam: PRESENT: appropriate affect, normal mood. ABSENT: homicidal ideation, suicidal ideation Results Laboratory Results: 04/20/20 06:42 04/19/20 07:05 04/20/20 04/20/20 06:42 06:42 WBC 12.2 H RBC 3.29 L Hgb 9.4 L Hct 28.8 L MCV 88 MCH 28.5 MCHC 32.5 RDW 15.7 H Plt Count 343 Seg Neutrophils % 74.5 Magnesium 2.0 04/17/20 04/18/20 15:25 08:24 Troponin I 0.880 0.850 NT-Pro-B Natriuret Pep 11186 H Impressions: Chest X-Ray 04/17/20 00:00 IMPRESSION: Borderline cardiomegaly without pulmonary edema. Bilateral pleural effusions, left greater than right. Airspace disease in the lower lobes, atelectasis versus pneumonia. Assessment and Plan - Diagnosis (1) Acute hypoxemic respiratory failure Is this a current diagnosis for this admission?: Yes Plan: Secondary to volume overload due to CHF and RANULFO Treat underlying cause Supplemental oxygen BiPAP 04/18/2020-patient is comfortably in the bed eating lunch. Pulse ox is 94% on 2 L of oxygen. 04/19/2020-acute on chronic respiratory failure with hypoxia resolving. Had a successful dialysis 2 L of fluid is removed. Pulse ox is 96% 2 L. 04/20/20 pulse ox is 98% room air. Not in distress. 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 She is going for dialysis tomorrow. Echocardiogram will be requested. 04/19/20-echocardiogram suggestive of grade 2/grade 3 diastolic dysfunction. To watch for the fluid overload. 04/20/2020-1+ pedal edema present. Patient is going for dialysis tomorrow for fluid removal. Not in distress. (3) Anemia of chronic renal failure, stage 4 (severe) Is this a current diagnosis for this admission?: No Plan: 04/18/2020-patient has history of anemia of chronic disease because of end-stage renal disease. Hemoglobin is 8.8. 04/19/2020-patient has history of anemia of chronic disease. Hemoglobin is stable around 8.8. 04/20/2020-hemoglobin today is 9.4. Stable. Plan is to closely monitor the labs. (4) Insulin dependent type 2 diabetes mellitus Is this a current diagnosis for this admission?: Yes Plan: Sliding scale insulin, Accu-Cheks Takes Lantus 20 units nightly at home, restart this at lower dose 04/18/2020-latest blood sugar is 113. Hemoglobin was 7.1. Plan is to continue the present management at this time. 04/20-latest blood sugar is 236. Hemoglobin A1c 7.1. Plan is to continue/sliding scale and Lantus 20 units at bedtime. (5) Kidney disease, chronic, stage V (end stage, EGFR < 15 ml/min) Is this a current diagnosis for this admission?: Yes Plan: Follows with Dr. Pineda outpatient 04/18/20-patient is seen by Dr. Pineda. Temporary catheter was placed. Patient is going for dialysis tomorrow. Needs to arrange for permacath here prior to discharge. 04/19/2020-patient has a successful dialysis today 2 L of fluid is removed. Further management as per Dr. Pineda. 1020-patient is going for dialysis tomorrow. Patient may need permacath. - Time Anticipated Discharge Disposition: Home, Self Care Anticipated Discharge Timeframe: within 48 hours
[2020-04-20] MEDS: ASPIRIN 81 MG TABLET, ENT COATED PO SCH (11:41)
[2020-04-20] MEDS: SODIUM BICARBONATE 650 MG TABLET PO SCH ×3 (11:43→17:14)
[2020-04-20] MEDS: METOPROLOL TARTRATE 100 MG TABLET PO SCH ×2 (11:43→22:30)
[2020-04-20] MEDS: AMLODIPINE BESYLATE 5 MG TABLET PO SCH (11:45)
[2020-04-20] MEDS: CLOPIDOGREL BISULFATE 75 MG TABLET PO SCH (11:46)
[2020-04-20] MEDS: BUMETANIDE INJ/PF 1 MG/4 ML SDV IV SCH ×2 (11:47→17:14)
--- NOTE | 2020-04-20 11:52 | PDOC PROGRESS REPORT ---
Subjective Progress Note for:: 04/20/20 Reason For Visit: Patient seen in the hospital today. She underwent an uneventful first hemodialysis yesterday through her temporary left femoral catheter. Unfortunately she has been having some bleeding around the catheter site and the dressing is saturated. She is also complaining of pain around the site. No complaints of any fever or chills. No complaints of any chest pain and her shortness of breath is improved. No complaints of any orthostasis. Labs and medications were reviewed that shows a improved hemoglobin. She is also getting IV Venofer. She is also scheduled to have a permacath placed prior to her discharge. Labs and medications were reviewed and discussions were done with her as well as the treating nurse on the floor. Physical Exam Vital Signs: Temp Pulse Resp BP Pulse Ox 98.1 F 89 16 147/58 H 94 04/20/20 07:57 04/20/20 07:57 04/20/20 07:57 04/20/20 07:57 04/20/20 07:57 Intake & Output 04/19/20 04/20/20 04/21/20 06:59 06:59 06:59 Intake Total 1545 720 Output Total 500 2900 Balance 1045 -2180 Weight 94.5 kg 94.5 kg General appearance: PRESENT: no acute distress Respiratory exam: PRESENT: clear to auscultation nikki, decreased breath sounds. ABSENT: crackles Cardiovascular exam: PRESENT: +S1, +S2 GI/Abdominal exam: PRESENT: normal bowel sounds, soft. ABSENT: organomegaly, tenderness Extremities exam: PRESENT: +1 edema Neurological exam: PRESENT: alert, awake, oriented to person, oriented to place Psychiatric exam: PRESENT: appropriate affect Skin exam: ABSENT: cyanosis, erythema, mottled, rash Additional comments: Examination of the left femoral catheter showed that she has got minimal oozing blood and the dressing is saturated. She is also slightly tender around the site. However no hematoma or ecchymosis was seen. Results Laboratory Results: 04/20/20 06:42 04/19/20 07:05 04/20/20 04/20/20 06:42 06:42 WBC 12.2 H RBC 3.29 L Hgb 9.4 L Hct 28.8 L MCV 88 MCH 28.5 MCHC 32.5 RDW 15.7 H Plt Count 343 Seg Neutrophils % 74.5 Magnesium 2.0 04/17/20 04/18/20 15:25 08:24 Troponin I 0.880 0.850 NT-Pro-B Natriuret Pep 90785 H Impressions: Chest X-Ray 04/17/20 00:00 IMPRESSION: Borderline cardiomegaly without pulmonary edema. Bilateral pleural effusions, left greater than right. Airspace disease in the lower lobes, atelectasis versus pneumonia. Assessment & Plan - Diagnosis (1) Acute hypoxemic respiratory failure Is this a current diagnosis for this admission?: Yes Plan: Secondary to congestive heart failure. Currently whole lot better after good response to IV diuretics and dialysis yesterday. Currently she is on room air and saturating 98%. However she still is in decompensated heart failure and plan to repeat dialysis as we transition her to outpatient dialysis. (2) Acute kidney injury superimposed on CKD Is this a current diagnosis for this admission?: Yes Plan: She was having baseline CKD 4/5 with worsening in the presence of prerenal congestive heart failure. Now initiated on HD and doing well. VS are stable. She is having some minimal bleeding around her temporary left femoral catheter which needs to be examined by the surgeons who have been consulted. Ideally she should could have this catheter removed and have a permacath placed either today or first thing in the morning tomorrow for her dialysis again tomorrow. We will also get medical social workers to start consultation with [facility] for outpatient dialysis placement. Hepatitis serologies are back. Please ensure a PPD has been placed prior to discharge as well. Discussions were done with the treating nurse and the patient on the floor.. (3) Acute on chronic systolic CHF (congestive heart failure) Is this a current diagnosis for this admission?: Yes Plan: Chronic noncompliance with diet, medications and recommendation to initiate dialysis sometime ago. Patient has responded very nicely to intravenous diuretics and is now initiated on hemodialysis.She is definitely much improved as compared to admission but she still is decompensated. See the response to continued dialysis as well as current medication regimens. (4) Acute pulmonary edema Plan: Resolved.However she needs ongoing continuous hemodialysis besides medication regimens. Needs to be compliant with her diet and get her blood sugars under better control. (5) Hypertensive emergency Plan: Resolved and currently blood pressures a whole lot better. Continue current medications and see response to fluid extraction on hemodialysis. (6) Chest pain Qualifiers: Chest pain type: unspecified Qualified Code(s): R07.9 - Chest pain, unspecified Plan: As per hospitalist/cardiology. (7) Insulin dependent type 2 diabetes mellitus Is this a current diagnosis for this admission?: Yes Plan: Advised on the need for tight control. (8) Kidney disease, chronic, stage V (end stage, EGFR < 15 ml/min) Is this a current diagnosis for this admission?: Yes Plan: Has been showing early signs of uremia and now with congestive heart failure all of which necessitates initiation of hemodialysis. (9) Peripheral vascular disease Plan: As per Vascular surgeon. (10) Anemia of chronic renal failure, stage 4 (severe) Is this a current diagnosis for this admission?: No Plan: Checked iron studies and is low. Will plan for IV Venofer. (11) Coronary artery disease Qualifiers: Coronary Disease-Associated Artery/Lesion type: [place] artery [place] vs. transplanted heart: [place] heart Associated angina: angina presence unspecified Qualified Code(s): I25.10 - Atherosclerotic heart disease of [place] coronary artery without angina pectoris Is this a current diagnosis for this admission?: Yes Plan: Status quo.
--- NOTE | 2020-04-20 17:07 | PDOC PROGRESS REPORT ---
Subjective Progress Note for:: 04/20/20 Subjective:: 59-year-old female with renal failure. Currently she is receiving hemodialysis through temporary dialysis catheter. Request has been made for permacath insertion. The patient denies any chest pain, shortness of breath, fevers, chills, nausea, vomiting, melena, hematochezia, headache, or dizziness. Reason For Visit: ACUTE ON CHRONIC CHF EXACERBATION, RANULFO ON CKD4, Physical Exam Vital Signs: Temp Pulse Resp BP Pulse Ox 98.1 F 89 16 147/58 H 94 04/20/20 10:00 04/20/20 07:57 04/20/20 07:57 04/20/20 07:57 04/20/20 07:57 Intake & Output 04/19/20 04/20/20 04/21/20 06:59 06:59 06:59 Intake Total 1545 720 Output Total 500 2900 Balance 1045 -2180 Weight 94.5 kg 94.5 kg General appearance: PRESENT: obese Head exam: PRESENT: atraumatic, normocephalic Eye exam: PRESENT: EOMI, PERRLA Mouth exam: PRESENT: moist, neck supple Neck exam: ABSENT: meningismus, tenderness, thyromegaly, tracheal deviation Respiratory exam: PRESENT: unlabored. ABSENT: tachypnea, wheezes Cardiovascular exam: ABSENT: tachycardia GI/Abdominal exam: PRESENT: soft. ABSENT: distended, rigid, tenderness Rectal exam: PRESENT: deferred Extremities exam: ABSENT: clubbing Musculoskeletal exam: ABSENT: deformity Neurological exam: PRESENT: alert, awake, oriented to person, oriented to place, oriented to time, oriented to situation, CN II-XII grossly intact. ABSENT: motor sensory deficit Psychiatric exam: ABSENT: agitated, anxious, depressed Focused psych exam: ABSENT: delusional Skin exam: ABSENT: cyanosis, erythema, jaundice Results Laboratory Results: 04/20/20 06:42 04/19/20 07:05 04/20/20 04/20/20 06:42 06:42 WBC 12.2 H RBC 3.29 L Hgb 9.4 L Hct 28.8 L MCV 88 MCH 28.5 MCHC 32.5 RDW 15.7 H Plt Count 343 Seg Neutrophils % 74.5 Magnesium 2.0 04/17/20 04/18/20 15:25 08:24 Troponin I 0.880 0.850 NT-Pro-B Natriuret Pep [id number] H Impressions: Chest X-Ray 04/17/20 00:00 IMPRESSION: Borderline cardiomegaly without pulmonary edema. Bilateral pleural effusions, left greater than right. Airspace disease in the lower lobes, atelectasis versus pneumonia. Assessment & Plan - Diagnosis (1) Kidney disease, chronic, stage V (end stage, EGFR < 15 ml/min) Is this a current diagnosis for this admission?: Yes - Time Anticipated Discharge Disposition: Unknown Anticipated Discharge Timeframe: Unknown - Plan Summary Plan Summary: This is a 59-year-old female in need of a permacath. We will make her n.p.o. after midnight, with anticipation of placing a permacath tomorrow.
[2020-04-20] MEDS ORDERED: GLUCAGON,HUMAN RECOMB 1 MG INJ SUBCUT PRN (17:09)
[2020-04-20] MEDS ORDERED: DEXTROSE 50%-WATER 25 GM/50 ML DISP.SYRIN IV PRN ×2 (17:09)
[2020-04-20] MEDS ORDERED: DEXTROSE 40% GEL 15 GM TUBE PO PRN ×2 (17:09)
[2020-04-20] MEDS: INSULIN GLARGINE,HUM.REC.ANLOG 1,000 UNIT/10 ML VIAL SUBCUT SCH (22:30)
[2020-04-20] MEDS: MONTELUKAST SODIUM 10 MG TABLET PO SCH (22:30)
[2020-04-20] MEDS: ATORVASTATIN CALCIUM 80 MG TABLET PO SCH (22:30)
[2020-04-21] MEDS ORDERED: IRON SUCROSE COMPLEX 200 MG in NORMAL SALINE 250 ML IV PRN (05:00)
[2020-04-21] MEDS ORDERED: HEPARIN SOD (PORCINE) 1,000 UNIT/ML 10 ML VIAL IV PRN (05:00)
[2020-04-21] MEDS ORDERED: EPOETIN ALFA-EPBX 10,000 UNIT in SYRINGE, DISPOSABLE, 1 EACH IV PRN (05:00)
[2020-04-21] MEDS: HEPARIN SOD (PORCINE) 5,000 UNIT/ML 1 ML VIAL SUBCUT SCH ×3 (06:08→22:39)
[2020-04-21] MEDS: ACETAMINOPHEN 325 MG TABLET PO PRN ×2 (06:08→21:30)
[2020-04-21 06:33] LABS: ABSOLUTE EOSINOPHILS # (AUTO) 0.4 10^3/uL (0.0-0.6); ABSOLUTE LYMPHOCYTES (AUTO) 1.8 10^3/uL (0.5-4.7); ABSOLUTE MONOCYTES (AUTO) 0.5 10^3/uL (0.1-1.4); ABSOLUTE NEUT (AUTO) 7.9 10^3/uL (1.7-8.2); BASOPHILS % (AUTO) 0.5 % (0-2); HEMATOCRIT 25.7 % (36.0-47.0); HEMOGLOBIN 8.5 g/dL (12.0-15.5); LYMPHOCYTES % (AUTO) 16.5 % (13-45); MEAN CORPUSCULAR HEMOGLOBIN 29.3 pg (27.0-33.4); MEAN CORPUSCULAR HGB CONC 33.2 g/dL (32.0-36.0); MEAN CORPUSCULAR VOLUME 88 fl (80-97); MONOCYTES % (AUTO) 4.9 % (3-13); PLATELET COUNT 287 10^3/uL (150-450); RED BLOOD COUNT 2.91 10^6/uL (3.72-5.28); RED CELL DISTRIBUTION WIDTH 15.9 % (11.5-14.0); SEGMENTED NEUTROPHILS % (AUTO) 74.1 % (42-78); TOTAL CELLS COUNTED % (AUTO) 100 %; WHITE BLOOD COUNT 10.7 10^3/uL (4.0-10.5)
[2020-04-21 06:35] LABS: ALBUMIN 2.1 g/dL (3.5-5.0); ALKALINE PHOSPHATASE 59 U/L (38-126); ANION GAP 7 (5-19); ASPARTATE AMINO TRANSFERASE 34 U/L (14-36); BILIRUBIN,DIRECT 0.4 mg/dL (0.0-0.4); BILIRUBIN,TOTAL 0.4 mg/dL (0.2-1.3); BLOOD UREA NITROGEN 37 mg/dL (7-20); CALCIUM 8.1 mg/dL (8.4-10.2); CARBON DIOXIDE 26 mmol/L (22-30); CHLORIDE 106 mmol/L (98-107); GLUCOSE 165 mg/dL (75-110); POTASSIUM 4.2 mmol/L (3.6-5.0); TOTAL PROTEIN 4.4 g/dL (6.3-8.2)
[2020-04-21] MEDS ORDERED: IRON SUCROSE COMPLEX INJ/PF 100 MG/5 ML SDV IV ONE (08:00)
[2020-04-21] MEDS ORDERED: MIDAZOLAM 2 MG/2 ML INJ ONE (09:12)
[2020-04-21] MEDS ORDERED: PROPOFOL INJ 200 MG/20 ML VIAL IV ONE (09:12)
[2020-04-21] MEDS ORDERED: FENTANYL CITRATE INJ/PF 100 MCG/2 ML AMPUL ONE (09:12)
[2020-04-21] MEDS ORDERED: ONDANSETRON HCL INJ/PF 4 MG/2 ML SDV ONE (09:12)
[2020-04-21] MEDS: INSULIN LISPRO 100 UNIT/ML 3 ML VIAL SUBCUT SCH ×4 (10:21→22:41)
[2020-04-21] MEDS: CALCITRIOL 0.25 MCG CAPSULE PO SCH (10:22)
[2020-04-21] MEDS: ASPIRIN 81 MG TABLET, ENT COATED PO SCH (10:22)
[2020-04-21] MEDS: SODIUM BICARBONATE 650 MG TABLET PO SCH (10:22)
[2020-04-21] MEDS: BUMETANIDE INJ/PF 1 MG/4 ML SDV IV SCH (10:30)
[2020-04-21] MEDS: AMLODIPINE BESYLATE 5 MG TABLET PO SCH (10:30)
[2020-04-21] MEDS: METOPROLOL TARTRATE 100 MG TABLET PO SCH ×2 (10:31→22:39)
--- NOTE | 2020-04-21 12:00 | PDOC PROGRESS REPORT ---
Subjective Progress Note for:: 04/21/20 Subjective:: I am seeing the patient on dialysis this morning. She appears to be very comfortable and tolerating dialysis well without any issues. She denies any chest pains no shortness of breath. She had some bleeding over her temporary femoral dialysis catheter couple of days ago but has stopped since then and is currently being used for dialysis. She is a scheduled for PermCath placement after dialysis today. She is a still making some urine and has made about 1300 mL of urine output for the last 24 hours. Apparently the patient has progressive deterioration of kidney function and presented this time with acute pulmonary edema requiring hemodialysis. Prior to admission the patient is being prepared for initiation of hemodialysis but ended up being admitted and being initiated here for renal replacement therapy. Patient is aware and agreeable to continuing hemodialysis treatment as an outpatient. Reason For Visit: ACUTE ON CHRONIC CHF EXACERBATION, RANULFO ON CKD4, Physical Exam Vital Signs: Temp Pulse Resp BP Pulse Ox 98.3 F 85 18 149/60 H 99 04/21/20 04:16 04/21/20 04:16 04/21/20 04:16 04/21/20 04:16 04/21/20 04:16 Intake & Output 04/20/20 04/21/20 04/22/20 06:59 06:59 06:59 Intake Total 720 894 Output Total 2900 1300 Balance -2180 -406 Weight 94.5 kg 92.7 kg Vitals during dialysis: Blood pressure 180/87, heart rate of 81, blood flow rate of 250 mL/min and dialysate flow rate of 600 mL/min using her temporary dialysis catheter in her left femoral vein. Exam: General appearance: PRESENT: no acute distress, cooperative, well-developed, well-nourished Head exam: PRESENT: atraumatic, normocephalic Eye exam: PRESENT: conjunctiva slightly pale, PERRLA. ABSENT: scleral icterus Neck exam: ABSENT: JVD Respiratory exam: PRESENT: Diminished breath sounds. ABSENT: crackles, rales, rhonchi, unlabored, wheezes Cardiovascular exam: PRESENT: Regular rate rhythm -+S1, +S2. ABSENT: diastolic murmur, systolic murmur GI/Abdominal exam: PRESENT: normal bowel sounds, soft. ABSENT: guarding, mass, tenderness Extremities exam: Grade 2 bilateral lower extremity pitting edema Neurological exam: PRESENT: alert, awake, oriented to person, place and time. Skin exam: PRESENT: dry, warm, Cardiovascular exam: PRESENT: +S1, +S2 GI/Abdominal exam: PRESENT: normal bowel sounds, soft. ABSENT: organomegaly, tenderness Results Laboratory Results: 04/21/20 05:45 04/21/20 05:45 04/21/20 04/21/20 05:45 05:45 WBC 10.7 H RBC 2.91 L Hgb 8.5 L Hct 25.7 L MCV 88 MCH 29.3 MCHC 33.2 RDW 15.9 H Plt Count 287 Seg Neutrophils % 74.1 Sodium 138.7 Potassium 4.2 Chloride 106 Carbon Dioxide 26 Anion Gap 7 BUN 37 H Creatinine 3.87 H Est GFR ( Amer) 14 L Glucose 165 H Calcium 8.1 L Total Bilirubin 0.4 AST 34 Alkaline Phosphatase 59 Total Protein 4.4 L Albumin 2.1 L 04/17/20 04/18/20 15:25 08:24 Troponin I 0.880 0.850 NT-Pro-B Natriuret Pep [id number] H Impressions: Chest X-Ray 04/17/20 00:00 IMPRESSION: Borderline cardiomegaly without pulmonary edema. Bilateral pleural effusions, left greater than right. Airspace disease in the lower lobes, atelectasis versus pneumonia. Assessment & Plan - Diagnosis (1) Kidney disease, chronic, stage V (end stage, EGFR < 15 ml/min) Is this a current diagnosis for this admission?: Yes Plan: Patient had progressive deterioration of her chronic kidney disease and has presented with acute pulmonary edema requiring initiation of hemodialysis. Patient has now reached end-stage renal disease requiring chronic hemodialysis treatment. Patient agreed for chronic hemodialysis treatment. We will do dialysis today for 2.5 hours, using the patient's left femoral dialysis temporary catheter, with 3 potassium bath, blood flow rate of 250 mL per minute, dialysate flow rate of 600 mL per minute, ultrafiltration 2.5 to 3 L as tolerated, no heparin and Retacrit with 10,000 units during dialysis intravenously. Patient will also be given IV Venofer under dialysis. PermCath to be placed today by Dr. Singh. Consulted case loader operator to arrange outpatient dialysis at [facility]. Once arranged patient can be discharged home from nephrology standpoint. (2) Hypertension Qualifiers: Hypertension type: essential hypertension Qualified Code(s): I10 - Essential (primary) hypertension Is this a current diagnosis for this admission?: Yes Plan: Initially presented with hypertensive urgency. Blood pressures currently improved and fairly controlled. Blood pressure is slightly elevated during dialysis. Continue the same blood pressure medications. We will change Bumex to oral. (3) Anemia in chronic kidney disease (CKD) Is this a current diagnosis for this admission?: Yes Plan: Retrofit given during dialysis. Also associated with iron deficiency so Venofer is being given. (4) Iron deficiency anemia Is this a current diagnosis for this admission?: Yes Plan: Venofer being loaded during dialysis treatment. (5) Chronic kidney disease-mineral and bone disorder Is this a current diagnosis for this admission?: Yes Plan: Patient has hyperphosphatemia with initial phosphorus of 7.2, hypocalcemia due to the elevated phosphorus currently at 8.1. Patient is currently on calcitriol. We will recheck phosphorus and check PTH. Start calcium acetate wi th meals. (6) Insulin dependent type 2 diabetes mellitus Is this a current diagnosis for this admission?: Yes Plan: Per primary service. (7) Chest pain Qualifiers: Chest pain type: unspecified Qualified Code(s): R07.9 - Chest pain, unspecified Is this a current diagnosis for this admission?: Yes Plan: Per cardiology. (8) Acute hypoxemic respiratory failure Is this a current diagnosis for this admission?: Yes Plan: Resolved. (9) Acute on chronic systolic CHF (congestive heart failure) Is this a current diagnosis for this admission?: Yes Plan: Currently compensated. (10) Coronary artery disease Qualifiers: Coronary Disease-Associated Artery/Lesion type: [place] artery [place] vs. transplanted heart: [place] heart Associated angina: angina presence unspecified Qualified Code(s): I25.10 - Atherosclerotic heart disease of [place] coronary artery without angina pectoris Is this a current diagnosis for this admission?: Yes - Time Time with patient: 15-25 minutes
[2020-04-21] MEDS ORDERED: KETAMINE HCL INJ 500 MG/10 ML VIAL ONE (12:03)
[2020-04-21] MEDS ORDERED: LIDOCAINE 1%/EPINEPHRINE INJ 20 ML VIAL ONE ×2 (12:11→13:20)
[2020-04-21] MEDS ORDERED: BUMETANIDE 1 MG TABLET PO SCH (12:15)
--- NOTE | 2020-04-21 12:15 | PDOC PROGRESS REPORT ---
Subjective Progress Note for:: 04/20/20 Subjective:: Patient was seen yesterday. However a note was not entered. Patient was noted to be doing well. She denied any chest pain. Patient claims the bleeding around the dialysis catheter has resolved. On the bedside chair and eating her dinner. Reason For Visit: ACUTE ON CHRONIC CHF EXACERBATION, RANULFO ON CKD4, Physical Exam Vital Signs: Temp Pulse Resp BP Pulse Ox 98.3 F 85 18 144/98 H 99 04/21/20 11:18 04/21/20 11:18 04/21/20 11:18 04/21/20 11:18 04/21/20 11:18 Intake & Output 04/20/20 04/21/20 04/22/20 06:59 06:59 06:59 Intake Total 720 894 Output Total 2900 1300 3000 Balance -2180 -406 -3000 Weight 94.5 kg 92.7 kg Exam: GENERAL: well-nourished and in no acute distress. Alert and oriented x3 HEAD: Atraumatic, normocephalic. EYES: TIA, sclera anicteric, conjunctiva are normal. ENT: Moist mucous membranes. No oral ulcerations or bleeding gums noted. No obvious ear, nose or throat abnormalities noted. NECK: supple without lymphadenopathy. Trachea is central. No cervical or axillary lymphadenopathy noted. Carotids are 2+, JVD WNL LUNGS: Breath sounds clear bilaterally. No wheezes rales or rhonchi noted. No significant dullness noted on percussion. CHEST: Palpation of the chest wall shows no significant chest wall tenderness. 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 ABDOMEN: Soft, no significant tenderness appreciated, normoactive bowel sounds. No guarding, no rebound. No rigidity noted . No masses appreciated. EXTREMITIES: Pedal pulses are 1-2+, no calf tenderness noted. No clubbing or cyanosis. negative pedal edema noted NEUROLOGICAL: Focused neurological exam showed no significant neurologic deficit. Normal speech, no focal weakness appreciated. PSYCH: Normal mood, normal affect. Judgment and insight within normal limits. SKIN: No significant ecchymosis, skin is noted to be warm. MUSCULOSKELETAL EXAM: No significant acute joint swelling noted. Dialysis catheter noted in the groin area right side. Results Laboratory Results: 04/21/20 05:45 04/21/20 05:45 04/21/20 04/21/20 05:45 05:45 WBC 10.7 H RBC 2.91 L Hgb 8.5 L Hct 25.7 L MCV 88 MCH 29.3 MCHC 33.2 RDW 15.9 H Plt Count 287 Seg Neutrophils % 74.1 Sodium 138.7 Potassium 4.2 Chloride 106 Carbon Dioxide 26 Anion Gap 7 BUN 37 H Creatinine 3.87 H Est GFR ( Amer) 14 L Glucose 165 H Calcium 8.1 L Total Bilirubin 0.4 AST 34 Alkaline Phosphatase 59 Total Protein 4.4 L Albumin 2.1 L 04/17/20 04/18/20 15:25 08:24 Troponin I 0.880 0.850 NT-Pro-B Natriuret Pep [id number] H EKG Comments: Telemetry strip shows sinus rhythm. No significant bradycardia or tachyarrhythmias noted. Impressions: Chest X-Ray 04/17/20 00:00 IMPRESSION: Borderline cardiomegaly without pulmonary edema. Bilateral pleural effusions, left greater than right. Airspace disease in the lower lobes, atelectasis versus pneumonia. Assessment & Plan - Diagnosis (1) Diastolic CHF, acute on chronic Is this a current diagnosis for this admission?: Yes (2) Coronary artery disease Qualifiers: Coronary Disease-Associated Artery/Lesion type: [place] artery [place] vs. transplanted heart: [place] heart Associated angina: angina presence unspecifie d Qualified Code(s): I25.10 - Atherosclerotic heart disease of [place] coronary artery without angina pectoris Is this a current diagnosis for this admission?: Yes (3) Hypertension Qualifiers: Hypertension type: essential hypertension Qualified Code(s): I10 - Essential (primary) hypertension Is this a current diagnosis for this admission?: Yes (4) Insulin dependent type 2 diabetes mellitus Is this a current diagnosis for this admission?: Yes (5) Kidney disease, chronic, stage V (end stage, EGFR < 15 ml/min) Is this a current diagnosis for this admission?: Yes - Notes Notes: CHF: Patient still having some fluid overload. Continue to remove fluid on dialysis. Coronary artery disease: Symptomatically stable. At this point recommend aggressive risk factor modification and medical management. Hypertension: Reasonably well controlled. Blood pressure goal in this patient is 135/85 or less. This was discussed with the patient. Currently blood pressure under reasonable control. Better medication for this patient are TEJA inhibitor/ARB/beta [place] etc. discussed side effects of uncontrolled hypertension and also severe hypotension. Diabetes: Recommend good control of blood sugar. However should avoid any hypoglycemia and hyperglycemia. Patient being expertly managed by primary care M.D/hospitalist ESRD: Being well managed by the hospitalist and glass inspector. SLEEP APNEA SYNDROME: Patient to continue bilevel therapy in the hospital. Resume Pap settings home settings when she is discharged.
[2020-04-21 12:56] LABS: PHOSPHORUS 5.4 mg/dL (2.5-4.5)
--- NOTE | 2020-04-21 12:57 | PDOC PROGRESS REPORT ---
Subjective Progress Note for:: 04/21/20 Subjective:: 59 year old female with past medical history significant for chronic systolic CHF, CKD 4/[address] Pineda, T2DM, CAD status post CABG and stents, HTN, HLD who presents with a 3-day history of progressive shortness of breath/PORTER/generalized fatigue and weakness which patient states is consistent with previous CHF exacerbations although she states this is worse than prior episodes. Patient brought to the hospital and found to have markedly elevated BNP, RANULFO with worsened creatinine up to 4.28. She was given 80 mg of IV Lasix in the ED and put out approximately 500 cc of urine. She was continued on IV Bumex thereafter. She was put on a nitroglycerin drip by the ED and this was promptly stopped after a short period of time. I discussed the case with Dr. Null in the ED who assured me he would contact patient's communication lecturer Dr. Pineda who is been in the hospital earlier today dialyzing another patient. As Dr. Null is left for the day now I discussed the case with the turnover physician who states they still have not contacted the communication lecturer and I was assured that they would continue calling Dr. Pineda to make him aware that the p atient is in the hospital and could potentially need urgent or emergent dialysis if her urine output slows or stops and she is unable to diurese with medication alone. She is currently maintained on BiPAP with supplemental oxygen. He will be admitted to stepdown unit. 04/18/2020-patient is comfortable in the bed eating lunch. Denies any problems. Patient has a temporary dialysis catheter in place. She is going for dialysis tomorrow. PPD was requested hepatitis profile was requested. Patient is going to get a permacath here and he will get AV fistula as an outpatient at [facility]. 04/19/20-patient has a successful dialysis today. 2 L of fluid is removed. Pulse ox is improving. Comfortably in the bed communicating well. Not in distress. Plan is to continue the present management at this time. 04/20/2020-the nurses notified me that they noticed bleeding from the left femoral catheter site. Dr. Paul was notified. Probably catheter need to be removed and patient need a permacath. pt is scheduled for dialysis tomorrow. 04/21/2020-patient has a successful dialysis today and she is going for permacath placement. No acute events in the last 24 hours. ocean export account manager working to arrange for outpatient dialysis. Reason For Visit: ACUTE ON CHRONIC CHF EXACERBATION, RANULFO ON CKD4, Physical Exam Vital Signs: Temp Pulse Resp BP Pulse Ox 98.3 F 85 18 144/98 H 99 04/21/20 11:18 04/21/20 11:18 04/21/20 11:18 04/21/20 11:18 04/21/20 11:18 Intake & Output 04/20/20 04/21/20 04/22/20 06:59 06:59 06:59 Intake Total 720 894 Output Total 2900 1300 3000 Balance -2180 -406 -3000 Weight 94.5 kg 92.7 kg General appearance: PRESENT: no acute distress, obese Head exam: PRESENT: atraumatic Eye exam: PRESENT: conjunctiva pale, PERRLA Mouth exam: PRESENT: moist, tongue midline Teeth exam: PRESENT: poor dentation Neck exam: ABSENT: carotid bruit, JVD, lymphadenopathy, thyromegaly Respiratory exam: PRESENT: clear to auscultation nikki. ABSENT: rales, rhonchi, wheezes Cardiovascular exam: PRESENT: RRR. ABSENT: diastolic murmur, rubs, systolic murmur GI/Abdominal exam: PRESENT: normal bowel sounds, soft. ABSENT: distended, guarding, mass, organolmegaly, rebound, tenderness Rectal exam: PRESENT: deferred Extremities exam: PRESENT: full ROM. ABSENT: calf tenderness, clubbing, pedal edema Neurological exam: PRESENT: alert, awake, oriented to person, oriented to place, oriented to time, oriented to situation, CN II-XII grossly intact. ABSENT: motor sensory deficit Psychiatric exam: PRESENT: appropriate affect, normal mood. ABSENT: homicidal ideation, suicidal ideation Results Laboratory Results: 04/21/20 05:45 04/21/20 05:45 04/21/20 04/21/20 05:45 05:45 WBC 10.7 H RBC 2.91 L Hgb 8.5 L Hct 25.7 L MCV 88 MCH 29.3 MCHC 33.2 RDW 15.9 H Plt Count 287 Seg Neutrophils % 74.1 Sodium 138.7 Potassium 4.2 Chloride 106 Carbon Dioxide 26 Anion Gap 7 BUN 37 H Creatinine 3.87 H Est GFR ( Amer) 14 L Glucose 165 H Calcium 8.1 L Total Bilirubin 0.4 AST 34 Alkaline Phosphatase 59 Total Protein 4.4 L Albumin 2.1 L 04/17/20 04/18/20 15:25 08:24 Troponin I 0.880 0.850 NT-Pro-B Natriuret Pep 81778 H Impressions: Chest X-Ray 04/17/20 00:00 IMPRESSION: Borderline cardiomegaly without pulmonary edema. Bilateral pleural effusions, left greater than right. Airspace disease in the lower lobes, ate lectasis versus pneumonia. Assessment and Plan - Diagnosis (1) Acute hypoxemic respiratory failure Is this a current diagnosis for this admission?: Yes Plan: Secondary to volume overload due to CHF and RANULFO Treat underlying cause Supplemental oxygen BiPAP 04/18/2020-patient is comfortably in the bed eating lunch. Pulse ox is 94% on 2 L of oxygen. 04/19/2020-acute on chronic respiratory failure with hypoxia resolving. Had a successful dialysis 2 L of fluid is removed. Pulse ox is 96% 2 L. 04/20/20 pulse ox is 98% room air. Not in distress. 04/21/2020-patient is comfortably in the chair communicating well. Pulse ox is 99% on 3 L. Doing well. (2) Acute on chronic systolic CHF (congestive heart failure) Is this a current diagnosis for this admission?: Yes Plan: BNP markedly elevated up to 30,000 IV Lasix followed by IV Bumex Strict I's and O's Cardiac medications continued, initially on nitroglycerin drip per ED physician later stopped Patient cannot remember her social worker masters outpatient 04/18/2020-patient BNP is more than 30,000 patient is on IV Bumex. She is going for dialysis tomorrow. Echocardiogram will be requested. 04/19/20-echocardiogram suggestive of grade 2/grade 3 diastolic dysfunction. To watch for the fluid overload. 04/20/2020-1+ pedal edema present. Patient is going for dialysis tomorrow for fluid removal. Not in distress. 04/21/20-pedal edema is resolving. Patient has a successful dialysis today. (3) Anemia of chronic renal failure, stage 4 (severe) Is this a current diagnosis for this admission?: No Plan: 04/18/2020-patient has history of anemia of chronic disease because of end-stage renal disease. Hemoglobin is 8.8. 04/19/2020-patient has history of anemia of chronic disease. Hemoglobin is stable around 8.8. 04/20/2020-hemoglobin today is 9.4. Stable. Plan is to closely monitor the l abs. 04/21/2020-hemoglobin today is 8.5. Stable. (4) Insulin dependent type 2 diabetes mellitus Is this a current diagnosis for this admission?: Yes Plan: Sliding scale insulin, Accu-Cheks Takes Lantus 20 units nightly at home, restart this at lower dose 04/18/2020-latest blood sugar is 113. Hemoglobin was 7.1. Plan is to continue the present management at this time. 04/20-latest blood sugar is 236. Hemoglobin A1c 7.1. Plan is to continue/sliding scale and Lantus 20 units at bedtime. (5) Kidney disease, chronic, stage V (end stage, EGFR < 15 ml/min) Is this a current diagnosis for this admission?: Yes Plan: Follows with Dr. Pineda outpatient 04/18/20-patient is seen by Dr. Pineda. Temporary catheter was placed. Patient is going for dialysis tomorrow. Needs to arrange for permacath here prior to discharge. 04/19/2020-patient has a successful dialysis today 2 L of fluid is removed. Further management as per Dr. Pineda. 04/20/20-patient is going for dialysis tomorrow. Patient may need permacath. 1120-patient has a successful dialysis today. Dr. Singh is going to arrange for permacath. - Time Anticipated Discharge Disposition: Home, Self Care Anticipated Discharge Timeframe: within 48 hours
[2020-04-21] MEDS ORDERED: FENTANYL CITRATE INJ/PF 100 MCG/2 ML AMPUL IV PRN ×3 (13:29)
[2020-04-21] MEDS ORDERED: DIPHENHYDRAMINE HCL 50 MG/ML VIAL IV PRN (13:29)
[2020-04-21] MEDS ORDERED: PROMETHAZINE HCL INJ 25 MG/1 ML VIAL IV PRN ×2 (13:29)
[2020-04-21] MEDS ORDERED: MEPERIDINE HCL/PF INJ 25 MG/1 ML DISP.SYRIN IV PRN (13:29)
--- NOTE | 2020-04-21 14:12 | Operative Report ---
Operative Report DATE OF SURGERY: 04/21/20 PREOPERATIVE DIAGNOSIS: Acute on chronic renal failure, need of hemodialysis POSTOPERATIVE DIAGNOSIS: Same OPERATION: Placement of right IJ permacath under ultrasound guidance SURGEON: DAVE ANTHONY ANESTHESIA: LMAC - 30 mL's 1% lidocaine with epinephrine TISSUE REMOVED OR ALTERED: None COMPLICATIONS: None ESTIMATED BLOOD LOSS: About 10 mL's INTRAOPERATIVE FINDINGS: Patent right IJ PROCEDURE: The procedure was done in the operating room: The patient was placed in a supine position, the patient neck and chest were laterally prepped and draped in the usual fashion. The right apex of the sternocleidomastoid anterior triangle was infiltrated with lidocaine, with assistance of ultrasound probe a 16-gauge needle was then used to cannulate the right jugular vein without difficulty with good blood return; a guidewire was inserted through the needle into the central vein without difficulty, the needle was removed and fluoroscopy confirmed good position of the guidewire. Permacath was laid on the patient chest so to have a nice smooth curvature and the distal tip of the catheter was marked with hemostat; fluoroscopy was obtained to confirm good position of the catheter. The insertion point of the catheter was marked with a surgical marker and the curved path of the catheter was infiltrated with lidocaine. The insertion point of the guidewire was enlarged with a #11 blade and 2 tissue dilators which were inserted sequentially and then removed. A tissue dilator with sheath was inserted without difficulty over the guidewire into the internal jugular vein without difficulty under fluoroscopy. The permacath was threaded subcutaneously above the clavicle up to the insertion point of the guidewire and exited through it. The guidewire and dilator were removed. The permacath was inserted into the sheath, advanced into the IJ and superior vena cava, and the sheath was peeled out; this was done under fluoroscopy and no kinking of the catheter was noted. Each port of the permacath was aspirated and easily flushed with concentrated heparin solution. The catheter was secured to the skin with 3-0 nylon sutures, the guidewire insertion point was closed with 3-0 Vicryl subcutaneous suture, and a silver impregnated dressing was applied over the insertion point to the permacath, followed by Tegaderm. The patient tolerated the procedure well, transferred to the recovery room, and a portable chest-ray was obtained to confirm good position of the line.
--- NOTE | 2020-04-21 14:22 | RADIOLOGY REPORT (SQ) ---
EXAM DESCRIPTION: CHEST SINGLE VIEW IMAGES COMPLETED DATE/TIME: 04/21/2020 2:02 pm REASON FOR STUDY: S/p right IJ permacath placement COMPARISON: 04/17/2020 EXAM PARAMETERS: NUMBER OF VIEWS: One view. TECHNIQUE: Single frontal radiographic view of the chest acquired. RADIATION DOSE: NA LIMITATIONS: None. FINDINGS: LUNGS AND PLEURA: Persistent, albeit diminished bilateral pleural effusions. Improved aer ation of the lung bases. No pneumothorax. MEDIASTINUM AND HILAR STRUCTURES: No masses. Contour normal. HEART AND VASCULAR STRUCTURES: Heart normal in size. Normal vasculature. BONES: No acute findings. HARDWARE: Median sternotomy wires. Interval placement of a right internal jugular dual-lumen cathete r. OTHER: No other significant finding. IMPRESSION: 1. Improved radiographic appearance of the chest demonstrating diminished bilateral ple ural effusions and improved aeration of the lung bases. 2. Interval placement of a right internal jugular dual-lumen catheter without evidence of complicati on. TECHNICAL DOCUMENTATION: JOB ID: [id number] 2010 [employer]- All Rights Reserved Reading location - IP/workstation name: [email or web address]
[2020-04-21] MEDS: BUMETANIDE 1 MG TABLET PO SCH ×2 (14:44→22:39)
--- NOTE | 2020-04-21 16:24 | RADIOLOGY REPORT (SQ) ---
EXAM DESCRIPTION: FLUORO/CV PLACEMENT IMAGES COMPLETED DATE/TIME: 04/21/2020 3:22 pm REASON FOR STUDY: PERMCATH RIGHT SIDE ASSISTED WITH FLUORO IN OR COMPARISON: None. FLUOROSCOPY TIME: Less than 1 hour 0 images saved to PACS. TECHNIQUE: Intra-operative images acquired during surgical procedure to evaluate progress. NUMBER OF IMAGES: 0 LIMITATIONS: None. FINDINGS: Fluoroscopic support was performed over the course of a dual-lumen catheter placement. Pl ease refer to the procedure report for details regarding this procedure. IMPRESSION: IMAGE(S) OBTAINED DURING PROCEDURE. COMMENT: Quality ID [id number]: Final reports for procedures using fluoroscopy that document radiation exp osure indices, or exposure time and number of fluorographic images (if radiation exposure indices are not available) Please consult full operative report of the attending physician for description of the procedure. TECHNICAL DOCUMENTATION: JOB ID: [id number] 2010 [employer]- All Rights Reserved Reading location - IP/workstation name: [email or web address]
[2020-04-21] MEDS ORDERED: MORPHINE SULFATE 10 MG/ML INJ IV ONE (19:30)
[2020-04-21] MEDS: CALCIUM ACETATE 667 MG CAPSULE PO SCH (19:41)
[2020-04-21] MEDS: MONTELUKAST SODIUM 10 MG TABLET PO SCH (22:39)
[2020-04-21] MEDS: ATORVASTATIN CALCIUM 80 MG TABLET PO SCH (22:39)
[2020-04-21] MEDS: INSULIN GLARGINE,HUM.REC.ANLOG 1,000 UNIT/10 ML VIAL SUBCUT SCH (22:40)
[2020-04-22] MEDS: ACETAMINOPHEN 325 MG TABLET PO PRN ×2 (03:39→18:25)
[2020-04-22 04:47] LABS: ABSOLUTE BASOPHILS # (AUTO) 0.1 10^3/uL (0.0-0.2); ABSOLUTE EOSINOPHILS # (AUTO) 0.3 10^3/uL (0.0-0.6); ABSOLUTE LYMPHOCYTES (AUTO) 1.8 10^3/uL (0.5-4.7); ABSOLUTE MONOCYTES (AUTO) 0.5 10^3/uL (0.1-1.4); ABSOLUTE NEUT (AUTO) 7.1 10^3/uL (1.7-8.2); BASOPHILS % (AUTO) 0.7 % (0-2); EOSINOPHILS % (AUTO) 3.3 % (0-6); HEMATOCRIT 25.2 % (36.0-47.0); HEMOGLOBIN 8.4 g/dL (12.0-15.5); LYMPHOCYTES % (AUTO) 17.9 % (13-45); MEAN CORPUSCULAR HEMOGLOBIN 29.3 pg (27.0-33.4); MEAN CORPUSCULAR HGB CONC 33.4 g/dL (32.0-36.0); MEAN CORPUSCULAR VOLUME 88 fl (80-97); MONOCYTES % (AUTO) 5.4 % (3-13); PLATELET COUNT 267 10^3/uL (150-450); RED BLOOD COUNT 2.87 10^6/uL (3.72-5.28); RED CELL DISTRIBUTION WIDTH 15.6 % (11.5-14.0); SEGMENTED NEUTROPHILS % (AUTO) 72.7 % (42-78); TOTAL CELLS COUNTED % (AUTO) 100 %; WHITE BLOOD COUNT 9.8 10^3/uL (4.0-10.5)
[2020-04-22 05:01] LABS: ALBUMIN 2.1 g/dL (3.5-5.0); ALKALINE PHOSPHATASE 70 U/L (38-126); ASPARTATE AMINO TRANSFERASE 48 U/L (14-36); BILIRUBIN,DIRECT 0.4 mg/dL (0.0-0.4); BILIRUBIN,TOTAL 0.5 mg/dL (0.2-1.3); BLOOD UREA NITROGEN 25 mg/dL (7-20); CARBON DIOXIDE 26 mmol/L (22-30); GLUCOSE 193 mg/dL (75-110); POTASSIUM 4.1 mmol/L (3.6-5.0); TOTAL PROTEIN 4.5 g/dL (6.3-8.2)
[2020-04-22 05:07] LABS: CHLORIDE 105 mmol/L (98-107)
[2020-04-22 05:10] LABS: ANION GAP 4 (5-19)
[2020-04-22] MEDS: METOPROLOL TARTRATE 100 MG TABLET PO SCH ×2 (10:09→23:08)
[2020-04-22] MEDS: BUMETANIDE 1 MG TABLET PO SCH ×2 (10:09→18:14)
[2020-04-22] MEDS: AMLODIPINE BESYLATE 5 MG TABLET PO SCH (10:09)
[2020-04-22] MEDS: INSULIN LISPRO 100 UNIT/ML 3 ML VIAL SUBCUT SCH ×4 (10:09→23:08)
[2020-04-22] MEDS: CALCIUM ACETATE 667 MG CAPSULE PO SCH ×3 (10:09→18:14)
--- NOTE | 2020-04-22 19:33 | PDOC PROGRESS REPORT ---
Subjective Progress Note for:: 04/22/20 Subjective:: Patient is a 59-year-old female with a past medical history significant for CAD, AR, hypertension, hyperlipidemia, seizure disorder, DM 2, and obesity who was admitted 04/17/2020 for acute on chronic kidney injury, acute on chronic systolic CHF, and acute hypoxic respiratory failure. Patient was seen on morning rounds. She is found resting in bed, comfortably, on room air. She reports fatigue today. Primary concern is continued bleeding from her femoral site; dialysis catheter was removed yesterday following placement of PermCath. Otherwise, she denies all symptoms; specifically no fever, chills, chest pain, palpitations, dyspnea, orthopnea, abdominal pain, nausea vomiting diarrhea. She has no questions or concerns at this time. No concerns per nursing. Reason For Visit: ACUTE ON CHRONIC CHF EXACERBATION, RANULFO ON CKD4, Physical Exam Vital Signs: Temp Pulse Resp BP Pulse Ox 98.4 F 91 18 148/63 H 95 04/22/20 11:31 04/22/20 14:00 04/22/20 11:31 04/22/20 11:31 04/22/20 11:31 Intake & Output 04/21/20 04/22/20 04/23/20 06:59 06:59 06:59 Intake Total 894 340 750 Output Total 1300 3230 550 Balance -406 -2890 200 Weight 92.7 kg 94.3 kg General appearance: PRESENT: no acute distress, obese, well-developed, well- nourished Head exam: PRESENT: atraumatic, normocephalic Eye exam: PRESENT: conjunctiva pink, EOMI, PERRLA. ABSENT: scleral icterus Mouth exam: PRESENT: moist, tongue midline Teeth exam: PRESENT: poor dentation Respiratory exam: PRESENT: clear to auscultation nikki, symmetrical, unlabored. ABSENT: rales, rhonchi, wheezes Cardiovascular exam: PRESENT: RRR, +S1, +S2. ABSENT: diastolic murmur, rubs, systolic murmur Pulses: PRESENT: normal dorsalis pedis pul Vascular exam: PRESENT: normal capillary refill Extremities exam: PRESENT: full ROM. ABSENT: calf tenderness, clubbing, pedal edema Neurological exam: PRESENT: alert, awake, oriented to person, oriented to place, oriented to time, oriented to situation, CN II-XII grossly intact. ABSENT: motor sensory deficit Psychiatric exam: PRESENT: appropriate affect, normal mood. ABSENT: homicidal ideation, suicidal ideation Skin exam: PRESENT: dry, intact, warm. ABSENT: cyanosis, rash Results Laboratory Results: 04/22/20 04:35 04/22/20 04:35 04/22/20 04/22/20 04:35 04:35 WBC 9.8 RBC 2.87 L Hgb 8.4 L Hct 25.2 L MCV 88 MCH 29.3 MCHC 33.4 RDW 15.6 H Plt Count 267 Seg Neutrophils % 72.7 Sodium 135.4 L Potassium 4.1 Chloride 105 Carbon Dioxide 26 Anion Gap 4 L BUN 25 H Creatinine 3.16 H Est GFR ( Amer) 18 L Glucose 193 H Calcium 8.0 L Magnesium 2.0 Total Bilirubin 0.5 AST 48 H Alkaline Phosphatase 70 Total Protein 4.5 L Albumin 2.1 L 04/17/20 16:56 Blood Blood Culture - Final NO GROWTH IN 5 DAYS 04/17/20 15:25 Blood Blood Culture - Final NO GROWTH IN 5 DAYS 04/17/20 04/18/20 15:25 08:24 Troponin I 0.880 0.850 NT-Pro-B Natriuret Pep [id number] H Impressions: Chest X-Ray 04/21/20 00:00 IMPRESSION: 1. Improved radiographic appearance of the chest demonstrating diminished bilateral pleural effusions and improved aeration of the lung bases. 2. Interval placement of a right internal jugular dual-lumen catheter without evidence of complication. Guidance Fluoroscopy 04/21/20 00:00 IMPRESSION: IMAGE(S) OBTAINED DURING PROCEDURE. Assessment and Plan - Diagnosis (1) Acute hypoxemic respiratory failure Is this a current diagnosis for this admission?: Yes Plan: Significantly improved; now maintaining oxygen saturations on NC at 2lpm w/ BiPAP qHS. Uses CPAP at home. Secondary to volume overload due to CHF and RANULFO Treat underlying cause Supplemental oxygen BiPAP Continue weaning supplemental oxygen. (2) Acute on chronic systolic CHF (congestive heart failure) Is this a current diagnosis for this admission?: Yes Plan: BNP markedly elevated up to 30,000 Echocardiogram suggestive of grade 2/grade 3 diastolic dysfunction Initially diuresed with IV furosemide, then trial of Bumex. Nephrology consulted; now receiving dialysis. Peripheral edema has resolved and respiratory status is significantly improved. Continue amlodipine, metoprolol, daily aspirin and statin therapy. Continue Bumex 1 mg twice daily as started by Dr. Davis. Cardiac/dialysis diet Strict I&O's, daily weights (3) Anemia of chronic renal failure, stage 4 (severe) Is this a current diagnosis for this admission?: No Plan: Hemoglobin overall stable at 8.4 Received Venofer per nephrology. Continue to monitor CBC (4) Insulin dependent type 2 diabetes mellitus Is this a current diagnosis for this admission?: Yes Plan: Hemoglobin A1c 7.1. Lantus 5 units nightly Accu-Cheks before meals and at bedtime with Humalog for sliding scale coverage. Hypoglycemia protocol in place. (5) Kidney disease, chronic, stage V (end stage, EGFR < 15 ml/min) Is this a current diagnosis for this admission?: Yes Plan: Follows with Dr. Pineda outpatient PermCath now in place. Nephrology is consulted; dialysis per their expertise. - Time Time Spent with patient: 25-34 minutes Medications reviewed and adjusted accordingly: Yes Anticipated Discharge Disposition: Home, Self Care Anticipated Discharge Timeframe: within 72 hours
[2020-04-22] MEDS: ATORVASTATIN CALCIUM 80 MG TABLET PO SCH (23:08)
[2020-04-22] MEDS: MONTELUKAST SODIUM 10 MG TABLET PO SCH (23:09)
[2020-04-22] MEDS: INSULIN GLARGINE,HUM.REC.ANLOG 1,000 UNIT/10 ML VIAL SUBCUT SCH (23:09)
[2020-04-22] MEDS: MORPHINE SULFATE 10 MG/ML INJ IV PRN (23:10)
--- NOTE | 2020-04-22 23:24 | PDOC PROGRESS REPORT ---
Subjective Progress Note for:: 04/21/20 Subjective:: Patient was seen yesterday on 04/21/2020. However a note was not entered. Patient was noted to be doing well. She denied any chest pain. Patient was noted to be comfortable resting in bed. She had a dialysis catheter placed in the subclavian vein. Femoral catheter has been removed. Patient denied any chest pains or shortness of breath. Reason For Visit: ACUTE ON CHRONIC CHF EXACERBATION, RANULFO ON CKD4, Physical Exam Vital Signs: Temp Pulse Resp BP Pulse Ox 98.3 F 93 20 138/58 H 90 L 04/22/20 19:28 04/22/20 19:28 04/22/20 19:28 04/22/20 19:28 04/22/20 19:28 Intake & Output 04/21/20 04/22/20 04/23/20 06:59 06:59 06:59 Intake Total 894 340 750 Output Total 1300 3230 550 Balance -406 -2890 200 Weight 92.7 kg 94.3 kg Exam: GENERAL: well-nourished and in no acute distress. Alert and oriented x3 HEAD: Atraumatic, normocephalic. EYES: TIA, sclera anicteric, conjunctiva are normal. ENT: Moist mucous membranes. No oral ulcerations or bleeding gums noted. No obvious ear, nose or throat abnormalities noted. NECK: supple without lymphadenopathy. Trachea is central. No cervical or axillary lymphadenopathy noted. Carotids are 2+, JVD WNL LUNGS: Breath sounds clear bilaterally. No wheezes rales or rhonchi noted. No significant dullness noted on percussion. CHEST: Palpation of the chest wall shows no significant chest wall tenderness. HEART: [place] [employer], No PSH, 1/6 [place] aortic area, 1/6 boothe systolic murmur mitral area, no rubs, no gallops. ABDOMEN: Soft, no significant tenderness appreciated, normoactive bowel sounds. No guarding, no rebound. No rigidity noted . No masses appreciated. EXTREMITIES: Pedal pulses are 1-2+, no calf tenderness noted. No clubbing or cyanosis. negative pedal edema noted NEUROLOGICAL: Focused neurological exam showed no significant neurologic deficit . Normal speech, no focal weakness appreciated. PSYCH: Normal mood, normal affect. Judgment and insight within normal limits. SKIN: No significant ecchymosis, skin is noted to be warm. MUSCULOSKELETAL EXAM: No significant acute joint swelling noted. Results Laboratory Results: 04/22/20 04:35 04/22/20 04:35 04/22/20 04/22/20 04:35 04:35 WBC 9.8 RBC 2.87 L Hgb 8.4 L Hct 25.2 L MCV 88 MCH 29.3 MCHC 33.4 RDW 15.6 H Plt Count 267 Seg Neutrophils % 72.7 Sodium 135.4 L Potassium 4.1 Chloride 105 Carbon Dioxide 26 Anion Gap 4 L BUN 25 H Creatinine 3.16 H Est GFR ( Amer) 18 L Glucose 193 H Calcium 8.0 L Magnesium 2.0 Total Bilirubin 0.5 AST 48 H Alkaline Phosphatase 70 Total Protein 4.5 L Albumin 2.1 L 04/17/20 16:56 Blood Blood Culture - Final NO GROWTH IN 5 DAYS 04/17/20 15:25 Blood Blood Culture - Final NO GROWTH IN 5 DAYS 04/17/20 04/18/20 15:25 08:24 Troponin I 0.880 0.850 NT-Pro-B Natriuret Pep [id number] H EKG Comments: Telemetry strip showed sinus rhythm. No sustained tachyarrhythmia or bradycardia arrhythmias noted. Impressions: Chest X-Ray 04/21/20 00:00 IMPRESSION: 1. Improved radiographic appearance of the chest demonstrating diminished bilateral pleural effusions and improved aeration of the lung bases. 2. Interval placement of a right internal jugular dual-lumen catheter without evidence of complication. Guidance Fluoroscopy 04/21/20 00:00 IMPRESSION: IMAGE(S) OBTAINED DURING PROCEDURE. Assessment & Plan - Diagnosis (1) Diastolic CHF, acute on chronic Is this a current diagnosis for this admission?: Yes (2) Coronary artery disease Qualifiers: Coronary Disease-Associated Artery/Lesion type: [place] artery [place] vs. transplanted heart: [place] heart Associated angina: angina presence unspecified Qualified Code(s): I25.10 - Atherosclerotic heart disease of [place] coronary artery without angina pectoris Is this a current diagnosis for this admission?: Yes (3) Hypertension Qualifiers: Hypertension type: essential hypertension Qualified Code(s): I10 - Essential (primary) hypertension Is this a current diagnosis for this admission?: Yes (4) Insulin dependent type 2 diabetes mellitus Is this a current diagnosis for this admission?: Yes (5) Kidney disease, chronic, stage V (end stage, EGFR < 15 ml/min) Is this a current diagnosis for this admission?: Yes - Notes Notes: Acute on chronic congestive heart failure. [place] to be acute diastolic on chronic diastolic heart failure. Related to volume overload. Patient feeling much better. Fluid has been removed on dialysis. Continue with good control of blood pressure, good fluid management would be essential. Coronary artery disease: Patient is symptomatically stable. Continue with current management plans. Advanced kidney disease: Patient is adequately managed by hospitalist and packing attendant. Diabetes: Well managed by hospitalist. Obstructive sleep apnea: Continue bilevel therapy. Patient can follow-up with me on discharge. Patient to report any other symptoms. - Time Time with patient: 15-25 minutes Medications reviewed and adjusted accordingly: Yes
[2020-04-23 04:47] LABS: HEMATOCRIT 26.1 % (36.0-47.0); HEMOGLOBIN 8.8 g/dL (12.0-15.5); MEAN CORPUSCULAR HEMOGLOBIN 29.8 pg (27.0-33.4); MEAN CORPUSCULAR HGB CONC 33.6 g/dL (32.0-36.0); MEAN CORPUSCULAR VOLUME 89 fl (80-97); PLATELET COUNT 293 10^3/uL (150-450); RED BLOOD COUNT 2.95 10^6/uL (3.72-5.28); RED CELL DISTRIBUTION WIDTH 15.9 % (11.5-14.0); WHITE BLOOD COUNT 10.4 10^3/uL (4.0-10.5)
[2020-04-23 05:12] LABS: BLOOD UREA NITROGEN 33 mg/dL (7-20); CALCIUM 8.3 mg/dL (8.4-10.2); CARBON DIOXIDE 25 mmol/L (22-30); GLUCOSE 117 mg/dL (75-110)
[2020-04-23 05:18] LABS: ANION GAP 7 (5-19); CHLORIDE 105 mmol/L (98-107)
[2020-04-23] MEDS: MORPHINE SULFATE 10 MG/ML INJ IV PRN ×2 (05:23→22:07)
[2020-04-23] MEDS: INSULIN LISPRO 100 UNIT/ML 3 ML VIAL SUBCUT SCH ×4 (09:57→22:08)
[2020-04-23] MEDS: BUMETANIDE 1 MG TABLET PO SCH ×2 (10:06→17:54)
[2020-04-23] MEDS: AMLODIPINE BESYLATE 5 MG TABLET PO SCH (10:07)
[2020-04-23] MEDS: METOPROLOL TARTRATE 100 MG TABLET PO SCH ×2 (10:07→22:15)
[2020-04-23] MEDS: ESCITALOPRAM OXALATE 10 MG TABLET PO SCH (10:07)
[2020-04-23] MEDS: CALCIUM ACETATE 667 MG CAPSULE PO SCH ×3 (10:07→17:54)
--- NOTE | 2020-04-23 13:01 | RADIOLOGY REPORT (SQ) ---
EXAM DESCRIPTION: VENOUS UNILATERAL LOWER IMAGES COMPLETED DATE/TIME: 04/23/2020 12:14 pm REASON FOR STUDY: LLE NEUROPATHY COMPARISON: None. TECHNIQUE: Dynamic and static esquivel scale and color images acquired of the left leg venous system. Se lected spectral images acquired with additional compression and augmentation maneuvers. Images store d on PACS. LIMITATIONS: None. FINDINGS: COMMON FEMORAL: Normal phasicity, compression and augmentation. No visualized echogenic ma terial on esquivel scale. No defects on color images. FEMORAL: Normal compression and augmentation. No visualized echogenic material on esquivel scale. No defe cts on color images. POPLITEAL: Normal compression, augmentation. No visualized echogenic material on esquivel scale. No defec ts on color images. CALF VESSELS: Normal compression, augmentation. No visualized echogenic material on esquivel scale. No de fects on color images. GSV and SSV: Normal compression, augmentation. No visualized echogenic material on esquivel scale. No def ects on color images. ANY DEEP VENOUS INSUFFICIENCY: Not evaluated. ANY EVIDENCE OF POPLITEAL CYST: No. OTHER: No other significant finding. CONTRALATERAL COMMON FEMORAL VEIN AND SAPHENOFEMORAL JUNCTION: Not imaged. IMPRESSION: NO EVIDENCE DVT OR SVT IN THE LEFT LEG. TECHNICAL DOCUMENTATION: JOB ID: [id number] 2010 [employer]- All Rights Reserved Reading location - IP/workstation name: [email or web address]
[2020-04-23] MEDS: ACETAMINOPHEN 325 MG TABLET PO PRN (14:02)
[2020-04-23] MEDS ORDERED: PROMETHAZINE HCL INJ 25 MG/1 ML VIAL IV PRN (15:41)
--- NOTE | 2020-04-23 19:14 | PDOC PROGRESS REPORT ---
Subjective Progress Note for:: 04/23/20 Subjective:: Patient is a 59-year-old female with a past medical history significant for CAD, [place], hypertension, hyperlipidemia, seizure disorder, DM 2, and obesity who was admitted 04/17/2020 for acute on chronic kidney injury, acute on chronic systolic CHF, and acute hypoxic respiratory failure. Patient was seen on morning rounds. She is found resting in bed, comfortably, on room air. She reports fatigue today. Primary concern is bleeding from her femoral site; however, nursing reports that patient has not had any bleeding x24 hrs. She is also concerned about "heaviness like a rock," and "numbness," to her foot. However, she confirms sensation at each place I touch and is able to life her leg off the bed w/o assist. Otherwise, she denies all symptoms; specifically no fever, chills, chest pain, palpitations, dyspnea, orthopnea, abdominal pain, nausea, vomiting, diarrhea. She has no questions or concerns at this time. No concerns per nursing. Reason For Visit: ACUTE ON CHRONIC CHF EXACERBATION, RANULFO ON CKD4, Physical Exam Vital Signs: Temp Pulse Resp BP Pulse Ox 98.4 F 88 20 167/78 H 93 04/23/20 15:40 04/23/20 15:40 04/23/20 15:40 04/23/20 15:40 04/23/20 15:40 Intake & Output 04/22/20 04/23/20 04/24/20 06:59 06:59 06:59 Intake Total 340 1010 732 Output Total 3230 1100 600 Balance -2890 -90 132 Weight 94.3 kg 94.6 kg General appearance: PRESENT: no acute distress, obese, well-developed, well-nou rished Head exam: PRESENT: atraumatic, normocephalic Eye exam: PRESENT: conjunctiva pink, EOMI, PERRLA. ABSENT: scleral icterus Mouth exam: PRESENT: moist, tongue midline Respiratory exam: PRESENT: clear to auscultation nikki, symmetrical, unlabored. ABSENT: rales, rhonchi, wheezes Cardiovascular exam: PRESENT: RRR, +S1, +S2. ABSENT: diastolic murmur, rubs, systolic murmur Pulses: PRESENT: +1 pedal pulses bilateral - equal bilaterally Vascular exam: PRESENT: normal capillary refill Extremities exam: PRESENT: full ROM. ABSENT: calf tenderness, clubbing, pedal edema Neurological exam: PRESENT: alert, awake, oriented to person, oriented to place, oriented to time, oriented to situation, CN II-XII grossly intact. ABSENT: motor sensory deficit Psychiatric exam: PRESENT: anxious, appropriate affect. ABSENT: homicidal ideation, suicidal ideation Skin exam: PRESENT: dry, intact, warm. ABSENT: cyanosis, rash Results Laboratory Results: 04/23/20 04:25 04/23/20 04:25 04/23/20 04/23/20 04:25 04:25 WBC 10.4 RBC 2.95 L Hgb 8.8 L Hct 26.1 L MCV 89 MCH 29.8 MCHC 33.6 RDW 15.9 H Plt Count 293 Sodium 136.7 L Potassium 4.0 Chloride 105 Carbon Dioxide 25 Anion Gap 7 BUN 33 H Creatinine 3.57 H Est GFR ( Amer) 16 L Glucose 117 H Calcium 8.3 L 04/17/20 16:56 Blood Blood Culture - Final NO GROWTH IN 5 DAYS 04/17/20 15:25 Blood Blood Culture - Final NO GROWTH IN 5 DAYS 04/17/20 04/18/20 04/23/20 15:25 08:24 04:25 Troponin I 0.880 0.850 NT-Pro-B Natriuret Pep 49838 H 73801 H Impressions: Chest X-Ray 04/21/20 00:00 IMPRESSION: 1. Improved radiographic appearance of the chest demonstrating diminished bilateral pleural effusions and improved aeration of the lung bases. 2. Interval placement of a right internal jugular dual-lumen catheter without evidence of complication. Guidance Fluoroscopy 04/21/20 00:00 IMPRESSION: IMAGE(S) OBTAINED DURING PROCEDURE. Venous Doppler Study 04/23/20 00:00 IMPRESSION: NO EVIDENCE DVT OR SVT IN THE LEFT LEG. Assessment and Plan - Diagnosis (1) Acute hypoxemic respiratory failure Is this a current diagnosis for this admission?: Yes Plan: Significantly improved; now maintaining oxygen saturations on NC at 2lpm w/ BiPAP qHS. Uses CPAP at home. Secondary to volume overload due to CHF and RANULFO Treat underlying cause Supplemental oxygen BiPAP Continue weaning supplemental oxygen. (2) Acute on chronic systolic CHF (congestive heart failure) Is this a current diagnosis for this admission?: Yes Plan: BNP markedly elevated up to 30,000-> 36k. Potentially patient's baseline given ESRD/Dialysis need. Echocardiogram suggestive of grade 2/grade 3 diastolic dysfunction Initially diuresed with IV furosemide, then trial of Bumex. Nephrology consulted; now receiving dialysis. Peripheral edema has resolved and respiratory status is significantly improved. Continue amlodipine, metoprolol, daily aspirin and statin therapy. Continue Bumex 1 mg po twice daily as started by Dr. Mena Cardiac/dialysis diet Strict I&O's, daily weights (3) Anemia of chronic renal failure, stage 4 (severe) Is this a current diagnosis for this admission?: No Plan: Hemoglobin overall stable at 8.8 Received Venofer per nephrology. Continue to monitor CBC (4) Insulin dependent type 2 diabetes mellitus Is this a current diagnosis for this admission?: Yes Plan: Hemoglobin A1c 7.1. Lantus 5 units nightly Accu-Cheks before meals and at bedtime with Humalog for sliding scale coverage. Hypoglycemia protocol in place. (5) Kidney disease, chronic, stage V (end stage, EGFR < 15 ml/min) Is this a current diagnosis for this admission?: Yes Plan: Follows with Dr. Pineda outpatient [facility] now in place. Nephrology is consulted; dialysis per their expertise. (6) Central line complication Qualifiers: Encounter type: subsequent encounter Qualified Code(s): T82.9XXD - Unspecified complication of cardiac and vascular prosthetic device, implant and graft, subsequent encounter Is this a current diagnosis for this admission?: Yes Plan: Femoral line removed on 04/21. Patient had bleeding w/ movement x24 hrs. Heparin DVT prophylaxis and Aspirin placed on hold. Bed rest x 24. Bleeding appears to have resolved. Cautiously reintroduce mobility/ambulation. Monitor closely. - Time Time Spent with patient: 25-34 minutes Medications reviewed and adjusted accordingly: Yes Anticipated Discharge Disposition: Home, Self Care Anticipated Discharge Timeframe: within 72 hours
[2020-04-23] MEDS: MONTELUKAST SODIUM 10 MG TABLET PO SCH (22:07)
[2020-04-23] MEDS: ATORVASTATIN CALCIUM 80 MG TABLET PO SCH (22:07)
[2020-04-23] MEDS: INSULIN GLARGINE,HUM.REC.ANLOG 1,000 UNIT/10 ML VIAL SUBCUT SCH (22:08)
[2020-04-24] MEDS ORDERED: NORMAL SALINE 1000 ML 1,000 ML IV PRN (05:00)
[2020-04-24] MEDS ORDERED: EPOETIN ALFA-EPBX 20,000 UNIT in SYRINGE, DISPOSABLE, 1 EACH IV PRN (05:00)
[2020-04-24] MEDS ORDERED: HEPARIN SOD (PORCINE) 1,000 UNIT/ML 10 ML VIAL IV PRN (05:00)
[2020-04-24 06:08] LABS: ABSOLUTE BASOPHILS # (AUTO) 0.1 10^3/uL (0.0-0.2); ABSOLUTE EOSINOPHILS # (AUTO) 0.3 10^3/uL (0.0-0.6); ABSOLUTE LYMPHOCYTES (AUTO) 1.5 10^3/uL (0.5-4.7); ABSOLUTE MONOCYTES (AUTO) 0.5 10^3/uL (0.1-1.4); ABSOLUTE NEUT (AUTO) 6.3 10^3/uL (1.7-8.2); BASOPHILS % (AUTO) 0.9 % (0-2); EOSINOPHILS % (AUTO) 3.9 % (0-6); HEMATOCRIT 26.9 % (36.0-47.0); HEMOGLOBIN 8.9 g/dL (12.0-15.5); LYMPHOCYTES % (AUTO) 17.6 % (13-45); MEAN CORPUSCULAR HEMOGLOBIN 29.3 pg (27.0-33.4); MEAN CORPUSCULAR HGB CONC 32.9 g/dL (32.0-36.0); MEAN CORPUSCULAR VOLUME 89 fl (80-97); MONOCYTES % (AUTO) 5.5 % (3-13); PLATELET COUNT 283 10^3/uL (150-450); RED BLOOD COUNT 3.02 10^6/uL (3.72-5.28); RED CELL DISTRIBUTION WIDTH 15.4 % (11.5-14.0); SEGMENTED NEUTROPHILS % (AUTO) 72.1 % (42-78); TOTAL CELLS COUNTED % (AUTO) 100 %; WHITE BLOOD COUNT 8.7 10^3/uL (4.0-10.5)
[2020-04-24] MEDS: MORPHINE SULFATE 10 MG/ML INJ IV PRN ×2 (06:18→12:58)
[2020-04-24 06:27] LABS: BLOOD UREA NITROGEN 33 mg/dL (7-20); CALCIUM 8.2 mg/dL (8.4-10.2); GLUCOSE 119 mg/dL (75-110)
[2020-04-24 06:28] LABS: ANION GAP 6 (5-19); CARBON DIOXIDE 26 mmol/L (22-30); CHLORIDE 107 mmol/L (98-107); PHOSPHORUS 5.1 mg/dL (2.5-4.5); POTASSIUM 3.9 mmol/L (3.6-5.0)
[2020-04-24] MEDS ORDERED: ERGOCALCIFEROL (VITAMIN D2) 50000 UNIT (1.25 MG) CAPSULE PO SCH (10:00)
--- NOTE | 2020-04-24 11:10 | PDOC PROGRESS REPORT ---
Subjective Progress Note for:: 04/24/20 Subjective:: I am seeing the patient during dialysis this morning. She has no complaints and is tolerating dialysis very well. Last Friday she had her PermCath placed which we are currently using. Only thing is her PermCath is reversed. I also had her left femoral dialysis catheter removed on Friday due to bleeding. She continued to have bleeding over the weekend until they stopped the heparin and aspirin. I was told that she was placed on bedrest yesterday and finally the bleeding stopped. However the patient tells me that whenever she walks she still bleeds but she has an walk yet today. Reason For Visit: ACUTE ON CHRONIC CHF EXACERBATION, RANULFO ON CKD4, Physical Exam Vital Signs: Temp Pulse Resp BP Pulse Ox 98.1 F 79 18 126/59 H 94 04/23/20 19:37 04/24/20 02:00 04/23/20 19:37 04/23/20 19:37 04/23/20 19:37 Intake & Output 04/23/20 04/24/20 04/25/20 06:59 06:59 06:59 Intake Total 1010 732 Output Total 1100 900 Balance -90 -168 Weight 94.6 kg 94.6 kg Vitals during dialysis: Blood pressure 135/68, heart rate of 83, blood flow rate of 300 mL/min and dialysate flow rate of 600 mL/min. Exam: General appearance: PRESENT: no acute distress, cooperative, well-developed, well-nourished Head exam: PRESENT: atraumatic, normocephalic Eye exam: PRESENT: conjunctiva pink, PERRLA. ABSENT: scleral icterus Neck exam: ABSENT: JVD Respiratory exam: PRESENT: Diminished breath sounds. ABSENT: crackles, rales, rhonchi, unlabored, wheezes Cardiovascular exam: PRESENT: Regular rate rhythm -+S1, +S2. ABSENT: diastolic murmur, systolic murmur GI/Abdominal exam: PRESENT: normal bowel sounds, soft. ABSENT: guarding, mass, tenderness Extremities exam: Improved bilateral lower extremity pitting edema; no active bleeding on her left groin at this time Neurological exam: PRESENT: alert, awake, oriented to person, place and time. Skin exam: PRESENT: dry, warm, Cardiovascular exam: PRESENT: +S1, +S2 GI/Abdominal exam: PRESENT: normal bowel sounds, soft. ABSENT: organomegaly, tenderness Results Laboratory Results: 04/24/20 05:26 04/24/20 05:26 04/24/20 04/24/20 05:26 05:26 WBC 8.7 RBC 3.02 L Hgb 8.9 L Hct 26.9 L MCV 89 MCH 29.3 MCHC 32.9 RDW 15.4 H Plt Count 283 Seg Neutrophils % 72.1 Sodium 138.7 Potassium 3.9 Chloride 107 Carbon Dioxide 26 Anion Gap 6 BUN 33 H Creatinine 3.92 H Est GFR ( Amer) 14 L Glucose 119 H Calcium 8.2 L Phosphorus 5.1 H Magnesium 2.2 04/17/20 04/18/20 04/23/20 15:25 08:24 04:25 Troponin I 0.880 0.850 NT-Pro-B Natriuret Pep 10029 H 87659 H Impressions: Chest X-Ray 04/21/20 00:00 IMPRESSION: 1. Improved radiographic appearance of the chest demonstrating diminished bilateral pleural effusions and improved aeration of the lung bases. 2. Interval placement of a right internal jugular dual-lumen catheter without evidence of complication. Guidance Fluoroscopy 04/21/20 00:00 IMPRESSION: IMAGE(S) OBTAINED DURING PROCEDURE. Venous Doppler Study 04/23/20 00:00 IMPRESSION: NO EVIDENCE DVT OR SVT IN THE LEFT LEG. Assessment & Plan - Diagnosis (1) Kidney disease, chronic, stage V (end stage, EGFR < 15 ml/min) Is this a current diagnosis for this admission?: Yes Plan: Patient had progressive deterioration of her chronic kidney disease and has presented with acute pulmonary edema requiring initiation of hemodialysis. Patient has now reached end-stage renal disease requiring chronic hemodialysis treatment. Patient agreed for chronic hemodialysis treatment. We will do dialysis today for 2.5 hours, using the patient's new PermCath, with 3 potassium bath, blood flow rate of 250 to 300 mL per minute, dialysate flow rate of 600 mL per minute, ultrafiltration 1 to 1.5 L as tolerated, no heparin and Retacrit with 20,000 units during dialysis intravenously. PermCath placed on 04/[address] Singh. Consulted adult protective caseworker to arrange outpatient dialysis at [facility]. Once arranged patient can be discharged home from nephrology standpoint. (2) Hypertension Qualifiers: Hypertension type: essential hypertension Qualified Code(s): I10 - Essential (primary) hypertension Is this a current diagnosis for this admission?: Yes Plan: Initially presented with hypertensive urgency. Blood pressures currently improved and fairly controlled. Continue the same blood pressure medications. (3) Anemia in chronic kidney disease (CKD) Is this a current diagnosis for this admission?: Yes Plan: Retracrit given during dialysis. Also associated with iron deficiency so Venofer was given last week. We will continue IV iron and Retacrit as an outpatient. (4) Iron deficiency anemia Is this a current diagnosis for this admission?: Yes Plan: Venofer being loaded during dialysis treatment. (5) Chronic kidney disease-mineral and bone disorder Is this a current diagnosis for this admission?: Yes Plan: Patient has hyperphosphatemia with initial phosphorus of 7.2 currently down to 5.1, hypocalcemia due to the elevated phosphorus currently at 8.2. Patient is currently on calcitriol. On calcium acetate with meals. Current PTH of 387.7. (6) Insulin dependent type 2 diabetes mellitus Is this a current diagnosis for this admission?: Yes Plan: Per primary service. (7) Chest pain Qualifiers: Chest pain type: unspecified Qualified Code(s): R07.9 - Chest pain, unspecified Is this a current diagnosis for this admission?: Yes Plan: Per cardiology. (8) Acute hypoxemic respiratory failure Is this a current diagnosis for this admission?: Yes Plan: Resolved. (9) Acute on chronic systolic CHF (congestive heart failure) Is this a current diagnosis for this admission?: Yes Plan: Currently compensated. (10) Coronary artery disease Qualifiers: Coronary Disease-Associated Artery/Lesion type: [place] artery [place] vs. transplanted heart: [place] heart Associated angina: angina presence unspecified Qualified Code(s): I25.10 - Atherosclerotic heart disease of [place] coronary artery without angina pectoris Is this a current diagnosis for this admission?: Yes - Notes Notes: Discussed this [facility] today. From nephrology standpoint patient can be discharged home is in his [facility] accepts the patient for chronic dialysis treatment. - Time Time with patient: 15-25 minutes
[2020-04-24] MEDS: ESCITALOPRAM OXALATE 10 MG TABLET PO SCH (12:59)
[2020-04-24] MEDS: BUMETANIDE 1 MG TABLET PO SCH ×2 (12:59→17:54)
[2020-04-24] MEDS: AMLODIPINE BESYLATE 5 MG TABLET PO SCH (12:59)
[2020-04-24] MEDS: CALCITRIOL 0.25 MCG CAPSULE PO SCH (12:59)
[2020-04-24] MEDS: METOPROLOL TARTRATE 100 MG TABLET PO SCH (12:59)
[2020-04-24] MEDS: CALCIUM ACETATE 667 MG CAPSULE PO SCH ×3 (13:00→17:54)
[2020-04-24] MEDS: INSULIN LISPRO 100 UNIT/ML 3 ML VIAL SUBCUT SCH ×2 (13:23→17:53)
[2020-04-24 19:03] VITALS: BP 146/56
--- NOTE | 2020-04-25 10:51 | PDOC DISCHARGE SUMMARY ---
Impression - Admit/DC Date/PCP Admission Date/Primary Care Provider: 04/17/20 18:46 AGUILA SMITH Discharge Date: 04/24/20 - Discharge Diagnosis (1) Acute hypoxemic respiratory failure Is this a current diagnosis for this admission?: Yes (2) Acute on chronic systolic CHF (congestive heart failure) Is this a current diagnosis for this admission?: Yes (3) Anemia of chronic renal failure, stage 4 (severe) Is this a current diagnosis for this admission?: No (4) Insulin dependent type 2 diabetes mellitus Is this a current diagnosis for this admission?: Yes (5) Kidney disease, chronic, stage V (end stage, EGFR < 15 ml/min) Is this a current diagnosis for this admission?: Yes (6) Central line complication Is this a current diagnosis for this admission?: Yes - Additional Information Resuscitation Status: Full Code Discharge Diet: Diabetic, Other (Comments) Discharge Activity: Activity As Tolerated, Balance Activity w/Rest, Weigh Daily Referrals: DARCI COON FNP-C [NO LOCAL MD] - 05/01/20 9:00 am Prescriptions: Bumetanide [Bumex 1 mg Tablet] 1 mg PO BID #60 tablet Escitalopram Oxalate [Lexapro 10 mg Tablet] 20 mg PO DAILY #60 tablet Atorvastatin Calcium [Lipitor 80 mg Tablet] 80 mg PO QHS #30 tablet Calcium Acetate [Phoslo 667 mg Capsule] 667 mg PO MEALS #90 capsule Calcitriol [Rocaltrol 0.25 mcg Capsule] 0.25 mcg PO MOWEFR@1000 #10 capsule Home Medications: Fenofibrate Nanocrystallized [Fenofibrate] 48 mg PO DAILY 03/14/20 Montelukast Sodium [Singulair 10 mg Tablet] 10 mg PO QHS #0 03/16/20 Acetaminophen [Tylenol 325 mg Tablet] 650 mg PO Q6HP PRN tablet 04/24/20 Amlodipine Besylate [Norvasc 5 mg Tablet] 5 mg PO DAILY tablet 04/24/20 Aspirin [Ecotrin 81 mg EC Tablet] 81 mg PO DAILY tabec 04/24/20 Atorvastatin Calcium [Lipitor 80 mg Tablet] 80 mg PO QHS #30 tablet 04/24/20 Bumetanide [Bumex 1 mg Tablet] 1 mg PO BID #60 tablet 04/24/20 Calcitriol [Rocaltrol 0.25 mcg Capsule] 0.25 mcg PO MOWEFR@1000 #10 capsule 04/24/20 Calcium Acetate [Phoslo 667 mg Capsule] 667 mg PO MEALS #90 capsule 04/24/20 Escitalopram Oxalate [Lexapro 10 mg Tablet] 20 mg PO DAILY #60 tablet 04/24/20 Metoprolol Tartrate [Lopressor 100 mg Tablet] 100 mg PO Q12 tablet 04/24/20 History of Present Illiness History of Present Illness: Per H&P by Dr. Reyes: ROBERTO HIGGINS is a 59 year old female with past medical history significant for chronic systolic CHF, CKD 4/[address] Pineda, T2DM, CAD status post CABG and stents, HTN, HLD who presents with a 3- day history of progressive shortness of breath/PORTER/generalized fatigue and weakness which patient states is consistent with previous CHF exacerbations although she states this is worse than prior episodes. Patient brought to the hospital and found to have markedly elevated BNP, RANULFO with worsened creatinine up to 4.28. She was given 80 mg of IV Lasix in the ED and put out approximately 500 cc of urine. She was continued on IV Bumex thereafter. She was put on a nitroglycerin drip by the ED and this was promptly stopped after a short period of time. I discussed the case with Dr. Null in the ED who assured me he would contact patient's pulverizer Dr. Pineda who is been in the hospital earlier today dialyzing another patient. As Dr. Null is left for the day now I discussed the case with the turnover physician who states they still have not contacted the pulverizer and I was assured that they would continue calling Dr. Pineda to make him aware that the patient is in the hospital and could potentially need urgent or emergent dialysis if her urine output slows or stops and she is unable to diurese with medication alone. She is currently maintained on BiPAP with supplemental oxygen. He will be admitted to stepdown unit. Hospital Course Hospital Course: (1) Acute hypoxemic respiratory failure Resolved; now maintaining oxygen saturations on NC at 2lpm w/ BiPAP qHS. Uses CPAP at home. Secondary to volume overload due to CHF and RANULFO Treat underlying cause Supplemental oxygen BiPAP (2) Acute on chronic systolic CHF (congestive heart failure) BNP markedly elevated up to 30,000-> 36k. Potentially patient's baseline given ESRD/Dialysis need. Echocardiogram suggestive of grade 2/grade 3 diastolic dysfunction Initially diuresed with IV furosemide, then trial of Bumex. Nephrology consulted; now receiving dialysis. Peripheral edema has resolved and respiratory status is significantly improved. Continue amlodipine, metoprolol, daily aspirin and statin therapy. Continue Bumex 1 mg po twice daily as started by Dr. Mena Cardiac/dialysis diet (3) Anemia of chronic renal failure, stage 4 (severe) Hemoglobin overall stable at 8.8 Received Venofer per nephrology. Outpatient follow up by PCP and Nephrology. (4) Insulin dependent type 2 diabetes mellitus Hemoglobin A1c 7.1. Lantus 5 units nightly Accu-Cheks before meals and at bedtime with Humalog for sliding scale coverage. Hypoglycemia protocol in place. (5) Kidney disease, chronic, stage V (end stage, EGFR < 15 ml/min) Follows with Dr. Pineda outpatient PermCath now in place. Nephrology is consulted; dialysis per their expertise. HAs been provided a chair time at [facility] and approved by Dr. Mena for discharge. (6) Central line complication Resolved; no bleeding x 36 hours. Femoral line removed on 04/21. Patient had bleeding w/ movement x24 hrs. Heparin DVT prophylaxis and Aspirin placed on hold. Bed rest x 24. Bleeding appears to have resolved. Have resumed mobility/ambulation without re-bleeding. Monitor closely. Physical Exam Vital Signs: Temp Pulse Resp BP Pulse Ox 98.1 F 79 18 146/56 H 95 04/24/20 18:54 04/24/20 18:54 04/24/20 18:54 04/24/20 18:54 04/24/20 18:54 Intake & Output 04/24/20 04/25/20 04/26/20 06:59 06:59 06:59 Intake Total 732 Output Total 900 5259 Balance -168 -1879 Weight 94.6 kg General appearance: PRESENT: no acute distress, disheveled, obese, well- developed, well-nourished Head exam: PRESENT: atraumatic, normocephalic Eye exam: PRESENT: conjunctiva pink, EOMI, PERRLA. ABSENT: scleral icterus Mouth exam: PRESENT: moist, tongue midline Respiratory exam: PRESENT: clear to auscultation nikki, symmetrical, unlabored, other - room air. ABSENT: rales, rhonchi, wheezes Cardiovascular exam: PRESENT: RRR. ABSENT: diastolic murmur, rubs, systolic murmur Pulses: PRESENT: normal dorsalis pedis pul Vascular exam: PRESENT: normal capillary refill Rectal exam: PRESENT: deferred Extremities exam: PRESENT: full ROM. ABSENT: calf tenderness, clubbing, pedal edema Musculoskeletal exam: PRESENT: ambulatory Neurological exam: PRESENT: alert, awake, oriented to person, oriented to place, oriented to time, oriented to situation, CN II-XII grossly intact. ABSENT: motor sensory deficit Psychiatric exam: PRESENT: flat affect, normal mood. ABSENT: homicidal ideation, suicidal ideation Skin exam: PRESENT: dry, intact, warm, other - bleeding to left femoral site has resolved x36 hrs. ABSENT: cyanosis, rash Results Laboratory Results: WBC 8.7 10^3/uL (4.0-10.5) 04/24/20 05:26 RBC 3.02 10^6/uL (3.72-5.28) L 04/24/20 05:26 Hgb 8.9 g/dL (12.0-15.5) L 04/24/20 05:26 Hct 26.9 % (36.0-47.0) L 04/24/20 05:26 MCV 89 fl (80-97) 04/24/20 05:26 MCH 29.3 pg (27.0-33.4) 04/24/20 05:26 MCHC 32.9 g/dL (32.0-36.0) 04/24/20 05:26 RDW 15.4 % (11.5-14.0) H 04/24/20 05:26 Plt Count 283 10^3/uL (150-450) 04/24/20 05:26 Lymph % (Auto) 17.6 % (13-45) 04/24/20 05:26 Lassen % (Auto) 5.5 % (3-13) 04/24/20 05:26 Eos % (Auto) 3.9 % (0-6) 04/24/20 05:26 Baso % (Auto) 0.9 % (0-2) 04/24/20 05:26 Reticulocyte # 0.045 10^6/uL (0.028-0.122) 04/19/20 07:05 Absolute Neuts (auto) 6.3 10^3/uL (1.7-8.2) 04/24/20 05:26 Absolute Lymphs (auto) 1.5 10^3/uL (0.5-4.7) 04/24/20 05:26 Absolute Monos (auto) 0.5 10^3/uL (0.1-1.4) 04/24/20 05:26 Absolute Eos (auto) 0.3 10^3/uL (0.0-0.6) 04/24/20 05:26 Absolute Basos (auto) 0.1 10^3/uL (0.0-0.2) 04/24/20 05:26 Seg Neutrophils % 72.1 % (42-78) 04/24/20 05:26 Retic Count (auto) 1.48 % (0.66-2.85) 04/19/20 07:05 PT 14.1 SEC (11.4-15.4) 04/17/20 15:25 INR 1.07 04/17/20 15:25 APTT 36.6 SEC (23.5-35.8) H 04/17/20 15:25 Carbonic Acid 0.86 mmol/L (1.05-1.35) L 04/17/20 17:00 HCO3/H2CO3 Ratio 17:1 04/17/20 17:00 ABG pH 7.34 (7.35-7.45) L 04/17/20 17:00 ABG pCO2 28.7 mmHg (35-45) L 04/17/20 17:00 ABG pO2 107.8 mmHg (80-100) H 04/17/20 17:00 ABG HCO3 15.1 mmol/L (20-24) L 04/17/20 17:00 ABG Total CO2 16.0 mmol/L (21-25) L 04/17/20 17:00 ABG O2 Saturation 97.8 % (94-98) 04/17/20 17:00 ABG Base Excess -9.5 mmol/L 04/17/20 17:00 FiO2 30% 04/17/20 17:00 Sodium 138.7 mmol/L (137-145) 04/24/20 05:26 Potassium 3.9 mmol/L (3.6-5.0) 04/24/20 05:26 Chloride 107 mmol/L (98-107) 04/24/20 05:26 Carbon Dioxide 26 mmol/L (22-30) 04/24/20 05:26 Anion Gap 6 (5-19) 04/24/20 05:26 BUN 33 mg/dL (7-20) H 04/24/20 05:26 Creatinine 3.92 mg/dL (0.52-1.25) H 04/24/20 05:26 Est GFR ( Amer) 14 (>60) L 04/24/20 05:26 Est GFR (MDRD) Non-Af 12 (>60) L 04/24/20 05:26 Glucose 119 mg/dL (75-110) H 04/24/20 05:26 POC Glucose 259 mg/dL (70-110) H 04/24/20 16:58 Hemoglobin A1c % 7.1 % (4.7-6.0) H 04/18/20 04:23 Calcium 8.2 mg/dL (8.4-10.2) L 04/24/20 05:26 Phosphorus 5.1 mg/dL (2.5-4.5) H 04/24/20 05:26 Magnesium 2.2 mg/dL (1.6-2.3) 04/24/20 05:26 Iron 37.8 ug/dL (37-170) 04/19/20 07:05 TIBC 342 ug/dL (250-450) 04/19/20 07:05 % Saturation 11 % 04/19/20 07:05 Ferritin 90.30 ng/mL (11.1-264.0) 04/19/20 07:05 Total Bilirubin 0.5 mg/dL (0.2-1.3) 04/22/20 04:35 Direct Bilirubin 0.4 mg/dL (0.0-0.4) 04/22/20 04:35 Neonat Total Bilirubin Not Reportable 04/22/20 04:35 Neonat Direct Bilirubin Not Reportable 04/22/20 04:35 Neonat Indirect Bili Not Reportable 04/22/20 04:35 AST 48 U/L (14-36) H 04/22/20 04:35 ALT 42 U/L (<35) H 04/22/20 04:35 Alkaline Phosphatase 70 U/L (38-126) 04/22/20 04:35 Troponin I 0.850 ng/mL 04/18/20 08:24 NT-Pro-B Natriuret Pep 32134 pg/mL (<125) H 04/23/20 04:25 Total Protein 4.5 g/dL (6.3-8.2) L 04/22/20 04:35 Albumin 2.1 g/dL (3.5-5.0) L 04/22/20 04:35 Vitamin B12 931.0 pg/mL (239-931) 04/19/20 07:05 Folate 8.84 ng/mL (>2.76) 04/19/20 07:05 PTH Intact 387.7 pg/mL (10.0-65.0) H 04/21/20 18:36 Hep Bs Antigen Negative (Negative) 04/18/20 08:24 Hep Bs Antibody, Quant 6.3 mIU/mL (Immunity>9) L 04/18/20 08:24 Hep B Core Total Ab Negative (Negative) 04/18/20 08:24 HCV Quantitation HCV Not Detected IU/mL (.) 04/18/20 08:24 HCV RNA PCR Test Info Comment (.) 04/18/20 08:24 SARS-CoV-2 (PCR) NEGATIVE (NEGATIVE) 04/20/20 18:00 04/17/20 04/18/20 04/23/20 15:25 08:24 04:25 Troponin I 0.880 0.850 NT-Pro-B Natriuret Pep 72390 H 32298 H Impressions: Chest X-Ray 04/17/20 00:00 IMPRESSION: Borderline cardiomegaly without pulmonary edema. Bilateral pleural effusions, left greater than right. Airspace disease in the lower lobes, atelectasis versus pneumonia. Chest X-Ray 04/21/20 00:00 IMPRESSION: 1. Improved radiographic appearance of the chest demonstrating diminished bilateral pleural effusions and improved aeration of the lung bases. 2. Interval placement of a right internal jugular dual-lumen catheter without evidence of complication. Guidance Fluoroscopy 04/21/20 00:00 IMPRESSION: IMAGE(S) OBTAINED DURING PROCEDURE. Venous Doppler Study 04/23/20 00:00 IMPRESSION: NO EVIDENCE DVT OR SVT IN THE LEFT LEG. Plan Plan of Treatment: Patient is discharged home in stable condition. She is advised to follow-up with her primary care provider within 1 week. Keep current dialysis schedule and as needed. Eat a heart healthy/dialysis diet. Take medications as prescribed. Return to the emergency department as needed for concerning symptoms. Time Spent: Greater than 30 Minutes Stroke Is this a Stroke Patient?: No Acute Heart Failure Is this a Heart Failure Patient?: Yes Documentation of LVEF assessment?: Yes LVEF: LVEF Greater Than 40% Anticoagulant Therapy: N/A Discharged on Evidence-Based Beta Blockers: Yes Reason(s) not discharged on ARNI: Impaired/worsening renal functions Discharged on ARB?: No-document contraindications Reason(s) not Discharged on ARB: Impaired/worsening renal functions Discharged on ACEI?: No, document contraindications Reason(s) not Discharged on ACEI: Impaied/worsening renal function For LVEF <35%, discharged on Aldosterone Antagonist?: N/A (LVEF > or = 35%) Follow-up Appointment scheduled within 7 days?: Yes
== END 2020-04-24 19:40 | disposition home or self-care (01) | DRG 682 ==
LOC: ER 13:11 → EH 18:46 → 5 04-18 00:10
PROVIDERS: ADMIT Internal Medicine; ATTEND Registered Nurse
PROC: 06HN33Z Insertion of Infusion Device into Left Femoral Vein, Percutaneous Approach (ICD-10-PCS; 2020-04-18)
PROC: 5A1D70Z Performance of Urinary Filtration, Intermittent, Less than 6 Hours Per Day (ICD-10-PCS; 2020-04-19)
PROC: B548ZZA Ultrasonography of Superior Vena Cava, Guidance (ICD-10-PCS; 2020-04-21)
PROC: 02HV33Z Insertion of Infusion Device into Superior Vena Cava, Percutaneous Approach (ICD-10-PCS; principal; 2020-04-21 11:15)
DX: N17.9 Acute kidney failure, unspecified (principal); J96.01 Acute respiratory failure with hypoxia; I50.23 Acute on chronic systolic (congestive) heart failure; I13.2 Hypertensive heart and chronic kidney disease with heart failure and with stage 5 chronic kidney disease, or end stage renal disease; I16.1 Hypertensive emergency; T82.9XXA Unspecified complication of cardiac and vascular prosthetic device, implant and graft, initial encounter; N18.5 Chronic kidney disease, stage 5; N25.81 Secondary hyperparathyroidism of renal origin; E11.22 Type 2 diabetes mellitus with diabetic chronic kidney disease; D63.1 Anemia in chronic kidney disease; I25.10 Atherosclerotic heart disease of native coronary artery without angina pectoris; E78.5 Hyperlipidemia, unspecified; E66.9 Obesity, unspecified; E11.51 Type 2 diabetes mellitus with diabetic peripheral angiopathy without gangrene; E83.39 Other disorders of phosphorus metabolism; E78.00 Pure hypercholesterolemia, unspecified; I25.2 Old myocardial infarction; Z91.11 Patient's noncompliance with dietary regimen; Z91.14 Patient's other noncompliance with medication regimen; Z79.4 Long term (current) use of insulin; Z79.899 Other long term (current) drug therapy; Z95.1 Presence of aortocoronary bypass graft; Z95.5 Presence of coronary angioplasty implant and graft; Z87.891 Personal history of nicotine dependence; Z82.3 Family history of stroke; Z83.3 Family history of diabetes mellitus; Z82.49 Family history of ischemic heart disease and other diseases of the circulatory system; Z79.02 Long term (current) use of antithrombotics/antiplatelets; Z79.82 Long term (current) use of aspirin
CPT/HCPCS: 36415; 532; 71045; 77001; 80048; 80053; 82607; 82728; 82746; 82803; 82962; 83036; 83540; 83550; 83735; 83880; 83970; 84100; 84484; 85025; 85027; 85045; 85610; 85730; 86317; 86704; 87040; 87340; 87522; 87635; 93005; 93010; 93306; 93971; 94660; 99291; C1713; C1752; C9803; J1642; J1644; J1756; J1815; J1940; J2250; J2270; J2405; J2550; J2704; J3010; J3490; Q5105

== ENCOUNTER 2020-05-03 16:14 | Inpatient (IN) | payer MEDICARE ==
[2020-05-03] MEDS ORDERED: MORPHINE SULFATE 10 MG/ML INJ IV ONE (17:52)
--- NOTE | 2020-05-03 17:54 | ER Document Report ---
ED Medical Screen (RME) - General Chief Complaint: Foot Pain Stated Complaint: FOOT PAIN Time Seen by Provider: 05/03/20 17:39 Primary Care Provider: Steve PINEDA MD [Primary Care Provider] - Follow up as needed TRAVEL OUTSIDE OF THE [place] IN LAST 30 DAYS: No - HPI Notes: 05/03/20 17:52 59-year-old female to the emergency department with complaints of bilateral feet pain that has been getting progressively worse the past week. She states her feet of been hurting for months and years but not like this. She states it hurts anytime she walks on her feet. She states she was at dialysis today and could not tolerate the pain. Dialysis sent her by ambulance here. She denies any fevers, chills. There is redness to the left toes which she states is new. She is a new dialysis patient. She started on 26 April for her first round. She has a catheter in her right chest for her dialysis until she gets a shunt placed. 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 She is diabetic but has not taken her blood sugar today. Doppler to bilateral feet in triage with good pulses. Both feet are edematous and tender to palpation. Left foot has erythema to the distal toes. I performed a brief medical screening exam on the patient determined that the patient needs further evaluation and management by main side provider. I have placed initial orders to help expedite care. - Related Data Allergies/Adverse Reactions: No Known Allergies Allergy (Verified 04/17/20 13:31) Past Medical History - Past Medical History Cardiac Medical History: Reports: Hx Coronary Artery Disease, Hx Heart Attack - 2014 SILENT, Hx Hypercholesterolemia, Hx Hypertension, Hx Peripheral Vascular Disease Pulmonary Medical History: Denies: Hx Asthma Neurological Medical History: Reports: Hx Cerebrovascular Accident, Hx Seizures - Patient unsure if what she had was a seizure or a stroke Endocrine Medical History: Reports: Hx Diabetes Mellitus Type 2 Renal/ Medical History: Reports: Hx Renal Insufficiency. Denies: Hx Peritoneal Dialysis GI Medical History: Denies: Hx Hepatitis, Hx Hiatal Hernia, Hx Ulcer Psychiatric Medical History: Denies: Hx Depression Infectious Medical History: Denies: Hx Hepatitis Past Surgical History: Reports: Hx Appendectomy, Hx Cardiac Surgery - cabg, Hx Coronary Artery Bypass Graft, Hx Coronary Stent, Hx Tubal Ligation. Denies: Hx Hysterectomy, Hx Mastectomy, Hx Open Heart Surgery, Hx Pacemaker Physical Exam - Vital signs Vitals: Temp Pulse Resp BP Pulse Ox 98.1 F 98 18 181/76 H 94 05/03/20 16:24 05/03/20 16:24 05/03/20 16:24 05/03/20 16:24 05/03/20 16:24 Course - Vital Signs Vital signs: Temp Pulse Resp BP Pulse Ox 98.1 F 98 18 181/76 H 94 05/03/20 16:24 05/03/20 16:24 05/03/20 16:24 05/03/20 16:24 05/03/20 16:24 Doctor's Discharge - Discharge Referrals: Steve PINEDA MD [Primary Care Provider] - Follow up as needed
[2020-05-03 18:40] LABS: INTERNATIONAL RATION (INR) 1.02; PARTIAL THROMBOPLASTIN TIME 31.5 SEC (23.5-35.8); PROTHROMBIN TIME 13.6 SEC (11.4-15.4)
[2020-05-03 18:42] LABS: ABSOLUTE EOSINOPHILS # (AUTO) 0.2 10^3/uL (0.0-0.6); ABSOLUTE LYMPHOCYTES (AUTO) 1.2 10^3/uL (0.5-4.7); ABSOLUTE MONOCYTES (AUTO) 0.5 10^3/uL (0.1-1.4); ABSOLUTE NEUT (AUTO) 8.5 10^3/uL (1.7-8.2); BASOPHILS % (AUTO) 0.3 % (0-2); EOSINOPHILS % (AUTO) 2.2 % (0-6); HEMATOCRIT 34.2 % (36.0-47.0); LYMPHOCYTES % (AUTO) 11.7 % (13-45); MEAN CORPUSCULAR HEMOGLOBIN 29.3 pg (27.0-33.4); MEAN CORPUSCULAR HGB CONC 32.1 g/dL (32.0-36.0); MEAN CORPUSCULAR VOLUME 91 fl (80-97); MONOCYTES % (AUTO) 4.4 % (3-13); PLATELET COUNT 585 10^3/uL (150-450); RED BLOOD COUNT 3.75 10^6/uL (3.72-5.28); RED CELL DISTRIBUTION WIDTH 16.3 % (11.5-14.0); SEGMENTED NEUTROPHILS % (AUTO) 81.4 % (42-78); TOTAL CELLS COUNTED % (AUTO) 100 %; WHITE BLOOD COUNT 10.4 10^3/uL (4.0-10.5)
--- NOTE | 2020-05-03 18:48 | RADIOLOGY REPORT (SQ) ---
EXAM DESCRIPTION: CHEST SINGLE VIEW IMAGES COMPLETED DATE/TIME: 05/03/2020 6:39 pm REASON FOR STUDY: chest pain COMPARISON: 04/21/2020 EXAM PARAMETERS: NUMBER OF VIEWS: One view. TECHNIQUE: Single frontal radiographic view of the chest acquired. RADIATION DOSE: NA LIMITATIONS: None. FINDINGS: LUNGS AND PLEURA: Large left pleural effusion with likely associated atelectasis. There i s limited opacification in the right base. MEDIASTINUM AND HILAR STRUCTURES: No masses. Contour normal. HEART AND VASCULAR STRUCTURES: Heart size is indeterminate. There is no pulmonary edema. BONES: No acute findings. HARDWARE: Sternotomy wires. Dual-lumen catheter on the right with the tip near the right atrium. OTHER: No other significant finding. IMPRESSION: Large left pleural effusion. Likely compressive atelectasis in the left lower lobe. Ca nnot exclude limited right lower lobe pneumonia. TECHNICAL DOCUMENTATION: JOB ID: [id number] 2010 [employer]- All Rights Reserved Reading location - IP/workstation name: [email or web address]
[2020-05-03 18:52] LABS: ALBUMIN 2.9 g/dL (3.5-5.0); ALKALINE PHOSPHATASE 109 U/L (38-126); ANION GAP 7 (5-19); ASPARTATE AMINO TRANSFERASE 82 U/L (14-36); BILIRUBIN,DIRECT 0.5 mg/dL (0.0-0.4); BILIRUBIN,TOTAL 0.8 mg/dL (0.2-1.3); BLOOD UREA NITROGEN 8 mg/dL (7-20); CALCIUM 8.5 mg/dL (8.4-10.2); CARBON DIOXIDE 30 mmol/L (22-30); CHLORIDE 99 mmol/L (98-107); GLUCOSE 132 mg/dL (75-110); POTASSIUM 3.3 mmol/L (3.6-5.0); TOTAL PROTEIN 5.9 g/dL (6.3-8.2)
--- NOTE | 2020-05-03 18:53 | RADIOLOGY REPORT (SQ) ---
EXAM DESCRIPTION: FOOT BILATERAL 3 VIEWS IMAGES COMPLETED DATE/TIME: 05/03/2020 6:39 pm REASON FOR STUDY: bilateral feet pain COMPARISON: None. NUMBER OF VIEWS: Three views. TECHNIQUE: AP, lateral and oblique without weight bearing radiographic images acquired of the right and left foot. LIMITATIONS: None. FINDINGS: MINERALIZATION: Normal. BONES: No acute fracture dislocation. There is a tiny plantar calcaneal spur on the right. JOINTS: No erosions. No naomi-articular osteopenia. No chondrocalcinosis. SOFT TISSUES: No swelling. No calcifications. OTHER: No other significant finding. IMPRESSION: Tiny right calcaneal spur. No other significant finding. TECHNICAL DOCUMENTATION: JOB ID: [id number] 2010 [employer]- All Rights Reserved Reading location - IP/workstation name: [email or web address]
--- NOTE | 2020-05-03 19:16 | EKG REPORT ---
SEVERITY:- ABNORMAL ECG - SINUS RHYTHM CONSIDER ANTERIOR INFARCT REPOL ABNRM SUGGESTS ISCHEMIA, LATERAL LEADS : Confirmed by: Leta Steward MD 03-May-2020 19:16:22
[2020-05-03 19:36] LABS: TROPONIN I 0.297 ng/mL
[2020-05-03] MEDS ORDERED: HYDROMORPHONE HCL INJ/PF 2 MG/ML AMPULE IV ONE ×2 (19:54→23:00)
[2020-05-03] MEDS ORDERED: NITROGLYCERIN 2% OINTMENT 1 GM PACKET TP ONE (19:54)
--- NOTE | 2020-05-03 20:23 | ER Document Report ---
ED General - General Chief Complaint: Foot Pain Stated Complaint: FOOT PAIN Time Seen by Provider: 05/03/20 17:39 Primary Care Provider: Steve PINEDA MD [Primary Care Provider] - Follow up as needed TRAVEL OUTSIDE OF THE [place] IN LAST 30 DAYS: No - HPI Notes: Patient presents to the emergency department for evaluation of foot pain. She states it has been ongoing for months. She actually came to the ED a few weeks ago complaining of foot pain, ended up getting admitted for renal failure, started on dialysis. Patient states the pain is constant, excruciating, and coni larson cannot describe it further for me. She states that walking, even light touch hurt significantly. She does admit to swelling. She has been given compression stockings, but states that placing them hurts so badly that she does not wear them. On further questioning the patient admits to chest pain. She states that this is not a new problem for her. It started while she was in dialysis today, states that she has attributed it to when her foot pain worsens. She describes it as a tightness that occasionally radiates into her right upper neck. She states it was a constant pain that was relieved entirely by the morphine she was given for her foot pain. The patient does have an extensive cardiac history, with history of CABG as well as stent placement subsequent to that bypass surgery. This was all done in [place]. Otherwise she went to dialysis today, was able to finish. She states that dialysis does not seem to change the amount of fluid in her feet. - Related Data Allergies/Adverse Reactions: No Known Allergies Allergy (Verified 04/17/20 13:31) Past Medical History - General Information source: Patient - Social History Smoking Status: Former Smoker Chew tobacco use (# tins/day): No Frequency of alcohol use: None Drug Abuse: None Family History: CAD, CVA, DM, Hypertension Patient has homicidal ideation: No - Past Medical History Cardiac Medical History: Reports: Hx Coronary Artery Disease, Hx Heart Attack - 2014 SILENT, Hx Hypercholesterolemia, Hx Hypertension, Hx Peripheral Vascular Disease Pulmonary Medical History: Denies: Hx Asthma Neurological Medical History: Reports: Hx Cerebrovascular Accident, Hx Seizures - Patient unsure if what she had was a seizure or a stroke Endocrine Medical History: Reports: Hx Diabetes Mellitus Type 2 Renal/ Medical History: Reports: Hx End Stage Renal Disease, Hx Hemodialysis, Hx Renal Insufficiency. Denies: Hx Peritoneal Dialysis GI Medical History: Denies: Hx Hepatitis, Hx Hiatal Hernia, Hx Ulcer Psychiatric Medical History: Denies: Hx Depression Infectious Medical History: Denies: Hx Hepatitis Past Surgical History: Reports: Hx Appendectomy, Hx Coronary Artery Bypass Graft, Hx Coronary Stent, Hx Tubal Ligation. Denies: Hx Hysterectomy, Hx Mastectomy, Hx Open Heart Surgery, Hx Pacemaker Review of Systems - Review of Systems Constitutional: No symptoms reported EENT: No symptoms reported Cardiovascular: See HPI Respiratory: See HPI Gastrointestinal: No symptoms reported Genitourinary: No symptoms reported Musculoskeletal: See HPI Skin: No symptoms reported Neurological/Psychological: No symptoms reported Physical Exam - Vital signs Vitals: Temp 98.1 F 05/03/20 16:15 - Notes Notes: This is a 59-year-old female who appears much older than her stated age, in a moderate amount of distress. Vital signs reviewed, please refer to chart. Head is normocephalic, atraumatic. Pupils equal round, reactive to light. Neck is supple without meningismus. Heart is regular rate and rhythm. Lungs are clear to auscultation bilaterally. Abdomen is soft, nontender, normoactive bowel sounds throughout. Patient has 3+ pitting pretibial edema bilaterally that tracks down into the feet. She has chronic skin changes associated with chronic edema, as well as some petechial hemorrhages noted in the feet secondary to edema as well. She has what appears to be a traumatic injury to the distal end of her right great toe, with abnormality of the nail and dried blood. Patient cannot recall any injury to this area. Peripheral pulses are diminished but dorsalis pedis and posterior tibial pulses are +1 bilaterally. No posterior calf tenderness noted. Patient is awake and alert, neurological exam is no nfocal. Course - Re-evaluation Re-evalutation: 05/03/20 20:28 Patient presents to the emergency department for evaluation. She initially complained of foot pain, but was found to have chest pain on review of systems. She was brought to the back, placed on a monitor tech, EKG, IV was established and labs drawn. Patient was administered morphine prior to my evaluation. Her chest pain had entirely resolved with this morphine, but she states her foot pain was still significant. She was ordered Dilaudid. She had already received aspirin. Nitroglycerin paste was placed to the anterior chest wall. Chest x-ray reveals large left pleural effusion with likely compressive atelectasis, right consolidative changes in the lower lobe. She did actually have a similar appearing x-ray, although the left effusion seems larger, when she was inpatient on April 21, 2020. Regarding possible right lower lobe infiltrate, the patient has no fever, no leukocytosis, no cough. In comparison this looks very similar to the prior study. I am not inclined to treat this patient for pneumonia. Patient's EKG does show significant changes. She has new lateral T wave inversions and ST depressions when compared to her prior study just 15 days ago. Her initial troponin is elevated, but it is actually lower than it was while she was an inpatient, and that troponin had been attributed to troponin leak secondary to heart failure. Patient again is currently chest pain-free. I will trend her troponins. Will involve cardiology given the EKG changes. I did read her cardiology consult while she was on the inpatient basis. They did state that further evaluation of her chest pain may require transfer to a tertiary center for possible heart catheterization. Again patient is currently stable, we will continue to monitor. 05/03/20 22:59 Patient remains entirely chest pain-free. She is complaining that her foot pain is starting to increase. I will address this. I spoke with Dr. Gagnon, the patient's hand patcher. He was notified of her troponins, which again are trending down slightly, as well as her EKG changes, including the new T wave inversions in the lateral leads. He recommends admission. I did discuss the possibility of anticoagulation. He states that he would give her Plavix, continue the aspirin, and he will see her in consultation. Will contact medicine for admission. 05/03/20 23:14 Dr. Gray accepted the patient. 05/03/20 23:14 - Vital Signs Vital signs: Temp Pulse Resp BP Pulse Ox 97.7 F 98 16 139/74 H 97 05/03/20 22:00 05/03/20 16:24 05/03/20 21:30 05/03/20 21:30 05/03/20 21:30 - Laboratory Result Diagrams: 05/03/20 18:15 05/03/20 18:15 Laboratory results interpreted by me: 05/03/20 05/03/20 05/03/20 18:15 18:15 18:15 Hgb 11.0 L Hct 34.2 L RDW 16.3 H Plt Count 585 H Lymph % (Auto) 11.7 L Absolute Neuts (auto) 8.5 H Seg Neutrophils % 81.4 H Sodium 135.9 L Potassium 3.3 L Creatinine 1.38 H Est GFR ( Amer) 47 L Est GFR (MDRD) Non-Af 39 L Glucose 132 H Direct Bilirubin 0.5 H AST 82 H ALT 69 H NT-Pro-B Natriuret Pep 92219 H Total Protein 5.9 L Albumin 2.9 L - Diagnostic Test Radiology reviewed: Image reviewed, Reports reviewed Radiology results interpreted by me: 05/03/20 20:29 Chest X-Ray 05/03/20 17:51 IMPRESSION: Large left pleural effusion. Likely compressive atelectasis in the left lower lobe. Cannot exclude limited right lower lobe pneumonia. Foot X-Ray 05/03/20 17:51 IMPRESSION: Tiny right calcaneal spur. No other significant finding. - EKG Interpretation by Me Additional EKG results interpreted by me: 05/03/20 20:30 Sinus mechanism with a rate of 99 bpm. Normal axis and intervals. Nonspecific ST changes in the septal leads, new ST depression and T wave inversions in the lateral leads concerning for ischemia. This was a significant change in compared to prior study performed earlier this month. Discharge - Discharge Clinical Impression: Abnormal EKG, Pleural effusion, Lower extremity edema, Bilateral foot pain Coronary artery disease Qualifiers: Coronary Disease-Associated Artery/Lesion type: unspecified vessel or lesion type [place] vs. transplanted heart: [place] heart Associated angina: angina presence unspecified Qualified Code(s): I25.10 - Atherosclerotic heart disease of [place] coronary artery without angina pectoris Condition: Stable Disposition: ADMITTED INPATIENT Admitting Provider: Isaac (Hospitalist) Unit Admitted: IMCU Referrals: Steve PINEDA MD [Primary Care Provider] - Follow up as needed
[2020-05-03] MEDS ORDERED: CLOPIDOGREL BISULFATE 75 MG TABLET PO ONE (23:00)
[2020-05-04] MEDS ORDERED: TEMAZEPAM 7.5 MG CAPSULE PO PRN (02:47)
[2020-05-04] MEDS ORDERED: ACETAMINOPHEN 325 MG TABLET PO PRN (02:47)
[2020-05-04] MEDS ORDERED: ONDANSETRON HCL INJ/PF 4 MG/2 ML SDV IV PRN ×2 (02:47→14:30)
[2020-05-04] MEDS ORDERED: IPRATROPIUM/ALBUTEROL 0.5-2.5 MG/3 ML AMPUL NEB PRN (02:47)
[2020-05-04] MEDS ORDERED: PROMETHAZINE HCL INJ 25 MG/1 ML VIAL IV PRN (02:47)
[2020-05-04] MEDS: GABAPENTIN 300 MG CAPSULE PO SCH ×4 (03:19→22:40)
[2020-05-04] MEDS: ASPIRIN 81 MG TABLET, CHEWABLE PO SCH ×2 (03:19→10:54)
[2020-05-04] MEDS ORDERED: NITROGLYCERIN 0.4 MG/TAB 25 TAB/BOTTLE SL PRN (04:23)
--- NOTE | 2020-05-04 04:23 | PDOC H&P ---
History of Present Illness Admission Date/PCP: 05/03/20 23:38 Steve PINEDA MD History of Present Illness: ROBERTO HIGGINS is a 59 year old female past medical history of CAD, with history of [place] status post CABG, hyperlipidemia, hypertension, PVD, CVA, seizure disorder, diabetes, end-stage renal disease, on hemodialysis Friday bilateral lower extremity chronic feet pain. Patient has multiple comorbidities but main reason she is presenting to ED is bilateral chronic feet pain, patient denies any trauma or any history of infection however complaining of bilateral feet constant excruciating pain worse with "everything" and better with bilateral feet pain or slight status throbbing, constant, painful to touch, mild swelling, is not able to even put on compression stockings. Upon further questioning patient also admits to intermittent left-sided, pressu re-like, nonradiating chest pain, dyspnea on exertion, orthopnea and paroxysmal nocturnal dyspnea. In ED patient was noted to have acute EKG changes with mildly elevated troponins, Dr. Malik her vice president of engineering was consulted and he recommended for patient to be started on Plavix and continue aspirin and he will see her as a consult. On my encounter patient is chest pain-free after receiving nitroglycerin and denies any fever, chills, nausea, vomiting, diarrhea, constipation or any urinary symptoms. Past Medical History Cardiac Medical History: Reports: Coronary Artery Disease, Myocardial Infarction - 2013 SILENT, Hyperlipidema, Hypertension, Peripheral Vascular Disease Pulmonary Medical History: Denies: Asthma Neurological Medical History: Reports: Seizures - Patient unsure if what she had was a seizure or a stroke Endocrine Medical History: Reports: Diabetes Mellitus Type 2 Renal/ Medical History: Reports: End Stage Renal Disease GI Medical History: Denies: Hepatitis, Hiatal Hernia Psychiatric Medical History: Denies: Depression Hematology: Denies: Anemia, Sickle Cell Disease Past Surgical History Past Surgical History: Reports: Appendectomy, Coronary Artery Bypass Graft, Coronary Stent, Tubal Ligation Denies: Amputation, Hysterectomy, Mastectomy, Pacemaker Social History Smoking Status: Former Smoker Electronic Cigarette use?: No Frequency of Alcohol Use: None Drugs: None Hx Prescription Drug Abuse: No Family History Family History: CAD, CVA, DM, Hypertension Parental Family History Reviewed: Yes Children Family History Reviewed: Yes Sibling(s) Family History Reviewed.: Yes Medication/Allergy Home Medications: Fenofibrate Nanocrystallized [Fenofibrate] 48 mg PO DAILY 03/14/20 Montelukast Sodium [Singulair 10 mg Tablet] 10 mg PO QHS #0 03/16/20 Acetaminophen [Tylenol 325 mg Tablet] 650 mg PO Q6HP PRN tablet 04/24/20 Amlodipine Besylate [Norvasc 5 mg Tablet] 5 mg PO DAILY tablet 04/24/20 Aspirin [Ecotrin 81 mg EC Tablet] 81 mg PO DAILY tabec 04/24/20 Atorvastatin Calcium [Lipitor 80 mg Tablet] 80 mg PO QHS #30 tablet 04/24/20 Bumetanide [Bumex 1 mg Tablet] 1 mg PO BID #60 tablet 04/24/20 Calcitriol [Rocaltrol 0.25 mcg Capsule] 0.25 mcg PO MOWEFR@1000 #10 capsule 04/24/20 Calcium Acetate [Phoslo 667 mg Capsule] 667 mg PO MEALS #90 capsule 04/24/20 Escitalopram Oxalate [Lexapro 10 mg Tablet] 20 mg PO DAILY #60 tablet 04/24/20 Metoprolol Tartrate [Lopressor 100 mg Tablet] 100 mg PO Q12 tablet 04/24/20 Allergies/Adverse Reactions: No Known Allergies Allergy (Verified 04/17/20 13:31) Review of Systems Review of Systems: as per hpi Physical Exam Vital Signs: Temp Pulse Resp BP Pulse Ox 98.2 F 93 16 155/67 H 100 05/04/20 01:50 05/04/20 01:58 05/04/20 01:50 05/04/20 01:50 05/04/20 01:50 Intake & Output 05/02/20 05/03/20 05/04/20 06:59 06:59 06:59 Weight 91.172 kg General appearance: PRESENT: no acute distress, obese, well-developed, well- nourished Head exam: PRESENT: atraumatic, normocephalic Neck exam: ABSENT: carotid bruit, JVD, lymphadenopathy, thyromegaly Respiratory exam: PRESENT: clear to auscultation nikki. ABSENT: rales, rhonchi, wheezes Cardiovascular exam: PRESENT: RRR. ABSENT: diastolic murmur, rubs, systolic murmur GI/Abdominal exam: PRESENT: normal bowel sounds, soft. ABSENT: distended, guarding, mass, organolmegaly, rebound, tenderness Extremities exam: PRESENT: full ROM, other - Bilateral feet exquisite generalized tenderness, mild swelling on the dorsal aspect, pulses are palpable, pain decreases proximally, neurovascularly intact. No sign of infection.. ABSENT: calf tenderness, clubbing, pedal edema Neurological exam: PRESENT: alert, awake, oriented to person, oriented to place, oriented to time, oriented to situation, CN II-XII grossly intact. ABSENT: alex r sensory deficit Results Laboratory Results: 05/03/20 18:15 05/03/20 18:15 05/03/20 05/03/20 18:15 18:15 WBC 10.4 RBC 3.75 Hgb 11.0 L Hct 34.2 L MCV 91 MCH 29.3 MCHC 32.1 RDW 16.3 H Plt Count 585 H Seg Neutrophils % 81.4 H Sodium 135.9 L Potassium 3.3 L Chloride 99 Carbon Dioxide 30 Anion Gap 7 BUN 8 Creatinine 1.38 H Est GFR ( Amer) 47 L Glucose 132 H Calcium 8.5 Magnesium 2.0 Total Bilirubin 0.8 AST 82 H Alkaline Phosphatase 109 Total Protein 5.9 L Albumin 2.9 L 05/03/20 05/03/20 18:15 21:55 Troponin I 0.297 0.222 NT-Pro-B Natriuret Pep 97393 H Impressions: Chest X-Ray 05/03/20 17:51 IMPRESSION: Large left pleural effusion. Likely compressive atelectasis in the left lower lobe. Cannot exclude limited right lower lobe pneumonia. Foot X-Ray 05/03/20 17:51 IMPRESSION: Tiny right calcaneal spur. No other significant finding. Assessment and Plan - Diagnosis (1) Unstable angina Is this a current diagnosis for this admission?: Yes Plan: Patient complaining of paroxysmal nocturnal dyspnea, orthopnea, and chest pain and often exertion. T wave inversion on EKG. Mildly elevated troponins. Chest pain relieved with nitroglycerin. Dr. Malik vice president of engineering her audiology was consulted by ED physician and recommendation was to to continue aspirin and add Plavix, no anticoagulation recommended. Admit to telemetry, trend troponins, nitroglycerin, supplemental oxygen IV morphine, DAPT, statins, ARB, beta-blockers. Cardiology consulted, pending recommendations. (2) Bilateral foot pain Is this a current diagnosis for this admission?: Yes Plan: This is most likely to severe bilateral peripheral vascular disease as was evidenced on arterial Doppler in 2019, complicated due to underlying history of chronic diabetes. We will obtain new arterial Doppler, patient will need referral for vascular surgeon for possible revascularization. Not a candidate for cilostazol due to history of CHF and CAD. Meanwhile will continue DAPT, gabapentin, high intensity statins. X-ray no acute changes. No sign of infection. (3) Coronary artery disease Qualifiers: Coronary Disease-Associated Artery/Lesion type: bypass graft [place] vs. transplanted heart: [place] heart Associated angina: angina presence unspecified Qualified Code(s): I25.810 - Atherosclerosis of coronary artery bypass graft(s) without angina pectoris Is this a current diagnosis for this admission?: Yes Plan: History of CAD status post CABG. Plan as per above. (4) Acute on chronic systolic CHF (congestive heart failure) Is this a current diagnosis for this admission?: Yes Plan: Acute systolic heart failure. Complaining of dyspnea on exertion, PND, orthopnea, mildly elevated troponins and BNP. No JVD. Clinically does not look volume overloaded. Admit to telemetry, cardiac diet, IV diuretics, TEJA, beta-blockers, strict in and out Cardiology consulted. Recommendations pending. (5) Peripheral vascular disease Is this a current diagnosis for this admission?: Yes Plan: As per #1. Plan as per #1. (6) End stage renal disease Is this a current diagnosis for this admission?: Yes Plan: Currently on hemodialysis. Friday. Followed by Dr. Pineda. Received hemodialysis yesterday. Monitor volume status and electrolytes, replace as needed. Nephrology consulted. (7) Diabetes Qualifiers: Diabetes mellitus type: type 2 Chronic kidney disease stage: on chronic dialysis Is this a current diagnosis for this admission?: Yes Plan: Currently not taking any antidiabetic, hemoglobin A1c 7.1%. Continue diabetic diet, sliding scale insulin. - Time Time Spent with patient: 35 or more minutes Medications reviewed and adjusted accordingly: Yes Anticipated Discharge Disposition: Home with Home Health Anticipated Discharge Timeframe: within 72 hours
[2020-05-04] MEDS: HYDROMORPHONE HCL INJ/PF 2 MG/ML AMPULE IV PRN ×2 (04:56→12:01)
[2020-05-04] MEDS: HEPARIN SOD (PORCINE) 5,000 UNIT/ML 1 ML VIAL SUBCUT SCH ×3 (06:26→22:41)
[2020-05-04] MEDS ORDERED: METOPROLOL TARTRATE 25 MG TABLET PO SCH (10:00)
[2020-05-04] MEDS ORDERED: FAMOTIDINE 20 MG TABLET PO SCH (10:00)
[2020-05-04] MEDS: CLOPIDOGREL BISULFATE 75 MG TABLET PO SCH (10:55)
[2020-05-04] MEDS: FUROSEMIDE INJ/PF 40 MG/4 ML SDV IV SCH ×2 (10:55→22:41)
[2020-05-04] MEDS: PANTOPRAZOLE SODIUM 40 MG TABLET.DR PO SCH (12:02)
[2020-05-04] MEDS ORDERED: DEXTROSE 50%-WATER 25 GM/50 ML DISP.SYRIN IV PRN ×2 (12:32)
[2020-05-04] MEDS ORDERED: GLUCAGON,HUMAN RECOMB 1 MG INJ IM PRN (12:32)
[2020-05-04] MEDS ORDERED: DEXTROSE 40% GEL 15 GM TUBE PO PRN ×2 (12:32)
--- NOTE | 2020-05-04 12:44 | RADIOLOGY REPORT (SQ) ---
EXAM DESCRIPTION: ARTERIAL LOWER EXTREM BILAT IMAGES COMPLETED DATE/TIME: 05/04/2020 11:07 am REASON FOR STUDY: Rule out peripheral arterial disease COMPARISON: None. TECHNIQUE: Dynamic and static esquivel scale and color images acquired of the lower extremity arteries. Additional selected spectral images recorded. LIMITATIONS: None. FINDINGS: RIGHT LEG: INFLOW ARTERIES: Not imaged. FEMORAL ARTERIES:Multiphasic waveforms. Normal, no velocity elevation to suggest focal stenosis. Norm al color Doppler evaluation. No aneurysm. POPLITEAL ARTERY:Multiphasic waveforms. Normal, no velocity elevation to suggest focal stenosis. Norm al color Doppler evaluation. No aneurysm. PATENT TIBIOPERONEAL TRUNK AND 3 VESSEL RUNOFF: Patent tibioperoneal trunk. Two-vessel runoff. Post erior tibial artery is occluded. TBI: Not performed. OTHER: No other significant finding. LEFT LEG: INFLOW ARTERIES: Not imaged. FEMORAL ARTERIES:Multiphasic waveforms. Normal, no velocity elevation to suggest focal stenosis. Norm al color Doppler evaluation. No aneurysm. POPLITEAL ARTERY:Multiphasic waveforms. Normal, no velocity elevation to suggest focal stenosis. Norm al color Doppler evaluation. No aneurysm. PATENT TIBIOPERONEAL TRUNK AND 3 VESSEL RUNOFF: Tibioperoneal trunk is patent. Two-vessel runoff. P osterior tibial artery is occluded. TBI: Not performed. OTHER: No other significant finding. IMPRESSION: Bilateral small vessel disease. COMMENT: [facility] NORMAL: Greater than 1.0 MINIMAL DISEASE: 0.9 to 1.0 CLAUDICATION: 0.5 to 0.9 SEVERE ARTERIAL DISEASE: Less than 0.5 [facility] NORMAL: Greater than 1.0 (1.2 If Heavy Calcifications) NORMAL TO MILD ISCHEMIA: 0.8 to 1.0 MODERATE ISCHEMIA: 0.4 to 0.8 SEVERE ISCHEMIA: Less than 0.4 TECHNICAL DOCUMENTATION: JOB ID: [id number] 2010 [employer] All Rights Reserved Reading location - IP/workstation name: [email or web address]
--- NOTE | 2020-05-04 12:49 | PDOC CONSULTATION ---
Consultation Consult Date: 05/04/20 Attending physician:: IRINA FISH Provider Consulted: ADAN CARDENAS Consult reason:: Abnormal troponin I, abnormal EKG History of Present Illness Admission Date/PCP: 05/03/20 23:38 K Renetta PINEDA MD Patient complains of: Shortness of breath, left foot pain and chest tightness History of Present Illness: ROBERTO HIGGINS is a 59 year old female Past Medical History Cardiac Medical History: Reports: Coronary Artery Disease, Myocardial Infarction - 2014 SILENT, Hyperlipidema, Hypertension, Peripheral Vascular Disease Pulmonary Medical History: Denies: Asthma Neurological Medical History: Reports: Seizures - Patient unsure if what she had was a seizure or a stroke Endocrine Medical History: Reports: Diabetes Mellitus Type 2 Renal/ Medical History: Reports: End Stage Renal Disease GI Medical History: Denies: Hepatitis, Hiatal Hernia Hematology: Denies: Anemia, Sickle Cell Disease Past Surgical History Past Surgical History: Reports: Appendectomy, Coronary Artery Bypass Graft, Coronary Stent, Tubal Ligation Denies: Amputation, Hysterectomy, Mastectomy, Pacemaker Social History Information Source: Patient Smoking Status: Former Smoker Electronic Cigarette use?: No Frequency of Alcohol Use: None Drugs: None Hx Prescription Drug Abuse: No Family History Family History: CAD, CVA, DM, Hypertension Parental Family History Reviewed: Yes Children Family History Reviewed: Yes Sibling(s) Family History Reviewed.: Yes Medication/Allergy Home Medications: Fenofibrate Nanocrystallized [Fenofibrate] 48 mg PO DAILY 03/14/20 Montelukast Sodium [Singulair 10 mg Tablet] 10 mg PO QHS #0 03/16/20 Acetaminophen [Tylenol 325 mg Tablet] 650 mg PO Q6HP PRN tablet 04/24/20 Amlodipine Besylate [Norvasc 5 mg Tablet] 5 mg PO DAILY tablet 04/24/20 Aspirin [Ecotrin 81 mg EC Tablet] 81 mg PO DAILY tabec 04/24/20 Atorvastatin Calcium [Lipitor 80 mg Tablet] 80 mg PO QHS #30 tablet 04/24/20 Bumetanide [Bumex 1 mg Tablet] 1 mg PO BID #60 tablet 04/24/20 Calcitriol [Rocaltrol 0.25 mcg Capsule] 0.25 mcg PO MOWEFR@1000 #10 capsule 04/24/20 Calcium Acetate [Phoslo 667 mg Capsule] 667 mg PO MEALS #90 capsule 04/24/20 Escitalopram Oxalate [Lexapro 10 mg Tablet] 20 mg PO DAILY #60 tablet 04/24/20 Metoprolol Tartrate [Lopressor 100 mg Tablet] 100 mg PO Q12 tablet 04/24/20 Allergies/Adverse Reactions: No Known Allergies Allergy (Verified 04/17/20 13:31) Review of Systems Review of Systems: Please see history of present illness and past medical history as wall. Constitutional: No fever or chills reported. Head : No recent chronic headaches, recent head injury. Eyes: No recent eye pain, diplopia, redness, discharge, acute visual changes. Ears: No recent chronic ear pain, acute hearing loss, ear discharge. Oral cavity: No recent ulcerations, bleeding, oral cavity discomfort. Neck: No recent acute neck pain reported. Hematologic: No recent easy bruising or bleeding. Lymphatic: No recent lymph node enlargement reported. Cardiovascular system review: See history of present illness. Respiratory system review: No hemoptysis or blood clots in the lungs reported. Shortness of breath on exertion and at rest reported Gastrointestinal system review: Negative for any recent acute hematemesis, melena. History of acid reflux Genitourinary system review: No recent acute or chronic hematuria, flank pain, UTI etc. reported. Skin system review: Negative for any recent abnormal bruising, no rash, no pruritus reported. Neurologic: No prior history of strokes, mini strokes, seizure disorder. Psychologic: No history of major psychosis or major depression reported. Musculoskeletal: Minor aches and pains reported. Left foot severe pain noted. Endocrine: No recent polyuria, polydipsia, recent heat or cold intolerance. Physical Exam Vital Signs: Temp Pulse Resp BP Pulse Ox 97.9 F 99 18 146/72 H 98 05/04/20 06:29 05/04/20 06:29 05/04/20 06:29 05/04/20 06:29 05/04/20 06:29 Intake & Output 05/03/20 05/04/20 05/05/20 06:59 06:59 06:59 Weight 82.6 kg Exam: GENERAL: well-nourished and in no acute distress. Alert and oriented x3 HEAD: Atraumatic, normocephalic. EYES: TIA, sclera anicteric, conjunctiva are normal. ENT: Moist mucous membranes. No oral ulcerations or bleeding gums noted. No obvious ear, nose or throat abnormalities noted. NECK: supple without lymphadenopathy. Trachea is central. No cervical or axillary lymphadenopathy noted. Carotids are 2+, JVD significantly distended at least 14 cm. LUNGS: Bibasilar dullness left more than right along with bibasilar crackles. No significant wheezing noted. CHEST: Palpation of the chest wall shows no significant chest wall tenderness. HEART: [place] [employer], No PSH, 1/6 [place] aortic area, 1/6 boothe systolic murmur mitral area, no rubs, no gallops. ABDOMEN: Soft, no significant tenderness appreciated, normoactive bowel sounds. No guarding, no rebound. No rigidity noted . No masses appreciated. EXTREMITIES: Pedal pulses are 1-2+, no calf tenderness noted. No clubbing or cyanosis. 2+ pedal edema noted, small ulceration noted tip of right great toe. NEUROLOGICAL: Focused neurological exam showed no significant neurologic deficit. Normal speech, no focal weakness appreciated. PSYCH: Normal mood, normal affect. Judgment and insight within normal limits. SKIN: No significant ecchymosis, skin is noted to be warm. MUSCULOSKELETAL EXAM: No significant acute joint swelling noted. Results Laboratory Results: 05/03/20 18:15 05/03/20 18:15 05/03/20 05/03/20 18:15 18:15 WBC 10.4 RBC 3.75 Hgb 11.0 L Hct 34.2 L MCV 91 MCH 29.3 MCHC 32.1 RDW 16.3 H Plt Count 585 H Seg Neutrophils % 81.4 H Sodium 135.9 L Potassium 3.3 L Chloride 99 Carbon Dioxide 30 Anion Gap 7 BUN 8 Creatinine 1.38 H Est GFR ( Amer) 47 L Glucose 132 H Calcium 8.5 Magnesium 2.0 Total Bilirubin 0.8 AST 82 H Alkaline Phosphatase 109 Total Protein 5.9 L Albumin 2.9 L 05/03/20 05/03/20 05/04/20 18:15 21:55 03:01 Troponin I 0.297 0.222 0.244 NT-Pro-B Natriuret Pep 07648 H 05/04/20 10:45 Troponin I 0.186 NT-Pro-B Natriuret Pep EKG Comments: Sinus rhythm with LVH and secondary ST-T wave changes. These are somewhat more prominent than last admissions EKG. Impressions: Chest X-Ray 05/03/20 17:51 IMPRESSION: Large left pleural effusion. Likely compressive atelectasis in the left lower lobe. Cannot exclude limited right lower lobe pneumonia. Foot X-Ray 05/03/20 17:51 IMPRESSION: Tiny right calcaneal spur. No other significant finding. Assessment & Plan - Diagnosis (1) Elevated troponin Is this a current diagnosis for this admission?: Yes (2) Pleural effusion Is this a current diagnosis for this admission?: Yes (3) Chest pain Qualifiers: Chest pain type: unspecified Qualified Code(s): R07.9 - Chest pain, unspecified Is this a current diagnosis for this admission?: Yes (4) Diastolic CHF, acute on chronic Is this a current diagnosis for this admission?: Yes (5) Hypertension Qualifiers: Hypertension type: essential hypertension Qualified Code(s): I10 - Essential (primary) hypertension Is this a current diagnosis for this admission?: Yes (6) Obstructive sleep apnea syndrome Is this a current diagnosis for this admission?: Yes (7) Chronic kidney disease (CKD) Qualifiers: Chronic kidney disease stage: unspecified stage Qualified Code(s): N18.9 - Chronic kidney disease, unspecified Is this a current diagnosis for this admission?: Yes (8) Peripheral vascular disease Is this a current diagnosis for this admission?: Yes - Notes Notes: Patient is known to me from previous admission and also previous visits to my office. Patient has known history of CAD, history of CABG and stents. Patient did present with some chest tightness however on questioning she claims that this was brought on by severe pain in the left foot. Sometimes extreme anxiety and stress can bring on angina. In addition on presentation patient's blood pressure was noted to be severely elevated. I believe patient had an angina episode, brought on by combination of factors as noted above. In addition CHF can cause LV EDP elevation reducing subendocardial perfusion. Troponin I e levation is probably left over from her last admission and could well be related to CHF. At this point my inclination would be to optimize medical management. In this regard I have stopped metoprolol tartrate and placed patient on metoprolol succinate and increased dose to 50 mg twice a day. Increase it further as needed. I have also placed patient on nitrates long-acting and also placed patient on ARB valsartan. I did order a 2D echo just because patient's BNP is much more elevated than expected from just diastolic dysfunction. If there is significant deterioration in LVEF, may then need to consider heart catheterization. Heart catheterization should also be considered if patient has uncontrolled angina in spite of maximum medical therapy. Patient does have history of sleep apnea syndrome. During the last time, patient was treated with bilevel therapy. You may restart patient on bilevel therapy at same parameters as was prescribed last time. I have also started patient on proton pump inhibitor since both end-stage renal disease and sleep apnea syndrome predispose patients to gastric hyperacidity and gastroesophageal reflux. Hopefully this will prevent us from getting confused from reflux induced chest pain from cardiac pain. Patient has significant other comorbid diagnoses which include severe peripheral vascular disease, chronic kidney disease, diabetes, hypertension. Patient seems to be relatively well managed. Have discussed case with Annmarie Bonilla. - Time Time Spent: 30 to 50 Minutes Medications reviewed and adjusted accordingly: Yes
--- NOTE | 2020-05-04 12:49 | PDOC CONSULTATION ---
Consultation Consult Date: 05/04/20 Provider Consulted: Steve PINEDA Consult reason:: ESRD for HD. History of Present Illness Admission Date/PCP: 05/03/20 23:38 Steve PINEDA MD History of Present Illness: ROBERTO HIGGINS is a 59 year old female with a past medical history of recent new onset end-stage renal disease, on hemodialysis Friday, CAD, with history of [place] status post CABG, hyperlipidemia, hypertension, PVD, CVA, seizure disorder, diabetes, was admitted yesterday with bilateral lower extremity acute on chronic feet pain. Patient has multiple comorbidities but main reason she is presenting to ED is bilateral chronic feet pain- rather burning. patient denies any trauma or any history of infection however complaining of bilateral feet constant excruciating pain worse with painful to touch, mild swelling, is not able to even put on compression stockings. She also admitted to intermittent left-sided, pressure- like, nonradiating chest pain, dyspnea on exertion, orthopnea and paroxysmal nocturnal dyspnea. When I see her today she says the pain in the feet is better but is persisting. She says there was lot of edema that is also come down. She says the pain is worse with exertion as well as at rest. She is known to have severe peripheral vascular disease.Labs and medications were reviewed. Her last dialysis was yesterday. Past Medical History Cardiac Medical History: Reports: Carotid Stenosis, Coronary Artery Disease, Hyperlipidemia, Hypertension-primary, Myocardial Infarction - 2014 SILENT, Peripheral Vascular Disease Pulmonary Medical History: Denies: Asthma Neurological Medical History: Reports: Seizures - Patient unsure if what she had was a seizure or a stroke Endocrine Medical History: Reports: Diabetes Mellitus Type 2 Renal/ Medical History: Reports: End Stage Renal Disease, Secondary Hyperparathyroidism GI Medical History: Denies: Hepatitis, Hiatal Hernia Psychiatric Medical History: Denies: Depression Past Surgical History Past Surgical History: Reports: Appendectomy, Coronary Artery Bypass Graft, Coronary Stent, Tubal Ligation Denies: Hysterectomy, Mastectomy, Pacemaker Social History Smoking Status: Former Smoker Electronic Cigarette use?: No Frequency of Alcohol Use: None Drugs: None Hx Prescription Drug Abuse: No Family History Parental Family History Reviewed: Yes - Negative for ESRD Children Family History Reviewed: No Sibling(s) Family History Reviewed.: No Medication/Allergy Home Medications: Fenofibrate Nanocrystallized [Fenofibrate] 48 mg PO DAILY 08/04/20 Montelukast Sodium [Singulair 10 mg Tablet] 10 mg PO QHS #0 03/16/20 Acetaminophen [Tylenol 325 mg Tablet] 650 mg PO Q6HP PRN tablet 04/24/20 Amlodipine Besylate [Norvasc 5 mg Tablet] 5 mg PO DAILY tablet 04/24/20 Aspirin [Ecotrin 81 mg EC Tablet] 81 mg PO DAILY tabec 04/24/20 Atorvastatin Calcium [Lipitor 80 mg Tablet] 80 mg PO QHS #30 tablet 04/24/20 Bumetanide [Bumex 1 mg Tablet] 1 mg PO BID #60 tablet 04/24/20 Calcitriol [Rocaltrol 0.25 mcg Capsule] 0.25 mcg PO MOWEFR@1000 #10 capsule 04/24/20 Calcium Acetate [Phoslo 667 mg Capsule] 667 mg PO MEALS #90 capsule 04/24/20 Escitalopram Oxalate [Lexapro 10 mg Tablet] 20 mg PO DAILY #60 tablet 04/24/20 Metoprolol Tartrate [Lopressor 100 mg Tablet] 100 mg PO Q12 tablet 04/24/20 Allergies/Adverse Reactions: No Known Allergies Allergy (Verified 04/17/20 13:31) Review of Systems Constitutional: PRESENT: fatigue, weakness. ABSENT: anorexia, fever(s), headache(s) Cardiovascular: PRESENT: chest pain, dyspnea on exertion, edema. ABSENT: orthropnea Gastrointestinal: ABSENT: abdominal pain, diarrhea, dysphagia, heartburn, hem atemesis Genitourinary: ABSENT: dysuria, hematuria Musculoskeletal: ABSENT: deformity, joint swelling Integumentary: ABSENT: lesions, pruritus, rash Neurological: ABSENT: abnormal movements, abnormal speech, frequent falls Hematologic/Lymphatic: ABSENT: easy bruising, lymphadenopathy Physical Exam Vital Signs: Temp Pulse Resp BP Pulse Ox 98.2 F 100 19 150/76 H 96 05/04/20 11:49 05/04/20 11:49 05/04/20 11:49 05/04/20 11:49 05/04/20 11:49 Intake & Output 05/03/20 05/04/20 05/05/20 06:59 06:59 06:59 Weight 82.6 kg General appearance: PRESENT: no acute distress Eye exam: PRESENT: EOMI, PERRLA. ABSENT: scleral icterus Ear exam: PRESENT: normal external ear exam Mouth exam: PRESENT: moist Neck exam: ABSENT: lymphadenopathy, meningismus, tenderness, thyromegaly, tracheal deviation Respiratory exam: PRESENT: clear to auscultation nikki. ABSENT: crackles Cardiovascular exam: PRESENT: +S1, +S2 GI/Abdominal exam: PRESENT: normal bowel sounds, soft. ABSENT: organomegaly, tenderness Extremities exam: PRESENT: pedal edema Neurological exam: PRESENT: alert, awake, oriented to person, oriented to place Psychiatric exam: PRESENT: anxious Skin exam: PRESENT: mottled - Venous stasis both lower extremities, other - She is tender to touch over both the lower extremities over the feet. However the muscles are not for and she has no apparent cellulitis that I could see.. ABSENT: cyanosis, erythema, rash Results Laboratory Results: 05/03/20 18:15 05/03/20 18:15 05/03/20 05/03/20 18:15 18:15 WBC 10.4 RBC 3.75 Hgb 11.0 L Hct 34.2 L MCV 91 MCH 29.3 MCHC 32.1 RDW 16.3 H Plt Count 585 H Seg Neutrophils % 81.4 H Sodium 135.9 L Potassium 3.3 L Chloride 99 Carbon Dioxide 30 Anion Gap 7 BUN 8 Creatinine 1.38 H Est GFR ( Amer) 47 L Glucose 132 H Calcium 8.5 Magnesium 2.0 Total Bilirubin 0.8 AST 82 H Alkaline Phosphatase 109 Total Protein 5.9 L Albumin 2.9 L 05/03/20 05/03/20 05/04/20 18:15 21:55 03:01 Troponin I 0.297 0.222 0.244 NT-Pro-B Natriuret Pep 58251 H 05/04/20 10:45 Troponin I 0.186 NT-Pro-B Natriuret Pep Impressions: Chest X-Ray 05/03/20 17:51 IMPRESSION: Large left pleural effusion. Likely compressive atelectasis in the left lower lobe. Cannot exclude limited right lower lobe pneumonia. Foot X-Ray 05/03/20 17:51 IMPRESSION: Tiny right calcaneal spur. No other significant finding. Assessment & Plan - Diagnosis (1) Bilateral foot pain Is this a current diagnosis for this admission?: Yes Plan: Possible neuropathy to me with some element of ischemia possibly as well given her clinical comorbidities. Currently started on gabapentin and see the response. (2) ESRD (end stage renal disease) on dialysis Is this a current diagnosis for this admission?: Yes Plan: Apparently she was deemed ESRD recently and begun on dialysis a few weeks earlier. However surprisingly her creatinine is low at 1.3. She was dialyzed yesterday. Plan for a gentle 2-hour dialysis tomorrow given the coming weekend and discussed with Dr. Mena to possibly do a 24-hour urine for creatinine clearance to see if she has made a renal recovery to see if she may or may not be needing dialysis. (3) Hypertension Qualifiers: Hypertension type: essential hypertension Qualified Code(s): I10 - Essential (primary) hypertension Is this a current diagnosis for this admission?: Yes Plan: Relatively well controlled. Monitor. (4) Diabetes Qualifiers: Diabetes mellitus type: type 2 Diabetes mellitus complication detail: with chronic kidney disease Chronic kidney disease stage: on chronic dialysis Is this a current diagnosis for this admission?: Yes Plan: Full house and with complications and poorly controlled unfortunately. (5) PAD (peripheral artery disease) Is this a current diagnosis for this admission?: Yes (6) Peripheral vascular disease Is this a current diagnosis for this admission?: Yes Plan: Monitor for any evidence of ischemia.
[2020-05-04] MEDS: POTASSIUM CHLORIDE 10 MEQ TABLET.ER PO SCH (13:59)
--- NOTE | 2020-05-04 17:55 | PDOC PROGRESS REPORT ---
Subjective Progress Note for:: 05/04/20 Subjective:: ROBERTO HIGGINS is a 59 year old female past medical history of CAD, with history of [place] status post CABG, hyperlipidemia, hypertension, PVD, CVA, seizure disorder, diabetes, end-stage renal disease, on hemodialysis Friday who was admitted for Unstable angina. Patient was seen on morning rounds. She was found sitting up to the edge of the bed, comfortably, on supplemental oxygen. She is not home O2 dependent. She denies chest discomfort and dyspnea at the time of my visit. Primary complaint remains bilateral foot pain; improved from last night. Does have continued orthopnea, although, this is also improved. She reports increased abdominal and lower leg edema. Admits to not following sodium and fluid restrictions. Otherwise, she denies fever, chills, palpitations, cough, abd pain, nausea and vomiting. She has no other questions or concerns at this time. No concerns per nursing. Reason For Visit: ACUTE CHF,ESRD,BILATERAL FEET PAIN,ELEVATED [place] Physical Exam Vital Signs: Temp Pulse Resp BP Pulse Ox 98.2 F 100 19 150/76 H 96 05/04/20 11:49 05/04/20 11:49 05/04/20 11:49 05/04/20 11:49 05/04/20 11:49 Intake & Output 05/03/20 05/04/20 05/05/20 06:59 06:59 06:59 Weight 82.6 kg General appearance: PRESENT: no acute distress, cooperative, obese, well- developed, well-nourished Head exam: PRESENT: atraumatic, normocephalic Eye exam: PRESENT: conjunctiva pink, EOMI, PERRLA. ABSENT: scleral icterus Mouth exam: PRESENT: moist, tongue midline Respiratory exam: PRESENT: clear to auscultation nikki, symmetrical, unlabored, other - supplemental oxygen via NC. ABSENT: rales, rhonchi, wheezes Cardiovascular exam: PRESENT: RRR, +S1, +S2. ABSENT: diastolic murmur, rubs, systolic murmur Vascular exam: PRESENT: normal capillary refill, other - rubra bilateral feet Extremities exam: PRESENT: full ROM, +2 edema - pitting BLE. ABSENT: calf tenderness, clubbing, pedal edema Neurological exam: PRESENT: alert, awake, oriented to person, oriented to place, oriented to time, oriented to situation, CN II-XII grossly intact. ABSENT: motor sensory deficit Psychiatric exam: PRESENT: appropriate affect, normal mood. ABSENT: homicidal ideation, suicidal ideation Skin exam: PRESENT: dry, intact, warm, other - Ecchymosis to distal great toes bilaterally. ABSENT: cyanosis, rash Results Laboratory Results: 05/03/20 18:15 05/03/20 18:15 05/03/20 05/03/20 18:15 18:15 WBC 10.4 RBC 3.75 Hgb 11.0 L Hct 34.2 L MCV 91 MCH 29.3 MCHC 32.1 RDW 16.3 H Plt Count 585 H Seg Neutrophils % 81.4 H Sodium 135.9 L Potassium 3.3 L Chloride 99 Carbon Dioxide 30 Anion Gap 7 BUN 8 Creatinine 1.38 H Est GFR ( Amer) 47 L Glucose 132 H Calcium 8.5 Magnesium 2.0 Total Bilirubin 0.8 AST 82 H Alkaline Phosphatase 109 Total Protein 5.9 L Albumin 2.9 L 05/03/20 05/03/20 05/04/20 18:15 21:55 03:01 Troponin I 0.297 0.222 0.244 NT-Pro-B Natriuret Pep [id number] H 05/04/20 10:45 Troponin I 0.186 NT-Pro-B Natriuret Pep Impressions: Chest X-Ray 05/03/20 17:51 IMPRESSION: Large left pleural effusion. Likely compressive atelectasis in the left lower lobe. Cannot exclude limited right lower lobe pneumonia. Foot X-Ray 05/03/20 17:51 IMPRESSION: Tiny right calcaneal spur. No other significant finding. Lower Extremity Ultrasound 05/04/20 02:44 IMPRESSION: Bilateral small vessel disease. Assessment and Plan - Diagnosis (1) Unstable angina Is this a current diagnosis for this admission?: Yes Plan: Patient complaining of paroxysmal nocturnal dyspnea, orthopnea, and chest pain and often exertion. Chest pain relieved with nitroglycerin. T wave inversion on EKG. Mildly elevated troponins; trending down. 0.297-> 0.222-> 0.244-> 0.[address] worker was consulted by ED physician and recommendation was to to continue aspirin and add Plavix, no anticoagulation recommended. Admit to telemetry Supplemental oxygen DAPT, statins, ARB, beta-blockers, Imdur. PPI therapy to prevent reflux related chest discomfort. Cardiology consulted, primary management per Dr. Malik. (2) Acute on chronic systolic CHF (congestive heart failure) Is this a current diagnosis for this admission?: Yes Plan: Acute systolic heart failure. Complaining of dyspnea on exertion, PND, orthopnea, mildly elevated troponins and BNP. No JVD. Clinically does not look volume overloaded. pro BNP 46k; baseline ~30-35k Echocardiogram pending. Cardiology consulted. Management per Dr. Malik. Patient is placed on aspirin, Plavix, and statin therapy. Now on metoprolol, valsartan, isosorbide. Diuresed with IV furosemide. Cardiac diet. Daily weights, strict I&O's. (3) PAD (peripheral artery disease) Is this a current diagnosis for this admission?: Yes Plan: Severe bilateral peripheral vascular disease as was evidenced on arterial Doppler in 2019, complicated due to underlying history of chronic diabetes. Arterial U/S shows bilateral small vessel disease. Outpatient referral for vascular surgeon for possible revascularization. Not a candidate for cilostazol due to history of CHF and CAD. Meanwhile will continue DAPT, gabapentin, high intensity statins. (4) ESRD (end stage renal disease) on dialysis Is this a current diagnosis for this admission?: Yes Plan: Currently on hemodialysis. Friday. Followed by Dr. Pineda. Received hemodialysis yesterday. Monitor volume status and electrolytes, replace as needed. Nephrology consulted. (5) Coronary artery disease Qualifiers: Coronary Disease-Associated Artery/Lesion type: bypass graft [place] vs. transplanted heart: minto heart Associated angina: angina presence unspecified Qualified Code(s): I25.810 - Atherosclerosis of coronary artery bypass graft(s) without angina pectoris Is this a current diagnosis for this admission?: Yes Plan: History of CAD status post CABG. Plan as per above. (6) Diabetes Qualifiers: Diabetes mellitus type: type 2 Diabetes mellitus complication detail: with chronic kidney disease Chronic kidney disease stage: on chronic dialysis Is this a current diagnosis for this admission?: Yes Plan: Currently not taking any antidiabetic, hemoglobin A1c 7.1%. Continue diabetic diet, sliding scale insulin. propeller engineer and Patient educator are consulted. (7) Peripheral vascular disease Is this a current diagnosis for this admission?: Yes Plan: Plan as per #1. (8) Bilateral foot pain Is this a current diagnosis for this admission?: Yes Plan: Secondary to PVD, PAD, and likely diabetic neuropathy. Management as above. - Time Time Spent with patient: 35 or more minutes Medications reviewed and adjusted accordingly: Yes Anticipated Discharge Disposition: Home with Home Health Anticipated Discharge Timeframe: within 72 hours
[2020-05-04] MEDS: INSULIN LISPRO 100 UNIT/ML 3 ML VIAL SUBCUT SCH ×3 (18:20→22:47)
--- NOTE | 2020-05-04 19:09 | XCELERA REPORT ---
[address] [address] Transthoracic Echocardiogram Report Name: ROBERTO HIGGINS Age: 59 yrs Gender: Female : 1960 Patient Status: Inpatient Patient Location: [address] [place] [address] Study Date: 05/04/2020 05:31 PM Height: 62 in Weight: 182 lb BSA: 1.8 m2 Reason For Study: Recurrent CHF, Pericardial effusion Ordering Physician: HEIDI CARDENAS Performed By: Martha Glaser Interpretation Summary FINDINGS: LEFT VENTRICLE: LV Systolic function: LVEF is felt to be within normal limits. Best estimate is approximately LVEF is 60 %. LV Diastolic Function: Grade II diastolic dysfunction noted. Wall motion : distal interventricular septum towards the apex seems to be mildly dyskinetic. Left ventricular chamber size : is within normal limit. Left ventricular wall thickness : is increased indicative of Mild LVH. INTERVENTRICULAR SEPTUM: no evidence of VSD noted. No asymmetric hypertrophy noted. RIGHT VENTRICLE: RV systolic function : is felt to be within normal limit. Right Ventricle Size : is within normal limits. LEFT ATRIUM size : mildly dilated. RIGHT ATRIUM size : is within normal limit. INTER ATRIAL SEPTUM : No definite atrial septal defect noted however a small PFO could be missed. Interatrial septum shifted to the left suggestive of elevated LVEDP and left atrial pressure AORTIC ROOT : seems to be within normal limits. Ascending aorta is not well visualized. INFERIOR VENA CAVA: was not well visualized. VALVES: MITRAL VALVE : an alert and leaflet calcification noted. Mobility seems relatively well preserved however since mildly reduced. Mitral Regurgitation : mild mitral regurgitation is noted. Mitral Stenosis: No mitral stenosis noted. Mitral valve prolapse : none noted. AORTIC VALVE: seems trileaflet with thickening and calcification. Mobility seems relatively well preserved. Aortic stenosis : No aortic stenosis noted. Aortic regurgitation trace aortic incompetence noted. TRICUSPID VALVE : mobility and structures within normal limit. Tricuspid stenosis : no tricuspid stenosis noted. Tricuspid regurgitation : Trace tricuspid regurgitation noted. Estimated RVSP : tricuspid jet envelope not well defined to measure RV systolic pressure accurately. PULMONARY VALVE : was not well visualized but no significant abnormalities suspected. Pulmonary stenosis : no significant pulmonary stenosis noted. Pulmonary regurgitation : no significant pulmonary regurgitation noted. MASSES AND THROMBUS : No definite intracardiac thrombus or masses are noted. PERICARDIUM: No pericardial effusion was noted. IMPRESSION : 1. Normal LVEF. Wall motion abnormalities noted as discussed above. 2. Mild LVH noted. 3. Grade II Diastolic Dysfunction noted. 4. Mild mitral and trace aortic regurgitation noted. 5. Minimal pericardial effusion noted. 6. Moderate left pleural effusion noted. This seems increased from before. 7. When compared to prior echocardiogram from last admission, apart from increased pleural effusion on the left side, do not see new wall motion abnormalities or worsenig valve disease. MMode/2D Measurements & Calculations RVDd: 2.4 cm LVIDd: 4.0 cm FS: 30.8 % Ao root diam: 2.6 cm IVSd: 1.2 cm LVIDs: 2.8 cm EDV(Teich): 71.4 ml LVPWd: 1.0 cm ESV(Teich): 29.3 ml Ao root area: 5.4 cm2 LA dimension: 3.6 cm EF(Teich): 59.0 % Doppler Measurements & Calculations MV E max iliana: MV P1/2t max iliana: Ao V2 max: LV V1 max P.5 cm/sec 163.9 cm/sec 163.6 cm/sec 7.6 mmHg MV A max iliana: MV P1/2t: 61.4 msec Ao max PG: LV V1 max: 147.5 cm/sec MVA(P1/2t): 3.6 cm2 10.7 mmHg 138.2 cm/sec MV E/A: 1.0 MV dec slope: 782.0 cm/sec2 MV dec time: 0.22 sec PA V2 max: PI end-d iliana: MV P1/2t-pr_phl: 103.2 cm/sec 136.8 cm/sec 61.4 msec PA max P.3 mmHg : HEIDI CARDENAS Shyamal
[2020-05-04] MEDS: OXYCODONE-ACETAMINOPHEN 5-325 MG TABLET PO PRN (22:40)
[2020-05-04] MEDS: ISOSORBIDE MONONITRATE 30 MG TAB.ER.24H PO SCH (22:41)
[2020-05-04] MEDS: METOPROLOL SUCCINATE 50 MG TAB.SR.24H PO SCH (22:41)
[2020-05-04] MEDS: ATORVASTATIN CALCIUM 80 MG TABLET PO SCH (22:41)
[2020-05-05] MEDS: OXYCODONE-ACETAMINOPHEN 5-325 MG TABLET PO PRN ×3 (03:22→20:12)
[2020-05-05] MEDS ORDERED: HEPARIN SOD (PORCINE) 1,000 UNIT/ML 10 ML VIAL IV PRN (05:00)
[2020-05-05] MEDS: PANTOPRAZOLE SODIUM 40 MG TABLET.DR PO SCH (05:45)
[2020-05-05] MEDS: HEPARIN SOD (PORCINE) 5,000 UNIT/ML 1 ML VIAL SUBCUT SCH ×3 (05:45→22:47)
[2020-05-05] MEDS: GABAPENTIN 300 MG CAPSULE PO SCH ×3 (05:45→22:48)
[2020-05-05 08:13] LABS: INTERNATIONAL RATION (INR) 1.07; PROTHROMBIN TIME 14.1 SEC (11.4-15.4)
[2020-05-05 08:14] LABS: PARTIAL THROMBOPLASTIN TIME 38.5 SEC (23.5-35.8)
[2020-05-05 08:17] LABS: ABSOLUTE BASOPHILS # (AUTO) 0.1 10^3/uL (0.0-0.2); ABSOLUTE EOSINOPHILS # (AUTO) 0.4 10^3/uL (0.0-0.6); ABSOLUTE LYMPHOCYTES (AUTO) 1.6 10^3/uL (0.5-4.7); ABSOLUTE MONOCYTES (AUTO) 0.7 10^3/uL (0.1-1.4); ABSOLUTE NEUT (AUTO) 5.9 10^3/uL (1.7-8.2); BASOPHILS % (AUTO) 0.7 % (0-2); EOSINOPHILS % (AUTO) 4.2 % (0-6); LYMPHOCYTES % (AUTO) 18.9 % (13-45); MEAN CORPUSCULAR HEMOGLOBIN 30.4 pg (27.0-33.4); MEAN CORPUSCULAR HGB CONC 32.9 g/dL (32.0-36.0); MEAN CORPUSCULAR VOLUME 92 fl (80-97); MONOCYTES % (AUTO) 7.8 % (3-13); PLATELET COUNT 435 10^3/uL (150-450); RED BLOOD COUNT 2.71 10^6/uL (3.72-5.28); RED CELL DISTRIBUTION WIDTH 16.5 % (11.5-14.0); SEGMENTED NEUTROPHILS % (AUTO) 68.4 % (42-78); TOTAL CELLS COUNTED % (AUTO) 100 %; WHITE BLOOD COUNT 8.6 10^3/uL (4.0-10.5)
[2020-05-05 08:22] LABS: HEMOGLOBIN 8.2 g/dL (12.0-15.5)
[2020-05-05] MEDS ORDERED: EPOETIN ALFA-EPBX 20,000 UNITS (ESRD) in SYRINGE IV PRN (09:15)
[2020-05-05 09:47] LABS: ALBUMIN 2.1 g/dL (3.5-5.0); ALKALINE PHOSPHATASE 75 U/L (38-126); ANION GAP 6 (5-19); ASPARTATE AMINO TRANSFERASE 41 U/L (14-36); BILIRUBIN,DIRECT 0.4 mg/dL (0.0-0.4); BILIRUBIN,TOTAL 0.4 mg/dL (0.2-1.3); BLOOD UREA NITROGEN 19 mg/dL (7-20); CALCIUM 8.1 mg/dL (8.4-10.2); CARBON DIOXIDE 30 mmol/L (22-30); CHLORIDE 98 mmol/L (98-107); GLUCOSE 267 mg/dL (75-110); PHOSPHORUS 5.1 mg/dL (2.5-4.5); POTASSIUM 4.1 mmol/L (3.6-5.0); TOTAL PROTEIN 4.7 g/dL (6.3-8.2)
[2020-05-05] MEDS: INSULIN LISPRO 100 UNIT/ML 3 ML VIAL SUBCUT SCH ×4 (11:15→22:46)
[2020-05-05] MEDS: METOPROLOL SUCCINATE 50 MG TAB.SR.24H PO SCH ×2 (11:51→22:50)
[2020-05-05] MEDS: CLOPIDOGREL BISULFATE 75 MG TABLET PO SCH (11:53)
[2020-05-05] MEDS: VALSARTAN 40 MG TABLET PO SCH (11:54)
[2020-05-05] MEDS: ISOSORBIDE MONONITRATE 30 MG TAB.ER.24H PO SCH ×2 (11:55→22:49)
[2020-05-05] MEDS: POTASSIUM CHLORIDE 10 MEQ TABLET.ER PO SCH (11:55)
[2020-05-05] MEDS: ASPIRIN 81 MG TABLET, CHEWABLE PO SCH (11:55)
[2020-05-05] MEDS: FUROSEMIDE INJ/PF 40 MG/4 ML SDV IV SCH ×2 (12:12→22:48)
--- NOTE | 2020-05-05 13:05 | PDOC PROGRESS REPORT ---
Subjective Progress Note for:: 05/05/20 Subjective:: Patient looks better today. However she is complaining of bilateral lower extremity discomfort and difficulty with walking. Patient has history of severe PVD. Patient denied any chest pain, recurrence since admission. Reason For Visit: ACUTE CHF,ESRD,BILATERAL FEET PAIN,ELEVATED TROPON Physical Exam Vital Signs: Temp Pulse Resp BP Pulse Ox 97.7 F 91 12 102/50 L 98 05/05/20 05:27 05/05/20 05:27 05/05/20 05:27 05/05/20 05:27 05/05/20 05:27 Intake & Output 05/04/20 05/05/20 05/06/20 06:59 06:59 06:59 Intake Total 1912 Output Total 1060 Balance 852 Weight 82.6 kg 82.6 kg Exam: GENERAL: well-nourished and in no acute distress. Alert and oriented x3 HEAD: Atraumatic, normocephalic. EYES: TIA, sclera anicteric, conjunctiva are normal. ENT: Moist mucous membranes. No oral ulcerations or bleeding gums noted. No obvious ear, nose or throat abnormalities noted. NECK: supple without lymphadenopathy. Trachea is central. No cervical or axillary lymphadenopathy noted. Carotids are 2+, JVD WNL LUNGS: Diminished breath sounds noted both bases with dullness both bases. Left more than right. CHEST: Palpation of the chest wall shows no significant chest wall tenderness. HEART: [place] ADMISSIONS SPECIALIST, No PSH, 1/6 PERCY aortic area, 1/6 boothe systolic murmur mitral area, no rubs, no gallops. ABDOMEN: Soft, no significant tenderness appreciated, normoactive bowel sounds. No guarding, no rebound. No rigidity noted . No masses appreciated. EXTREMITIES: Pedal pulses are diminished, no calf tenderness noted. No clubbing or cyanosis. trace 1+ pedal edema noted NEUROLOGICAL: Focused neurological exam showed no significant neurologic deficit. Normal speech, no focal weakness appreciated. PSYCH: Normal mood, normal affect. Judgment and insight within normal limits. SKIN: No significant ecchymosis, skin is noted to be warm. MUSCULOSKELETAL EXAM: No significant acute joint swelling noted. Results Laboratory Results: 05/05/20 07:15 05/05/20 07:15 05/05/20 05/05/20 07:15 07:15 WBC 8.6 RBC 2.71 L Hgb 8.2 L D Hct 25.0 L MCV 92 MCH 30.4 MCHC 32.9 RDW 16.5 H Plt Count 435 Seg Neutrophils % 68.4 Sodium 133.8 L Potassium 4.1 Chloride 98 Carbon Dioxide 30 Anion Gap 6 BUN 19 Creatinine 3.05 H Est GFR ( Amer) 19 L Glucose 267 H Calcium 8.1 L Phosphorus 5.1 H Magnesium 2.1 Total Bilirubin 0.4 AST 41 H Alkaline Phosphatase 75 Total Protein 4.7 L Albumin 2.1 L 05/03/20 05/03/20 05/04/20 18:15 21:55 03:01 Troponin I 0.297 0.222 0.244 NT-Pro-B Natriuret Pep [id number] H 05/04/20 10:45 Troponin I 0.186 NT-Pro-B Natriuret Pep Impressions: Chest X-Ray 05/03/20 17:51 IMPRESSION: Large left pleural effusion. Likely compressive atelectasis in the left lower lobe. Cannot exclude limited right lower lobe pneumonia. Foot X-Ray 05/03/20 17:51 IMPRESSION: Tiny right calcaneal spur. No other significant finding. Lower Extremity Ultrasound 05/04/20 02:44 IMPRESSION: Bilateral small vessel disease. Assessment & Plan - Diagnosis (1) Elevated troponin Is this a current diagnosis for this admission?: Yes (2) Pleural effusion Is this a current diagnosis for this admission?: Yes (3) Chest pain Qualifiers: Chest pain type: unspecified Qualified Code(s): R07.9 - Chest pain, unspecified Is this a current diagnosis for this admission?: Yes (4) Diastolic CHF, acute on chronic Is this a current diagnosis for this admission?: Yes (5) Hypertension Qualifiers: Hypertension type: essential hypertension Qualified Code(s): I10 - Essential (primary) hypertension Is this a current diagnosis for this admission?: Yes (6) Obstructive sleep apnea syndrome Is this a current diagnosis for this admission?: Yes (7) Chronic kidney disease (CKD) Qualifiers: Chronic kidney disease stage: unspecified stage Qualified Code(s): N18.9 - Chronic kidney disease, unspecified Is this a current diagnosis for this admission?: Yes (8) Peripheral vascular disease Is this a current diagnosis for this admission?: Yes - Notes Notes: Patient generally better but has significant problems with peripheral circulation in the lower extremity along with peripheral neuropathy and also possibly gouty arthritis. Recommend vascular surgery consultation, OT PT consultation. She still seems to be somewhat fluid overloaded based on JVP review and some pedal edema. Continue to remove fluid on dialysis. Recommend predischarge BNP, predischarge chest x-ray or CT chest for more clarification on pleural effusion status, possible underlying lung condition etc. Troponin I I currently trending down. I will be out of town and will be available for phone consultation if needed. If patient has recurrent chest pain uncontrolled with medical therapy, consider heart catheterization either locally or transferring her out. Discussed with Annmarie Bonilla - Time Time with patient: Greater than 35 minutes Medications reviewed and adjusted accordingly: Yes
--- NOTE | 2020-05-05 17:12 | PDOC PROGRESS REPORT ---
Subjective Progress Note for:: 05/05/20 Subjective:: ROBERTO HIGGINS is a 59 year old female past medical history of CAD, with history of [place] status post CABG, hyperlipidemia, hypertension, PVD, CVA, seizure disorder, diabetes, end-stage renal disease, on hemodialysis Friday who was admitted for Unstable angina. Patient was seen on morning rounds while in dialysis. She was found sitting up in a recliner, comfortably, on supplemental oxygen. She is not home O2 dependent. She denies chest discomfort and dyspnea; states she is feeling much better and would be ready to d/c home if not for pain in her feet. Otherwise, she denies fever, chills, palpitations, cough, abd pain, nausea and vomiting. She has no other questions or concerns at this time. No concerns per nursing. Reason For Visit: ACUTE CHF,ESRD,BILATERAL FEET PAIN,ELEVATED TROPON Physical Exam Vital Signs: Temp Pulse Resp BP Pulse Ox 97.7 F 91 12 102/50 L 98 05/05/20 05:27 05/05/20 05:27 05/05/20 05:27 05/05/20 05:27 05/05/20 05:27 Intake & Output 05/04/20 05/05/20 05/06/20 06:59 06:59 06:59 Intake Total 1912 Output Total 1060 2000 Balance 852 -2000 Weight 82.6 kg 82.6 kg General appearance: PRESENT: no acute distress, obese, well-developed, well-nourished Head exam: PRESENT: atraumatic, normocephalic Eye exam: PRESENT: conjunctiva pink, EOMI, PERRLA. ABSENT: scleral icterus Mouth exam: PRESENT: moist, tongue midline Respiratory exam: PRESENT: clear to auscultation nikki, symmetrical, unlabored. ABSENT: rales, rhonchi, wheezes Cardiovascular exam: PRESENT: RRR, +S1, +S2. ABSENT: diastolic murmur, rubs, systolic murmur Pulses: PRESENT: normal dorsalis pedis pul Vascular exam: PRESENT: normal capillary refill, other - rubra bilateral feet Extremities exam: PRESENT: full ROM, +1 edema - BLE. ABSENT: calf tenderness, clubbing, pedal edema Neurological exam: PRESENT: alert, awake, oriented to person, oriented to place, oriented to time, oriented to situation, CN II-XII grossly intact. ABSENT: motor sensory deficit Psychiatric exam: PRESENT: appropriate affect, normal mood. ABSENT: homicidal ideation, suicidal ideation Skin exam: PRESENT: dry, intact, warm, other - Ecchymosis to distal great toes bilaterally. ABSENT: cyanosis, rash Results Laboratory Results: 05/05/20 07:15 05/05/20 07:15 05/05/20 05/05/20 07:15 07:15 WBC 8.6 RBC 2.71 L Hgb 8.2 L D Hct 25.0 L MCV 92 MCH 30.4 MCHC 32.9 RDW 16.5 H Plt Count 435 Seg Neutrophils % 68.4 Sodium 133.8 L Potassium 4.1 Chloride 98 Carbon Dioxide 30 Anion Gap 6 BUN 19 Creatinine 3.05 H Est GFR ( Amer) 19 L Glucose 267 H Calcium 8.1 L Phosphorus 5.1 H Magnesium 2.1 Total Bilirubin 0.4 AST 41 H Alkaline Phosphatase 75 Total Protein 4.7 L Albumin 2.1 L 05/03/20 05/03/20 05/04/20 18:15 21:55 03:01 Troponin I 0.297 0.222 0.244 NT-Pro-B Natriuret Pep [id number] H 05/04/20 10:45 Troponin I 0.186 NT-Pro-B Natriuret Pep Impressions: Chest X-Ray 05/03/20 17:51 IMPRESSION: Large left pleural effusion. Likely compressive atelectasis in the left lower lobe. Cannot exclude limited right lower lobe pneumonia. Foot X-Ray 05/03/20 17:51 IMPRESSION: Tiny right calcaneal spur. No other significant finding. Lower Extremity Ultrasound 05/04/20 02:44 IMPRESSION: Bilateral small vessel disease. Assessment and Plan - Diagnosis (1) Unstable angina Is this a current diagnosis for this admission?: Yes Plan: Improved; patient is no asymptomatic. Patient complaining of paroxysmal nocturnal dyspnea, orthopnea, and chest pain and often exertion. Chest pain relieved with nitroglycerin. T wave inversion on EKG. Mildly elevated troponins; trending down. 0.297-> 0.222-> 0.244-> 0.186 Dr. Malik montessori toddler teacher was consulted by ED physician and recommendation was to to continue aspirin and add Plavix, no anticoagulation recommended. Admit to telemetry Supplemental oxygen DAPT, statins, ARB, beta-blockers, Imdur. PPI therapy to prevent reflux related chest discomfort. Cardiology consulted, primary management per Dr. Malik. Discussed w/ Dr. Malik; patient is cleared for d/c from cardiac perspective. (2) Acute on chronic systolic CHF (congestive heart failure) Is this a current diagnosis for this admission?: Yes Plan: Acute systolic heart failure exacerbation has resolved. Complaining of dyspnea on exertion, PND, orthopnea, mildly elevated troponins and BNP. No JVD. Clinically does not look volume overloaded. pro BNP 46k; baseline ~30-35k Echocardiogram shows LVEF 60% with grade 2 diastolic dysfunction mildly dy skinetic interventricular septal wall, mild LVH Cardiology consulted. Management per Dr. Malik. Patient is placed on aspirin, Plavix, and statin therapy. Now on metoprolol, valsartan, isosorbide. Continue IV furosemide Cardiac diet. Daily weights, strict I&O's. (3) PAD (peripheral artery disease) Is this a current diagnosis for this admission?: Yes Plan: Severe bilateral peripheral vascular disease as was evidenced on arterial Doppler in 2019, complicated due to underlying history of chronic diabetes. Arterial U/S shows bilateral small vessel disease. Outpatient referral for vascular surgeon for possible revascularization. Not a candidate for cilostazol due to history of CHF and CAD. Meanwhile will continue DAPT, gabapentin, high intensity statins. (4) ESRD (end stage renal disease) on dialysis Is this a current diagnosis for this admission?: Yes Plan: Currently on hemodialysis. Friday. Monitor volume status and electrolytes, replace as needed. Nephrology consulted. Starting 24 hour urine in am (5) Coronary artery disease Qualifiers: Coronary Disease-Associated Artery/Lesion type: bypass graft [place] vs. transplanted heart: [place] heart Associated angina: angina presence unspecified Qualified Code(s): I25.810 - Atherosclerosis of coronary artery bypass graft(s) without angina pectoris Is this a current diagnosis for this admission?: Yes Plan: History of CAD status post CABG. Plan as per above. (6) Diabetes Qualifiers: Diabetes mellitus type: type 2 Diabetes mellitus complication detail: with chronic kidney disease Chronic kidney disease stage: on chronic dialysis Is this a current diagnosis for this admission?: Yes Plan: Currently not taking any antidiabetic, hemoglobin A1c 7.1%. Continue diabetic diet, sliding scale insulin. deliverer pharmacy and Patient educator are consulted. (7) Peripheral vascular disease Is this a current diagnosis for this admission?: Yes Plan: Plan as per #1. (8) Bilateral foot pain Is this a current diagnosis for this admission?: Yes Plan: Secondary to PVD, PAD, and likely diabetic neuropathy. Continue gabapentin As needed percocet Check Uric Acid level Pain management consultation PT consultation Remaining evaluation and management as above. - Time Time Spent with patient: 25-34 minutes Medications reviewed and adjusted accordingly: Yes Anticipated Discharge Disposition: Home with Home Health Anticipated Discharge Timeframe: within 72 hours
[2020-05-05] MEDS: PROMETHAZINE HCL INJ 25 MG/1 ML VIAL IV PRN (22:46)
[2020-05-05] MEDS: ATORVASTATIN CALCIUM 80 MG TABLET PO SCH (22:50)
--- NOTE | 2020-05-06 01:27 | PDOC PROGRESS REPORT ---
Subjective Progress Note for:: 05/05/20 Subjective:: I am seeing the patient during dialysis this morning. She is tolerating dialysis without much issues. She presented to the ED 2 days ago post dialysis treatment due to excruciating bilateral feet pain especially the left foot. She said her pain is even more severe on her left big toe. She has been unable to walk because of this severe excruciating pain. When I saw her this morning she seems to be more comfortable in terms of the pain compared to when I saw her at dialysis 2 days ago. She denies any chest pains but reports some shortness of breath and dyspnea on exertion. Reason For Visit: ACUTE CHF,ESRD,BILATERAL FEET PAIN,ELEVATED TROPON Physical Exam Vital Signs: Temp Pulse Resp BP Pulse Ox 97.7 F 91 12 102/50 L 98 05/05/20 05:27 05/05/20 05:27 05/05/20 05:27 05/05/20 05:27 05/05/20 05:27 Intake & Output 05/04/20 05/05/20 05/06/20 06:59 06:59 06:59 Intake Total 1912 Output Total 1060 Balance 852 Weight 82.6 kg 82.6 kg Vitals during dialysis: Blood pressure 151/73, heart rate of 83, blood flow rate of 300 mL/min and dialysate flow rate of 802 more per minute. Exam: General appearance: PRESENT: no acute distress, cooperative, well-developed, well-nourished Head exam: PRESENT: atraumatic, normocephalic Eye exam: PRESENT: conjunctiva slightly pale, PERRLA. ABSENT: scleral icterus Neck exam: ABSENT: JVD Respiratory exam: PRESENT: Diminished breath sounds. ABSENT: crackles, rales, rhonchi, unlabored, wheezes Cardiovascular exam: PRESENT: Regular rate rhythm -+S1, +S2. ABSENT: diastolic murmur, systolic murmur GI/Abdominal exam: PRESENT: normal bowel sounds, soft. ABSENT: guarding, mass, tenderness Extremities exam: Grade 1 bilateral lower extremity pitting edema more on the left specially the foot compared to the right. Left foot is very tender to touch Neurological exam: PRESENT: alert, awake, oriented to person, place and time. Skin exam: PRESENT: dry, warm, Cardiovascular exam: PRESENT: +S1, +S2 GI/Abdominal exam: PRESENT: normal bowel sounds, soft. ABSENT: organomegaly, tenderness Results Laboratory Results: 05/05/20 07:15 05/05/20 07:15 WBC 8.6 RBC 2.71 L Hgb 8.2 L D Hct 25.0 L MCV 92 MCH 30.4 MCHC 32.9 RDW 16.5 H Plt Count 435 Seg Neutrophils % 68.4 05/03/20 05/03/20 05/04/20 18:15 21:55 03:01 Troponin I 0.297 0.222 0.244 NT-Pro-B Natriuret Pep [id number] H 05/04/20 10:45 Troponin I 0.186 NT-Pro-B Natriuret Pep Impressions: Chest X-Ray 05/03/20 17:51 IMPRESSION: Large left pleural effusion. Likely compressive atelectasis in the left lower lobe. Cannot exclude limited right lower lobe pneumonia. Foot X-Ray 05/03/20 17:51 IMPRESSION: Tiny right calcaneal spur. No other significant finding. Lower Extremity Ultrasound 05/04/20 02:44 IMPRESSION: Bilateral small vessel disease. Assessment & Plan - Diagnosis (1) ESRD (end stage renal disease) on dialysis Is this a current diagnosis for this admission?: Yes Plan: We will do dialysis today for 2 hours, using the patient's PermCath, with 3 potassium bath, blood flow rate of 300 mL per minute, dialysate flow rate of 800 mL per minute, ultrafiltration 2 L as tolerated, no heparin and Procrit with 20,000 units during dialysis intravenously. Patient is currently being monitored throughout dialysis treatment. Post dialysis last Friday the patient's creatinine was as low as 1.3 but today it has gone up again to 3.05. Nevertheless it is improved from her baseline of creatinine of 3-4 when we started dialysis couple weeks ago. 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 (2) Bilateral foot pain Is this a current diagnosis for this admission?: Yes Plan: Appears to be secondary to peripheral neuropathy both contribution of known PAD. Severity of pain in her left big toe we need to rule out possibility of gout as well. Patient was started on gabapentin 600 mg every 8 hours . Due to the patient's kidney function I will decrease the dose to 300 mg every 8 hours. Needs to monitor the patient for severe somnolence. Currently also on oxycodone as needed. Check uric acid level. (3) PAD (peripheral artery disease) Is this a current diagnosis for this admission?: Yes Plan: Known to have severe PAD in the past. (4) Anemia in chronic kidney disease (CKD) Is this a current diagnosis for this admission?: Yes Plan: Retacrit to be given during dialysis treatment as needed. (5) Type 2 diabetes mellitus Is this a current diagnosis for this admission?: Yes (6) Hypertension Qualifiers: Hypertension type: essential hypertension Qualified Code(s): I10 - Essential (primary) hypertension Is this a current diagnosis for this admission?: Yes (7) Hypokalemia Is this a current diagnosis for this admission?: Yes Plan: Initial potassium was taken immediately post dialysis treatment which can explain the low potassium. Patient was started on potassium supplement. If potassium level is starts to go up, recommend to discontinue it. - Notes Notes: Discussed with [facility]
[2020-05-06] MEDS: PANTOPRAZOLE SODIUM 40 MG TABLET.DR PO SCH (06:47)
[2020-05-06] MEDS: HEPARIN SOD (PORCINE) 5,000 UNIT/ML 1 ML VIAL SUBCUT SCH ×3 (06:47→23:27)
[2020-05-06] MEDS: GABAPENTIN 300 MG CAPSULE PO SCH ×3 (06:47→23:30)
[2020-05-06 08:37] LABS: HEMATOCRIT 25.2 % (36.0-47.0); MEAN CORPUSCULAR HEMOGLOBIN 29.8 pg (27.0-33.4); MEAN CORPUSCULAR HGB CONC 31.7 g/dL (32.0-36.0); MEAN CORPUSCULAR VOLUME 94 fl (80-97); PLATELET COUNT 438 10^3/uL (150-450); RED BLOOD COUNT 2.69 10^6/uL (3.72-5.28); WHITE BLOOD COUNT 9.1 10^3/uL (4.0-10.5)
[2020-05-06] MEDS: INSULIN LISPRO 100 UNIT/ML 3 ML VIAL SUBCUT SCH ×4 (08:46→23:30)
[2020-05-06 08:55] LABS: BLOOD UREA NITROGEN 20 mg/dL (7-20); CALCIUM 8.2 mg/dL (8.4-10.2); CARBON DIOXIDE 30 mmol/L (22-30); CHLORIDE 102 mmol/L (98-107); GLUCOSE 209 mg/dL (75-110); POTASSIUM 4.7 mmol/L (3.6-5.0); URIC ACID 4.7 mg/dL (2.5-7.5)
[2020-05-06 09:02] LABS: ANION GAP 4 (5-19)
[2020-05-06] MEDS: POTASSIUM CHLORIDE 10 MEQ TABLET.ER PO SCH (09:41)
[2020-05-06] MEDS: METOPROLOL SUCCINATE 50 MG TAB.SR.24H PO SCH ×2 (09:41→23:29)
[2020-05-06] MEDS: FUROSEMIDE INJ/PF 40 MG/4 ML SDV IV SCH ×2 (09:44→23:27)
[2020-05-06] MEDS: CLOPIDOGREL BISULFATE 75 MG TABLET PO SCH (09:44)
[2020-05-06] MEDS: ASPIRIN 81 MG TABLET, CHEWABLE PO SCH (09:44)
[2020-05-06] MEDS: VALSARTAN 40 MG TABLET PO SCH (09:44)
[2020-05-06] MEDS: ISOSORBIDE MONONITRATE 30 MG TAB.ER.24H PO SCH ×2 (09:44→23:29)
[2020-05-06] MEDS: OXYCODONE-ACETAMINOPHEN 5-325 MG TABLET PO PRN ×2 (09:45→16:26)
[2020-05-06] MEDS ORDERED: METOPROLOL TARTRATE 25 MG TABLET PO ONE (10:36)
--- NOTE | 2020-05-06 10:38 | EKG REPORT ---
SEVERITY:- ABNORMAL ECG - SINUS RHYTHM LEFT ATRIAL ABNORMALITY ABNRM R PROG, CONSIDER ASMI OR LEAD PLACEMENT ABNORMAL T, CONSIDER ISCHEMIA, LATERAL LEADS : Confirmed by: Leta Steward MD 06-May-2020 10:38:34
[2020-05-06] MEDS ORDERED: METOPROLOL SUCCINATE 50 MG TAB.SR.24H PO ONE (10:44)
--- NOTE | 2020-05-06 12:48 | PDOC PROGRESS REPORT ---
Subjective Progress Note for:: 05/06/20 Subjective:: ROBERTO HIGGINS is a 59 year old female past medical history of CAD, with history of [place] status post CABG, hyperlipidemia, hypertension, PVD, CVA, seizure disorder, diabetes, end-stage renal disease, on hemodialysis Friday who was admitted for Unstable angina. Patient was seen on morning rounds. She was found sitting up in a recliner, comfortably, on supplemental oxygen at 1lpm (SpO2 97%). She is not home O2 dependent. She denies chest discomfort and dyspnea. She states she is feeling well. Does complain of bilateral foot pain, R>L, but is ambulatory with FWW without difficulty. She states that tylenol and motrin are unhelpful; believes percocet is improving her discomfort some. Discussed recommendation for eval by vascular surgery. She tells me that she was scheduled to have a "vein surgery" to her RLE and was in pre-op the day of when the proceedure had to be cancelled r/t renal function. She is advised that follow up evaluation would be beneficial. Otherwise, she denies fever, chills, palpitations, cough, abd pain, nausea and vomiting. She has no other questions or concerns at this time. Nursing has noted multiple short runs of v-tach (each <3 seconds). Patient has remained rhythm unaware and asymptomatic throughout. Reason For Visit: ACUTE CHF,ESRD,BILATERAL FEET PAIN,ELEVATED TROPON Physical Exam Vital Signs: Temp Pulse Resp BP Pulse Ox 97.9 F 65 16 108/62 97 05/06/20 09:52 05/06/20 09:53 05/06/20 09:53 05/06/20 02:00 05/06/20 09:53 Intake & Output 05/05/20 05/06/20 05/07/20 06:59 06:59 06:59 Intake Total 1912 Output Total 1060 2240 Balance 852 -2240 Weight 82.6 kg 89.9 kg General appearance: PRESENT: no acute distress, cooperative, obese, well- developed, well-nourished Head exam: PRESENT: atraumatic, normocephalic Eye exam: PRESENT: conjunctiva pink, EOMI, PERRLA. ABSENT: scleral icterus Mouth exam: PRESENT: moist, tongue midline Respiratory exam: PRESENT: clear to auscultation nikki, symmetrical, unlabored, other - supplemental oxygen. ABSENT: rales, rhonchi, wheezes Cardiovascular exam: PRESENT: irregular rhythm, +S1, +S2. ABSENT: diastolic murmur, rubs, systolic murmur Pulses: PRESENT: normal dorsalis pedis pul Vascular exam: PRESENT: normal capillary refill Extremities exam: PRESENT: full ROM, +1 edema - pitting BLE. ABSENT: calf tenderness, clubbing, pedal edema Musculoskeletal exam: PRESENT: ambulatory Neurological exam: PRESENT: alert, awake, oriented to person, oriented to place, oriented to time, oriented to situation, CN II-XII grossly intact. ABSENT: motor sensory deficit Psychiatric exam: PRESENT: appropriate affect, normal mood. ABSENT: homicidal ideation, suicidal ideation Skin exam: PRESENT: dry, intact, warm. ABSENT: cyanosis, rash Results Laboratory Results: 05/06/20 07:38 05/06/20 07:38 05/06/20 05/06/20 05/06/20 07:38 07:38 07:38 WBC 9.1 RBC 2.69 L Hgb 8.0 L Hct 25.2 L MCV 94 MCH 29.8 MCHC 31.7 L RDW 17.0 H Plt Count 438 Sodium 136.2 L Potassium 4.7 Chloride 102 Carbon Dioxide 30 Anion Gap 4 L BUN 20 Creatinine 3.21 H Est GFR ( Amer) 18 L Glucose 209 H Uric Acid 4.7 Calcium 8.2 L Magnesium 2.1 05/03/20 05/03/20 05/04/20 18:15 21:55 03:01 Troponin I 0.297 0.222 0.244 NT-Pro-B Natriuret Pep 63437 H 05/04/20 10:45 Troponin I 0.186 NT-Pro-B Natriuret Pep Impressions: Chest X-Ray 05/03/20 17:51 IMPRESSION: Large left pleural effusion. Likely compressive atelectasis in the left lower lobe. Cannot exclude limited right lower lobe pneumonia. Foot X-Ray 05/03/20 17:51 IMPRESSION: Tiny right calcaneal spur. No other significant finding. Lower Extremity Ultrasound 05/04/20 02:44 IMPRESSION: Bilateral small vessel disease. Assessment and Plan - Diagnosis (1) Unstable angina Is this a current diagnosis for this admission?: Yes Plan: Resolved; patient has been asymptomatic >48 hrs Patient complaining of paroxysmal nocturnal dyspnea, orthopnea, and chest pain and often exertion. Chest pain relieved with nitroglycerin. T wave inversion on EKG. Mildly elevated troponins; trending down. 0.297-> 0.222-> 0.244-> 0.186 Dr. Malik climate change analyst was consulted by ED physician and recommendation was to to continue aspirin and add Plavix, no anticoagulation recommended. Admit to telemetry Supplemental oxygen DAPT, statins, ARB, beta-blockers, Imdur. PPI therapy to prevent reflux related chest discomfort. Cardiology consulted, primary management per Dr. Malik. Discussed w/ Dr. Malik; patient is cleared for d/c from cardiac perspective. (2) Acute on chronic systolic CHF (congestive heart failure) Is this a current diagnosis for this admission?: Yes Plan: Acute systolic heart failure exacerbation has resolved. Complaining of dyspnea on exertion, PND, orthopnea, mildly elevated troponins and BNP. No JVD. Clinically does not look volume overloaded. pro BNP 46k; baseline ~30-35k Echocardiogram shows LVEF 60% with grade 2 diastolic dysfunction mildly dyskinetic interventricular septal wall, mild LVH Cardiology consulted. Management per Dr. Malik. Patient is placed on aspirin, Plavix, and statin therapy. Now on metoprolol, valsartan, isosorbide. Continue IV furosemide Cardiac diet. Daily weights, strict I&O's. (3) PAD (peripheral artery disease) Is this a current diagnosis for this admission?: Yes Plan: Severe bilateral peripheral vascular disease as was evidenced on arterial Doppler in 2019, complicated due to underlying history of chronic diabetes. Arterial U/S shows bilateral small vessel disease. Outpatient referral for vascular surgeon for possible revascularization. Not a candidate for cilostazol due to history of CHF and CAD. Meanwhile will continue DAPT, gabapentin, high intensity statins. (4) ESRD (end stage renal disease) on dialysis Is this a current diagnosis for this admission?: Yes Plan: Currently on hemodialysis. Friday. 24 hours urine pending Monitor volume status and electrolytes, replace as needed. Nephrology consulted. (5) Coronary artery disease Qualifiers: Coronary Disease-Associated Artery/Lesion type: bypass graft [place] vs. transplanted heart: [place] heart Associated angina: angina presence unspecified Qualified Code(s): I25.810 - Atherosclerosis of coronary artery bypass graft(s) without angina pectoris Is this a current diagnosis for this admission?: Yes Plan: History of CAD status post CABG. Plan as per above. (6) Diabetes Qualifiers: Diabetes mellitus type: type 2 Diabetes mellitus complication detail: with chronic kidney disease Chronic kidney disease stage: on chronic dialysis Is this a current diagnosis for this admission?: Yes Plan: Currently not taking any antidiabetic, hemoglobin A1c 7.1%. Continue diabetic diet, sliding scale insulin. kindergartners helper and Patient educator are consulted. (7) Peripheral vascular disease Is this a current diagnosis for this admission?: Yes Plan: Plan as per #1. (8) Bilateral foot pain Is this a current diagnosis for this admission?: Yes Plan: Improved; patient is now independently ambulatory with FWW Secondary to PVD, PAD, and likely diabetic neuropathy. Uric acid 4.7 Continue gabapentin As needed percocet Pain management consultation PT consultation Remaining evaluation and management as above. (9) Ventricular tachycardia (paroxysmal) Is this a current diagnosis for this admission?: Yes Plan: Multiple episodes of nonsustained v-tach noted on telemetry today; each lasting <3 sec. Patient remained A&Ox4, rhythm unaware, and asymptomatic. First episode while ambulating to rest room. Magnesium and Potassium are acceptable. LVEF 60% Received dialysis yesterday. BP 108/60 w/ HR 80-90s. EKG in unchanged from prior. Discussed w/ Dr. Sampson; will increase to highest tolerated Metoprolol dose with goal of HR 60s. - Time Time Spent with patient: 35 or more minutes Medications reviewed and adjusted accordingly: Yes Anticipated Discharge Disposition: Home with Home Health Anticipated Discharge Timeframe: within 48 hours
[2020-05-06] MEDS: ATORVASTATIN CALCIUM 80 MG TABLET PO SCH (23:28)
[2020-05-07] MEDS: OXYCODONE-ACETAMINOPHEN 5-325 MG TABLET PO PRN ×4 (03:53→23:06)
[2020-05-07 06:17] LABS: HEMATOCRIT 24.9 % (36.0-47.0); MEAN CORPUSCULAR HEMOGLOBIN 29.6 pg (27.0-33.4); MEAN CORPUSCULAR HGB CONC 31.7 g/dL (32.0-36.0); MEAN CORPUSCULAR VOLUME 93 fl (80-97); PLATELET COUNT 468 10^3/uL (150-450); RED BLOOD COUNT 2.67 10^6/uL (3.72-5.28); RED CELL DISTRIBUTION WIDTH 16.7 % (11.5-14.0); WHITE BLOOD COUNT 11.6 10^3/uL (4.0-10.5)
[2020-05-07] MEDS: HEPARIN SOD (PORCINE) 5,000 UNIT/ML 1 ML VIAL SUBCUT SCH ×3 (06:27→21:28)
[2020-05-07] MEDS: PANTOPRAZOLE SODIUM 40 MG TABLET.DR PO SCH (06:27)
[2020-05-07] MEDS: GABAPENTIN 300 MG CAPSULE PO SCH ×3 (06:27→21:29)
[2020-05-07 06:30] LABS: ANION GAP 6 (5-19); BLOOD UREA NITROGEN 32 mg/dL (7-20); CALCIUM 8.3 mg/dL (8.4-10.2); CARBON DIOXIDE 23 mmol/L (22-30); CHLORIDE 104 mmol/L (98-107); GLUCOSE 202 mg/dL (75-110); POTASSIUM 5.5 mmol/L (3.6-5.0)
[2020-05-07 06:42] LABS: HEMOGLOBIN 7.9 g/dL (12.0-15.5)
[2020-05-07] MEDS ORDERED: FUROSEMIDE INJ/PF 20 MG/2 ML SDV IV PRN (08:01)
[2020-05-07] MEDS ORDERED: NORMAL SALINE 250 ML IV PRN ×2 (08:01)
[2020-05-07] MEDS ORDERED: SODIUM POLYSTYRENE SULFONATE 15 GM/60 ML PO ONE ×2 (08:30→11:45)
[2020-05-07] MEDS: INSULIN LISPRO 100 UNIT/ML 3 ML VIAL SUBCUT SCH ×4 (08:32→22:00)
[2020-05-07 09:52] LABS: ANION GAP 7 (5-19); BLOOD UREA NITROGEN 35 mg/dL (7-20); CALCIUM 8.3 mg/dL (8.4-10.2); CARBON DIOXIDE 21 mmol/L (22-30); CHLORIDE 104 mmol/L (98-107); GLUCOSE 328 mg/dL (75-110); POTASSIUM 5.5 mmol/L (3.6-5.0)
[2020-05-07] MEDS: METOPROLOL SUCCINATE 50 MG TAB.SR.24H PO SCH ×2 (11:04→21:29)
[2020-05-07] MEDS: BUMETANIDE 1 MG TABLET PO SCH ×2 (11:04→16:59)
[2020-05-07] MEDS: VALSARTAN 40 MG TABLET PO SCH (11:04)
[2020-05-07] MEDS: ISOSORBIDE MONONITRATE 30 MG TAB.ER.24H PO SCH ×2 (11:06→21:28)
[2020-05-07] MEDS: ASPIRIN 81 MG TABLET, CHEWABLE PO SCH (11:06)
[2020-05-07] MEDS: CLOPIDOGREL BISULFATE 75 MG TABLET PO SCH (11:06)
--- NOTE | 2020-05-07 16:48 | PDOC PROGRESS REPORT ---
Subjective Progress Note for:: 05/07/20 Subjective:: ROBERTO HIGGINS is a 59 year old female past medical history of CAD, with history of [place] status post CABG, hyperlipidemia, hypertension, PVD, CVA, seizure disorder, diabetes, end-stage renal disease, on hemodialysis Friday who was admitted for Unstable angina. Patient was seen on morning rounds. She was found sitting up in a recliner, comfortably, on supplemental oxygen at 1lpm (SpO2 97%). She is not home O2 dependent. She is placed on room air and continues to maintain oxygen saturations. She denies chest discomfort and dyspnea. Has multiple vague complaints today; random muscle twitching/spasms, frequent yawning, and anxiety. Complains of continued foot discomfort. Otherwise, she denies fever, chills, palpitations, cough, abd pain, nausea and vomiting. She has no other questions or concerns at this time. No concerns per nursing. Reason For Visit: ACUTE CHF,ESRD,BILATERAL FEET PAIN,ELEVATED [place]OP[place] Physical Exam Vital Signs: Temp Pulse Resp BP Pulse Ox 98.6 F 82 20 117/53 L 99 05/07/20 16:10 05/07/20 16:10 05/07/20 16:10 05/07/20 16:10 05/07/20 16:10 Intake & Output 05/06/20 05/07/20 05/08/20 06:59 06:59 06:59 Intake Total 870 560 Output Total 2240 600 Balance -2240 270 560 Weight 89.9 kg 90.7 kg General appearance: PRESENT: no acute distress, cooperative, obese, well- developed, well-nourished Head exam: PRESENT: atraumatic, normocephalic Eye exam: PRESENT: conjunctiva pink, EOMI, PERRLA. ABSENT: scleral icterus Mouth exam: PRESENT: moist, tongue midline Respiratory exam: PRESENT: clear to auscultation nikki, symmetrical, unlabored. ABSENT: rales, rhonchi, wheezes Cardiovascular exam: PRESENT: RRR. ABSENT: diastolic murmur, rubs, systolic murmur Vascular exam: PRESENT: normal capillary refill Extremities exam: PRESENT: full ROM. ABSENT: calf tenderness, clubbing, pedal edema Musculoskeletal exam: PRESENT: ambulatory Neurological exam: PRESENT: alert, awake, oriented to person, oriented to place, oriented to time, oriented to situation, CN II-XII grossly intact. ABSENT: motor sensory deficit Psychiatric exam: PRESENT: anxious, normal mood. ABSENT: homicidal ideation, suicidal ideation Skin exam: PRESENT: dry, intact, warm. ABSENT: cyanosis, rash Results Laboratory Results: 05/07/20 05:31 05/07/20 09:25 05/06/20 05/07/20 05/07/20 06:00 05:31 05:31 WBC 11.6 H RBC 2.67 L Hgb 7.9 L Hct 24.9 L MCV 93 MCH 29.6 MCHC 31.7 L RDW 16.7 H Plt Count 468 H Sodium 133.4 L Potassium 5.5 H Chloride 104 Carbon Dioxide 23 Anion Gap 6 BUN 32 H Creatinine 4.24 H Est GFR ( Amer) 13 L Glucose 202 H Calcium 8.3 L Magnesium 2.2 Ur 24 Hour Volume Cancelled Stool Occult Blood Blood Type Antibody Screen 05/07/20 05/07/20 05/07/20 09:17 09:25 10:30 WBC RBC Hgb Hct MCV MCH MCHC RDW Plt Count Sodium 132.4 L Potassium 5.5 H Chloride 104 Carbon Dioxide 21 L Anion Gap 7 BUN 35 H Creatinine 4.19 H Est GFR ( Amer) 13 L Glucose 328 H Calcium 8.3 L Magnesium Ur 24 Hour Volume Stool Occult Blood NEGATIVE Blood Type O POSITIVE Antibody Screen NEGATIVE 05/03/20 05/03/20 05/04/20 18:15 21:55 03:01 Troponin I 0.297 0.222 0.244 NT-Pro-B Natriuret Pep [id number] H 05/04/20 10:45 Troponin I 0.186 NT-Pro-B Natriuret Pep Impressions: Chest X-Ray 05/03/20 17:51 IMPRESSION: Large left pleural effusion. Likely compressive atelectasis in the left lower lobe. Cannot exclude limited right lower lobe pneumonia. Foot X-Ray 05/03/20 17:51 IMPRESSION: Tiny right calcaneal spur. No other significant finding. Lower Extremity Ultrasound 05/04/20 02:44 IMPRESSION: Bilateral small vessel disease. Assessment and Plan - Diagnosis (1) Unstable angina Is this a current diagnosis for this admission?: Yes Plan: Resolved; patient has been asymptomatic >48 hrs Patient complaining of paroxysmal nocturnal dyspnea, orthopnea, and chest pain and often exertion. Chest pain relieved with nitroglycerin. T wave inversion on EKG. Mildly elevated troponins; trending down. 0.297-> 0.222-> 0.244-> 0.186 Dr. Malik poacher wringer operator was consulted by ED physician and recommendation was to to continue aspirin and add Plavix, no anticoagulation recommended. Admit to telemetry Supplemental oxygen DAPT, statins, ARB, beta-blockers, Imdur. PPI therapy to prevent reflux related chest discomfort. Cardiology consulted, primary management per Dr. Malik. Discussed w/ Dr. Malik; patient is cleared for d/c from cardiac perspective. (2) Acute on chronic systolic CHF (congestive heart failure) Is this a current diagnosis for this admission?: Yes Plan: Acute systolic heart failure exacerbation has resolved. Complaining of dyspnea on exertion, PND, orthopnea, mildly elevated troponins and BNP. No JVD. Clinically does not look volume overloaded. pro BNP 46k; baseline ~30-35k Echocardiogram shows LVEF 60% with grade 2 diastolic dysfunction mildly dyskinetic interventricular septal wall, mild LVH Cardiology consulted. Management per Dr. Malik. Patient is placed on aspirin, Plavix, and statin therapy. Now on metoprolol, valsartan, isosorbide. Resume home dose Bumex. Cardiac diet. Daily weights, strict I&O's. (3) PAD (peripheral artery disease) Is this a current diagnosis for this admission?: Yes Plan: Severe bilateral peripheral vascular disease as was evidenced on arterial Doppler in 2019, complicated due to underlying history of chronic diabetes. Arterial U/S shows bilateral small vessel disease. Outpatient referral for vascular surgeon for possible revascularization. Not a candidate for cilostazol due to history of CHF and CAD. Meanwhile will continue DAPT, gabapentin, high intensity statins. (4) ESRD (end stage renal disease) on dialysis Is this a current diagnosis for this admission?: Yes Plan: Currently on hemodialysis. Friday. 24 hours urine pending; had to be recollected r/t lab error Monitor volume status and electrolytes, replace as needed. Nephrology consulted. (5) Coronary artery disease Qualifiers: Coronary Disease-Associated Artery/Lesion type: bypass graft [place] vs. transplanted heart: [place] heart Associated angina: angina presence unspecified Qualified Code(s): I25.810 - Atherosclerosis of coronary artery bypass graft(s) without angina pectoris Is this a current diagnosis for this admission?: Yes Plan: History of CAD status post CABG. Plan as per above. (6) Diabetes Qualifiers: Diabetes mellitus type: type 2 Diabetes mellitus complication detail: with chronic kidney disease Chronic kidney disease stage: on chronic dialysis Is this a current diagnosis for this admission?: Yes Plan: Currently not taking any antidiabetic, hemoglobin A1c 7.1%. Continue diabetic diet, sliding scale insulin. director information security and Patient educator are consulted. (7) Peripheral vascular disease Is this a current diagnosis for this admission?: Yes Plan: Plan as per #1. (8) Bilateral foot pain Is this a current diagnosis for this admission?: Yes Plan: Improved; patient is now independently ambulatory with FWW Secondary to PVD, PAD, and likely diabetic neuropathy. Uric acid 4.7 Continue gabapentin As needed percocet Pain management consultation PT consultation Remaining evaluation and management as above. (9) Ventricular tachycardia (paroxysmal) Is this a current diagnosis for this admission?: Yes Plan: Multiple episodes of nonsustained v-tach noted on telemetry today; each lasting <3 sec. Patient remained A&Ox4, rhythm unaware, and asymptomatic. First episode while ambulating to rest room. Magnesium and Potassium are acceptable. LVEF 60% Received dialysis yesterday. BP 108/60 w/ HR 80-90s. EKG in unchanged from prior. Discussed w/ Dr. Sampson; will increase to highest tolerated Metoprolol dose with goal of HR 60s. (10) Hyperkalemia Is this a current diagnosis for this admission?: Yes Plan: Hold potassium supplement. Kayexalate this morning; follow up K is unchanged. Valtessa this evening. Scheduled for dialysis tomorrow. - Time Time Spent with patient: 25-34 minutes Medications reviewed and adjusted accordingly: Yes Anticipated Discharge Disposition: Home with Home Health Anticipated Discharge Timeframe: within 24 hours - after dialysis
[2020-05-07] MEDS ORDERED: PATIROMER 8.4 GM SUSP PACKET PO SCH (17:00)
[2020-05-07 18:28] LABS: ABSOLUTE BASOPHILS # (AUTO) 0.1 10^3/uL (0.0-0.2); ABSOLUTE EOSINOPHILS # (AUTO) 0.4 10^3/uL (0.0-0.6); ABSOLUTE LYMPHOCYTES (AUTO) 1.8 10^3/uL (0.5-4.7); ABSOLUTE MONOCYTES (AUTO) 0.9 10^3/uL (0.1-1.4); ABSOLUTE NEUT (AUTO) 7.6 10^3/uL (1.7-8.2); BASOPHILS % (AUTO) 1.2 % (0-2); EOSINOPHILS % (AUTO) 3.4 % (0-6); HEMATOCRIT 28.9 % (36.0-47.0); HEMOGLOBIN 9.6 g/dL (12.0-15.5); LYMPHOCYTES % (AUTO) 16.9 % (13-45); MEAN CORPUSCULAR HEMOGLOBIN 30.8 pg (27.0-33.4); MEAN CORPUSCULAR VOLUME 93 fl (80-97); PLATELET COUNT 444 10^3/uL (150-450); RED CELL DISTRIBUTION WIDTH 15.9 % (11.5-14.0); SEGMENTED NEUTROPHILS % (AUTO) 70.5 % (42-78); TOTAL CELLS COUNTED % (AUTO) 100 %; WHITE BLOOD COUNT 10.8 10^3/uL (4.0-10.5)
[2020-05-07] MEDS: PROMETHAZINE HCL INJ 25 MG/1 ML VIAL IV PRN (20:24)
[2020-05-07] MEDS ORDERED: PATIROMER 8.4 GM SUSP PACKET ONE (21:19)
[2020-05-07] MEDS: ATORVASTATIN CALCIUM 80 MG TABLET PO SCH (21:28)
[2020-05-08] MEDS ORDERED: NORMAL SALINE 1000 ML 1,000 ML IV PRN (05:00)
[2020-05-08] MEDS ORDERED: HEPARIN SOD (PORCINE) 1,000 UNIT/ML 10 ML VIAL IV PRN (05:00)
[2020-05-08] MEDS ORDERED: EPOETIN ALFA-EPBX 2,000 UNIT, EPOETIN ALFA-EPBX 3,000 UNIT, EPOETIN ALFA-EPBX 20,000 UN... IV PRN ×4 (05:00)
[2020-05-08] MEDS: HEPARIN SOD (PORCINE) 5,000 UNIT/ML 1 ML VIAL SUBCUT SCH (05:29)
[2020-05-08] MEDS: PANTOPRAZOLE SODIUM 40 MG TABLET.DR PO SCH (05:30)
[2020-05-08] MEDS: OXYCODONE-ACETAMINOPHEN 5-325 MG TABLET PO PRN ×2 (05:30→10:37)
[2020-05-08] MEDS: GABAPENTIN 300 MG CAPSULE PO SCH (05:30)
[2020-05-08 07:20] LABS: ABSOLUTE RETICS # 0.075 10^6/uL (0.028-0.122); HEMOGLOBIN 9.2 g/dL (12.0-15.5); MEAN CORPUSCULAR HEMOGLOBIN 30.6 pg (27.0-33.4); MEAN CORPUSCULAR HGB CONC 32.9 g/dL (32.0-36.0); MEAN CORPUSCULAR VOLUME 93 fl (80-97); PLATELET COUNT 455 10^3/uL (150-450); RED BLOOD COUNT 3.01 10^6/uL (3.72-5.28); RED CELL DISTRIBUTION WIDTH 16.6 % (11.5-14.0); RETICULOCYTE COUNT (AUTO) 2.48 % (0.66-2.85); WHITE BLOOD COUNT 10.9 10^3/uL (4.0-10.5)
[2020-05-08 07:59] LABS: ANION GAP 6 (5-19); BLOOD UREA NITROGEN 41 mg/dL (7-20); CALCIUM 8.2 mg/dL (8.4-10.2); CARBON DIOXIDE 25 mmol/L (22-30); CHLORIDE 102 mmol/L (98-107); GLUCOSE 253 mg/dL (75-110); IRON(TIBC) 28.2 ug/dL (37-170); POTASSIUM 5.1 mmol/L (3.6-5.0)
[2020-05-08 09:05] LABS: FOLATE 9.47 ng/mL (>2.76)
--- NOTE | 2020-05-08 09:59 | PDOC PROGRESS REPORT ---
Subjective Progress Note for:: 05/08/20 Subjective:: I am seeing the patient during dialysis this morning. She is tolerating dialysis but she continues to complain of bilateral feet pain. She also states that she seems to be dropping everything. Otherwise no other new complaints today. Reason For Visit: ACUTE CHF,ESRD,BILATERAL FEET PAIN,ELEVATED TROPON Physical Exam Vital Signs: Temp Pulse Resp BP Pulse Ox 98.2 F 88 18 131/80 H 100 05/08/20 03:30 05/08/20 03:30 05/08/20 03:30 05/08/20 03:30 05/08/20 03:30 Intake & Output 05/07/20 05/08/20 05/09/20 06:59 06:59 06:59 Intake Total 870 1176 Output Total 600 250 Balance 270 926 Weight 90.7 kg 91.7 kg Vitals during dialysis: Blood pressure 110/75, heart rate of 97, blood flow rate of 300 mL/min and dialysate flow rate of 600 mL/min. Exam: General appearance: PRESENT: no acute distress, cooperative, well-developed, well-nourished Head exam: PRESENT: atraumatic, normocephalic Eye exam: PRESENT: conjunctiva pink, PERRLA. ABSENT: scleral icterus Neck exam: ABSENT: JVD Respiratory exam: PRESENT: Diminished breath sounds. ABSENT: crackles, rales, rhonchi, unlabored, wheezes Cardiovascular exam: PRESENT: Regular rate rhythm -+S1, +S2. ABSENT: diastolic murmur, systolic murmur GI/Abdominal exam: PRESENT: normal bowel sounds, soft. ABSENT: guarding, mass, tenderness Extremities exam: Bilateral trace edema, tender bilateral lower extremities more on the left foot. Extremities cool to touch Neurological exam: PRESENT: alert, awake, oriented to person, place and time. Skin exam: PRESENT: dry, warm, Cardiovascular exam: PRESENT: +S1, +S2 GI/Abdominal exam: PRESENT: normal bowel sounds, soft. ABSENT: organomegaly, tenderness Results Laboratory Results: 05/08/20 07:00 05/08/20 07:00 05/07/20 05/07/20 05/07/20 09:17 09:25 10:30 WBC RBC Hgb Hct MCV MCH MCHC RDW Plt Count Seg Neutrophils % Retic Count (auto) Sodium 132.4 L Potassium 5.5 H Chloride 104 Carbon Dioxide 21 L Anion Gap 7 BUN 35 H Creatinine 4.19 H Est GFR ( Amer) 13 L Glucose 328 H Calcium 8.3 L Phosphorus Iron TIBC % Saturation Ferritin Vitamin B12 Folate Stool Occult Blood NEGATIVE Blood Type O POSITIVE Antibody Screen NEGATIVE 05/07/20 05/08/20 05/08/20 17:10 07:00 07:00 WBC 10.8 H 10.9 H RBC 3.10 L 3.01 L Hgb 9.6 L 9.2 L Hct 28.9 L 28.0 L MCV 93 93 MCH 30.8 30.6 MCHC 33.0 32.9 RDW 15.9 H 16.6 H Plt Count 444 455 H Seg Neutrophils % 70.5 Retic Count (auto) 2.48 Sodium 132.6 L Potassium 5.1 H Chloride 102 Carbon Dioxide 25 Anion Gap 6 BUN 41 H Creatinine 4.22 H Est GFR ( Amer) 13 L Glucose 253 H Calcium 8.2 L Phosphorus 5.0 H Iron 28.2 L TIBC 353 % Saturation 8 Ferritin 142.00 Vitamin B12 > 1000.0 H Folate 9.47 Stool Occult Blood Blood Type Antibody Screen 05/03/20 05/03/20 05/04/20 18:15 21:55 03:01 Troponin I 0.297 0.222 0.244 NT-Pro-B Natriuret Pep [id number] H 05/04/20 10:45 Troponin I 0.186 NT-Pro-B Natriuret Pep Impressions: Chest X-Ray 05/03/20 17:51 IMPRESSION: Large left pleural effusion. Likely compressive atelectasis in the left lower lobe. Cannot exclude limited right lower lobe pneumonia. Foot X-Ray 05/03/20 17:51 IMPRESSION: Tiny right calcaneal spur. No other significant finding. Lower Extremity Ultrasound 05/04/20 02:44 IMPRESSION: Bilateral small vessel disease. Assessment & Plan - Diagnosis (1) ESRD (end stage renal disease) on dialysis Is this a current diagnosis for this admission?: Yes Plan: We will do dialysis today for 3 hours, using the patient's PermCath, with 2 potassium bath, blood flow rate of 300 mL per minute, dialysate flow rate of 600 mL per minute, ultrafiltration 2.55 L as tolerated, no heparin and Procrit with 25,000 units during dialysis intravenously. Patient is currently being monitored throughout dialysis treatment. I ordered for a 24-hour urine creatinine clearance to be done supposedly on Friday but unfortunately it was not done correctly for what ever unknown reason. A 24-hour urine is being collected currently with the patient is on dialysis this morning so it will not be accurate at all. (2) Bilateral foot pain Is this a current diagnosis for this admission?: Yes Plan: Secondary to combination of PAD and neuropathy for which we can only do so much medically. (3) PAD (peripheral artery disease) Is this a current diagnosis for this admission?: Yes Plan: Known to have severe PAD in the past. Likely to be causing this severe lower extremity pain. Patient currently on Plavix and oxycodone. (4) Anemia in chronic kidney disease (CKD) Is this a current diagnosis for this admission?: Yes Plan: Retacrit to be given during dialysis treatment as needed. T sat is 8 with ferritin 142 and iron of 20.2. Patient will be given Venofer on next dialysis treatments even as an outpatient. (5) Diabetic neuropathy Qualifiers: Diabetes mellitus type: type 2 Is this a current diagnosis for this admission?: Yes Plan: On gabapentin. You to ESRD we cannot go up on the dose too much. (6) Type 2 diabetes mellitus Is this a current diagnosis for this admission?: Yes (7) Hypertension Qualifiers: Hypertension type: essential hypertension Qualified Code(s): I10 - Essential (primary) hypertension Is this a current diagnosis for this admission?: Yes Plan: Controlled. (8) Chronic kidney disease-mineral and bone disorder Is this a current diagnosis for this admission?: Yes Plan: Phosphorus is 5.0 currently. Corrected calcium normal. (9) Hypokalemia Is this a current diagnosis for this admission?: Yes Plan: Resolved. - Time Time with patient: 15-25 minutes
[2020-05-08] MEDS: INSULIN LISPRO 100 UNIT/ML 3 ML VIAL SUBCUT SCH ×2 (10:28→12:02)
[2020-05-08] MEDS: CLOPIDOGREL BISULFATE 75 MG TABLET PO SCH (10:37)
[2020-05-08] MEDS: ASPIRIN 81 MG TABLET, CHEWABLE PO SCH (10:37)
[2020-05-08] MEDS: BUMETANIDE 1 MG TABLET PO SCH (10:38)
[2020-05-08] MEDS: ISOSORBIDE MONONITRATE 30 MG TAB.ER.24H PO SCH (10:38)
[2020-05-08] MEDS: METOPROLOL SUCCINATE 50 MG TAB.SR.24H PO SCH (10:38)
[2020-05-08] MEDS: VALSARTAN 40 MG TABLET PO SCH (10:40)
[2020-05-08] MEDS ORDERED: ACETAMINOPHEN 325 MG TABLET PO PRN (11:30)
[2020-05-08 12:58] VITALS: BP 117/53
[2020-05-08] MEDS ORDERED: NALOXONE HCL INJ/PF 0.4 MG/1 ML SDV ONE (14:22)
[2020-05-08] MEDS ORDERED: NALOXONE HCL INJ/PF 0.4 MG/1 ML SDV IV ONE (14:30)
[2020-05-08 17:58] LABS: URINE CREATININE 50.4 mg/dL (15-278)
[2020-05-08] MEDS ORDERED: GABAPENTIN 300 MG CAPSULE PO SCH (18:00)
[2020-05-08 20:08] LABS: 24 HOUR URINE PROTEIN RESULT 2689 mg/day (42-225); URINE PROTEIN 407.4 mg/dL (<12)
--- NOTE | 2020-05-08 22:12 | PDOC DISCHARGE SUMMARY ---
Impression - Admit/DC Date/PCP Admission Date/Primary Care Provider: 05/03/20 23:38 Steve PINEDA MD Discharge Date: 05/08/20 - Discharge Diagnosis (1) Unstable angina Is this a current diagnosis for this admission?: Yes (2) Acute on chronic systolic CHF (congestive heart failure) Is this a current diagnosis for this admission?: Yes (3) PAD (peripheral artery disease) Is this a current diagnosis for this admission?: Yes (4) ESRD (end stage renal disease) on dialysis Is this a current diagnosis for this admission?: Yes (5) Coronary artery disease Is this a current diagnosis for this admission?: Yes (6) Diabetes Is this a current diagnosis for this admission?: Yes (7) Peripheral vascular disease Is this a current diagnosis for this admission?: Yes (8) Bilateral foot pain Is this a current diagnosis for this admission?: Yes (9) Ventricular tachycardia (paroxysmal) Is this a current diagnosis for this admission?: Yes (10) Hyperkalemia Is this a current diagnosis for this admission?: Yes - Additional Information Discharge Diet: Cardiac, Other (Comments) Discharge Activity: Activity As Tolerated, Balance Activity w/Rest, Slowly Increase Activity, Supervised Activity, Weigh Daily Referrals: EDWIN FOY MD [NO LOCAL MD] - 05/19/20 9:00 am (Earliest appointment for bilateral foot pain r/t PVD/PAD) WIN FRIEDMAN MD [ACTIVE STAFF] - (Office stated that patient needs to call and make appointment.) Steve PINEDA MD [Primary Care Provider] - Follow up as needed (Patient will be seen at [facility] on dialysis day.) Prescriptions: Valsartan [Diovan 40 mg Tablet] 20 mg PO DAILY #60 tablet Isosorbide Mononitrate [Imdur 30 mg Tablet.er] 30 mg PO Q12 #60 tab.er.24h Gabapentin [Neurontin 300 mg Capsule] 300 mg PO Q8 #90 capsule Oxycodone HCl/Acetaminophen [Percocet 5-325 mg Tablet] 1 tab PO Q4HP PRN #20 tablet PRN Reason: Clopidogrel Bisulfate [Plavix 75 mg Tablet] 75 mg PO DAILY #30 tablet Pantoprazole Sodium [Protonix [address] Tablet] 40 mg PO Q6AM #30 tablet.dr Home Medications: Fenofibrate Nanocrystallized [Fenofibrate] 48 mg PO DAILY 03/14/20 Montelukast Sodium [Singulair 10 mg Tablet] 10 mg PO QHS #0 03/16/20 Acetaminophen [Tylenol 325 mg Tablet] 650 mg PO Q6HP PRN tablet 04/24/20 Aspirin [Ecotrin 81 mg EC Tablet] 81 mg PO DAILY tabec 04/24/20 Atorvastatin Calcium [Lipitor 80 mg Tablet] 80 mg PO QHS #30 tablet 04/24/20 Bumetanide [Bumex 1 mg Tablet] 1 mg PO BID #60 tablet 04/24/20 Calcitriol [Rocaltrol 0.25 mcg Capsule] 0.25 mcg PO MOWEFR@1000 #10 capsule 04/24/20 Calcium Acetate [Phoslo 667 mg Capsule] 667 mg PO MEALS #90 capsule 04/24/20 Escitalopram Oxalate [Lexapro 10 mg Tablet] 20 mg PO DAILY #60 tablet 04/24/20 Metoprolol Tartrate [Lopressor 100 mg Tablet] 100 mg PO Q12 tablet 04/24/20 Acetaminophen [Tylenol 325 mg Tablet] 325 mg PO Q4HP PRN tablet 05/08/20 Clopidogrel Bisulfate [Plavix 75 mg Tablet] 75 mg PO DAILY #30 tablet 05/08/20 Gabapentin [Neurontin 300 mg Capsule] 300 mg PO Q8 #90 capsule 05/08/20 Isosorbide Mononitrate [Imdur 30 mg Tablet.er] 30 mg PO Q12 #60 tab.er.24h 05/08/20 Oxycodone HCl/Acetaminophen [Percocet 5-325 mg Tablet] 1 tab PO Q4HP PRN #20 tablet 05/08/20 Pantoprazole Sodium [Protonix [address] Tablet] 40 mg PO Q6AM #30 tablet.dr 05/08/20 Valsartan [Diovan 40 mg Tablet] 20 mg PO DAILY #60 tablet 05/08/20 History of Present Illiness History of Present Illness: Per H&P by Dr. Gray: ROBERTO HIGGINS is a 59 year old female past medical history of CAD, with history of [place] status post CABG, hyperlipidemia, hypertension, PVD, CVA, seizure disorder, diabetes, end-stage renal disease, on hemodialysis Friday bilateral lower extremity chronic feet pain. Patient has multiple comorbidities but main reason she is presenting to ED is bilateral chronic feet pain, patient denies any trauma or any history of infection however complaining of bilateral feet constant excruciating pain worse with "everything" and better with bilateral feet pain or slight status throbbing, constant, painful to touch, mild swelling, is not able to even put on compression stockings. Upon further questioning patient also admits to intermittent left-sided, pressure-like, nonradiating chest pain, dyspnea on exertion, orthopnea and parox ysmal nocturnal dyspnea. In ED patient was noted to have acute EKG changes with mildly elevated troponins, Dr. Malik her policy writer was consulted and he recommended for patient to be started on Plavix and continue aspirin and he will see her as a consult. On my encounter patient is chest pain-free after receiving nitroglycerin and denies any fever, chills, nausea, vomiting, diarrhea, constipation or any urinary symptoms. Hospital Course Hospital Course: (1) Unstable angina Resolved; patient has been asymptomatic >96 hrs Patient complaining of paroxysmal nocturnal dyspnea, orthopnea, and chest pain and often exertion. Chest pain relieved with nitroglycerin. T wave inversion on EKG. Mildly elevated troponins; trending down. 0.297-> 0.222-> 0.244-> 0.186 Dr. Malik policy writer was consulted by ED physician and recommendation was to to continue aspirin and add Plavix, no anticoagulation recommended. Patient was admitted to the medical floor and monitored on continuous telemetry. DAPT, statins, ARB, beta-blockers, Imdur. PPI therapy to prevent reflux related chest discomfort. Cardiology consulted, primary management per Dr. Malik. Discussed w/ Dr. Malik; patient is cleared for d/c from cardiac perspective. (2) Acute on chronic systolic CHF (congestive heart failure) Acute systolic heart failure exacerbation has resolved. Complaining of dyspnea on exertion, PND, orthopnea, mildly elevated troponins and BNP. No JVD. Clinically does not look volume overloaded. pro BNP 46k; baseline ~30-35k Echocardiogram shows LVEF 60% with grade 2 diastolic dysfunction mildly dyskinetic interventricular septal wall, mild LVH Cardiology consulted. Management per Dr. Malik. Patient is placed on aspirin, Plavix, and statin therapy. Now on metoprolol, valsartan, isosorbide. Continue home dose Bumex. Cardiac diet and daily weights. (3) PAD (peripheral artery disease) Severe bilateral peripheral vascular disease as was evidenced on arterial Doppler in 2019, complicated due to underlying history of chronic diabetes. Arterial U/S shows bilateral small vessel disease. Outpatient referral for vascular surgeon for possible revascularization. Not a candidate for cilostazol due to history of CHF and CAD. Meanwhile will continue DAPT, gabapentin, high intensity statins. Pain management as below. (4) ESRD (end stage renal disease) on dialysis Currently on hemodialysis. Friday. Nephrology consulted. (5) Coronary artery disease History of CAD status post CABG. Plan as per above. (6) Diabetes Hemoglobin A1c 7.1%. Continue diabetic diet. Outpatient management by PCP. (7) Peripheral vascular disease Plan as per #1. (8) Bilateral foot pain Improved; patient is now independently ambulatory with FWW Secondary to PVD, PAD, and likely diabetic neuropathy. Uric acid 4.7 Continue gabapentin As needed percocet Pain management consultation; Discussed with Андрей Scott today. Recommended transition to cymbalta; unfortunately not recommended in dialysis. Will continue regimen as established here and strongly encourage outpatient follow up with [facility]. PT consultation obtained; recommends continued PT services. Remaining evaluation and management as above. (9) Ventricular tachycardia (paroxysmal) Multiple episodes of nonsustained v-tach noted on telemetry today; each lasting <3 sec. Patient remained A&Ox4, rhythm unaware, and asymptomatic. First episode while ambulating to rest room. Magnesium and Potassium are acceptable. LVEF 60% BP 108/60 w/ HR 80-90s. EKG in unchanged from prior. Have increased metoprolol to 100 mg twice daily. Continue dialysis. Follow up with Dr. Malik as scheduled. (10) Hyperkalemia Improved; K 5.5-> 5.1 Received Valtessa yesterday; received dialysis today. Continue outpatient dialysis scheduled. Physical Exam Vital Signs: Temp Pulse Resp BP Pulse Ox 98.1 F 98 16 117/53 L 95 05/08/20 12:56 05/08/20 12:56 05/08/20 12:56 05/08/20 12:56 05/08/20 12:56 Intake & Output 05/07/20 05/08/20 05/09/20 06:59 06:59 06:59 Intake Total 870 1176 1000 Output Total 298 451 6028 Balance 270 926 -2500 Weight 90.7 kg 91.7 kg Results Laboratory Results: WBC 10.9 10^3/uL (4.0-10.5) H 05/08/20 07:00 RBC 3.01 10^6/uL (3.72-5.28) L 05/08/20 07:00 Hgb 9.2 g/dL (12.0-15.5) L 05/08/20 07:00 Hct 28.0 % (36.0-47.0) L 05/08/20 07:00 MCV 93 fl (80-97) 05/08/20 07:00 MCH 30.6 pg (27.0-33.4) 05/08/20 07:00 MCHC 32.9 g/dL (32.0-36.0) 05/08/20 07:00 RDW 16.6 % (11.5-14.0) H 05/08/20 07:00 Plt Count 455 10^3/uL (150-450) H 05/08/20 07:00 Lymph % (Auto) 16.9 % (13-45) 05/07/20 17:10 [place] % (Auto) 8.0 % (3-13) 05/07/20 17:10 Eos % (Auto) 3.4 % (0-6) 05/07/20 17:10 Baso % (Auto) 1.2 % (0-2) 05/07/20 17:10 Reticulocyte # 0.075 10^6/uL (0.028-0.122) 05/08/20 07:00 Absolute Neuts (auto) 7.6 10^3/uL (1.7-8.2) 05/07/20 17:10 Absolute Lymphs (auto) 1.8 10^3/uL (0.5-4.7) 05/07/20 17:10 Absolute Monos (auto) 0.9 10^3/uL (0.1-1.4) 05/07/20 17:10 Absolute Eos (auto) 0.4 10^3/uL (0.0-0.6) 05/07/20 17:10 Absolute Basos (auto) 0.1 10^3/uL (0.0-0.2) 05/07/20 17:10 Seg Neutrophils % 70.5 % (42-78) 05/07/20 17:10 Retic Count (auto) 2.48 % (0.66-2.85) 05/08/20 07:00 PT 14.1 SEC (11.4-15.4) 05/05/20 07:15 INR 1.07 05/05/20 07:15 APTT 38.5 SEC (23.5-35.8) H 05/05/20 07:15 Sodium 132.6 mmol/L (137-145) L 05/08/20 07:00 Potassium 5.1 mmol/L (3.6-5.0) H 05/08/20 07:00 Chloride 102 mmol/L (98-107) 05/08/20 07:00 Carbon Dioxide 25 mmol/L (22-30) 05/08/20 07:00 Anion Gap 6 (5-19) 05/08/20 07:00 BUN 41 mg/dL (7-20) H 05/08/20 07:00 Creatinine 4.22 mg/dL (0.52-1.25) H 05/08/20 07:00 Est GFR ( Amer) 13 (>60) L 05/08/20 07:00 Est GFR (MDRD) Non-Af 11 (>60) L 05/08/20 07:00 Glucose 253 mg/dL (75-110) H 05/08/20 07:00 POC Glucose 263 mg/dL (70-110) H 05/08/20 14:14 Uric Acid 4.7 mg/dL (2.5-7.5) 05/06/20 07:38 Calcium 8.2 mg/dL (8.4-10.2) L 05/08/20 07:00 Phosphorus 5.0 mg/dL (2.5-4.5) H 05/08/20 07:00 Magnesium 2.2 mg/dL (1.6-2.3) 05/07/20 05:31 Iron 28.2 ug/dL (37-170) L 05/08/20 07:00 TIBC 353 ug/dL (250-450) 05/08/20 07:00 % Saturation 8 % 05/08/20 07:00 Ferritin 142.00 ng/mL (11.1-264.0) 05/08/20 07:00 Total Bilirubin 0.4 mg/dL (0.2-1.3) 05/05/20 07:15 Direct Bilirubin 0.4 mg/dL (0.0-0.4) 05/05/20 07:15 Neonat Total Bilirubin Not Reportable 05/05/20 07:15 Neonat Direct Bilirubin Not Reportable 05/05/20 07:15 Neonat Indirect Bili Not Reportable 05/05/20 07:15 AST 41 U/L (14-36) H 05/05/20 07:15 ALT 51 U/L (<35) H 05/05/20 07:15 Alkaline Phosphatase 75 U/L (38-126) 05/05/20 07:15 Troponin I 0.186 ng/mL 05/04/20 10:45 NT-Pro-B Natriuret Pep 61491 pg/mL (<125) H 05/03/20 18:15 Total Protein 4.7 g/dL (6.3-8.2) L 05/05/20 07:15 Albumin 2.1 g/dL (3.5-5.0) L 05/05/20 07:15 Vitamin B12 > 1000.0 pg/mL (239-931) H 05/08/20 07:00 Folate 9.47 ng/mL (>2.76) 05/08/20 07:00 Ur 24 Hour Volume 660 mL 05/08/20 13:00 Urine Creatinine 50.4 mg/dL (15-278) 05/08/20 13:00 Ur Creatinine mg/24hr 0.3 mg/day (0.8-2.0) L 05/08/20 13:00 Serum Creatinine Cancelled 05/06/20 06:00 Creatinine Clearance Cancelled 05/06/20 06:00 Ur Total Protein 24 Hr 2689 mg/day (42-225) H 05/08/20 13:00 Urine Total Protein 407.4 mg/dL (<12) H 05/08/20 13:00 Stool Occult Blood NEGATIVE (NEGATIVE) 05/07/20 10:30 Blood Type O POSITIVE 05/07/20 09:17 Blood Type Confirm O POSITIVE 05/07/20 09:25 Antibody Screen NEGATIVE 05/07/20 09:17 Crossmatch See Detail 05/07/20 09:17 05/03/20 05/03/20 05/04/20 18:15 21:55 03:01 Troponin I 0.297 0.222 0.244 NT-Pro-B Natriuret Pep 94111 H 05/04/20 10:45 Troponin I 0.186 NT-Pro-B Natriuret Pep Impressions: Chest X-Ray 05/03/20 17:51 IMPRESSION: Large left pleural effusion. Likely compressive atelectasis in the left lower lobe. Cannot exclude limited right lower lobe pneumonia. Foot X-Ray 05/03/20 17:51 IMPRESSION: Tiny right calcaneal spur. No other significant finding. Lower Extremity Ultrasound 05/04/20 02:44 IMPRESSION: Bilateral small vessel disease. Plan Plan of Treatment: Was discharged home, in stable condition, to the care of family members with home health services arranged. She is advised to follow-up with her primary care provider within 1 week. Continue outpatient dialysis schedule and follow-up with her commercial sales manager as directed. Follow-up with her established policy writer, Dr. Malik, as previously scheduled. Keep new patient appointment with Dr. Foy, vascular surgeon, for evaluation of her PAD/PVD. Keep new patient appointment with Dr. [facility] for further pain management needs. Take medications as prescribed. Eat a heart healthy/dialysis diet. Fluid restrict as instructed by nephrology service; weigh daily and report any weight gain greater than 2 pounds to her provider. Return to the emergency department, as needed, for concerning symptoms. Time Spent: Greater than 30 Minutes Stroke Is this a Stroke Patient?: No Acute Heart Failure Is this a Heart Failure Patient?: Yes Documentation of LVEF assessment?: Yes LVEF: LVEF Greater Than 40% Anticoagulant Therapy: N/A Discharged on Evidence-Based Beta Blockers: Yes Discharged on ARNI?: No-Document Contraindications Reason(s) not discharged on ARNI: Impaired/worsening renal functions, Not previously tolerating ACEI or ARB Discharged on ARB?: Yes Discharged on ACEI?: N/A Discharged on ARB For LVEF <35%, discharged on Aldosterone Antagonist?: N/A (LVEF > or = 35%) Follow-up Appointment scheduled within 7 days?: Yes
== END 2020-05-08 15:57 | disposition home health service (06) | DRG 291 ==
LOC: ER 16:14 → EH 23:38 → 5 05-04 01:45
PROVIDERS: ADMIT Internal Medicine; ATTEND Registered Nurse
PROC: 5A1D70Z Performance of Urinary Filtration, Intermittent, Less than 6 Hours Per Day (ICD-10-PCS; principal; 2020-05-05)
PROC: 5A1D70Z Performance of Urinary Filtration, Intermittent, Less than 6 Hours Per Day (ICD-10-PCS; 2020-05-08)
DX: I13.2 Hypertensive heart and chronic kidney disease with heart failure and with stage 5 chronic kidney disease, or end stage renal disease (principal); N18.6 End stage renal disease; I50.33 Acute on chronic diastolic (congestive) heart failure; I25.810 Atherosclerosis of coronary artery bypass graft(s) without angina pectoris; I47.2 Ventricular tachycardia; E11.51 Type 2 diabetes mellitus with diabetic peripheral angiopathy without gangrene; I25.10 Atherosclerotic heart disease of native coronary artery without angina pectoris; E11.22 Type 2 diabetes mellitus with diabetic chronic kidney disease; E78.5 Hyperlipidemia, unspecified; I25.2 Old myocardial infarction; Z95.1 Presence of aortocoronary bypass graft; Z86.73 Personal history of transient ischemic attack (TIA), and cerebral infarction without residual deficits; D63.1 Anemia in chronic kidney disease; E87.6 Hypokalemia; G47.33 Obstructive sleep apnea (adult) (pediatric); Z99.2 Dependence on renal dialysis; Z90.49 Acquired absence of other specified parts of digestive tract; Z95.5 Presence of coronary angioplasty implant and graft; Z87.891 Personal history of nicotine dependence; Z82.3 Family history of stroke; Z83.3 Family history of diabetes mellitus; Z82.49 Family history of ischemic heart disease and other diseases of the circulatory system; Z79.82 Long term (current) use of aspirin; Z79.899 Other long term (current) drug therapy
CPT/HCPCS: 36415; 36430; 71045; 80048; 80053; 82272; 82570; 82607; 82728; 82746; 82962; 83540; 83550; 83735; 83880; 84100; 84156; 84484; 84550; 85025; 85027; 85045; 85610; 85730; 86850; 86900; 86901; 86920; 93005; 93010; 93306; 93925; 94660; 96374; 96375; 96376; 99285; J1170; J1644; J1815; J1940; J2270; J2310; J2550; J3490; P9016; Q5105

== ENCOUNTER 2020-05-09 11:13 | Observation (INO) | payer MEDICARE ==
--- NOTE | 2020-05-09 12:27 | ER Document Report ---
ED Medical Screen (RME) - General Chief Complaint: Altered Mental Status Stated Complaint: LEG PAIN,FOOT PAIN Time Seen by Provider: 05/09/20 12:08 Primary Care Provider: Steve PINEDA MD [Primary Care Provider] - Follow up as needed Mode of Arrival: Medic Information source: Patient, Relative TRAVEL OUTSIDE OF THE [place] IN LAST 30 DAYS: No - HPI Notes: 05/09/20 12:20 59 yr old female with a history of type 2 diabetes, CHF, end-stage renal disease who is on dialysis who was discharged from [facility] yesterday, admitted on May 03 for angina, CHF, PVD presents to the emergency room via EMS with her daughter for complaints of right facial droop, slurred speech weakness, recurrent falls, hallucinating, unable to ambulate, overall not acting like herself since she was discharged yesterday. Daughter states she started with the slurred speech and facial droop around 10 AM this morning. Daughter states she fell multiple times yesterday, denies hitting her head and it was a witnessed event when she did fall by the daughter. she did go get dialysis eyes yesterday, able to make urine. Daughter held patients' pain medication this morning because she was concerned about her mental status. Blood sugar in ambulance was 274. She states the only adjustment in medication was her Bumex went from 1 mg to 2 mg twice a day. I have greeted and performed a rapid initial assessment of this patient. A comprehensive ED assessment and evaluation of the patient, analysis of test results and completion of the medical decision making process will be conducted by additional ED providers. PHYSICAL EXAMINATION: GENERAL: Chronically ill well-nourished and in mild distress HEAD: Atraumatic, normocephalic. CV: s1, s2 regular LUNGS: No respiratory distress Musculoskeletal: Normal range of motion NEUROLOGICAL: Aphasic, noted right facial droop. Unable to follow commands for tongue midline, showing teeth. Patient unable to answer questions, just moaning. SKIN: Warm, Dry, normal turgor, no rashes or lesions noted. tenderness to right foot on palpation. Kirsten Thacker, charge nurse, notified that patient is considered a stroke alert at 1216, will make a bed for her in room 15 05/09/20 12:27 - Related Data Allergies/Adverse Reactions: No Known Allergies Allergy (Verified 04/17/20 13:31) Past Medical History - Social History Chew tobacco use (# tins/day): No Drug Abuse: None - Past Medical History Cardiac Medical History: Reports: Hx Coronary Artery Disease, Hx Heart Attack - 2014 SILENT, Hx Hypercholesterolemia, Hx Hypertension, Hx Peripheral Vascular Disease Pulmonary Medical History: Denies: Hx Asthma Neurological Medical History: Reports: Hx Cerebrovascular Accident, Hx Seizures - Patient unsure if what she had was a seizure or a stroke Endocrine Medical History: Reports: Hx Diabetes Mellitus Type 2 Renal/ Medical History: Reports: Hx End Stage Renal Disease, Hx Hemodialysis, Hx Renal Insufficiency. Denies: Hx Peritoneal Dialysis GI Medical History: Denies: Hx Hepatitis, Hx Hiatal Hernia, Hx Ulcer Psychiatric Medical History: Denies: Hx Depression Infectious Medical History: Denies: Hx Hepatitis Past Surgical History: Reports: Hx Appendectomy, Hx Cardiac Surgery - cabg, Hx Coronary Artery Bypass Graft, Hx Coronary Stent, Hx Tubal Ligation. Denies: Hx Hysterectomy, Hx Mastectomy, Hx Open Heart Surgery, Hx Pacemaker Physical Exam - Vital signs Vitals: Temp Pulse Resp BP Pulse Ox 98.6 F 86 18 128/50 H 100 05/09/20 11:19 05/09/20 11:19 05/09/20 11:19 05/09/20 11:19 05/09/20 11:19 Course - Vital Signs Vital signs: Temp Pulse Resp BP Pulse Ox 98.6 F 86 18 128/50 H 100 05/09/20 11:19 05/09/20 11:19 05/09/20 11:19 05/09/20 11:19 05/09/20 11:19 Doctor's Discharge - Discharge Referrals: Steve PINEDA MD [Primary Care Provider] - Follow up as needed
--- NOTE | 2020-05-09 12:43 | RADIOLOGY REPORT (SQ) ---
EXAM DESCRIPTION: CT HEAD WITHOUT IMAGES COMPLETED DATE/TIME: 05/09/2020 12:31 pm REASON FOR STUDY: slurred speech, facial droop at 10am COMPARISON: None. TECHNIQUE: Axial images acquired through the brain without intravenous contrast. Images reviewed wi th bone, brain and subdural windows. Additional sagittal and coronal reconstructions were generated. Images stored on PACS. All CT scanners at this facility use dose modulation, iterative reconstruction, and/or weight based d osing when appropriate to reduce radiation dose to as low as reasonably achievable (ALARA). [facility]: Dose Right [facility]: CareDose [facility]: Dose Right [facility]: Teradose 4D [facility]: Yovigo RADIATION DOSE: CT Rad equipment meets quality standard of care and radiation dose reduction techniq ues were employed. CTDIvol: 53.2 mGy. DLP: 991 mGy-cm. mGy. LIMITATIONS: Motion. FINDINGS: VENTRICLES: Normal size and contour. CEREBRUM: No masses. No hemorrhage. No midline shift. No evidence for acute infarction. Normal gra y/white matter differentiation. No areas of low density in the white matter. CEREBELLUM: No masses. No hemorrhage. No alteration of density. No evidence for acute infarction. EXTRAAXIAL SPACES: No fluid collections. No masses. ORBITS AND GLOBE: No intra- or extraconal masses. Normal contour of globe without masses. CALVARIUM: No fracture. PARANASAL SINUSES: No fluid or mucosal thickening. SOFT TISSUES: No mass or hematoma. OTHER: No other significant finding. IMPRESSION: NORMAL BRAIN CT WITHOUT CONTRAST. EVIDENCE OF ACUTE STROKE: NO. COMMENT: Pertinent positive or negative findings of the imaging study reported as a CRITICAL EXAM rory [employer] MACHINE OPERATOR-C at12:36 on 05/09/2020. Category of Critical Exam: Stroke alert. Quality ID # 436: Final reports with documentation of one or more dose reduction techniques (e.g., Au tomated exposure control, adjustment of the mA and/or kV according to patient size, use of iterative reconstruction technique) TECHNICAL DOCUMENTATION: JOB ID: [id number] 2010 [employer]- All Rights Reserved Reading location - IP/workstation name: [email or web address]
--- NOTE | 2020-05-09 13:21 | RADIOLOGY REPORT (SQ) ---
EXAM DESCRIPTION: FOOT RIGHT COMPLETE IMAGES COMPLETED DATE/TIME: 05/09/2020 1:06 pm REASON FOR STUDY: slurred speech, facial droop at 10am COMPARISON: None. NUMBER OF VIEWS: Three views. TECHNIQUE: AP, lateral and oblique radiographic images acquired of the right foot. LIMITATIONS: None. FINDINGS: MINERALIZATION: Osteopenia. BONES: No acute fracture or dislocation. No worrisome bone lesions. JOINTS: No effusions. SOFT TISSUES: Circumferential soft tissue edema of the forefoot. Atherosclerotic vascular calcificat ions in a pattern suggesting Monckeberg medial sclerosis. OTHER: No other significant finding. IMPRESSION: Circumferential soft tissue edema of the forefoot. No underlying osseous injury. TECHNICAL DOCUMENTATION: JOB ID: [id number] 2010 [employer]- All Rights Reserved Reading location - IP/workstation name: [email or web address]
--- NOTE | 2020-05-09 13:25 | RADIOLOGY REPORT (SQ) ---
EXAM DESCRIPTION: CHEST SINGLE VIEW IMAGES COMPLETED DATE/TIME: 05/09/2020 1:06 pm REASON FOR STUDY: slurred speech, facial droop at 10am COMPARISON: 05/03/2020 EXAM PARAMETERS: NUMBER OF VIEWS: One view. TECHNIQUE: Single frontal radiographic view of the chest acquired. RADIATION DOSE: NA LIMITATIONS: None. FINDINGS: LUNGS AND PLEURA: Diminished volume of a left-sided pleural effusion with the appearance o f likely bilateral layering effusions on today's examination. Multifocal mixed interstitial and airs pace opacities involving predominantly the lung bases. No pneumothorax. MEDIASTINUM AND HILAR STRUCTURES: No masses. Contour normal. HEART AND VASCULAR STRUCTURES: Cardiomegaly with central vascular congestion. BONES: No acute findings. HARDWARE: Midline surgical changes and dual-lumen port appear stable in the short study interval. OTHER: No other significant finding. IMPRESSION: Constellation of findings suggests CHF exacerbation. Infectious etiology is not exclude d. TECHNICAL DOCUMENTATION: JOB ID: [id number] 2010 [employer]- All Rights Reserved Reading location - IP/workstation name: [email or web address]
[2020-05-09 13:30] LABS: INTERNATIONAL RATION (INR) 1.06
[2020-05-09 13:49] LABS: ABSOLUTE BASOPHILS # (AUTO) 0.1 10^3/uL (0.0-0.2); ABSOLUTE EOSINOPHILS # (AUTO) 0.2 10^3/uL (0.0-0.6); ABSOLUTE LYMPHOCYTES (AUTO) 1.3 10^3/uL (0.5-4.7); ABSOLUTE MONOCYTES (AUTO) 0.8 10^3/uL (0.1-1.4); ABSOLUTE NEUT (AUTO) 9.1 10^3/uL (1.7-8.2); BASOPHILS % (AUTO) 0.8 % (0-2); EOSINOPHILS % (AUTO) 1.4 % (0-6); HEMATOCRIT 29.8 % (36.0-47.0); HEMOGLOBIN 9.4 g/dL (12.0-15.5); LYMPHOCYTES % (AUTO) 11.2 % (13-45); MEAN CORPUSCULAR HEMOGLOBIN 29.6 pg (27.0-33.4); MEAN CORPUSCULAR HGB CONC 31.6 g/dL (32.0-36.0); MEAN CORPUSCULAR VOLUME 94 fl (80-97); PLATELET COUNT 420 10^3/uL (150-450); RED BLOOD COUNT 3.19 10^6/uL (3.72-5.28); RED CELL DISTRIBUTION WIDTH 16.1 % (11.5-14.0); SEGMENTED NEUTROPHILS % (AUTO) 79.6 % (42-78); TOTAL CELLS COUNTED % (AUTO) 100 %; WHITE BLOOD COUNT 11.5 10^3/uL (4.0-10.5)
[2020-05-09 14:05] LABS: ALBUMIN 2.5 g/dL (3.5-5.0); ALKALINE PHOSPHATASE 85 U/L (38-126); ANION GAP 7 (5-19); ASPARTATE AMINO TRANSFERASE 29 U/L (14-36); BILIRUBIN,DIRECT 0.6 mg/dL (0.0-0.4); BILIRUBIN,TOTAL 0.8 mg/dL (0.2-1.3); BLOOD UREA NITROGEN 36 mg/dL (7-20); CALCIUM 8.7 mg/dL (8.4-10.2); CARBON DIOXIDE 28 mmol/L (22-30); CHLORIDE 98 mmol/L (98-107); GLUCOSE 306 mg/dL (75-110); POTASSIUM 4.7 mmol/L (3.6-5.0); TOTAL PROTEIN 5.3 g/dL (6.3-8.2)
--- NOTE | 2020-05-09 15:00 | ER Document Report ---
ED General - General Chief Complaint: Altered Mental Status Stated Complaint: LEG PAIN,FOOT PAIN Time Seen by Provider: 05/09/20 12:08 Primary Care Provider: Steve PINEDA MD [Primary Care Provider] - Follow up as needed Mode of Arrival: Medic Information source: Patient, Relative - Daughter TRAVEL OUTSIDE OF THE [place] IN LAST 30 DAYS: No - HPI Notes: Patient is brought in secondary to confusion. Daughter states that patient was discharged from the hospital yesterday. Records show that patient was at this hospital and discharged yesterday after an admission for feet pain that was secondary to peripheral vascular disease. Patient also had chest pain with an unremarkable work-up for acute ischemic disease. Patient also received dialysis while she was in the emergency department and had a normal dialysis session yesterday. Daughter states that she believes her mom is become progressively more confused since she left the hospital yesterday. Daughter states that she has not given her mom any narcotics at all since she was concerned about her mom's confusion. She states she did give her mom some gabapentin. She states there has been no vomiting. No fevers. No known cough cold or congestion. She states her mom has been incontinent of urine which is new. She also states that her mom cannot ambulate which is also new. Patient's confusion has been severe and constant. Nothing is made it better or worse. - Related Data Allergies/Adverse Reactions: No Known Allergies Allergy (Verified 05/09/20 13:13) Past Medical History - General Information source: Patient, Relative - Social History Smoking Status: Never Smoker Chew tobacco use (# tins/day): No Frequency of alcohol use: None - Quit drinking 5 years ago per daughter Drug Abuse: None Family History: CAD, CVA, DM, Hypertension - Past Medical History Cardiac Medical History: Reports: Hx Coronary Artery Disease, Hx Heart Attack - 2014 SILENT, Hx Hypercholesterolemia, Hx Hypertension, Hx Peripheral Vascular Disease Pulmonary Medical History: Reports: Hx COPD Denies: Hx Asthma Neurological Medical History: Reports: Hx Cerebrovascular Accident, Hx Seizures - Patient unsure if what she had was a seizure or a stroke Endocrine Medical History: Reports: Hx Diabetes Mellitus Type 2 Renal/ Medical History: Reports: Hx End Stage Renal Disease, Hx Hemodialysis, Hx Renal Insufficiency. Denies: Hx Peritoneal Dialysis GI Medical History: Denies: Hx Hepatitis, Hx Hiatal Hernia, Hx Ulcer Psychiatric Medical History: Reports: Hx Depression Infectious Medical History: Denies: Hx Hepatitis Past Surgical History: Reports: Hx Appendectomy, Hx Cardiac Surgery - cabg, Hx Coronary Artery Bypass Graft, Hx Coronary Stent, Hx Open Heart Surgery, Hx Tubal Ligation. Denies: Hx Hysterectomy, Hx Mastectomy, Hx Pacemaker Review of Systems - Review of Systems -: Yes ROS unobtainable due to patient's medical condition - Cannot obtain review of symptoms secondary to altered mental status Physical Exam - Vital signs Vitals: Temp Pulse Resp BP Pulse Ox 98.6 F 86 18 128/50 H 100 05/09/20 11:19 05/09/20 11:19 05/09/20 11:19 05/09/20 11:19 05/09/20 11:19 Interpretation: Normal - General General appearance: Lethargic In distress: None - HEENT Head: Normocephalic, Atraumatic Eyes: Normal Pupils: PERRL - Respiratory Respiratory status: No respiratory distress Chest status: Nontender Breath sounds: Normal Chest palpation: Normal - Cardiovascular Rhythm: Regular Heart sounds: Normal auscultation Murmur: No - Abdominal Inspection: Normal Distension: No distension Bowel sounds: Normal Tenderness: Nontender Organomegaly: No organomegaly - Back Back: Normal, Nontender - Extremities General upper extremity: Normal inspection, Nontender, Normal color, Normal temperature General lower extremity: Other - Patient's feet bilaterally have no palpable dorsalis pedis pulses. Feet are bilaterally cool and pale although equally. Patient does have a questionable necrotic tip to the right great toe. Feet are bilaterally hypersensitive to touch and appear painful, the left greater than the right. - Neurological Cognition: Confused Orientation: Disoriented to place, Disoriented to time [place] Coma Scale Eye Opening: Spontaneous [place] Coma Scale Verbal: Confused Eligio Coma Scale Motor: Localizes to Pain [place] Coma Scale Total: 13 Speech: Expressive aphasia - Psychological Associated symptoms: Confused, Uncooperative - Skin Skin Temperature: Warm Skin Moisture: Dry Skin Color: Normal Course - Re-evaluation Re-evalutation: 05/09/20 15:01 Patient is brought in by daughter for progressive confusion. There is no significant change of any laboratory abnormalities. There is no focal deficits on exam. Patient is obviously confused and hallucinating in the room. Patient also has no abnormalities on head CT. Chest x-ray shows some pulmonary edema versus infectious process. Favor pulmonary edema with patient's history of being on dialysis as well as the fact the patient has no fever and no URI symptoms. It seems reasonable to possibly patient has confused secondary to having an excessive amount of gabapentin in her system. However the exact etiology of her confusion at this time is unclear and therefore it seems prudent to have patient admitted for further evaluation and observation. - Vital Signs Vital signs: Temp Pulse Resp BP Pulse Ox 98.6 F 86 17 142/63 H 100 05/09/20 11:19 05/09/20 12:56 05/09/20 14:01 05/09/20 14:01 05/09/20 14:01 - Laboratory Result Diagrams: 05/09/20 12:45 05/09/20 12:45 Laboratory results interpreted by me: 05/09/20 05/09/20 05/09/20 12:45 12:45 13:43 WBC 11.5 H RBC 3.19 L Hgb 9.4 L Hct 29.8 L MCHC 31.6 L RDW 16.1 H Lymph % (Auto) 11.2 L Absolute Neuts (auto) 9.1 H Seg Neutrophils % 79.6 H Sodium 132.7 L BUN 36 H Creatinine 3.74 H Est GFR ( Amer) 15 L Est GFR (MDRD) Non-Af 12 L Glucose 306 H Direct Bilirubin 0.6 H Ammonia < 8.7 L Total Protein 5.3 L Albumin 2.5 L - Diagnostic Test Radiology reviewed: Image reviewed, Reports reviewed Discharge - Discharge Clinical Impression: Bilateral foot pain, ESRD (end stage renal disease) on dialysis, Elevated troponin, PAD (peripheral artery disease), Confusion Gabapentin-induced toxicity Qualifiers: Encounter type: initial encounter Injury intent: accidental or unintentional Qualified Code(s): T42.6X1A - Poisoning by other antiepileptic and sedative- hypnotic drugs, accidental (unintentional), initial encounter Condition: Serious Disposition: ADMITTED INPATIENT Admitting Provider: Aliya (Hospitalist) Referrals: Steve PINEDA MD [Primary Care Provider] - Follow up as needed
[2020-05-09] MEDS ORDERED: ACETAMINOPHEN 325 MG TABLET PO PRN (16:08)
--- NOTE | 2020-05-09 16:48 | PDOC H&P ---
History of Present Illness Admission Date/PCP: LIZA MEDEIROS Patient complains of: Altered mental status History of Present Illness: ROBERTO HIGGINS is a 59 year old female with history of ESRD on dialysis, CAD, who presented to the hospital being brought in by her daughter for evaluation of altered mental status and mental status decline since discharge. Patient states that she was a little bit concerned when patient was standing at discharge paperwork. After patient was discharged yesterday, she continued to get more more confused. This morning around 1 AM, she noted that patient had some facial droop and was hallucinating talking to her for who is and stating that somebody shot her. She was also having difficulty getting up and had to be helped up from the floor several times as she was unable to maintain her own balance. Patient did state that she has not given any of the Percocet since discharge but did give her a dose of gabapentin last night. She subsequently called the ambulance to help patient up and patient was brought to the hospital. Head CT done in the ER was unremarkable. Notably patient was just discharged yesterday after being treated for chest pain, ESRD and neuropathy. Past Medical History Cardiac Medical History: Reports: Coronary Artery Disease, Myocardial Infarction - 2013 SILENT, Hyperlipidema, Hypertension, Peripheral Vascular Disease Pulmonary Medical History: Reports: Chronic Obstructive Pulmonary Disease (COPD) Denies: Asthma Neurological Medical History: Reports: Seizures - Patient unsure if what she had was a seizure or a stroke Endocrine Medical History: Reports: Diabetes Mellitus Type 2 Renal/ Medical History: Reports: End Stage Renal Disease GI Medical History: Denies: Hepatitis, Hiatal Hernia Psychiatric Medical History: Reports: Depression Hematology: Denies: Anemia, Sickle Cell Disease Past Surgical History Past Surgical History: Reports: Appendectomy, Coronary Artery Bypass Graft, Coronary Stent, Tubal Ligation Denies: Amputation, Hysterectomy, Mastectomy, Pacemaker Social History Smoking Status: Never Smoker Electronic Cigarette use?: No Frequency of Alcohol Use: None Drugs: None Hx Prescription Drug Abuse: No - Advance Directive Resuscitation Status: Full Code Family History Family History: CAD, CVA, DM, Hypertension Parental Family History Reviewed: Yes Children Family History Reviewed: Yes Sibling(s) Family History Reviewed.: NA Medication/Allergy Home Medications: Fenofibrate Nanocrystallized [Fenofibrate] 48 mg PO DAILY 03/14/20 Montelukast Sodium [Singulair 10 mg Tablet] 10 mg PO QHS #0 03/16/20 Aspirin [Ecotrin 81 mg EC Tablet] 81 mg PO DAILY tabec 04/24/20 Atorvastatin Calcium [Lipitor 80 mg Tablet] 80 mg PO QHS #30 tablet 04/24/20 Bumetanide [Bumex 1 mg Tablet] 1 mg PO BID #60 tablet 04/24/20 Calcitriol [Rocaltrol 0.25 mcg Capsule] 0.25 mcg PO MOWEFR@1000 #10 capsule 04/24/20 Calcium Acetate [Phoslo 667 mg Capsule] 667 mg PO MEALS #90 capsule 04/24/20 Escitalopram Oxalate [Lexapro 10 mg Tablet] 20 mg PO DAILY #60 tablet 04/24/20 Metoprolol Tartrate [Lopressor 100 mg Tablet] 100 mg PO Q12 tablet 04/24/20 Allergies/Adverse Reactions: No Known Allergies Allergy (Verified 05/09/20 13:13) Review of Systems ROS unobtainable: Due to mental status Physical Exam Vital Signs: Temp Pulse Resp BP Pulse Ox 98.6 F 86 17 142/63 H 100 05/09/20 11:19 05/09/20 12:56 05/09/20 14:01 05/09/20 14:01 05/09/20 14:01 Intake & Output 05/08/20 05/09/20 05/10/20 06:59 06:59 06:59 Weight 81.647 kg General appearance: PRESENT: no acute distress, cooperative Head exam: PRESENT: normocephalic Eye exam: PRESENT: PERRLA. ABSENT: scleral icterus Mouth exam: PRESENT: neck supple Neck exam: ABSENT: JVD Respiratory exam: PRESENT: clear to auscultation nikki, symmetrical, unlabored. ABSENT: tachypnea, wheezes Cardiovascular exam: PRESENT: RRR, +S1, +S2. ABSENT: tachycardia GI/Abdominal exam: PRESENT: soft. ABSENT: rebound, rigid, tenderness Extremities exam: PRESENT: pedal edema, +1 edema Neurological exam: PRESENT: alert, awake, oriented to person, oriented to time, other - Patient is quite confused and very restless. ABSENT: oriented to place, oriented to situation Focused psych exam: PRESENT: internal stimuli, restlessness Skin exam: PRESENT: other - Dietitian likely necrosis of right big toe tip. ABSENT: rash Results Laboratory Results: 05/09/20 12:45 05/09/20 12:45 05/09/20 05/09/20 05/09/20 12:45 12:45 13:43 WBC 11.5 H RBC 3.19 L Hgb 9.4 L Hct 29.8 L MCV 94 MCH 29.6 MCHC 31.6 L RDW 16.1 H Plt Count 420 Seg Neutrophils % 79.6 H Sodium 132.7 L Potassium 4.7 Chloride 98 Carbon Dioxide 28 Anion Gap 7 BUN 36 H Creatinine 3.74 H Est GFR ( Amer) 15 L Glucose 306 H Calcium 8.7 Total Bilirubin 0.8 AST 29 Alkaline Phosphatase 85 Ammonia < 8.7 L Total Protein 5.3 L Albumin 2.5 L 05/09/20 12:45 Troponin I 0.186 Impressions: Chest X-Ray 05/09/20 12:17 IMPRESSION: Constellation of findings suggests CHF exacerbation. Infectious etiology is not excluded. Foot X-Ray 05/09/20 12:17 IMPRESSION: Circumferential soft tissue edema of the forefoot. No underlying o sseous injury. Head CT 05/09/20 12:17 IMPRESSION: NORMAL BRAIN CT WITHOUT CONTRAST. EVIDENCE OF ACUTE STROKE: NO. Assessment and Plan - Diagnosis (1) Acute metabolic encephalopathy Is this a current diagnosis for this admission?: Yes Plan: Head CT is negative Suspect toxic metabolic encephalopathy secondary to gabapentin toxicity especially in light of patient's poor renal function. Will hold gabapentin for now. We will monitor with neuro checks If no improvement in mental status the next day or 2, may consider MRI (2) Peripheral neuropathy Qualifiers: Peripheral neuropathy type: polyneuropathy, unspecified Qualified Code(s): G62.9 - Polyneuropathy, unspecified Is this a current diagnosis for this admission?: Yes Plan: Secondary to patient's peripheral arterial disease. Hold gabapentin for now as I suspect he may have accumulated in her system. After a few days, will resume at 300 mg daily dosing max. We will try to control with Tylenol, try some tramadol as well. Will resume oxycodone once mental status improves. (3) ESRD (end stage renal disease) on dialysis Is this a current diagnosis for this admission?: Yes Plan: Nephrology consulted for continuation of dialysis Friday Chest x-ray does show some fluid overload Continue Bumex. I will give 1 IV dose now. Continue PhosLo (4) PAD (peripheral artery disease) Is this a current diagnosis for this admission?: Yes Plan: Patient follows with Dr. Conner [vascular surgery] and Kayden Sarabia. I will discussed with him about pursuing revascularization sooner than later as patient is starting to have necrosis of the tip of her right big toe. Continue antiplatelet therapy and statin Outpatient PT/OT (5) Coronary artery disease Qualifiers: Is this a current diagnosis for this admission?: Yes Plan: Continue antiplatelet therapy, beta-dayton, Imdur and atorvastatin (6) Obstructive sleep apnea syndrome Is this a current diagnosis for this admission?: Yes Plan: Nocturnal CPAP - Time Time Spent with patient: 35 or more minutes Anticipated Discharge Disposition: Home with Home Health Anticipated Discharge Timeframe: within 48 hours
[2020-05-09] MEDS ORDERED: BUMETANIDE INJ/PF 1 MG/4 ML SDV IV ONE ×2 (17:30→21:00)
[2020-05-09] MEDS ORDERED: BUMETANIDE 1 MG TABLET PO SCH (18:00)
--- NOTE | 2020-05-09 18:49 | EKG REPORT ---
SEVERITY:- ABNORMAL ECG - SINUS RHYTHM LEFT ATRIAL ABNORMALITY CONSIDER ANTERIOR INFARCT ABNORMAL T, CONSIDER ISCHEMIA, LATERAL LEADS : Confirmed by: Roger Sierra MD 09-May-2020 18:48:56
[2020-05-09] MEDS ORDERED: BUMETANIDE 1 MG TABLET PO ONE (20:15)
[2020-05-09] MEDS ORDERED: CALCIUM ACETATE 667 MG CAPSULE PO ONE (20:15)
[2020-05-09] MEDS: CALCIUM ACETATE 667 MG CAPSULE PO SCH (20:30)
[2020-05-09] MEDS: TRAMADOL HCL 50 MG TABLET PO PRN (20:31)
[2020-05-09] MEDS: ISOSORBIDE MONONITRATE 30 MG TAB.ER.24H PO SCH (21:52)
[2020-05-09] MEDS: HEPARIN SOD (PORCINE) 5,000 UNIT/ML 1 ML VIAL SUBCUT SCH (21:52)
[2020-05-09] MEDS: ATORVASTATIN CALCIUM 80 MG TABLET PO SCH (21:53)
[2020-05-09] MEDS: METOPROLOL TARTRATE 100 MG TABLET PO SCH (21:53)
[2020-05-09] MEDS: MONTELUKAST SODIUM 10 MG TABLET PO SCH (21:53)
[2020-05-10] MEDS: TRAMADOL HCL 50 MG TABLET PO PRN ×3 (03:08→17:57)
[2020-05-10] MEDS ORDERED: NORMAL SALINE 1000 ML 1,000 ML IV PRN (05:00)
[2020-05-10] MEDS ORDERED: HEPARIN SOD (PORCINE) 1,000 UNIT/ML 10 ML VIAL IV PRN (05:00)
[2020-05-10] MEDS ORDERED: EPOETIN ALFA-EPBX 10,000 UNIT in SYRINGE, DISPOSABLE, 1 EACH IV PRN (05:00)
[2020-05-10] MEDS: PANTOPRAZOLE SODIUM 40 MG TABLET.DR PO SCH (05:56)
[2020-05-10] MEDS: HEPARIN SOD (PORCINE) 5,000 UNIT/ML 1 ML VIAL SUBCUT SCH ×3 (05:56→22:53)
[2020-05-10 06:00] LABS: HEMATOCRIT 26.9 % (36.0-47.0); HEMOGLOBIN 8.8 g/dL (12.0-15.5); MEAN CORPUSCULAR HEMOGLOBIN 30.4 pg (27.0-33.4); MEAN CORPUSCULAR HGB CONC 32.8 g/dL (32.0-36.0); MEAN CORPUSCULAR VOLUME 93 fl (80-97); PLATELET COUNT 366 10^3/uL (150-450); RED BLOOD COUNT 2.89 10^6/uL (3.72-5.28); RED CELL DISTRIBUTION WIDTH 16.3 % (11.5-14.0); WHITE BLOOD COUNT 9.3 10^3/uL (4.0-10.5)
[2020-05-10 06:25] LABS: ANION GAP 6 (5-19); BLOOD UREA NITROGEN 37 mg/dL (7-20); CALCIUM 8.4 mg/dL (8.4-10.2); CARBON DIOXIDE 27 mmol/L (22-30); CHLORIDE 100 mmol/L (98-107); GLUCOSE 294 mg/dL (75-110); POTASSIUM 4.5 mmol/L (3.6-5.0)
[2020-05-10] MEDS ORDERED: FENOFIBRATE NANOCRYSTALLIZED 48 MG TABLET PO SCH (10:00)
--- NOTE | 2020-05-10 10:10 | PDOC PROGRESS REPORT ---
Subjective Progress Note for:: 05/10/20 Subjective:: Patient is a 59-year-old lady with end-stage renal disease, significant peripheral artery disease and diabetic neuropathy affecting her lower extremities who was just discharged on Friday, 05/08. At home the patient was noted to have confusion promotional advertising assistant and some hallucination talking to her as reported by the daughter. Due to the patient's lower extremity pain, the patient has issues with her balance and so she has been falling a lot and needing a lot of help. Her daughter brought her back to the emergency room yesterday. The patient told me that she just could not walk because of pain on her feet and legs. She describes that her hands are also shaking and she is dropping things and she could not eat because she would drop her utensils and food. Her head CT done yesterday in the ER was unremarkable. Foot x-ray showed no acute injury. Chest x-ray showed left-sided pleural effusion with multifocal mixed interstitial and airspace opacities predominantly of the lung bases. Also has cardiomegaly with central vascular congestion. Her last dialysis was Friday here in the hospital. This morning I am seeing her on dialysis. She is tolerating dialysis. Her mental status appears to be baseline and she was able to communicate and answer questions. Her main complaints are her leg and feet pain as well as her shaking hands. Reason For Visit: ENCEPHALOPATHY Physical Exam Vital Signs: Temp Pulse Resp BP Pulse Ox 98.8 F 91 16 150/67 H 99 05/10/20 00:12 05/10/20 07:00 05/10/20 00:12 05/10/20 00:12 05/10/20 00:12 Intake & Output 05/09/20 05/10/20 05/11/20 06:59 06:59 06:59 Intake Total 148 Balance 148 Weight 85.2 kg Vitals on dialysis: Blood pressure 159/69, heart rate of 92, blood flow rate of 300 mL/min and dialysate flow rate of 800 mL/min. Exam: General appearance: PRESENT: no acute distress, cooperative, well-developed, well-nourished Head exam: PRESENT: atraumatic, normocephalic Eye exam: PRESENT: conjunctiva pink, PERRLA. ABSENT: scleral icterus Neck exam: ABSENT: JVD Respiratory exam: PRESENT: Diminished breath sounds. ABSENT: crackles, rales, rhonchi, unlabored, wheezes Cardiovascular exam: PRESENT: Regular rate rhythm -+S1, +S2. ABSENT: diastolic murmur, systolic murmur GI/Abdominal exam: PRESENT: normal bowel sounds, soft. ABSENT: guarding, mass, tenderness Extremities exam: Actually improved bilateral grade 1 lower extremity pitting edema; her toes are pale and the tip her right big toe is black, she has severe tenderness in her lower extremities and feet on a very light touch. Neurological exam: PRESENT: alert, awake, oriented to person, place and time. Skin exam: PRESENT: dry, warm Results Laboratory Results: 05/10/20 05:02 05/10/20 05:02 05/09/20 05/09/20 05/09/20 12:45 12:45 13:43 WBC 11.5 H RBC 3.19 L Hgb 9.4 L Hct 29.8 L MCV 94 MCH 29.6 MCHC 31.6 L RDW 16.1 H Plt Count 420 Seg Neutrophils % 79.6 H Sodium 132.7 L Potassium 4.7 Chloride 98 Carbon Dioxide 28 Anion Gap 7 BUN 36 H Creatinine 3.74 H Est GFR ( Amer) 15 L Glucose 306 H Calcium 8.7 Magnesium Total Bilirubin 0.8 AST 29 Alkaline Phosphatase 85 Ammonia < 8.7 L Total Protein 5.3 L Albumin 2.5 L 05/10/20 05/10/20 05:02 05:02 WBC 9.3 RBC 2.89 L Hgb 8.8 L Hct 26.9 L MCV 93 MCH 30.4 MCHC 32.8 RDW 16.3 H Plt Count 366 Seg Neutrophils % Sodium 133.3 L Potassium 4.5 Chloride 100 Carbon Dioxide 27 Anion Gap 6 BUN 37 H Creatinine 3.94 H Est GFR ( Amer) 14 L Glucose 294 H Calcium 8.4 Magnesium 2.1 Total Bilirubin AST Alkaline Phosphatase Ammonia Total Protein Albumin 05/09/20 12:45 Troponin I 0.186 Impressions: Chest X-Ray 05/09/20 12:17 IMPRESSION: Constellation of findings suggests CHF exacerbation. Infectious etiology is not excluded. Foot X-Ray 05/09/20 12:17 IMPRESSION: Circumferential soft tissue edema of the forefoot. No underlying osseous injury. Head CT 05/09/20 12:17 IMPRESSION: NORMAL BRAIN CT WITHOUT CONTRAST. EVIDENCE OF ACUTE STROKE: NO. Assessment & Plan - Diagnosis (1) ESRD (end stage renal disease) on dialysis Is this a current diagnosis for this admission?: Yes Plan: We will do dialysis today for 3 hours, using the patient's PermCath, with 2 potassium bath, blood flow rate of 300 mL per minute, dialysate flow rate of 800 mL per minute, ultrafiltration 2 L as tolerated, no heparin and Procrit with 10,000 units during dialysis intravenously. Patient is currently tolerating dialysis and is being monitored closely. (2) Acute metabolic encephalopathy Is this a current diagnosis for this admission?: Yes Plan: Most likely secondary to gabapentin toxicity. Mental status currently at baseline. Agree with holding the gabapentin for the next few days and resuming it at a much lower dose of maximum of 300 mg daily. (3) PAD (peripheral artery disease) Is this a current diagnosis for this admission?: Yes Plan: Patient needs a vascular surgery consultation for possible revascularization sooner than later. Hospitalist trying to arrange this. (4) Peripheral neuropathy Qualifiers: Peripheral neuropathy type: polyneuropathy, unspecified Qualified Code(s): G62.9 - Polyneuropathy, unspecified Is this a current diagnosis for this admission?: Yes Plan: Gabapentin on hold. Resume at a lower dose as above. (5) Anemia in chronic kidney disease (CKD) Is this a current diagnosis for this admission?: Yes Plan: Retacrit on dialysis. (6) Hypertension Qualifiers: Hypertension type: essential hypertension Qualified Code(s): I10 - Essential (primary) hypertension Is this a current diagnosis for this admission?: Yes (7) Type 2 diabetes mellitus Is this a current diagnosis for this admission?: Yes - Time Time with patient: 15-25 minutes
[2020-05-10] MEDS: CALCIUM ACETATE 667 MG CAPSULE PO SCH ×4 (10:46→17:56)
[2020-05-10] MEDS: METOPROLOL TARTRATE 100 MG TABLET PO SCH ×2 (10:51→22:54)
[2020-05-10] MEDS: ISOSORBIDE MONONITRATE 30 MG TAB.ER.24H PO SCH ×2 (10:51→22:54)
[2020-05-10] MEDS: ASPIRIN 81 MG TABLET, ENT COATED PO SCH (10:51)
[2020-05-10] MEDS: CLOPIDOGREL BISULFATE 75 MG TABLET PO SCH (10:51)
[2020-05-10] MEDS: BUMETANIDE 1 MG TABLET PO SCH ×2 (10:52→17:57)
[2020-05-10] MEDS: VALSARTAN 40 MG TABLET PO SCH (10:53)
[2020-05-10] MEDS: FENOFIBRATE NANOCRYSTALLIZED 145 MG TABLET PO SCH (10:54)
[2020-05-10] MEDS: ESCITALOPRAM OXALATE 10 MG TABLET PO SCH (10:56)
[2020-05-10] MEDS: CALCITRIOL 0.25 MCG CAPSULE PO SCH (10:56)
[2020-05-10] MEDS: ONDANSETRON HCL INJ/PF 4 MG/2 ML SDV IV PRN (14:05)
--- NOTE | 2020-05-10 15:35 | PDOC PROGRESS REPORT ---
Subjective Progress Note for:: 05/10/20 Subjective:: Seen patient twice today. This afternoon, she is seeming more of herself. She did receive dialysis in the morning. She also did have some vomiting this morning as well as mild hallucination which is happening much less frequently. She is able to articulate full statements and much more alert and awake and fully oriented. The ataxia and tremors in her hands also diminished at this point. Reason For Visit: ENCEPHALOPATHY Physical Exam Vital Signs: Temp Pulse Resp BP Pulse Ox 99.0 F 98 18 149/61 H 92 05/10/20 11:19 05/10/20 11:19 05/10/20 11:19 05/10/20 11:19 05/10/20 11:19 Intake & Output 05/09/20 05/10/20 05/11/20 06:59 06:59 06:59 Intake Total 148 1000 Output Total 3000 Balance 148 -2000 Weight 85.2 kg General appearance: PRESENT: no acute distress, cooperative Neck exam: ABSENT: JVD Respiratory exam: PRESENT: symmetrical, unlabored. ABSENT: tachypnea, wheezes Cardiovascular exam: PRESENT: RRR, +S1, +S2. ABSENT: tachycardia GI/Abdominal exam: PRESENT: soft. ABSENT: rebound, rigid, tenderness Neurological exam: PRESENT: alert, awake, oriented to person, oriented to place, oriented to time, oriented to situation, ataxia - mild much improved in both dougherty nds Psychiatric exam: ABSENT: agitated, anxious Focused psych exam: ABSENT: internal stimuli Skin exam: PRESENT: other - small necrotic patch of right big toe Results Laboratory Results: 05/10/20 05:02 05/10/20 05:02 05/10/20 05/10/20 05:02 05:02 WBC 9.3 RBC 2.89 L Hgb 8.8 L Hct 26.9 L MCV 93 MCH 30.4 MCHC 32.8 RDW 16.3 H Plt Count 366 Sodium 133.3 L Potassium 4.5 Chloride 100 Carbon Dioxide 27 Anion Gap 6 BUN 37 H Creatinine 3.94 H Est GFR ( Amer) 14 L Glucose 294 H Calcium 8.4 Magnesium 2.1 05/09/20 12:45 Troponin I 0.186 Impressions: Chest X-Ray 05/09/20 12:17 IMPRESSION: Constellation of findings suggests CHF exacerbation. Infectious etiology is not excluded. Foot X-Ray 05/09/20 12:17 IMPRESSION: Circumferential soft tissue edema of the forefoot. No underlying osseous injury. Head CT 05/09/20 12:17 IMPRESSION: NORMAL BRAIN CT WITHOUT CONTRAST. EVIDENCE OF ACUTE STROKE: NO. Assessment and Plan - Diagnosis (1) Acute metabolic encephalopathy Is this a current diagnosis for this admission?: Yes Plan: Toxic metabolic encephalopathy secondary to gabapentin toxicity especially in light of patient's poor renal function. Will hold gabapentin for now. We will monitor with neuro checks Patient is showing significant improvement in mental status and seems back to her baseline today. She is still having some hallucinations but requiring much less frequently than before. Ataxia and tremors in her hands have also improved significantly. Her thoughts and sentence construction are very clear today. Ultimately, it will take a few days for gabapentin to be cleared from her system but it is very much dialyzable. (2) Peripheral neuropathy Qualifiers: Peripheral neuropathy type: polyneuropathy, unspecified Qualified Code(s): G62.9 - Polyneuropathy, unspecified Is this a current diagnosis for this admission?: Yes Plan: Secondary to patient's peripheral arterial disease. Continue to hold gabapentin for now as I suspect he may have accumulated in her system. Have instructed her daughter that gabapentin can be resumed after a few days at a max dose of 300 mg per 24-hour. We will try to control with Tylenol, try some tramadol as well. Ultimately, vascular intervention for PAD will help with this. (3) ESRD (end stage renal disease) on dialysis Is this a current diagnosis for this admission?: Yes Plan: Nephrology consulted for continuation of dialysis Friday. Continue Bumex. Continue PhosLo and calcitriol (4) PAD (peripheral artery disease) Is this a current diagnosis for this admission?: Yes Plan: Patient with significant PAD noted on arterial Dopplers, rest pains and small patch of uninfected necrosis of the tip of her right big toe. I personally called her vascular surgeon Dr. José Luis Conner at [facility] vein [facility] vascular to discuss her case and he will schedule her for arteriogram on 05/15/2020 at 9 AM. I have relayed the message to patient as well as her daughter Mayte. Continue Antiplatelet therapy and Statin Outpatient PT/OT (5) Coronary artery disease Qualifiers: Is this a current diagnosis for this admission?: Yes Plan: Continue antiplatelet therapy, beta-dayton, Imdur and atorvastatin (6) Obstructive sleep apnea syndrome Is this a current diagnosis for this admission?: Yes Plan: Nocturnal CPAP - Time Time Spent with patient: 15-24 minutes Anticipated Discharge Disposition: Home, Self Care Anticipated Discharge Timeframe: within 24 hours
[2020-05-10] MEDS: MONTELUKAST SODIUM 10 MG TABLET PO SCH (22:54)
[2020-05-10] MEDS: ATORVASTATIN CALCIUM 80 MG TABLET PO SCH (22:54)
[2020-05-11] MEDS: TRAMADOL HCL 50 MG TABLET PO PRN ×3 (02:10→18:31)
[2020-05-11] MEDS: PANTOPRAZOLE SODIUM 40 MG TABLET.DR PO SCH (05:44)
[2020-05-11] MEDS: HEPARIN SOD (PORCINE) 5,000 UNIT/ML 1 ML VIAL SUBCUT SCH ×2 (05:44→17:26)
[2020-05-11] MEDS: ASPIRIN 81 MG TABLET, ENT COATED PO SCH (09:04)
[2020-05-11] MEDS: CALCITRIOL 0.25 MCG CAPSULE PO SCH (09:04)
[2020-05-11] MEDS: ESCITALOPRAM OXALATE 10 MG TABLET PO SCH (09:04)
[2020-05-11] MEDS: ISOSORBIDE MONONITRATE 30 MG TAB.ER.24H PO SCH (09:04)
[2020-05-11] MEDS: CALCIUM ACETATE 667 MG CAPSULE PO SCH ×3 (09:05→17:27)
[2020-05-11] MEDS: VALSARTAN 40 MG TABLET PO SCH (09:05)
[2020-05-11] MEDS: METOPROLOL TARTRATE 100 MG TABLET PO SCH (09:05)
[2020-05-11] MEDS: CLOPIDOGREL BISULFATE 75 MG TABLET PO SCH (09:05)
[2020-05-11] MEDS: BUMETANIDE 1 MG TABLET PO SCH ×2 (09:05→18:36)
[2020-05-11] MEDS: FENOFIBRATE NANOCRYSTALLIZED 145 MG TABLET PO SCH (09:05)
[2020-05-11] MEDS: ONDANSETRON HCL INJ/PF 4 MG/2 ML SDV IV PRN (09:13)
--- NOTE | 2020-05-11 11:54 | PDOC DISCHARGE SUMMARY ---
Impression - Admit/DC Date/PCP Admission Date/Primary Care Provider: 05/09/20 16:25 AGUILA MEDEIROS-Oskar Discharge Date: 05/11/20 - Discharge Diagnosis (1) Acute metabolic encephalopathy Is this a current diagnosis for this admission?: Yes (2) Bilateral foot pain Is this a current diagnosis for this admission?: Yes (3) Confusion Is this a current diagnosis for this admission?: Yes (4) ESRD (end stage renal disease) on dialysis Is this a current diagnosis for this admission?: Yes (5) Gabapentin-induced toxicity Is this a current diagnosis for this admission?: Yes (6) PAD (peripheral artery disease) Is this a current diagnosis for this admission?: Yes (7) Peripheral neuropathy Is this a current diagnosis for this admission?: Yes - Additional Information Resuscitation Status: Full Code Discharge Diet: Other (Comments) - Renal Discharge Activity: Activity As Tolerated Referrals: MODESTO FAROOQ MD [NO LOCAL MD] - 05/15/20 9:00 am Steve PINEDA MD [ACTIVE STAFF] - Follow up as needed Prescriptions: Valsartan [Diovan 40 mg Tablet] 40 mg PO DAILY #30 tablet Isosorbide Mononitrate [Imdur 30 mg Tablet.er] 30 mg PO Q12 #60 tab.er.24h Clopidogrel Bisulfate [Plavix 75 mg Tablet] 75 mg PO DAILY #30 tablet Home Medications: Fenofibrate Nanocrystallized [Fenofibrate] 48 mg PO DAILY 03/14/20 Montelukast Sodium [Singulair 10 mg Tablet] 10 mg PO QHS #0 03/16/20 Aspirin [Ecotrin 81 mg EC Tablet] 81 mg PO DAILY tabec 04/24/20 Atorvastatin Calcium [Lipitor 80 mg Tablet] 80 mg PO QHS #30 tablet 04/24/20 Bumetanide [Bumex 1 mg Tablet] 1 mg PO BID #60 tablet 04/24/20 Calcitriol [Rocaltrol 0.25 mcg Capsule] 0.25 mcg PO MOWEFR@1000 #10 capsule 04/24/20 Calcium Acetate [Phoslo 667 mg Capsule] 667 mg PO MEALS #90 capsule 04/24/20 Escitalopram Oxalate [Lexapro 10 mg Tablet] 20 mg PO DAILY #60 tablet 04/24/20 Metoprolol Tartrate [Lopressor 100 mg Tablet] 100 mg PO Q12 tablet 04/24/20 Clopidogrel Bisulfate [Plavix 75 mg Tablet] 75 mg PO DAILY #30 tablet 05/11/20 Isosorbide Mononitrate [Imdur 30 mg Tablet.er] 30 mg PO Q12 #60 tab.er.24h 05/11/20 Valsartan [Diovan 40 mg Tablet] 40 mg PO DAILY #30 tablet 05/11/20 History of Present Illiness History of Present Illness: ROBERTO HIGGINS is a 59 year old female Patient is a 59-year-old end-stage renal disease with the last dialysis being on 930. She was admitted with confusion and hallucinations. It was felt that she had possible Neurontin toxicity. Hospital Course Hospital Course: Patient was admitted for further management. She was found to have Neurontin toxicity likely exacerbated by her end-stage renal disease. Neurontin was held while she was in hospital. She also received dialysis per her usual schedule. It appears her symptoms rapidly improved. By the time I saw her this morning she appeared to be back to her baseline mental status. She was able to articulate and answer questions appropriately this morning. Her leg tremors apparently improved. She has a follow-up appointment with vascular surgery on May 15 for her severe peripheral vascular disease. At this time there appears to be no further indications for inpatient management so she is being discharged home Physical Exam Vital Signs: Temp Pulse Resp BP Pulse Ox 98.1 F 83 16 132/53 H 98 05/11/20 07:46 05/11/20 07:26 05/11/20 07:26 05/11/20 07:26 05/11/20 08:36 Intake & Output 05/10/20 05/11/20 05/12/20 06:59 06:59 06:59 Intake Total 148 1740 Output Total 3000 Balance 148 -1260 Weight 85.2 kg 85.2 kg General appearance: PRESENT: no acute distress Head exam: PRESENT: atraumatic, normocephalic Eye exam: PRESENT: conjunctiva pink, EOMI, PERRLA. ABSENT: scleral icterus Ear exam: PRESENT: normal external ear exam Mouth exam: PRESENT: moist, tongue midline Neck exam: ABSENT: carotid bruit, JVD, lymphadenopathy, thyromegaly Respiratory exam: PRESENT: clear to auscultation nikki, unlabored. ABSENT: rales, rhonchi, wheezes Cardiovascular exam: PRESENT: RRR, +S1, +S2. ABSENT: diastolic murmur, rubs, systolic murmur Pulses: PRESENT: normal dorsalis pedis pul Vascular exam: PRESENT: pallor GI/Abdominal exam: PRESENT: normal bowel sounds, soft. ABSENT: distended, guarding, mass, organolmegaly, rebound, tenderness Rectal exam: PRESENT: deferred Extremities exam: PRESENT: clubbing, tenderness, +1 edema - Right first toe necrosis. ABSENT: calf tenderness, pedal edema Neurological exam: PRESENT: alert, awake, oriented to person, oriented to place, oriented to time, oriented to situation, CN II-XII grossly intact. ABSENT: motor sensory deficit Psychiatric exam: PRESENT: appropriate affect. ABSENT: homicidal ideation, suicidal ideation Skin exam: PRESENT: dry, intact, warm. ABSENT: cyanosis, rash Results Laboratory Results: WBC 9.3 10^3/uL (4.0-10.5) 05/10/20 05:02 RBC 2.89 10^6/uL (3.72-5.28) L 05/10/20 05:02 Hgb 8.8 g/dL (12.0-15.5) L 05/10/20 05:02 Hct 26.9 % (36.0-47.0) L 05/10/20 05:02 MCV 93 fl (80-97) 05/10/20 05:02 MCH 30.4 pg (27.0-33.4) 05/10/20 05:02 MCHC 32.8 g/dL (32.0-36.0) 05/10/20 05:02 RDW 16.3 % (11.5-14.0) H 05/10/20 05:02 Plt Count 366 10^3/uL (150-450) 05/10/20 05:02 Lymph % (Auto) 11.2 % (13-45) L 05/09/20 12:45 Milam % (Auto) 7.0 % (3-13) 05/09/20 12:45 Eos % (Auto) 1.4 % (0-6) 05/09/20 12:45 Baso % (Auto) 0.8 % (0-2) 05/09/20 12:45 Absolute Neuts (auto) 9.1 10^3/uL (1.7-8.2) H 05/09/20 12:45 Absolute Lymphs (auto) 1.3 10^3/uL (0.5-4.7) 05/09/20 12:45 Absolute Monos (auto) 0.8 10^3/uL (0.1-1.4) 05/09/20 12:45 Absolute Eos (auto) 0.2 10^3/uL (0.0-0.6) 05/09/20 12:45 Absolute Basos (auto) 0.1 10^3/uL (0.0-0.2) 05/09/20 12:45 Seg Neutrophils % 79.6 % (42-78) H 05/09/20 12:45 PT 14.0 SEC (11.4-15.4) 05/09/20 12:45 INR 1.06 05/09/20 12:45 Sodium 133.3 mmol/L (137-145) L 05/10/20 05:02 Potassium 4.5 mmol/L (3.6-5.0) 05/10/20 05:02 Chloride 100 mmol/L (98-107) 05/10/20 05:02 Carbon Dioxide 27 mmol/L (22-30) 05/10/20 05:02 Anion Gap 6 (5-19) 05/10/20 05:02 BUN 37 mg/dL (7-20) H 05/10/20 05:02 Creatinine 3.94 mg/dL (0.52-1.25) H 05/10/20 05:02 Est GFR ( Amer) 14 (>60) L 05/10/20 05:02 Est GFR (MDRD) Non-Af 12 (>60) L 05/10/20 05:02 Glucose 294 mg/dL (75-110) H 05/10/20 05:02 Calcium 8.4 mg/dL (8.4-10.2) 05/10/20 05:02 Magnesium 2.1 mg/dL (1.6-2.3) 05/10/20 05:02 Total Bilirubin 0.8 mg/dL (0.2-1.3) 05/09/20 12:45 Direct Bilirubin 0.6 mg/dL (0.0-0.4) H 05/09/20 12:45 Neonat Total Bilirubin Not Reportable 05/09/20 12:45 Neonat Direct Bilirubin Not Reportable 05/09/20 12:45 Neonat Indirect Bili Not Reportable 05/09/20 12:45 AST 29 U/L (14-36) 05/09/20 12:45 ALT 32 U/L (<35) 05/09/20 12:45 Alkaline Phosphatase 85 U/L (38-126) 05/09/20 12:45 Ammonia < 8.7 umol/L (9-33) L 05/09/20 13:43 Troponin I 0.186 ng/mL 05/09/20 12:45 Total Protein 5.3 g/dL (6.3-8.2) L 05/09/20 12:45 Albumin 2.5 g/dL (3.5-5.0) L 05/09/20 12:45 05/09/20 12:45 Troponin I 0.186 Impressions: Chest X-Ray 05/09/20 12:17 IMPRESSION: Constellation of findings suggests CHF exacerbation. Infectious etiology is not excluded. Foot X-Ray 05/09/20 12:17 IMPRESSION: Circumferential soft tissue edema of the forefoot. No underlying osseous injury. Head CT 05/09/20 12:17 IMPRESSION: NORMAL BRAIN CT WITHOUT CONTRAST. EVIDENCE OF ACUTE STROKE: NO. Plan Health Concerns: Follow-up with vascular surgery as scheduled. Patient and daughter have also been advised on the need to to decrease Neurontin dose going forward Time Spent: Less than 30 Minutes Stroke Is this a Stroke Patient?: No Acute Heart Failure Is this a Heart Failure Patient?: No
[2020-05-11 17:57] VITALS: BP 128/50
== END 2020-05-11 18:54 | disposition home health service (06) ==
LOC: ER 11:13 → EH 16:25 → 4N 17:29
PROVIDERS: ADMIT Internal Medicine; ATTEND Internal Medicine
DX: G92 Toxic encephalopathy (principal); T42.6X5A Adverse effect of other antiepileptic and sedative-hypnotic drugs, initial encounter; M79.672 Pain in left foot; M79.671 Pain in right foot; E11.52 Type 2 diabetes mellitus with diabetic peripheral angiopathy with gangrene; I96 Gangrene, not elsewhere classified; E11.42 Type 2 diabetes mellitus with diabetic polyneuropathy; E11.22 Type 2 diabetes mellitus with diabetic chronic kidney disease; I12.0 Hypertensive chronic kidney disease with stage 5 chronic kidney disease or end stage renal disease; N18.6 End stage renal disease; Z99.2 Dependence on renal dialysis; R29.810 Facial weakness; G47.33 Obstructive sleep apnea (adult) (pediatric); R29.6 Repeated falls; D63.1 Anemia in chronic kidney disease; R27.0 Ataxia, unspecified; R11.10 Vomiting, unspecified; R32 Unspecified urinary incontinence; R47.01 Aphasia; I25.2 Old myocardial infarction; Z82.3 Family history of stroke; I25.10 Atherosclerotic heart disease of native coronary artery without angina pectoris; R79.89 Other specified abnormal findings of blood chemistry; Z95.5 Presence of coronary angioplasty implant and graft; Z95.1 Presence of aortocoronary bypass graft; Z79.899 Other long term (current) drug therapy; Z79.82 Long term (current) use of aspirin; Z82.49 Family history of ischemic heart disease and other diseases of the circulatory system; Z90.49 Acquired absence of other specified parts of digestive tract
CPT/HCPCS: 93005; 99285; 36415 ×2; 82140; 83735; 85025; 85027; 85610; 80048; 80053; 84484; 71045; 73630; 70450; 93010; 94660 ×3; 97530; 97163; G0378 ×4; A9270 ×34; J3490 ×5; J1644 ×4; J2405 ×2; Q5105; G0257

== ENCOUNTER 2020-05-22 16:34 | Emergency (ER) | payer MEDICARE ==
[2020-05-22] MEDS ORDERED: MORPHINE SULFATE 10 MG/ML INJ IV ONE ×3 (16:54→22:10)
--- NOTE | 2020-05-22 16:58 | ER Document Report ---
ED Medical Screen (RME) - General Chief Complaint: Foot Pain Stated Complaint: LEFT FOOT/PAIN IN TOES Time Seen by Provider: 05/22/20 16:48 Primary Care Provider: DARCI COON FNP-C [Primary Care Provider] - Follow up as needed Mode of Arrival: Wheelchair Information source: Patient Notes: HPI; a 59-year-old female presents to the emergency room with her family complaining of worsening severe left foot pain. Patient states she had surgery at [place] a week ago by vascular surgeon to increase the blood flow to her legs. States she was post to have it done to the right as well but is been delayed due to insurance issues. Patient is complaining of worsening pain for the past 2 days he noticed increased discoloration to the toes and foot MRI this morning. Of her pain medication prior to arrival. States called the vascular surgeon and was told to they could not come to the office today due to an insurance issue. Referred to the emergency room. PE: Alert and oriented x3. Lungs: Clear to auscultation without rales, rhonchi, wheezes. Heart: Regular rate rhythm without murmurs, rubs, gallops. Unable to fully palpate a pedal pulse to the left foot. Charge nurse notified will be taken directly to bed. I have greeted and performed a rapid initial assessment of this patient. A comprehensive ED assessment and evaluation of the patient, analysis of test results and completion of the medical decision making process will be conducted by additional ED providers. I have specifically instructed the patient or family members with the patient to immediately return to any nursing staff should anything change in the patient's condition or with their chief complaint. TRAVEL OUTSIDE OF THE [place] IN LAST 30 DAYS: No - Related Data Allergies/Adverse Reactions: No Known Allergies Allergy (Verified 05/09/20 13:13) Past Medical History - Social History Frequency of alcohol use: None Drug Abuse: None - Past Medical History Cardiac Medical History: Reports: Hx Coronary Artery Disease, Hx Heart Attack - 2014 SILENT, Hx Hypercholesterolemia, Hx Hypertension, Hx Peripheral Vascular Disease Pulmonary Medical History: Reports: Hx COPD Denies: Hx Asthma Neurological Medical History: Reports: Hx Cerebrovascular Accident, Hx Seizures - Patient unsure if what she had was a seizure or a stroke Endocrine Medical History: Reports: Hx Diabetes Mellitus Type 2 Renal/ Medical History: Reports: Hx End Stage Renal Disease, Hx Hemodialysis, Hx Renal Insufficiency. Denies: Hx Peritoneal Dialysis GI Medical History: Denies: Hx Hepatitis, Hx Hiatal Hernia, Hx Ulcer Psychiatric Medical History: Reports: Hx Depression Infectious Medical History: Denies: Hx Hepatitis Past Surgical History: Reports: Hx Appendectomy, Hx Cardiac Surgery - cabg, Hx Coronary Artery Bypass Graft, Hx Coronary Stent, Hx Open Heart Surgery, Hx Tubal Ligation. Denies: Hx Hysterectomy, Hx Mastectomy, Hx Pacemaker Physical Exam - Vital signs Vitals: Temp Pulse Resp BP Pulse Ox 98.0 F 91 16 155/72 H 96 05/22/20 16:47 05/22/20 16:47 05/22/20 16:47 05/22/20 16:47 05/22/20 16:47 Course - Vital Signs Vital signs: Temp Pulse Resp BP Pulse Ox 98.0 F 91 16 155/72 H 96 05/22/20 16:47 05/22/20 16:47 05/22/20 16:47 05/22/20 16:47 05/22/20 16:47 Doctor's Discharge - Discharge Referrals: DARCI COON INF[employer] TOD[employer] LEAD TEACHER-C [Primary Care Provider] - Follow up as needed
[2020-05-22 18:28] LABS: HEMATOCRIT 32.2 % (36.0-47.0); HEMOGLOBIN 10.8 g/dL (12.0-15.5); MEAN CORPUSCULAR HEMOGLOBIN 30.1 pg (27.0-33.4); MEAN CORPUSCULAR HGB CONC 33.6 g/dL (32.0-36.0); PLATELET COUNT 587 10^3/uL (150-450); RED CELL DISTRIBUTION WIDTH 16.8 % (11.5-14.0); WHITE BLOOD COUNT 20.3 10^3/uL (4.0-10.5)
[2020-05-22 18:32] LABS: PROTHROMBIN TIME 14.4 SEC (11.4-15.4)
[2020-05-22 18:55] LABS: ABSOLUTE LYMPHOCYTES# (MANUAL) 0.8 10^3/uL (0.5-4.7); ABSOLUTE MONOCYTES # (MANUAL) 0.4 10^3/uL (0.1-1.4); BASOPHILS % (MANUAL) 0 % (0-2); EOSINOPHILS % (MANUAL) 0 % (0-6); LYMPHOCYTES % (MANUAL) 4 % (13-45); MONOCYTES % (MANUAL) 2 % (3-13); SEGMENTED NEUTROPHILS % (MAN) 94 % (42-78); TOTAL CELLS COUNTED 100
[2020-05-22 18:56] LABS: ANISOCYTOSIS 1+; PLATELET COMMENT INCREASED
[2020-05-22 18:57] LABS: MEAN CORPUSCULAR VOLUME 89 fl (80-97)
--- NOTE | 2020-05-22 19:00 | ER Document Report ---
ED General - General Chief Complaint: Foot Pain Stated Complaint: LEFT FOOT/PAIN IN TOES Time Seen by Provider: 05/22/20 16:48 Primary Care Provider: DARCI COON FNP-C [Primary Care Provider] - Follow up as needed Mode of Arrival: Wheelchair TRAVEL OUTSIDE OF THE [place] IN LAST 30 DAYS: No - HPI Notes: 59-year-old female presents with foot pain and discoloration. Patient has known peripheral vascular disease. On Friday, 1 week ago, patient underwent a procedure to unclog the arteries of her left leg. Unsure if graft was placed. This was done by Dr. Conner of [facility] vein and vascular based in [place]. Patient is actually scheduled to have same procedure done tomorrow on the right leg. Patient's daughter states that Friday through Friday patient was doing well. On he noticed that her first 3 toes and the bottom of her sole started to turn purple. On Friday the purple areas turned black and the blisters developed. States that they called the office today to be seen, however told that because of insurance she was not able to be seen in the office and was told to go to the emergency department after dialysis. Patient is a MWF dialysis patient, she had a full session today. Patient states increasing pain to the left foot, she has not been able to walk due to the pain. She has a similar area on her right toe which is at its baseline, stated that that is what started this whole evaluation. She takes Plavix but no other blood thinner. - Related Data Allergies/Adverse Reactions: No Known Allergies Allergy (Verified 05/09/20 13:13) Past Medical History - General Information source: Patient, Relative - Social History Smoking Status: Former Smoker Frequency of alcohol use: None Drug Abuse: None Family History: CAD, CVA, DM, Hypertension - Past Medical History Cardiac Medical History: Reports: Hx Coronary Artery Disease, Hx Heart Attack - 2014 SILENT, Hx Hypercholesterolemia, Hx Hypertension, Hx Peripheral Vascular Disease Pulmonary Medical History: Reports: Hx COPD Denies: Hx Asthma Neurological Medical History: Reports: Hx Cerebrovascular Accident, Hx Seizures - Patient unsure if what she had was a seizure or a stroke Endocrine Medical History: Reports: Hx Diabetes Mellitus Type 2 Renal/ Medical History: Reports: Hx End Stage Renal Disease, Hx Hemodialysis, Hx Renal Insufficiency. Denies: Hx Peritoneal Dialysis GI Medical History: Denies: Hx Hepatitis, Hx Hiatal Hernia, Hx Ulcer Psychiatric Medical History: Reports: Hx Depression Infectious Medical History: Denies: Hx Hepatitis Past Surgical History: Reports: Hx Appendectomy, Hx Cardiac Surgery - cabg, Hx Coronary Artery Bypass Graft, Hx Coronary Stent, Hx Open Heart Surgery, Hx Tubal Ligation. Denies: Hx Hysterectomy, Hx Mastectomy, Hx Pacemaker Review of Systems - Review of Systems Constitutional: denies: Fever EENT: No symptoms reported Cardiovascular: denies: Chest pain Respiratory: Hurts to breathe. denies: Short of breath Genitourinary: No symptoms reported Female Genitourinary: No symptoms reported Musculoskeletal: Joint swelling Skin: Change in color Hematologic/Lymphatic: No symptoms reported Neurological/Psychological: denies: Numbness Physical Exam - Vital signs Vitals: Temp Pulse Resp BP Pulse Ox 98.0 F 91 16 155/72 H 96 05/22/20 16:47 05/22/20 16:47 05/22/20 16:47 05/22/20 16:47 05/22/20 16:47 - General General appearance: Alert - HEENT Head: Normocephalic, Atraumatic Extraocular movements intact: Yes Pupils: PERRL - Respiratory Breath sounds: Normal - Cardiovascular Rhythm: Regular Heart sounds: Normal auscultation Pulses: Absent: Posterior tibial, Dorsalis pedis Normal capillary refill: No - Abdominal Tenderness: Nontender - Extremities Notes: Black discoloration to left first second and third toes. There is a blister present to the dorsum of the left foot with underlying black discoloration. There is a large area of black discoloration to the sole of the left foot with blister present. Patient is able to wiggle toes, tender to palpation. There is an elliptical area of black discoloration to the distal right first toe. Both legs are cool to touch - Neurological Cognition: Normal Orientation: AAOx4 Notes: Decreased sensation but overall intact to lower extremities - Psychological Associated symptoms: Normal affect - Skin Skin Moisture: Dry Course - Re-evaluation Re-evalutation: 59-year-old female here with black discoloration to left toes/sole which is acute per patient. 1 week ago on Friday she underwent an arterial procedure, she has an access site to her right femoral area. She has obvious ischemia to multiple areas of the left foot. Both legs are cool. She does not have palpable pulses. Prior to evaluation she had an arterial ultrasound done which is concerning for occlusion. I reviewed the measurements and appears to have severely reduced blood flow, most is mono phasic. Final report is pending. Will start a heparin drip at this time. Attempted to call office that performed procedure, currently closed. 05/22/20 20:33 Radiology report is available. There is evidence of arterial occlusion on the left leg. The right leg additionally has arterial occlusions as well which is suspecting to be subacute in nature. I have paged the [facility] to speak with vascular surgery on-call. Additionally ordered a CTA of the leg to evaluate further. 05/22/20 21:00 Patient reports some improvement in her pain, updated her on current plan 05/22/20 21:33 Patient has been accepted by vascular surgery, Dr. Hernandez, she will be going ED the ED to [facility] 10 21:46 We will cancel CTA at this time as she is going for procedure. Patient and daughter updated. - Vital Signs Vital signs: Temp Pulse Resp BP Pulse Ox 98.0 F 91 15 145/76 H 99 05/22/20 16:47 05/22/20 16:47 05/22/20 21:00 05/22/20 19:01 05/22/20 21:00 - Laboratory Result Diagrams: 05/22/20 18:10 05/22/20 18:10 Laboratory results interpreted by me: 05/22/20 18:10 WBC 20.3 H RBC 3.60 L Hgb 10.8 L Hct 32.2 L RDW 16.8 H Plt Count 587 H Seg Neuts % (Manual) 94 H Lymphocytes % (Manual) 4 L Monocytes % (Manual) 2 L Abs Neuts (Manual) 19.1 H - Diagnostic Test Radiology reviewed: Image reviewed, Reports reviewed Discharge - Discharge Clinical Impression: Arterial occlusion, lower extremity Disposition: [facility] Referrals: DARCI COON FNP-C [Primary Care Provider] - Follow up as needed
[2020-05-22 19:05] VITALS: BP 145/76
[2020-05-22] MEDS ORDERED: HEPARIN SOD (PORCINE) 1,000 UNIT/ML 10 ML VIAL IV ONE (19:21)
[2020-05-22] MEDS ORDERED: HEPARIN SODIUM,PORCINE/D5W 25,000 UNIT/250 ML RTUINJ IV PRN (19:21)
--- NOTE | 2020-05-22 19:40 | RADIOLOGY REPORT (SQ) ---
EXAM DESCRIPTION: FOOT LEFT 2 VIEWS IMAGES COMPLETED DATE/TIME: 05/22/2020 7:32 pm REASON FOR STUDY: eval evidence of gas COMPARISON: None. NUMBER OF VIEWS: Three views. TECHNIQUE: AP, lateral and oblique radiographic images acquired of the left foot. LIMITATIONS: None. FINDINGS: MINERALIZATION: Normal. BONES: No acute fracture or dislocation. No worrisome bone lesions. JOINTS: No effusions. SOFT TISSUES: Soft tissue edema. No subcutaneous gas is identified. There is extensive vascular arielle cification. OTHER: No other significant finding. IMPRESSION: Soft tissue swelling. No soft tissue gas is noted. TECHNICAL DOCUMENTATION: JOB ID: [id number] [employer]- All Rights Reserved Reading location - IP/workstation name: [email or web address]
--- NOTE | 2020-05-22 19:42 | RADIOLOGY REPORT (SQ) ---
EXAM DESCRIPTION: TIBIA FIBULA LEFT IMAGES COMPLETED DATE/TIME: 05/22/2020 7:32 pm REASON FOR STUDY: eval evidence of gas COMPARISON: None. NUMBER OF VIEWS: Two views. TECHNIQUE: Two radiographic images acquired of the left tibia and fibula to include the knee and ank le in at least one projection. LIMITATIONS: None. FINDINGS: MINERALIZATION: Normal. BONES: No acute fracture or dislocation. No worrisome bone lesions. SOFT TISSUES: Diffuse calf edema. Vascular calcification. OTHER: No other significant finding. IMPRESSION: Diffuse calf edema and vascular calcification. No underlying bony abnormalities. TECHNICAL DOCUMENTATION: JOB ID: [id number] 2010 [employer]- All Rights Reserved Reading location - IP/workstation name: [email or web address]
--- NOTE | 2020-05-22 20:12 | RADIOLOGY REPORT (SQ) ---
EXAM DESCRIPTION: Ecchymosis. Decreased circulation. Black toes. CLINICAL HISTORY: 59 years Female, Ecchymosis, decreased circulation TECHNIQUE: Ultrasound of the arteries of the leg performed with grayscale, pulsed Doppler, and color Doppler. COMPARISON: Bilateral lower extremity arterial vascular assessment May 04, 2020 FINDINGS: Right leg (velocities in cm/s): MACHINE EDGE BANDER: Monophasic, 199 cm/s DFA: Monophasic, 99.2cm/s SFA-proximal: Monophasic, 64.2cm/s SFA-mid: Monophasic, 55.0cm/s SFA-distal: Monophasic, 28.4cm/s Popliteal: Monophasic, 19.1cm/s Distal popliteal artery: Occluded Proximal CHIEF OF VITAL STATISTICS: Occluded Distal CHIEF OF VITAL STATISTICS: Occluded Proximal BA: Occluded Distal BA: Monophasic, 16.6cm/s Dorsalis pedis: Monophasic, 17.1cm/s Mid peroneal artery: Monophasic, 27.7 cm/s Comment: Extensive arterial calcifications are seen. Velocity of the common femoral artery has increased when compared to the previous exam suggesting interval development of a stenosis. There is occlusion of the popliteal artery and multiple tibial vessels. No continuous runoff to the foot. When compared to the previous exam the runoff vessels have worsened since previously there is two vessel runoff. In addition the common femoral artery stenosis appears new. Left leg (velocities in cm/s): MACHINE EDGE BANDER: Monophasic, 114cm/s DFA: Monophasic, 122cm/s SFA-proximal: Monophasic, 85.4cm/s SFA-mid: Monophasic, 81.5cm/s SFA-distal: Monophasic, 61.4cm/s Popliteal: Monophasic, 91.0cm/s Distal popliteal artery: Monophasic, 91.5 cm/s Proximal CHIEF OF VITAL STATISTICS: Occluded Distal CHIEF OF VITAL STATISTICS: Minimal flow with a venous waveform, 16.1 cm/scm/s Proximal BA: Monophasic, 96.8cm/s Distal BA: Monophasic, 176cm/s Dorsalis pedis: Monophasic, 47.1cm/s Mid peroneal artery: Occluded Comment: There is abnormal waveforms throughout suggesting inflow disease such as a aorta iliac disease. Heart rate is irregular. Single vessel runoff via the anterior tibial artery. On the previous exam there is two vessel runoff. IMPRESSION: 1. Extensive multilevel atherosclerotic vascular disease with stenosis and occlusions. There is monophasic waveforms throughout suggesting aortoiliac occlusive disease. Irregular heart rate. 2. Right lower extremity: Interval development of a stenosis in the common femoral artery. Occlusion of the distal popliteal artery with no continuous runoff vessels to the foot. 3. Right lower extremity: Monophasic waveforms throughout suggesting aortoiliac occlusive disease. Single-vessel runoff via the anterior tibial artery.
[2020-05-22 21:44] LABS: ALBUMIN 2.2 g/dL (3.5-5.0); ALKALINE PHOSPHATASE 160 U/L (38-126); ANION GAP 9 (5-19); ASPARTATE AMINO TRANSFERASE 107 U/L (14-36); BILIRUBIN,DIRECT 0.9 mg/dL (0.0-0.4); BILIRUBIN,TOTAL 1.1 mg/dL (0.2-1.3); BLOOD UREA NITROGEN 14 mg/dL (7-20); CALCIUM 7.8 mg/dL (8.4-10.2); CARBON DIOXIDE 27 mmol/L (22-30); CHLORIDE 99 mmol/L (98-107); CREATINE KINASE 70 U/L (30-135); GLUCOSE 201 mg/dL (75-110); POTASSIUM 3.1 mmol/L (3.6-5.0); TOTAL PROTEIN 5.4 g/dL (6.3-8.2)
[2020-05-22] MEDS ORDERED: HEPARIN SOD (PORCINE) 1,000 UNIT/ML 10 ML VIAL IV PRN (22:21)
== END 2020-05-22 22:28 | disposition short-term general hospital (02) ==
LOC: ER 16:34
DX: I70.203 Unspecified atherosclerosis of native arteries of extremities, bilateral legs (principal); M79.672 Pain in left foot; I25.10 Atherosclerotic heart disease of native coronary artery without angina pectoris; E78.00 Pure hypercholesterolemia, unspecified; E11.22 Type 2 diabetes mellitus with diabetic chronic kidney disease; I12.0 Hypertensive chronic kidney disease with stage 5 chronic kidney disease or end stage renal disease; N18.6 End stage renal disease; I25.2 Old myocardial infarction; Z99.2 Dependence on renal dialysis; Z86.73 Personal history of transient ischemic attack (TIA), and cerebral infarction without residual deficits; Z95.1 Presence of aortocoronary bypass graft; Z79.02 Long term (current) use of antithrombotics/antiplatelets
CPT/HCPCS: 99285; 96375; 96365; 96366; 36415; 82550; 85025; 85610; 85730; 80053; 93925; 73620; 73590; J1644 ×2; J2270

== ENCOUNTER 2020-07-22 17:58 | Emergency (ER) | payer MEDICARE ==
[2020-07-22 20:25] LABS: ABSOLUTE BASOPHILS # (AUTO) 0.1 10^3/uL (0.0-0.2); ABSOLUTE EOSINOPHILS # (AUTO) 0.7 10^3/uL (0.0-0.6); ABSOLUTE LYMPHOCYTES (AUTO) 1.6 10^3/uL (0.5-4.7); ABSOLUTE MONOCYTES (AUTO) 0.4 10^3/uL (0.1-1.4); BASOPHILS % (AUTO) 1.3 % (0-2); EOSINOPHILS % (AUTO) 7.9 % (0-6); HEMATOCRIT 25.8 % (36.0-47.0); HEMOGLOBIN 8.4 g/dL (12.0-15.5); LYMPHOCYTES % (AUTO) 17.9 % (13-45); MEAN CORPUSCULAR HEMOGLOBIN 29.1 pg (27.0-33.4); MEAN CORPUSCULAR HGB CONC 32.5 g/dL (32.0-36.0); MEAN CORPUSCULAR VOLUME 90 fl (80-97); MONOCYTES % (AUTO) 4.9 % (3-13); PLATELET COUNT 390 10^3/uL (150-450); RED BLOOD COUNT 2.88 10^6/uL (3.72-5.28); RED CELL DISTRIBUTION WIDTH 18.2 % (11.5-14.0); TOTAL CELLS COUNTED % (AUTO) 100 %; WHITE BLOOD COUNT 8.8 10^3/uL (4.0-10.5)
[2020-07-22 20:58] LABS: CREATINE KINASE MB 0.79 ng/mL (<4.55)
[2020-07-22 21:00] LABS: TROPONIN I < 0.012 ng/mL
[2020-07-22] MEDS ORDERED: NEOMY/BACITRAC ZN/POLY OINT 15 GM TP ONE (22:23)
--- NOTE | 2020-07-22 22:30 | ER Document Report ---
ED Extremity Problem, Upper - General Chief Complaint: Electrical Burn Stated Complaint: SHOCKED FROM OUTLET Time Seen by Provider: 07/22/20 22:13 Primary Care Provider: CHERYL RICO MD [Primary Care Provider] - 07/24/20 TRAVEL OUTSIDE OF THE [place] IN LAST 30 DAYS: No - HPI Patient complains to provider of: Other - Left index finger burn Onset: Just prior to arrival Recent injury: Yes Where: Assisted Quality of pain: Burning Severity of pain: Mild Pain Level: 2 Context: Other - Patient reportedly accidentally shot her left index finger on the connection to her wound VAC Associated symptoms: None Exacerbated by: Nothing Relieved by: Nothing - Related Data Allergies/Adverse Reactions: No Known Allergies Allergy (Verified 05/09/20 13:13) Past Medical History - General Information source: Patient - Social History Smoking Status: Never Smoker Chew tobacco use (# tins/day): No Frequency of alcohol use: None Drug Abuse: None Lives with: Assisted Family History: Reviewed & Not Pertinent, CAD, CVA, DM, Hypertension Patient has homicidal ideation: No - Past Medical History Cardiac Medical History: Reports: Hx Coronary Artery Disease, Hx Heart Attack - 2013 SILENT, Hx Hypercholesterolemia, Hx Hypertension, Hx Peripheral Vascular Disease Pulmonary Medical History: Reports: Hx COPD Denies: Hx Asthma Neurological Medical History: Reports: Hx Cerebrovascular Accident, Hx Seizures - Patient unsure if what she had was a seizure or a stroke Endocrine Medical History: Reports: Hx Diabetes Mellitus Type 2 Renal/ Medical History: Reports: Hx End Stage Renal Disease, Hx Hemodialysis, Hx Renal Insufficiency. Denies: Hx Peritoneal Dialysis GI Medical History: Denies: Hx Hepatitis, Hx Hiatal Hernia, Hx Ulcer Psychiatric Medical History: Reports: Hx Depression Infectious Medical History: Denies: Hx Hepatitis Past Surgical History: Reports: Hx Appendectomy, Hx Cardiac Surgery - cabg, Hx Coronary Artery Bypass Graft, Hx Coronary Stent, Hx Open Heart Surgery, Hx Tubal Ligation. Denies: Hx Hysterectomy, Hx Mastectomy, Hx Pacemaker Review of Systems - Review of Systems Constitutional: denies: Fever EENT: No symptoms reported Cardiovascular: denies: Chest pain Respiratory: No symptoms reported Gastrointestinal: No symptoms reported Genitourinary: No symptoms reported Female Genitourinary: No symptoms reported Musculoskeletal: Other - Left index finger pain Skin: Other - Left index finger burn Hematologic/Lymphatic: No symptoms reported Neurological/Psychological: No symptoms reported -: Yes All other systems reviewed and negative Physical Exam - Vital signs Vitals: Pulse Ox 98 07/22/20 20:40 - Notes Notes: CONSTITUTIONAL [Vital signs reviewed, Patient appears chronically ill but does not appear to be in acute distress, HEAD [Atraumatic, Normocephalic.] EYES [Eyes are normal to inspection, No discharge from eyes, Extraocular muscles intact, Sclera are normal, Conjunctiva are normal.] ENT [External ears normal to inspection, Nose examination normal, Mouth normal to inspection.] RESPIRATORY CHEST [Chest is nontender, Breath sounds normal, No respiratory distress.] CARDIOVASCULAR [RRR, No murmurs, Normal S1 S2, No rub, No gallop.] ABDOMEN [Abdomen is nontender, No pulsatile masses, No other masses, Bowel sounds normal, No distension, No peritoneal signs, No hernias.] UPPER EXTREMITY No cyanosis, No clubbing, No edema, patient has a very mild area of erythema on the tip of her left index finger. There is no blister or charring noted LOWER EXTREMITY [Inspection normal, No cyanosis, No clubbing, No edema, No calf tenderness, NEURO [No focal motor deficits, No focal sensory deficits, Speech normal.] SKIN First-degree burn noted left index fingertip PSYCHIATRIC [Normal affect. ] Course - Re-evaluation Re-evalutation: 07/22/20 22:30 Results of ED MSE discussed with patient. Plan of care discussed with patient. Follow-up discussed with patient. - Vital Signs Vital signs: Temp Pulse Resp BP Pulse Ox 98 07/22/20 20:40 - Laboratory Results Result Diagrams: 07/22/20 19:55 07/22/20 19:55 Laboratory Results Interpreted: 07/22/20 19:55 RBC 2.88 L Hgb 8.4 L Hct 25.8 L RDW 18.2 H Eos % (Auto) 7.9 H Absolute Eos (auto) 0.7 H Critical Laboratory Results Reviewed: Yes Attending or Supervising Physician who Reviewed Labs: MODESTO STRAUSS IV - H&H is 8.4 and 25.8; review of prior labs reveals patient is chronically anemic - Radiology Results Critical Radiology Results Reviewed: No Critical Results - EKG Interpretation by Me Additional EKG results interpreted by me: 07/22/20 22:44 EKG obtained on 07/22/2020 at 1833 hrs. was interpreted by this MD. Findings: Sinus tachycardia, rate 116, normal axis, MO interval appears to be within normal limits, P waves preceding QRS complexes, QRS complexes appear narrow, QTC is 451, there are no obvious patterns of ST segment elevation, depression or reciprocal changes seen to suggest acute myocardial ischemia or infarction. When compared to prior EKG from 05/09/2020 the gross morphology of the 2 EKGs is unchanged. Impression: Sinus tachycardia with nonspecific ST segments. Discharge - Discharge Clinical Impression: Superficial burn of index finger of left hand Condition: Stable Disposition: HOME, SELF-CARE Instructions: [place] ([facility]) Additional Instructions: Return to the Emergency Department without delay if any worse. HOME CARE INSTRUCTIONS & INFORMATION: Thank you for choosing us for your medical needs. We hope you're satisfied with the care you received. After you leave, you must properly care for your problem and, at the same time, observe its progress. Any condition can change. Some illnesses can change rapidly over hours or days. If your condition worsens, return to the Emergency Department or see your physician promptly. ABOUT YOUR X-RAYS AND EKG'S: If you had an EKG or X-rays taken, they have been read by the Emergency Physician. The X-rays and EKG's will also be read by a Radiologist or Title Officer within 24 hours. If discrepancies are noted, you will be notified by telephone. Please be certain the ED has a correct telephone number & address where you can be reached. Also, realize that some fractures or abnormalities do not show up on initial X-rays. If your symptoms continue, see your physician. ABOUT YOUR LABORATORY TEST: If you had laboratory tests, the results have been reviewed by the Emergency Physician. Some test results (for example cultures) may not be available for several days. You will be contacted if any test result shows you need additional treatment. Please be certain the ED has a correct telephone number and address where you can be reached. ABOUT YOUR MEDICATIONS: You will receive instructions on how to take your medicine on the prescription label you receive. Additional information may be provided by the Pharmacy. If you have questions afterwards, call the ED for clarification or further instructions. Some prescribed medications may cause drowsiness. Do not perform tasks such as driving a car or operating machinery without consulting your Pharmacist. If you feel you need a refill of pain medication, your condition will need re-evaluation. Please do not call for a refill of any medication. ABOUT YOUR SIGNATURE: Signature of this document acknowledges to followin. Understanding that you received emergency treatment and that you may be released before al medical problems are known or treated. Please be certain the ED has a correct phone number & address where you can be reached. 2. Acknowledgement that you will arrange for follow-up care as recommended. 3. Authorization for the Emergency Physician to provide information to your follow-up Physician in order to maximize your care. AT ANY TIME, IF YOUR SYMPTOMS CHANGE SIGNIFICANTLY OR WORSEN OR YOU DEVELOP NEW SYMPTOMS, RETURN TO THE EMERGENCY DEPARTMENT IMMEDIATELY FOR RE-EVALUATION. OUR GOAL IS TO PROVIDE EXCELLENT MEDICAL CARE! WE HOPE THAT WE HAVE MET YOUR EXPECTATIONS DURING YOUR EMERGENCY DEPARTMENT VISIT AND THAT YOU FEEL YOU HAVE RECEIVED EXCELLENT CARE! Referrals: CHERYL RICO MD [Primary Care Provider] - 07/24/20
[2020-07-23 00:33] VITALS: BP 128/54
--- NOTE | 2020-07-24 00:14 | EKG REPORT ---
SEVERITY:- ABNORMAL ECG - SINUS TACHYCARDIA LEFT ATRIAL ABNORMALITY ABNRM R PROG, CONSIDER ASMI OR LEAD PLACEMENT ABNORMAL T, CONSIDER ISCHEMIA, LATERAL LEADS : Confirmed by: Heidi Malik 24-Jul-2020 00:13:49
== END 2020-07-23 00:34 | disposition home or self-care (01) ==
LOC: ER 17:58
DX: T75.4XXA Electrocution, initial encounter (principal); T23.122A Burn of first degree of single left finger (nail) except thumb, initial encounter; W86.8XXA Exposure to other electric current, initial encounter; Y93.89 Activity, other specified; Y92.129 Unspecified place in nursing home as the place of occurrence of the external cause; R00.0 Tachycardia, unspecified; E11.51 Type 2 diabetes mellitus with diabetic peripheral angiopathy without gangrene; I12.0 Hypertensive chronic kidney disease with stage 5 chronic kidney disease or end stage renal disease; E11.22 Type 2 diabetes mellitus with diabetic chronic kidney disease; D63.1 Anemia in chronic kidney disease; N18.6 End stage renal disease; Z99.2 Dependence on renal dialysis; I25.10 Atherosclerotic heart disease of native coronary artery without angina pectoris; I25.2 Old myocardial infarction
CPT/HCPCS: 36415; 82553; 84484; 85025; 93005; 93010; 99284; J3490